=== PATIENT | female | born 1965 | race Caucasian/White ===

== ENCOUNTER 2016-10-10 02:32 | Observation (INO) | payer OTHER ==
[~2016-10-10] VITALS: Ht 167.6 cm; Wt 83.1 kg
[~2016-10-10 02:32] MED LIST: ASPI81TA28 PO; BACL1TAB PO; CALCTAB65 PO; CARB200T PO; CHOL1TAB42 PO; CLON0.5T3 PO; CRAN1TAB PO; DIVA500T59 PO; LEVO50TA6 PO; NORT25CA2 PO; OMEP20CA9 PO; PHEN1TAB85 PO; SENN-61 PO; SENNTAB23 PO; SPIR25TA89 PO; VITA400C3 PO
[2016-10-10 03:37] LABS: BASO % 0.5 %; BASO ABS # 0.03 K/uL (0-0.2); COMPLETE YES; EOS % 4.1 %; HEMATOCRIT 40.3 % (37-47); MEAN CELL VOLUME 93.7 fL (80-100); MEAN CORPUSCULAR HEMOGLOBIN 30.9 pg (25-34); MEAN PLATELET VOLUME 9.5 fL (7.4-10.4); MONO % 6.9 %; NEUT % 45.5 %; PLATELET COUNT 252 K/uL (130-400); WHITE BLOOD COUNT 6.05 K/uL (4.8-10.8)
[2016-10-10 03:46] LABS: ISTAT CREATININE 0.7 mg/dl (0.6-1.3); ISTAT HEMOGLOBIN 13.6 g/dl (12.0-16.0); ISTAT IONIZED CALCIUM 1.11 mmol/l (1.12-1.32)
[2016-10-10 04:06] LABS: ALT/SGPT 17 U/L (12-78); AST/SGOT 11 U/L (15-37); BLOOD UREA NITROGEN 15 mg/dl (7-18); BUN/CREATININE RATIO 21.1 (10-20); CALCIUM 8.8 mg/dl (8.5-10.1); CARBON DIOXIDE 28 mmol/L (21-32); CHLORIDE 106 mmol/L (98-107); CREATININE 0.72 mg/dl (0.60-1.20); GLUCOSE 87 mg/dl (70-99); POTASSIUM 3.7 mmol/L (3.5-5.1); SODIUM 143 mmol/L (136-145)
[2016-10-10 04:11] LABS: ALKALINE PHOSPHATASE 95 U/L (45-117)
[2016-10-10 04:17] LABS: PHENOBARBITAL 23.1 mcg/mL (15.0-40.0)
--- NOTE | 2016-10-10 04:21 | EMERGENCY ROOM VISIT NOTE ---
ED Visit Note First contact with patient: 02:33 Patient seen by me, and agree with the physician assistants workup of the patient, patient is undergoing ultrasound treatment and patient will be admitted for chest pain cardiac rule out. 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, controlled Status: Chronic Surgical Problems: (1) H/O: hysterectomy Status: Resolved Current/Historical Medications Scheduled Aspirin (Aspirin Ec), 81 MG PO DAILY Baclofen (Lioresal), 10 MG PO HS Calcium Carbonate-Vitamin D (Calcium 500 + D), 1 TAB PO DAILY Carbamazepine (Tegretol), 400 MG PO AMHS Cholecalciferol (Vitamin D), 5,000 INTER.UNIT PO DAILY Clonazepam (Klonopin), 0.5 MG PO HS Cranberry (Vaccinium Macrocarp (Cranberry), 1 TAB PO QPM Divalproex Sodium (Depakote), 500 MG PO HS Levothyroxine Sodium (Levothyroxine Sodium), 50 MCG PO QAM Nortriptyline Hcl (Pamelor), 25 MG PO HS Omeprazole (Prilosec), 20 MG PO QAM Phenobarbital (Phenobarbital), 30 MG PO AMPM Senna (Senokot), 17.2 MG PO QAM Sennosides-Docusate Sodium (Stool Softener), 1 TAB PO HS Spironolactone (Aldactone), 25 MG PO AMPM Vitamin E (Vitamin E 400 Iu), 400 INTER.UNIT PO DAILY Allergies Coded Allergies: No Known Allergies (Unverified , 10/10/16) Vital Signs Date Time Temp Pulse Resp B/P (MAP) Pulse Ox O2 Delivery O2 Flow Rate FiO2 10/10/16 03:56 91 20 121/87 96 Room Air 10/10/16 02:38 87 10/10/16 02:37 36.7 92 20 139/92 99 Room Air Laboratory Results 10/10/16 03:28 Red Blood Count 4.30, Mean Corpuscular Volume 93.7, Mean Corpuscular Hemoglobin 30.9, Mean Corpuscular Hemoglobin Concent 33.0, Mean Platelet Volume 9.5, Neutrophils (%) (Auto) 45.5, Lymphocytes (%) (Auto) 43.0, Monocytes (%) (Auto) 6.9, Eosinophils (%) (Auto) 4.1, Basophils (%) (Auto) 0.5, Neutrophils # (Auto) 2.75, Lymphocytes # (Auto) 2.60, Monocytes # (Auto) 0.42, Eosinophils # (Auto) 0.25, Basophils # (Auto) 0.03 10/10/16 03:28 Test 10/10/16 03:25 10/10/16 03:28 10/10/16 03:33 D-Dimer < 190 ug/L FEU (0-500) White Blood Count 6.05 K/uL (4.8-10.8) Red Blood Count 4.30 M/uL (4.2-5.4) Hemoglobin 13.3 g/dL (12.0-16.0) Hematocrit 40.3 % (37-47) Mean Corpuscular Volume 93.7 fL (80-100) Mean Corpuscular Hemoglobin 30.9 pg (25-34) Mean Corpuscular Hemoglobin Concent 33.0 g/dl (32-36) Platelet Count 252 K/uL (130-400) Mean Platelet Volume 9.5 fL (7.4-10.4) Neutrophils (%) (Auto) 45.5 % Lymphocytes (%) (Auto) 43.0 % Monocytes (%) (Auto) 6.9 % Eosinophils (%) (Auto) 4.1 % Basophils (%) (Auto) 0.5 % Neutrophils # (Auto) 2.75 K/uL (1.4-6.5) Lymphocytes # (Auto) 2.60 K/uL (1.2-3.4) Monocytes # (Auto) 0.42 K/uL (0.11-0.59) Eosinophils # (Auto) 0.25 K/uL (0-0.5) Basophils # (Auto) 0.03 K/uL (0-0.2) RDW Standard Deviation 40.4 fL (36.4-46.3) RDW Coefficient of Variation 12.0 % (11.5-14.5) Immature Granulocyte % (Auto) 0.0 % Immature Granulocyte # (Auto) 0.00 K/uL (0.00-0.02) Est Creatinine Clear Calc Drug Dose 95.3 ml/min Estimated GFR () 111.6 Estimated GFR (Non- 96.3 BUN/Creatinine Ratio 21.1 (10-20) Calcium Level 8.8 mg/dl (8.5-10.1) Total Bilirubin 0.2 mg/dl (0.2-1) Direct Bilirubin < 0.1 mg/dl (0-0.2) Aspartate Amino Transf (AST/SGOT) 11 U/L (15-37) Alanine Aminotransferase (ALT/SGPT) 17 U/L (12-78) Alkaline Phosphatase 95 U/L (45-117) Troponin I < 0.015 ng/ml (0-0.045) Total Protein 7.9 gm/dl (6.4-8.2) Albumin 3.5 gm/dl (3.4-5.0) Lipase 85 U/L (73-393) Phenytoin (Dilantin) Level 0.5 mcg/mL (10-20) Carbamazepine (Tegretol) Level 9.3 mcg/ml (4-12) Phenobarbital Level 23.1 mcg/mL (15.0-40.0) Bedside Hemoglobin 13.6 g/dl (12.0-16.0) Bedside Hematocrit 40 % (37-47) Bedside Sodium 141 mEq/L (135-144) Bedside Potassium 3.7 mEq/L (3.3-5.0) Bedside Chloride 103 mEq/L (101-112) Bedside Total CO2 25 mEq/l (24-31) Anion Gap 17.0 mmol/L (16-25) Bedside Blood Urea Nitrogen 16 mg/dl (7-18) Bedside Creatinine 0.7 mg/dl (0.6-1.3) Bedside Glucose (other) 91 mg/dl (70-99) Bedside Ionized Calcium (Sergio) 1.11 mmol/l (1.12-1.32) Departure Information Referrals Hardeep Paul PA-C (PCP) Patient Instructions My [facility]
[2016-10-10] MEDS ORDERED: ALUMINUM/MAGNESIUM/SIMETH (MAALOX MAX) 30 ML UDC PO PRN (04:30)
[2016-10-10] MEDS ORDERED: POLYETHYLENE (MIRALAX) 17 GM PACK PO PRN (04:30)
[2016-10-10] MEDS ORDERED: ACETAMINOPHEN 325 MG TAB PO PRN (04:30)
[2016-10-10] MEDS ORDERED: MoRPHine SULFATE 2 MG/ML CARP IV PRN (04:30)
[2016-10-10] MEDS ORDERED: ONDANSETRON INJ 2 MG/ML 2 ML VIAL IV PRN (04:30)
[2016-10-10] MEDS ORDERED: NITROGLYCERIN 0.4 MG SL PER TAB CHARGE SL PRN (04:30)
[2016-10-10] MEDS ORDERED: MAGNESIUM HYDROXIDE SUSP 30 ML UDC PO PRN (04:30)
--- NOTE | 2016-10-10 04:36 | History and Physical ---
History & Physical Date & Time of Service: Oct 10, 2016 at 04:32 Chief Complaint: Chest Pain Primary Care Physician: Hardeep Paul PA-C History of Present Illness Source: patient 51 y/o F Hx cerebral palsy, seizure disorder. Pt woke up from sleep with central CP which persisted on arrival to the ER. This was accompanied by acute SOB. She denies N/V or diaphoresis. Recently she had R leg swelling, was diagnosed with a superficial thrombus and treated with BID ASA. A lower extremity Doppler was repeated in the ER and was negative for DVT although her leg remains markedly swollen. Her parents have accompanied her to the hospital and state that she has had a few episodes of acute CP in the past but none so severe. She has not had stress testing previously. 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 Smoking Status: Never Smoker Drug Use: none Marital Status: single Occupational Status: disabled Multi-Drug Resistant Organisms History of MDRO: No Allergies Coded Allergies: No Known Allergies (Unverified , 10/10/16) Home Medications Scheduled Aspirin (Aspirin Ec), 81 MG PO DAILY Baclofen (Lioresal), 10 MG PO HS Calcium Carbonate-Vitamin D (Calcium 500 + D), 1 TAB PO DAILY Carbamazepine (Tegretol), 400 MG PO AMHS Cholecalciferol (Vitamin D), 5,000 INTER.UNIT PO DAILY Clonazepam (Klonopin), 0.5 MG PO HS Cranberry (Vaccinium Macrocarp (Cranberry), 1 TAB PO QPM Divalproex Sodium (Depakote), 500 MG PO HS Levothyroxine Sodium (Levothyroxine Sodium), 50 MCG PO QAM Nortriptyline Hcl (Pamelor), 25 MG PO HS Omeprazole (Prilosec), 20 MG PO QAM Phenobarbital (Phenobarbital), 30 MG PO AMPM Senna (Senokot), 17.2 MG PO QAM Sennosides-Docusate Sodium (Stool Softener), 1 TAB PO HS Spironolactone (Aldactone), 25 MG PO AMPM Vitamin E (Vitamin E 400 Iu), 400 INTER.UNIT PO DAILY Review of Systems Constitutional: No fever, No chills, No sweats Eyes: No worsening of vision, No eye pain ENT: No hearing loss, No unusual epistaxis, No nasal symptoms Respiratory: No cough, No sputum, No wheezing Cardiovascular: + chest pain, No orthopnea, No PND, No palpitations Abdomen: No pain, No nausea, No vomiting Musculoskeletal: + muscle pain (chronic), No joint pain Genitourinary - Female: No dysuria Neurologic: + weakness (chronic - does not ambulate), No memory loss Endocrine: No fatigue Hematologic / Lymphatic: No abnormal bleeding/bruising Integumentary: No rash Allergic / Immunologic: No environmental allergies Physical Exam Vital Signs Date Time Temp Pulse Resp B/P (MAP) Pulse Ox O2 Delivery O2 Flow Rate FiO2 10/10/16 03:56 91 20 121/87 96 Room Air 10/10/16 02:38 87 10/10/16 02:37 36.7 92 20 139/92 99 Room Air General Appearance: WD/WN, no apparent distress Head: normocephalic, atraumatic Eyes: normal inspection, EOMI ENT: normal ENT inspection, pharynx normal Neck: supple, no JVD Respiratory/Chest: chest non-tender, lungs clear, normal breath sounds Cardiovascular: regular rate, rhythm, no edema, no gallop, no JVD, no murmur, normal peripheral pulses Abdomen/GI: normal bowel sounds, non tender, soft Extremities/Musculoskelatal: + pertinent finding (R leg is markedly enlarged compared to L although there is mo pitting) Neurologic/Psych: oriented x 3, + pertinent finding (Limited mobility is chronic - no new deficits are apparent) Skin: normal color, warm/dry, no rash Diagnostics Laboratory Results Results Past 24 Hours Test 10/10/16 03:25 10/10/16 03:28 10/10/16 03:33 Range/Units D-Dimer < 190 0-500 ug/L FEU White Blood Count 6.05 4.8-10.8 K/uL Red Blood Count 4.30 4.2-5.4 M/uL Hemoglobin 13.3 12.0-16.0 g/dL Hematocrit 40.3 37-47 % Mean Corpuscular Volume 93.7 80-100 fL Mean Corpuscular Hemoglobin 30.9 25-34 pg Mean Corpuscular Hemoglobin Concent 33.0 32-36 g/dl Platelet Count 252 130-400 K/uL Mean Platelet Volume 9.5 7.4-10.4 fL Neutrophils (%) (Auto) 45.5 % Lymphocytes (%) (Auto) 43.0 % Monocytes (%) (Auto) 6.9 % Eosinophils (%) (Auto) 4.1 % Basophils (%) (Auto) 0.5 % Neutrophils # (Auto) 2.75 1.4-6.5 K/uL Lymphocytes # (Auto) 2.60 1.2-3.4 K/uL Monocytes # (Auto) 0.42 0.11-0.59 K/uL Eosinophils # (Auto) 0.25 0-0.5 K/uL Basophils # (Auto) 0.03 0-0.2 K/uL RDW Standard Deviation 40.4 36.4-46.3 fL RDW Coefficient of Variation 12.0 11.5-14.5 % Immature Granulocyte % (Auto) 0.0 % Immature Granulocyte # (Auto) 0.00 0.00-0.02 K/uL Sodium Level 143 136-145 mmol/L Potassium Level 3.7 3.5-5.1 mmol/L Chloride Level 106 98-107 mmol/L Carbon Dioxide Level 28 21-32 mmol/L Anion Gap 9.0 17.0 16-25 mmol/L Blood Urea Nitrogen 15 7-18 mg/dl Creatinine 0.72 0.60-1.20 mg/dl Est Creatinine Clear Calc Drug Dose 95.3 ml/min Estimated GFR () 111.6 Estimated GFR (Non- 96.3 BUN/Creatinine Ratio 21.1 10-20 Random Glucose 87 70-99 mg/dl Calcium Level 8.8 8.5-10.1 mg/dl Total Bilirubin 0.2 0.2-1 mg/dl Direct Bilirubin < 0.1 0-0.2 mg/dl Aspartate Amino Transf (AST/SGOT) 11 15-37 U/L Alanine Aminotransferase (ALT/SGPT) 17 12-78 U/L Alkaline Phosphatase 95 45-117 U/L Troponin I < 0.015 0-0.045 ng/ml Total Protein 7.9 6.4-8.2 gm/dl Albumin 3.5 3.4-5.0 gm/dl Lipase 85 73-393 U/L Phenytoin (Dilantin) Level 0.5 10-20 mcg/mL Carbamazepine (Tegretol) Level 9.3 4-12 mcg/ml Phenobarbital Level 23.1 15.0-40.0 mcg/mL Bedside Hemoglobin 13.6 12.0-16.0 g/dl Bedside Hematocrit 40 37-47 % Bedside Sodium 141 135-144 mEq/L Bedside Potassium 3.7 3.3-5.0 mEq/L Bedside Chloride 103 101-112 mEq/L Bedside Total CO2 25 24-31 mEq/l Bedside Blood Urea Nitrogen 16 7-18 mg/dl Bedside Creatinine 0.7 0.6-1.3 mg/dl Bedside Glucose (other) 91 70-99 mg/dl Bedside Ionized Calcium (Esrgio) 1.11 1.12-1.32 mmol/l CXR normal Normal EKG Impression Assessment and Plan 51 y/o F Hx cerebral palsy, seizure disorder. Pt woke up from sleep with central CP which persisted on arrival to the ER. This was accompanied by acute SOB. She denies N/V or diaphoresis. Recently she had R leg swelling, was diagnosed with a superficial thrombus and treated with BID ASA. A lower extremity Doppler was repeated in the ER and was negative for DVT although her leg remains markedly swollen. Her parents have accompanied her to the hospital and state that she has had a few episodes of acute CP in the past but none so severe. She has not had stress testing previously. 1) CP - resolved - as she was recently treated for a superficial thrombus, we will send her for a CTA to r/o PE. We will obtain serial enzymes and continue ASA. She may benefit from outpt stress testing as this is apparently not the first time this chest pain has occurred. 2) Cerebral palsy with seizure disorder - has not had a grand mal seizure in several years per her mother. Will continue her Keppra, Phenobarbital, Phenytoin - it is noted that her Phenytoin level is subtherapeutic. Full code - Heparin prophylaxis Total time for this admit including review of labs, meds, EKG - discussion with pt and ER attending 33 min Level of Care Telemetry Resuscitation Status FULL RESUSCITATION VTE Prophylaxis VTE Risk Assessment Done? Y/N: Yes Risk Level: Moderate Given or contraindicated: Unfractionated heparin SQ
--- NOTE | 2016-10-10 04:53 | EMERGENCY ROOM VISIT NOTE ---
History First contact with patient: 02:33 Chief Complaint: CHEST PAIN Stated Complaint: CHEST PAIN Nursing Triage Summary: pt arrives via EMS recently DX with DVT 2.5 wks ago was on coumadin and then changed to ASA. pt reports awoke with midsternal cp at 0100 denies radiation and denies sob at this time , History of Present Illness The patient is a 51 year old female who presents to the Emergency Room with complaints of midsternal chest pain that woke her up out of sleep at 1 AM described as discomfort, 5 out of 10. Nothing makes it better or worse. She had a DVT in her right leg. Her right leg is swollen. Patient has severe CP and barely ambulate. This is not new for her. Patient denies dyspnea, fever, chills, cough, congestion, abdominal pain, diaphoresis. There is a family history of heart disease. Patient does not smoke. No recent travel. Review of Systems See HPI for pertinent positives & negatives. A total of 10 systems reviewed and were otherwise negative. Past Medical/Surgical History Medical Problems: (1) Cerebral palsy (2) Chest pain (3) Grand mal epilepsy, controlled Surgical Problems: (1) H/O: hysterectomy Family History No significant family history Social History Smoking Status: Never Smoker Alcohol Use: none Drug Use: none Marital Status: single Housing Status: lives with family Occupation Status: disabled Current/Historical Medications Scheduled Aspirin (Aspirin Ec), 81 MG PO DAILY Baclofen (Lioresal), 10 MG PO HS Calcium Carbonate-Vitamin D (Calcium 500 + D), 1 TAB PO DAILY Carbamazepine (Tegretol), 400 MG PO AMHS Cholecalciferol (Vitamin D), 5,000 INTER.UNIT PO DAILY Clonazepam (Klonopin), 0.5 MG PO HS Cranberry (Vaccinium Macrocarp (Cranberry), 1 TAB PO QPM Divalproex Sodium (Depakote), 500 MG PO HS Levothyroxine Sodium (Levothyroxine Sodium), 50 MCG PO QAM Nortriptyline Hcl (Pamelor), 25 MG PO HS Omeprazole (Prilosec), 20 MG PO QAM Phenobarbital (Phenobarbital), 30 MG PO AMPM Senna (Senokot), 17.2 MG PO QAM Sennosides-Docusate Sodium (Stool Softener), 1 TAB PO HS Spironolactone (Aldactone), 25 MG PO AMPM Vitamin E (Vitamin E 400 Iu), 400 INTER.UNIT PO DAILY Allergies Coded Allergies: No Known Allergies (Unverified , 10/10/16) Physical Exam Vital Signs Date Time Temp Pulse Resp B/P (MAP) Pulse Ox O2 Delivery O2 Flow Rate FiO2 10/10/16 03:56 91 20 121/87 96 Room Air 10/10/16 02:38 87 10/10/16 02:37 36.7 92 20 139/92 99 Room Air Physical Exam VITALS: Vitals are noted on the nurse's note and reviewed by myself. Vital signs stable. GENERAL:pleasant female, in no acute distress, nondiaphoretic, well-developed well-nourished. SKIN: The skin was without rashes, erythema, edema, or bruising. There is no tenting of the skin. Capillary reflex less than 2 seconds. HEAD: Normocephalic atraumatic. EARS: External auditory canals clear, tympanic membranes pearly man without erythema or effusion bilaterally. EYES: Pupils equal round and reactive to light and accommodation. Conjunctivae without injection, sclerae without icterus. Extraocular movements intact. NOSE: Patent, turbinates without inflammation or discharge. No sinus tenderness. MOUTH: Mucous membranes moist. Tonsils are not enlarged. Pharynx without erythema or exudate. Uvula midline. Airway patent. Tongue does not deviate. NECK: Supple without nuchal rigidity. No lymphadenopathy. No thyromegaly. Cervical spine is nontender. No JVD. HEART: Regular rate and rhythm without murmurs gallops or rubs. LUNGS: Clear to auscultation bilaterally without wheezes, rales or rhonchi. No dullness to percussion. No retractions or accessory muscle use. ABDOMEN: Positive bowel sounds x 4. Normal tympanic percussion. Soft, nontender, without masses or organomegaly. Arias sign negative. No guarding or rebound tenderness. MUSCULOSKELETAL: No muscle atrophy, erythema, or noted. right calf tenderness and slightly edematous. Pedal pulses +2 equal present bilaterally. NEURO: Patient was alert and oriented to person place and time. Normal sensation to light and sharp touch. No focal neurological deficits. Medical Decision & Procedures Laboratory Results 10/10/16 03:28 Red Blood Count 4.30, Mean Corpuscular Volume 93.7, Mean Corpuscular Hemoglobin 30.9, Mean Corpuscular Hemoglobin Concent 33.0, Mean Platelet Volume 9.5, Neutrophils (%) (Auto) 45.5, Lymphocytes (%) (Auto) 43.0, Monocytes (%) (Auto) 6.9, Eosinophils (%) (Auto) 4.1, Basophils (%) (Auto) 0.5, Neutrophils # (Auto) 2.75, Lymphocytes # (Auto) 2.60, Monocytes # (Auto) 0.42, Eosinophils # (Auto) 0.25, Basophils # (Auto) 0.03 10/10/16 03:28 Test 10/10/16 03:25 10/10/16 03:28 10/10/16 03:33 D-Dimer < 190 ug/L FEU (0-500) White Blood Count 6.05 K/uL (4.8-10.8) Red Blood Count 4.30 M/uL (4.2-5.4) Hemoglobin 13.3 g/dL (12.0-16.0) Hematocrit 40.3 % (37-47) Mean Corpuscular Volume 93.7 fL (80-100) Mean Corpuscular Hemoglobin 30.9 pg (25-34) Mean Corpuscular Hemoglobin Concent 33.0 g/dl (32-36) Platelet Count 252 K/uL (130-400) Mean Platelet Volume 9.5 fL (7.4-10.4) Neutrophils (%) (Auto) 45.5 % Lymphocytes (%) (Auto) 43.0 % Monocytes (%) (Auto) 6.9 % Eosinophils (%) (Auto) 4.1 % Basophils (%) (Auto) 0.5 % Neutrophils # (Auto) 2.75 K/uL (1.4-6.5) Lymphocytes # (Auto) 2.60 K/uL (1.2-3.4) Monocytes # (Auto) 0.42 K/uL (0.11-0.59) Eosinophils # (Auto) 0.25 K/uL (0-0.5) Basophils # (Auto) 0.03 K/uL (0-0.2) RDW Standard Deviation 40.4 fL (36.4-46.3) RDW Coefficient of Variation 12.0 % (11.5-14.5) Immature Granulocyte % (Auto) 0.0 % Immature Granulocyte # (Auto) 0.00 K/uL (0.00-0.02) Est Creatinine Clear Calc Drug Dose 95.3 ml/min Estimated GFR () 111.6 Estimated GFR (Non- 96.3 BUN/Creatinine Ratio 21.1 (10-20) Calcium Level 8.8 mg/dl (8.5-10.1) Total Bilirubin 0.2 mg/dl (0.2-1) Direct Bilirubin < 0.1 mg/dl (0-0.2) Aspartate Amino Transf (AST/SGOT) 11 U/L (15-37) Alanine Aminotransferase (ALT/SGPT) 17 U/L (12-78) Alkaline Phosphatase 95 U/L (45-117) Troponin I < 0.015 ng/ml (0-0.045) Total Protein 7.9 gm/dl (6.4-8.2) Albumin 3.5 gm/dl (3.4-5.0) Lipase 85 U/L (73-393) Phenytoin (Dilantin) Level 0.5 mcg/mL (10-20) Carbamazepine (Tegretol) Level 9.3 mcg/ml (4-12) Phenobarbital Level 23.1 mcg/mL (15.0-40.0) Bedside Hemoglobin 13.6 g/dl (12.0-16.0) Bedside Hematocrit 40 % (37-47) Bedside Sodium 141 mEq/L (135-144) Bedside Potassium 3.7 mEq/L (3.3-5.0) Bedside Chloride 103 mEq/L (101-112) Bedside Total CO2 25 mEq/l (24-31) Anion Gap 17.0 mmol/L (16-25) Bedside Blood Urea Nitrogen 16 mg/dl (7-18) Bedside Creatinine 0.7 mg/dl (0.6-1.3) Bedside Glucose (other) 91 mg/dl (70-99) Bedside Ionized Calcium (Sergio) 1.11 mmol/l (1.12-1.32) ED Course Prior records/ancillary studies reviewed. Triage Nursing notes reviewed. Additional history obtained from family. The patient's history was concerning for chest pain. Differential diagnosis: Etiologies such as cardiac ischemia, aortic dissection, pulmonary embolism, pneumonia, pneumothorax, musculoskeletal, infections, pericarditis, myocarditis , esophageal rupture, gastrointestinal, as well as others were entertained. Physical examination: As above. ER treatment provided: Patient was observed On reassessment the patient felt better. Diagnostic interpretation by me: The electrocardiogram was normal sinus, normal intervals, poor baseline, T- wave inversion in V1, rate of 86. Impression normal sinus rhythm interpreted by myself with poor baseline The labs revealed negative d-dimer and troponin Imaging studies: Chest x-ray with no acute consolidation, pneumothorax or free air per my interpretation US VENOUS BILATERAL LOWER EXTREMITIES: No DVT in bilateral lower extremities Prior study 05/15/15 right lower extremity Consultation: A consultation was placed with the hospitalist, Dr Grimes. The case was discussed and diagnostics were reviewed. The patient was evaluated in the ER for further treatment. Exam and history seem consistent with chest pain. Patient is a family history of heart disease. No prior heart testing. She will be evaluated by medicine for possible admission for cardiac rule out.By the evaluation outlined above emergent etiologies such as aortic dissection, pulmonary embolism, pneumonia, pneumothorax, infections, pericarditis, myocarditis, gastrointestinal, as well as others were deemed relatively unlikely. The pt informed about the findings as listed above. All questions were answered and pleased with the treatment. case reviewed with my Attending Medical Decision as above Impression Primary Impression: Substernal precordial chest pain Departure Information Dispostion Being Evaluated By Hospitalist Condition FAIR Referrals Hardeep Paul PA-C (PCP) Patient Instructions My [facility]
[2016-10-10] MEDS ORDERED: IV FLUIDS COMPLETED PRN (05:00)
[2016-10-10] MEDS ORDERED: OPTIRAY 320 IV PRN (05:15)
[2016-10-10 05:45] VITALS: BP 143/93; PULSE 87; TEMP 36.3; O2SAT 97; Ht 167.6 cm; Wt 83.1 kg
[2016-10-10] MEDS ORDERED: D5NSS + 20MEQ KCL 1,000 ML IV SCH (06:00)
[2016-10-10] MEDS ORDERED: LEVOTHYROXINE 50 MCG TAB PO SCH (06:00)
--- NOTE | 2016-10-10 06:52 | DIAGNOSTIC IMAGING REPORT ---
CHEST ONE VIEW PORTABLE CLINICAL HISTORY: CHEST PAIN dyspnea COMPARISON STUDY: None FINDINGS: The bones soft tissues and hemidiaphragms are normal. The cardiomediastinal silhouette is normal. The lungs are clear. The pulmonary vasculature is normal. IMPRESSION: Negative chest. Electronically signed by: Harjit Vickers M.D. 10/10/2016 6:51 AM Dictated Date/Time: 10/10/2016 6:51 AM
--- NOTE | 2016-10-10 07:11 | DIAGNOSTIC IMAGING REPORT ---
BILATERAL LOWER EXTREMITY VENOUS DOPPLER HISTORY: leg swelling, ? DVT COMPARISON STUDY: 05/15/2015. FINDINGS: There is normal compressibility, flow, and augmentation within the bilateral lower extremity deep venous systems. IMPRESSION: No DVT within the right or left lower extremity. Electronically signed by: Mayo Cueto M.D. 10/10/2016 7:10 AM Dictated Date/Time: 10/10/2016 7:09 AM
[2016-10-10] MEDS ORDERED: PNEUMOCOCCAL POLYSACCHARIDES 25 MCG/0.5 ML VIAL/SYR IM. ONE (08:00)
[2016-10-10] MEDS ORDERED: PNEUMOCOCCAL ADMINISTRATION CHARGE ONE (08:00)
[2016-10-10 08:03] VITALS: BP 131/84; PULSE 92; TEMP 36.4; O2SAT 98
[2016-10-10] MEDS ORDERED: ASPIRIN 81 MG ECTAB PO SCH (09:00)
[2016-10-10] MEDS ORDERED: SENNA 8.6 MG TAB PO SCH (09:00)
[2016-10-10] MEDS ORDERED: SPIRONOLACTONE 25 MG TAB PO SCH (09:00)
[2016-10-10] MEDS ORDERED: PANTOprazole SOD 40 MG TAB PO SCH (09:00)
[2016-10-10] MEDS ORDERED: PHENOBARBITAL 32.4 MG TAB PO SCH (09:00)
[2016-10-10] MEDS ORDERED: CARBAMAZEPINE 200 MG TAB PO SCH (09:00)
[2016-10-10 09:05] LABS: INR 1.1 (0.9-1.1)
--- NOTE | 2016-10-10 09:35 | DIAGNOSTIC IMAGING REPORT ---
CHEST CTA for PULMONARY ARTERIES CT DOSE: 355.45 mGy.cm HISTORY: Atypical chest pain. Short of breath. TECHNIQUE: Multiaxial CT images of the chest were performed following the intravenous administration of contrast to evaluate the pulmonary arteries. Maximal intensity projection images were also obtained. COMPARISON STUDY: Chest 10/10/2016. FINDINGS: Normal caliber thoracic aorta with no evidence for dissection. No pleural or pericardial effusions. The heart is normal in size. There is heterogeneous opacification of the segmental and subsegmental pulmonary arteries resulting in suboptimal evaluation. However, there are no definite filling defects within the pulmonary arteries to suggest pulmonary embolus. The visualized liver and spleen are unremarkable. No mediastinal or hilar lymphadenopathy. Partially visualized cervical spine fusion hardware. No pneumothorax. The central airways are patent. Mosaic attenuation within the lungs suggestive of air trapping. No focal lung consolidations to suggest pneumonia. IMPRESSION: 1. No definite evidence for pulmonary embolus. 2. Mosaic attenuation within the lungs suggestive of air trapping. This can be seen in the setting of small airways disease. 3. No focal lung consolidations to suggest pneumonia. Electronically signed by: Mayo Cueto M.D. 10/10/2016 9:33 AM Dictated Date/Time: 10/10/2016 9:26 AM
--- NOTE | 2016-10-10 11:16 | Medical Student: [facility] ---
Med Student Progress Note Date of Service Oct 10, 2016. Subjective This is a 51 y/o female with pmh of Cerebral palsy, seizure disorder who was admitted for chest pain overnight. She has a recent history of superficial thrombus in right leg that was treated with ASA BID for past 2.5 weeks. U/s of leg in ED did not demonstrate any appreciable clot. She describes chest pain as stabbing pain arising from epigastric region up to mid sternal area. The pain awoke her from sleep. She has history of similar chest pain that only occurs at night, but has not ever been this severe. Pain is less severe at time of interview. She denies any pain with or after eating. SHe was able to tolerate breakfast, but per mom, was clearing throat a lot. She denies chest pain on exertion. Of note, she was worked up for similar pain at [facility] 6-7 months ago and did not find anything. Review of Systems Constitutional: No fever, No chills, No sweats Respiratory: + problem reported (SOB in ED, but not currently ), No cough, No sputum, No wheezing Cardiac: + chest pain, No orthopnea, No edema, No palpitations Abdomen: + pain, No nausea, No vomiting, No diarrhea, No constipation Female : No dysuria Skin: No rash Objective Vital Signs Date Time Temp Pulse Resp B/P (MAP) Pulse Ox O2 Delivery O2 Flow Rate FiO2 10/10/16 08:03 36.4 92 17 131/84 (100) 98 Room Air 10/10/16 08:00 Room Air 10/10/16 05:45 36.3 87 20 143/93 97 Room Air 10/10/16 04:53 93 18 127/93 97 Room Air 10/10/16 03:56 91 20 121/87 96 Room Air 10/10/16 02:38 87 10/10/16 02:37 36.7 92 20 139/92 99 Room Air Physical Exam General Appearance: WD/WN, + mild distress Eyes: bilateral eyes normal inspection, bilateral eyes PERRL ENT: hearing grossly normal, pharynx normal Neck: supple, no adenopathy, thyroid normal Respiratory/Chest: lungs clear, normal breath sounds, no respiratory distress, no accessory muscle use, + pertinent finding (tender to touch at lower sternum) Cardiovascular: regular rate, rhythm, no edema, no gallop, no JVD Abdomen: normal bowel sounds, soft, no organomegaly, + tenderness (epigastric region and RUQ tenderness. ) Laboratory Results Last 24 Hours Test 10/10/16 03:25 10/10/16 03:28 10/10/16 03:33 10/10/16 08:25 D-Dimer < 190 ug/L FEU White Blood Count 6.05 K/uL Red Blood Count 4.30 M/uL Hemoglobin 13.3 g/dL Hematocrit 40.3 % Mean Corpuscular Volume 93.7 fL Mean Corpuscular Hemoglobin 30.9 pg Mean Corpuscular Hemoglobin Concent 33.0 g/dl Platelet Count 252 K/uL Mean Platelet Volume 9.5 fL Neutrophils (%) (Auto) 45.5 % Lymphocytes (%) (Auto) 43.0 % Monocytes (%) (Auto) 6.9 % Eosinophils (%) (Auto) 4.1 % Basophils (%) (Auto) 0.5 % Neutrophils # (Auto) 2.75 K/uL Lymphocytes # (Auto) 2.60 K/uL Monocytes # (Auto) 0.42 K/uL Eosinophils # (Auto) 0.25 K/uL Basophils # (Auto) 0.03 K/uL RDW Standard Deviation 40.4 fL RDW Coefficient of Variation 12.0 % Immature Granulocyte % (Auto) 0.0 % Immature Granulocyte # (Auto) 0.00 K/uL Sodium Level 143 mmol/L Potassium Level 3.7 mmol/L Chloride Level 106 mmol/L Carbon Dioxide Level 28 mmol/L Anion Gap 9.0 mmol/L 17.0 mmol/L Blood Urea Nitrogen 15 mg/dl Creatinine 0.72 mg/dl Est Creatinine Clear Calc Drug Dose 95.3 ml/min Estimated GFR () 111.6 Estimated GFR (Non- 96.3 BUN/Creatinine Ratio 21.1 Random Glucose 87 mg/dl Calcium Level 8.8 mg/dl Total Bilirubin 0.2 mg/dl Direct Bilirubin < 0.1 mg/dl Aspartate Amino Transf (AST/SGOT) 11 U/L Alanine Aminotransferase (ALT/SGPT) 17 U/L Alkaline Phosphatase 95 U/L Troponin I < 0.015 ng/ml < 0.015 ng/ml Total Protein 7.9 gm/dl Albumin 3.5 gm/dl Lipase 85 U/L Phenytoin (Dilantin) Level 0.5 mcg/mL Carbamazepine (Tegretol) Level 9.3 mcg/ml Phenobarbital Level 23.1 mcg/mL Bedside Hemoglobin 13.6 g/dl Bedside Hematocrit 40 % Bedside Sodium 141 mEq/L Bedside Potassium 3.7 mEq/L Bedside Chloride 103 mEq/L Bedside Total CO2 25 mEq/l Bedside Blood Urea Nitrogen 16 mg/dl Bedside Creatinine 0.7 mg/dl Bedside Glucose (other) 91 mg/dl Bedside Ionized Calcium (Sergio) 1.11 mmol/l Prothrombin Time 12.0 SECONDS Prothromb Time International Ratio 1.1 Hepatitis C Antibody Screen NEG Medications Medications (Trade) Dose Ordered Sig/Rhiannon Route Start Time Stop Time Status Last Admin Dose Admin Aspirin (Ecotrin Tab) 81 mg DAILY PO 10/10/16 09:00 11/09/16 08:59 10/10/16 09:31 81 MG Carbamazepine (Tegretol Tab) 400 mg AMHS PO 10/10/16 09:00 11/09/16 08:59 10/10/16 09:32 400 MG Levothyroxine Sodium (Synthroid Tab) 50 mcg DAILYBB PO 10/10/16 06:00 11/09/16 06:59 10/10/16 09:32 50 MCG Phenobarbital (Phenobarbital Tab) 32.4 mg BID PO 10/10/16 09:00 11/09/16 08:59 10/10/16 09:35 32.4 MG Senna (Senokot Tab) 17.2 mg QAM PO 10/10/16 09:00 11/09/16 08:59 10/10/16 09:31 17.2 MG Spironolactone (Aldactone Tab) 25 mg BID17 PO 10/10/16 09:00 11/09/16 08:59 10/10/16 09:32 25 MG Pantoprazole Sodium (Protonix Tab) 40 mg QAM PO 10/10/16 09:00 11/09/16 08:59 10/10/16 09:31 40 MG Potassium Chloride/Dextrose/ Sod Cl 1,000 ml @ 150 mls/hr Q6H40M IV 10/10/16 06:00 10/10/16 12:39 10/10/16 09:36 150 MLS/HR Assessment and Plan Assessment and Plan: This is a 51 y/o female with Cerebral palsy and seizure disorder who presents with chest pain that is suggestive of GI etiology. As patient is stable with negative trops, a further workup may be performed in outpatient setting. Chest Pain -PE v [place] v GERD v hiatal hernia v costochondritis? -CTA demonstrates no definitive PE, but mosaic attenuation suggestive of air trapping is present -Monitor trop: last 2 have been <.015. -Consider GI workup with outpatient endoscopy and colonoscopy. Seizure disorder -Continue home meds -Keppra -Phenobarbitol -Phenytoin (consider increasing dose as currently subtherapeutic) -Baclofen -Depakote -Clonazepam -Nortryptiline DVT Prophylaxis -Heparin Code Status FULL CODE Discharge planning: home
[2016-10-10 11:56] VITALS: BP 103/69; PULSE 86; TEMP 36.9; O2SAT 98
[2016-10-10] MEDS ORDERED: SUCR1TAB29 PO (13:13)
--- NOTE | 2016-10-10 13:14 | Discharge Instructions ---
Discharge Instructions Date of Service Oct 10, 2016. Admission Reason for Admission: Chest Pain Discharge Discharge Diagnosis / Problem: atypical chest pain Discharge Goals Goal(s): Diagnostic testing, Therapeutic intervention Activity Recommendations Activity Limitations: resume your previous activity . Current Hospital Diet Patient's current hospital diet: AHA Diet (Heart Healthy) Discharge Diet Recommended Diet: Regular Diet Pending Studies Studies pending at discharge: no Medical Emergencies . Who to Call and When: Medical Emergencies: If at any time you feel your situation is an emergency, please call 911 immediately. . Non-Emergent Contact Non-Emergency issues call your: Primary Care Provider, Bobcat Operator Call Non-Emergent contact if: temperature is above 101, your pain is unusual for you . . "Provider Documentation" section prepared by Oskar Rollins. . VTE Core Measure Inpt VTE Proph given/why not?: Unfractionated heparin SQ
[2016-10-10] MEDS ORDERED: SUCRALFATE 1 GM TAB PO ONE (13:15)
[2016-10-10] MEDS ORDERED: HEPARIN SOD 5000 UNIT/0.5 ML CARP SQ SCH (14:00)
[2016-10-10 14:42] VITALS: BP 103/69; PULSE 86; TEMP 36.9; O2SAT 98
--- NOTE | 2016-10-10 17:33 | Progress Note ---
Subjective Date of Service: Oct 10, 2016. Problem List Medical Problems: (1) Rib pain on right side Status: Acute (2) Right leg pain Status: Acute (3) Substernal precordial chest pain Status: Acute Objective Vital Signs Date Time Temp Pulse Resp B/P (MAP) Pulse Ox O2 Delivery O2 Flow Rate FiO2 10/10/16 08:03 36.4 92 17 131/84 (100) 98 Room Air 10/10/16 05:45 36.3 87 20 143/93 97 Room Air 10/10/16 04:53 93 18 127/93 97 Room Air 10/10/16 03:56 91 20 121/87 96 Room Air 10/10/16 02:38 87 10/10/16 02:37 36.7 92 20 139/92 99 Room Air Laboratory Results Last 24 Hours Test 10/10/16 03:25 10/10/16 03:28 10/10/16 03:33 10/10/16 05:47 D-Dimer < 190 ug/L FEU White Blood Count 6.05 K/uL Red Blood Count 4.30 M/uL Hemoglobin 13.3 g/dL Hematocrit 40.3 % Mean Corpuscular Volume 93.7 fL Mean Corpuscular Hemoglobin 30.9 pg Mean Corpuscular Hemoglobin Concent 33.0 g/dl Platelet Count 252 K/uL Mean Platelet Volume 9.5 fL Neutrophils (%) (Auto) 45.5 % Lymphocytes (%) (Auto) 43.0 % Monocytes (%) (Auto) 6.9 % Eosinophils (%) (Auto) 4.1 % Basophils (%) (Auto) 0.5 % Neutrophils # (Auto) 2.75 K/uL Lymphocytes # (Auto) 2.60 K/uL Monocytes # (Auto) 0.42 K/uL Eosinophils # (Auto) 0.25 K/uL Basophils # (Auto) 0.03 K/uL RDW Standard Deviation 40.4 fL RDW Coefficient of Variation 12.0 % Immature Granulocyte % (Auto) 0.0 % Immature Granulocyte # (Auto) 0.00 K/uL Sodium Level 143 mmol/L Potassium Level 3.7 mmol/L Chloride Level 106 mmol/L Carbon Dioxide Level 28 mmol/L Anion Gap 9.0 mmol/L 17.0 mmol/L Blood Urea Nitrogen 15 mg/dl Creatinine 0.72 mg/dl Est Creatinine Clear Calc Drug Dose 95.3 ml/min Estimated GFR () 111.6 Estimated GFR (Non- 96.3 BUN/Creatinine Ratio 21.1 Random Glucose 87 mg/dl Calcium Level 8.8 mg/dl Total Bilirubin 0.2 mg/dl Direct Bilirubin < 0.1 mg/dl Aspartate Amino Transf (AST/SGOT) 11 U/L Alanine Aminotransferase (ALT/SGPT) 17 U/L Alkaline Phosphatase 95 U/L Troponin I < 0.015 ng/ml Total Protein 7.9 gm/dl Albumin 3.5 gm/dl Lipase 85 U/L Phenytoin (Dilantin) Level 0.5 mcg/mL Carbamazepine (Tegretol) Level 9.3 mcg/ml Phenobarbital Level 23.1 mcg/mL Bedside Hemoglobin 13.6 g/dl Bedside Hematocrit 40 % Bedside Sodium 141 mEq/L Bedside Potassium 3.7 mEq/L Bedside Chloride 103 mEq/L Bedside Total CO2 25 mEq/l Bedside Blood Urea Nitrogen 16 mg/dl Bedside Creatinine 0.7 mg/dl Bedside Glucose (other) 91 mg/dl Bedside Ionized Calcium (Sergio) 1.11 mmol/l Test 10/10/16 06:34 10/10/16 08:00 Assessment and Plan 51 y/o F Hx cerebral palsy, seizure disorder. Pt woke up from sleep with central CP previous superficial thrombus in leg treated with BID ASA. A lower extremity Doppler was repeated in the ER and was negative for DVT CP - resolved - as she was recently treated for a superficial thrombus, we will send her for a CTA to r/o PE. We will obtain serial enzymes and continue ASA. Cerebral palsy with seizure disorder - has been without clinical seizure for some time Keppra, Phenobarbital, Phenytoin her Phenytoin level is subtherapeutic. Full code - Heparin prophylaxis
--- NOTE | 2016-10-10 17:38 | Discharge Summary ---
Discharge Summary Date of Service Oct 10, 2016. Discharge Summary Admission Date: Oct 10, 2016 at 04:31 Discharge Date: Oct 10, 2016 Discharge Disposition: Home Principal Diagnosis: atypical chest pain Procedures: serial enzymes are negative Medication Reconciliation New Medications: Sucralfate (Carafate) 1 Gm Tab 1 GM PO QID, #56 TAB Continued Medications: Aspirin (Aspirin Ec) 81 Mg Tab 81 MG PO DAILY TAKE THIS MEDICATION IN THE AFTERNOON. Baclofen (Lioresal) 10 Mg Tab 10 MG PO HS, TAB Calcium Carbonate-Vitamin D (Calcium 500 + D) 1 Tab Tab 1 TAB PO DAILY Carbamazepine (Tegretol) 200 Mg Tab 400 MG PO AMHS Cholecalciferol (Vitamin D) 5,000 Unit Tab 5000 INTER.UNIT PO DAILY Clonazepam (Klonopin) 0.5 Mg Tab 0.5 MG PO HS, TAB Cranberry (Vaccinium Macrocarp (Cranberry) Unknown Strength Tab 1 TAB PO QPM Divalproex Sodium (Depakote) 500 Mg Tab 500 MG PO HS, TAB Levothyroxine Sodium (Levothyroxine Sodium) 50 Mcg Tab 50 MCG PO QAM Nortriptyline Hcl (Pamelor) 25 Mg Cap 25 MG PO HS Omeprazole (Prilosec) 20 Mg Cap 20 MG PO QAM, CAP Phenobarbital (Phenobarbital) 30 Mg Tab 30 MG PO AMPM Senna (Senokot) 8.6 Mg Tab 17.2 MG PO QAM, TAB Sennosides-Docusate Sodium (Stool Softener) 1 Tab Tab 1 TAB PO HS Spironolactone (Aldactone) 25 Mg Tab 25 MG PO AMPM Vitamin E (Vitamin E 400 Iu) 400 Unit Cap 400 INTER.UNIT PO DAILY, CAP Discharge Exam Review of Systems: Constitutional: No fever, No chills, No weakness Respiratory: No cough, No sputum, No shortness of breath Cardiovascular: No chest pain, No orthopnea, No edema Abdomen: No pain, No nausea, No diarrhea Physical Exam: General Appearance: WD/WN, no apparent distress Neck: supple, no JVD Respiratory/Chest: chest non-tender, lungs clear, normal breath sounds Cardiovascular: regular rate, rhythm, no murmur Hospital Course 51 y/o F Hx cerebral palsy, seizure disorder. Pt woke up from sleep with central CP previous superficial thrombus in leg treated with BID ASA. A lower extremity Doppler was repeated in the ER and was negative for DVT , CTA negative CP - resolved - as she was recently treated for a superficial thrombus, negative serial enzymes and further history was obtained that this only occurs at night at at times awakens from sleep but never during the day or with exertion such as assisting with transfers etc, no family history of significant cardiac ischemia, no smoking or significant dyslipidemia and ECG is non specific , will start Carafate and refer to GI especially with chronic ppi use maybe Gutiérrez, additionally no screening colonoscopy and family does have polyp history Cerebral palsy with seizure disorder - has been without clinical seizure for some time Keppra, Phenobarbital, Phenytoin her Phenytoin level is subtherapeutic. Home with family referal made to Dr Salomon the GI doctor of her choice Total Time Spent: Greater than 30 minutes This includes examination of the patient, discharge planning, medication reconciliation, and communication with other providers. Discharge Instructions Please refer to the electronic Patient Visit Report (Discharge Instructions) for additional information.
[2016-10-10] MEDS ORDERED: DOCUSATE SODIUM/SENNA 50/8.6MG TAB PO SCH (21:00)
[2016-10-10] MEDS ORDERED: CLONAZEPAM 0.5 MG TAB PO SCH (21:00)
[2016-10-10] MEDS ORDERED: BACLOFEN 10 MG TAB PO SCH (21:00)
[2016-10-10] MEDS ORDERED: DIVALPROEX SODIUM 500 MG DELAY RELEASE TAB PO SCH (21:00)
[2016-10-10] MEDS ORDERED: NORTRIPTYLINE HCL 25 MG CAP PO SCH (21:00)
[2016-12-12] MEDS ORDERED: OXYC-57 PO (05:38)
== END 2016-10-10 15:35 | disposition home or self-care (01) ==
LOC: EDBD 02:32 → C.EDB 02:33 → C.2T 04:31 → ENRESERV 04:40
PROVIDERS: ADMIT Internal Medicine; ATTEND Internal Medicine
DX: R07.89 Other chest pain (principal); Z79.82 Long term (current) use of aspirin; G80.9 Cerebral palsy, unspecified; G40.909 Epilepsy, unspecified, not intractable, without status epilepticus; Z86.718 Personal history of other venous thrombosis and embolism; Z90.710 Acquired absence of both cervix and uterus; Z79.899 Other long term (current) drug therapy

== ENCOUNTER 2016-12-11 01:59 | Inpatient (IN) | payer OTHER ==
[2016-12-11] VITALS (11 sets, daily range): BP systolic 88–136; BP diastolic 62–82; PULSE 85–94; TEMP 36.3–36.7; O2SAT 90–99; Ht 162.6 cm; Wt 84.6 kg
[~2016-12-11] VITALS: Ht 162.6 cm; Wt 84.6 kg
[2016-12-11] MEDS ORDERED: FAMOTIDINE 20 MG TAB PO STA (02:12)
[2016-12-11] MEDS ORDERED: GI COCKTAIL PO STA (02:12)
[2016-12-11] MEDS ORDERED: SUCRALFATE 1 GM TAB PO STA (02:12)
[2016-12-11] MEDS ORDERED: ALUMINUM/MAGNESIUM SUSP 30 ML UDC ONE (02:30)
[2016-12-11] MEDS ORDERED: LIDOCAINE HCL 2% VISC SOLN 20 ML UDC ONE (02:30)
--- NOTE | 2016-12-11 02:35 | EMERGENCY ROOM VISIT NOTE ---
History Report prepared by Shaheen: Vinod Street Under the Supervision of: Dr. Shaan Palacios M.D. First contact with patient: 02:05 Chief Complaint: ABDOMINAL PAIN Stated Complaint: UPPER GASTRIC/CHEST PAIN History of Present Illness The patient is a 51 year old female who presents to the Emergency Room with complaints of constant chest pain starting prior to arrival while she was lying in bed trying to go to sleep. Per the mother, the patient was here a month ago for the same sort of chest pain. The patient was directed to get a colonoscopy, though she did not have it done yet since she has gall stones. She has not seen a surgeon yet, though she is scheduled. Per the mother, the patient additionally has been having diarrhea for the past three days. Source of History: patient Onset: prior to arrival Position: chest Timing: constant Associated Symptoms: + diarrhea Review of Systems See HPI for pertinent positives & negatives. A total of 10 systems reviewed and were otherwise negative. 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, controlled Surgical Problems: (1) H/O: hysterectomy Family History No significant family history Social History Smoking Status: Never Smoker Alcohol Use: none Drug Use: none Marital Status: single Housing Status: lives with family Occupation Status: disabled Current/Historical Medications Scheduled Aspirin (Aspirin Ec), 81 MG PO DAILY Baclofen (Lioresal), 10 MG PO HS Calcium Carbonate-Vitamin D (Calcium 500 + D), 1 TAB PO DAILY Carbamazepine (Tegretol), 400 MG PO AMHS Cholecalciferol (Vitamin D), 5,000 INTER.UNIT PO DAILY Clonazepam (Klonopin), 0.5 MG PO HS Cranberry (Vaccinium Macrocarp (Cranberry), 1 TAB PO QPM Divalproex Sodium (Depakote), 500 MG PO HS Levothyroxine Sodium (Levothyroxine Sodium), 50 MCG PO QAM Nortriptyline Hcl (Pamelor), 25 MG PO HS Omeprazole (Prilosec), 20 MG PO QAM Phenobarbital (Phenobarbital), 30 MG PO AMPM Senna (Senokot), 17.2 MG PO QAM Sennosides-Docusate Sodium (Stool Softener), 1 TAB PO HS Spironolactone (Aldactone), 25 MG PO AMPM Vitamin E (Vitamin E 400 Iu), 400 INTER.UNIT PO DAILY Allergies Coded Allergies: Lincomycin (Verified Allergy, Intermediate, HIVES, 12/11/16) Had 40 years ago. Physical Exam Vital Signs Date Time Temp Pulse Resp B/P (MAP) Pulse Ox O2 Delivery O2 Flow Rate FiO2 12/11/16 06:03 87 12/11/16 05:42 91 97 Nasal Cannula 2.0 12/11/16 05:31 109/88 12/11/16 05:12 93 98 Nasal Cannula 2.0 12/11/16 05:05 95 Nasal Cannula 2.0 12/11/16 05:04 85 Room Air 12/11/16 05:04 94 Nasal Cannula 2.0 12/11/16 05:01 113/94 12/11/16 04:42 89 96 12/11/16 04:37 149/102 12/11/16 04:29 96 20 12/11/16 04:08 146/86 12/11/16 03:59 87 18 94 12/11/16 03:53 128/74 12/11/16 03:04 152/91 12/11/16 02:59 84 18 12/11/16 02:31 137/86 12/11/16 02:29 82 17 97 12/11/16 02:09 86 12/11/16 02:08 98 Room Air 12/11/16 02:05 150/88 12/11/16 01:59 36.5 85 22 150/88 98 Room Air Physical Exam GENERAL: Patient is a healthy-appearing well-nourished female HEAD: Normocephalic atraumatic EYES: Ocular movements intact pupils equal and react to light OROPHARYNX mucous membranes are moist no exudates present no erythema or edema present NECK: Supple no nuchal rigidity CHEST: Good equal expansion LUNGS: Clear and equal to auscultation CARDIAC: Normal S1 and S2 ABDOMEN: Soft nontender no guarding BACK: No CVA tenderness EXTREMITIES: No pain upon palpation normal muscle strength in all groups no clubbing cyanosis or edema NEURO: Patient is following commands and answering questions appropriately. Alert and oriented x3 Cranial Nerves 2-12 grossly intact Medical Decision & Procedures ER Provider Diagnostic Interpretation: X-ray results as stated below per interpretation by me: Chest One View: Chronic changes. No evidence of pneumonia, congestion, or pneumothorax. Radiology results as stated below per my review and radiologist interpretation: US GALLBLADDER: cholelithiasis and gallbladder wall thickening measuring 5mm. There is trace pericholecystic fluid. Sonographic Arias sign is positive. Findings are concerning for acute cholecystitis and clinical and laboratory correlation is recommended. No biliary dilation. Common bile duct measures 5mm. Mildly echogenic liver suggesting steatosis. Unremarkable appearance of the right kidney. Laboratory Results 12/11/16 03:01 Red Blood Count 3.23, Mean Corpuscular Volume 95.4, Mean Corpuscular Hemoglobin 31.3, Mean Corpuscular Hemoglobin Concent 32.8, Mean Platelet Volume 9.9, Neutrophils (%) (Auto) 46.7, Lymphocytes (%) (Auto) 39.9, Monocytes (%) (Auto) 7.6, Eosinophils (%) (Auto) 5.1, Basophils (%) (Auto) 0.5, Neutrophils # (Auto) 2.76, Lymphocytes # (Auto) 2.36, Monocytes # (Auto) 0.45, Eosinophils # (Auto) 0.30, Basophils # (Auto) 0.03 12/11/16 03:01 12/11/16 03:58 Test 12/11/16 03:01 12/11/16 03:58 White Blood Count 5.91 K/uL (4.8-10.8) Red Blood Count 3.23 M/uL (4.2-5.4) Hemoglobin 10.1 g/dL (12.0-16.0) Hematocrit 30.8 % (37-47) Mean Corpuscular Volume 95.4 fL (80-100) Mean Corpuscular Hemoglobin 31.3 pg (25-34) Mean Corpuscular Hemoglobin Concent 32.8 g/dl (32-36) Platelet Count 165 K/uL (130-400) Mean Platelet Volume 9.9 fL (7.4-10.4) Neutrophils (%) (Auto) 46.7 % Lymphocytes (%) (Auto) 39.9 % Monocytes (%) (Auto) 7.6 % Eosinophils (%) (Auto) 5.1 % Basophils (%) (Auto) 0.5 % Neutrophils # (Auto) 2.76 K/uL (1.4-6.5) Lymphocytes # (Auto) 2.36 K/uL (1.2-3.4) Monocytes # (Auto) 0.45 K/uL (0.11-0.59) Eosinophils # (Auto) 0.30 K/uL (0-0.5) Basophils # (Auto) 0.03 K/uL (0-0.2) RDW Standard Deviation 42.7 fL (36.4-46.3) RDW Coefficient of Variation 12.3 % (11.5-14.5) Immature Granulocyte % (Auto) 0.2 % Immature Granulocyte # (Auto) 0.01 K/uL (0.00-0.02) Anion Gap 5.0 mmol/L (3-11) Est Creatinine Clear Calc Drug Dose 173.2 ml/min Estimated GFR () 138.8 Estimated GFR (Non- 119.8 BUN/Creatinine Ratio 25.8 (10-20) Calcium Level 6.4 mg/dl (8.5-10.1) Total Bilirubin 0.2 mg/dl (0.2-1) Alanine Aminotransferase (ALT/SGPT) 15 U/L (12-78) Alkaline Phosphatase 85 U/L (45-117) Creatine Kinase MB 0.7 ng/ml (0.5-3.6) Creatine Kinase MB Ratio (0-3.0) Troponin I < 0.015 ng/ml (0-0.045) Total Protein 5.9 gm/dl (6.4-8.2) Albumin 2.5 gm/dl (3.4-5.0) Lipase 81 U/L (73-393) Direct Bilirubin < 0.1 mg/dl (0-0.2) Aspartate Amino Transf (AST/SGOT) 12 U/L (15-37) Total Creatine Kinase 49 U/L (26-192) Labs reviewed by ED physician. Medications Administered Medications (Trade) Dose Ordered Sig/Rhiannon Route Start Time Stop Time Status Last Admin Dose Admin Famotidine (Pepcid Tab) 20 mg NOW STAT PO 12/11/16 02:12 12/11/16 02:13 DC 12/11/16 02:32 20 MG Sucralfate (Carafate Tab) 1 gm NOW STAT PO 12/11/16 02:12 12/11/16 02:13 DC 12/11/16 02:31 1 GM Al Hydroxide/Mg Hydroxide (Maalox Susp) 30 ml STK-MED ONCE .ROUTE 12/11/16 02:30 12/11/16 02:31 DC 12/11/16 02:32 30 ML Lidocaine HCl (Viscous Lidocaine 2% Soln) 20 ml STK-MED ONCE .ROUTE 12/11/16 02:30 12/11/16 02:31 DC 12/11/16 02:32 20 ML Hydromorphone HCl (Dilaudid Inj) 1 mg NOW STAT IV 12/11/16 04:24 12/11/16 04:25 DC 12/11/16 04:58 1 MG Ondansetron HCl (Zofran Inj) 4 mg NOW STAT IV 12/11/16 04:24 12/11/16 04:25 DC 12/11/16 04:57 4 MG Cefoxitin Sodium 2000 mg/Dextrose 60 ml @ 120 mls/hr NOW STAT IV 12/11/16 05:19 12/11/16 05:48 DC 12/11/16 05:55 120 MLS/HR ECG Indication: chest pain Rate (beats per minute): 83 Rhythm: normal sinus Findings: no acute ischemic change, no ectopy ED Course 0205: Past medical records reviewed. The patient was evaluated in room B9. A complete history and physical examination was performed. 0212: Carafate Tab 1gm PO, Pepcid Tab 20mg PO 0230: Viscous Lidocaine 2% soln 20ml PO, Maalox Susp 30ml PO 0409: Mefoxin 2000mg IV 0412: I discussed the patient's case with Dr. Carr, surgery, and he is going to evaluate the patient for further treatment. 0414: I reevaluated the patient, and she was resting. 0424: Zofran Inj 4mg IV, Dilaudid Inj 1mg IV Medical Decision Differential diagnosis: Etiologies such as cardiac ischemia, aortic dissection, pulmonary embolism, pneumonia, pneumothorax, musculoskeletal, infections, pericarditis, myocarditis , esophageal rupture, gastrointestinal, as well as others were entertained. This is a 51-year-old female who presents emergency department. The patient was diagnosed gallstone several weeks ago and was to follow-up with surgery however has not been surgeon yet. She is tender in the right upper quadrant area therefore she was sent for an ultrasound of the abdomen. This was concerning for acute cholecystitis. An IV was established, patient given normal saline bolus, absent Carafate GI cocktail. Patient had no improvement in her symptoms therefore was given Dilaudid as well as Zofran. She was also started on meloxicam. I discussed the case with the surgeon on-call who agreed to admit the patient. Patient was in agreement with the treatment plan. Consults Time Called: [phone] Consulting Physician: Dr. Carr, surgery Returned Call: [phone] I discussed the patient's case with Dr. Carr, surgery, and he is going to evaluate the patient for further treatment. Impression Primary Impression: Acute cholecystitis Scribe Attestation The scribe's documentation has been prepared under my direction and personally reviewed by me in its entirety. I confirm that the note above accurately reflects all work, treatment, procedures, and medical decision making performed by me. Departure Information Dispostion Home / Self-Care Referrals Hardeep Paul PA-C (PCP) Patient Instructions My [facility]
[2016-12-11 03:11] LABS: BASO % 0.5 %; BASO ABS # 0.03 K/uL (0-0.2); COMPLETE YES; EOS % 5.1 %; HEMATOCRIT 30.8 % (37-47); IG% 0.2 %; LYMPH % 39.9 %; LYMPH ABS # 2.36 K/uL (1.2-3.4); MEAN CELL VOLUME 95.4 fL (80-100); MEAN CORPUSCULAR HEMOGLOBIN 31.3 pg (25-34); MEAN CORPUSCULAR HGB CONC 32.8 g/dl (32-36); MEAN PLATELET VOLUME 9.9 fL (7.4-10.4); MONO % 7.6 %; NEUT % 46.7 %; PLATELET COUNT 165 K/uL (130-400); RED BLOOD COUNT 3.23 M/uL (4.2-5.4); WHITE BLOOD COUNT 5.91 K/uL (4.8-10.8)
[2016-12-11 03:32] LABS: ALKALINE PHOSPHATASE 85 U/L (45-117); ALT/SGPT 15 U/L (12-78); BLOOD UREA NITROGEN 10 mg/dl (7-18); BUN/CREATININE RATIO 25.8 (10-20); CALCIUM 6.4 mg/dl (8.5-10.1); CARBON DIOXIDE 24 mmol/L (21-32); CHLORIDE 118 mmol/L (98-107); GLUCOSE 71 mg/dl (70-99); SODIUM 147 mmol/L (136-145)
[2016-12-11] MEDS ORDERED: CEFOXITIN SOD 2 GM VIAL IV STA (04:09)
[2016-12-11 04:23] LABS: POTASSIUM 3.5 mmol/L (3.5-5.1)
[2016-12-11] MEDS ORDERED: ONDANSETRON INJ 2 MG/ML 2 ML VIAL IV STA (04:24)
[2016-12-11] MEDS ORDERED: HYDROmorphone INJ 1 MG/ML SYR IV STA (04:24)
[2016-12-11 04:32] LABS: AST/SGOT 12 U/L (15-37)
[2016-12-11] MEDS ORDERED: CEFOXITIN IV 2,000 MG in DEXTROSE 5% 50ML 50 ML IV STA (05:19)
--- NOTE | 2016-12-11 06:49 | History and Physical ---
History & Physical Date Dec 11, 2016. Chief Complaint RUQ pain History of Present Illness The patient is a 51 year old female with acute cholecystitis. She came to the Emergency Room with complaints of RUQ/chest pain starting prior to arrival last evening. She was here a month ago for the same pain. She was found to have gallstones in an outpatient workup of the pain. She has had nausea but no vomiting. 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 Home Medications Scheduled Aspirin (Aspirin Ec), 81 MG PO DAILY Baclofen (Lioresal), 10 MG PO HS Calcium Carbonate-Vitamin D (Calcium 500 + D), 1 TAB PO DAILY Carbamazepine (Tegretol), 400 MG PO AMHS Cholecalciferol (Vitamin D), 5,000 INTER.UNIT PO DAILY Clonazepam (Klonopin), 0.5 MG PO HS Cranberry (Vaccinium Macrocarp (Cranberry), 1 TAB PO QPM Divalproex Sodium (Depakote), 500 MG PO HS Levothyroxine Sodium (Levothyroxine Sodium), 50 MCG PO QAM Nortriptyline Hcl (Pamelor), 25 MG PO HS Omeprazole (Prilosec), 20 MG PO QAM Phenobarbital (Phenobarbital), 30 MG PO AMPM Senna (Senokot), 17.2 MG PO QAM Sennosides-Docusate Sodium (Stool Softener), 1 TAB PO HS Spironolactone (Aldactone), 25 MG PO AMPM Vitamin E (Vitamin E 400 Iu), 400 INTER.UNIT PO DAILY Physical Examination Skin: warm/dry, no rash Eyes: normal inspection, EOMI, sclerae normal ENT: normal ENT inspection, pharynx normal Head: normocephalic, atraumatic Neck: supple, trachea midline Respiratory/Chest: lungs clear, normal breath sounds, no respiratory distress Cardiovascular: regular rate, rhythm, no edema, no murmur Abdomen / GI: normal bowel sounds, + pertinent finding (RUQ tenderness, no hernias, good BS, non-distended) Back: normal inspection Extremities: normal inspection, normal range of motion Neurologic/Psych: no motor/sensory deficits, alert, normal reflexes, oriented x 3 Addiitonal Comments: US with gallstones, no dilated CBD, signs of cholecystitis with thick wall Diagnosis Acute cholecystitis ASA Classification: ASA Class II Plan of Treatment -IVF -IV abx -to OR for lap june this AM
[2016-12-11] MEDS ORDERED: MAGNESIUM HYDROXIDE SUSP 30 ML UDC PO PRN (07:00)
[2016-12-11] MEDS ORDERED: ACETAMINOPHEN 325 MG TAB PO PRN (07:00)
[2016-12-11] MEDS ORDERED: ZOLPIDEM TARTRATE 5 MG TAB PO PRN (07:00)
[2016-12-11] MEDS ORDERED: ONDANSETRON INJ 2 MG/ML 2 ML VIAL IV PRN ×2 (07:00→09:00)
[2016-12-11] MEDS ORDERED: OXYCODONE/ACETAMINOPHEN 5-325 TAB PO PRN (07:00)
[2016-12-11] MEDS ORDERED: MoRPHine SULFATE 2 MG/ML CARP IV PRN (07:00)
[2016-12-11] MEDS ORDERED: ALUMINUM/MAGNESIUM/SIMETH (MAALOX MAX) 30 ML UDC PO PRN (07:00)
[2016-12-11] MEDS ORDERED: CEFAZOLIN IV 2,000 MG in DEXTROSE 5% 50ML 50 ML IV SCH (08:00)
--- NOTE | 2016-12-11 08:03 | DIAGNOSTIC IMAGING REPORT ---
CHEST ONE VIEW PORTABLE HISTORY: Atypical CHEST PAIN COMPARISON: Chest 10/10/2016. FINDINGS: Linear density left lung base favor subsegmental atelectasis are scarring. The lungs are otherwise clear. No pleural effusions. No pneumothorax. The heart is normal in size. Cervical spinal fusion hardware. The patient is slightly rotated on this study. IMPRESSION: No acute process. Electronically signed by: Mayo Cueto M.D. 12/11/2016 8:02 AM Dictated Date/Time: 12/11/2016 8:01 AM
[2016-12-11] MEDS ORDERED: LIDOCAINE HCL 2% 2 ML VIAL (20MG/ML) ONE (08:19)
[2016-12-11] MEDS ORDERED: MIDAZOLAM HCL 1 MG/ML 2ML VIAL ONE (08:19)
[2016-12-11] MEDS ORDERED: PROPOFOL IV EMULSION 10 MG/ML 20 ML VIAL IV ONE (08:19)
[2016-12-11] MEDS ORDERED: ROCURONIUM BROMIDE 10 MG/ML 5 ML VIAL ONE (08:19)
[2016-12-11] MEDS ORDERED: FENTANYL CITRATE INJ 50 MCG/1 ML 2 ML VIAL ONE (08:20)
--- NOTE | 2016-12-11 08:28 | DIAGNOSTIC IMAGING REPORT ---
ABDOMINAL ULTRASOUND, RIGHT UPPER QUADRANT HISTORY: Pt c/o RUQ abd pain . COMPARISON: None. FINDINGS: Pancreas: The pancreatic tail is obscured by overlying bowel gas. The remaining portions of the pancreas are within normal limits. Liver: Unremarkable. Gallbladder: The gallbladder is filled with gallstones resulting in near diffuse shadowing. There is trace pericholecystic fluid. Gallbladder wall thickening at 5 mm. The technologist reported a positive sonographic Arias's sign. CBD: 5 mm. Right kidney: No hydronephrosis. IMPRESSION: Cholelithiasis with gallbladder wall thickening and trace pericholecystic fluid. The technologist reported a positive sonographic Arias's sign. Therefore, these findings are concerning for acute cholecystitis. Clinical correlation recommended. Electronically signed by: Mayo Cueto M.D. 12/11/2016 8:26 AM Dictated Date/Time: 12/11/2016 8:24 AM
[2016-12-11] MEDS ORDERED: CEFAZOLIN IV 2,000 MG/60 ML D5W IV ONE (08:38)
[2016-12-11] MEDS ORDERED: EpHEDrine SULFATE INJ 50 MG/ML AMP IV PRN (09:00)
[2016-12-11] MEDS ORDERED: FENTANYL CITRATE INJ 50 MCG/1 ML 2 ML VIAL IV PRN (09:00)
[2016-12-11] MEDS ORDERED: ATROPINE SULFATE 0.1 MG/ML 5ML SYR IV PRN (09:00)
[2016-12-11] MEDS ORDERED: BUPIVACAINE/EPINEPHRINE 0.5% MPF 1:200,000 10 ML VIAL ONE (09:33)
[2016-12-11] MEDS ORDERED: ONDANSETRON INJ 2 MG/ML 2 ML VIAL ONE (09:59)
[2016-12-11] MEDS ORDERED: DEXAMETHASONE SOD INJ 4 MG/ML VIAL ONE (09:59)
[2016-12-11] MEDS ORDERED: GLYCOPYRROLATE INJ 0.2 MG/ML VIAL ONE (10:00)
[2016-12-11] MEDS ORDERED: NEOSTIGMINE METHYLSULFATE 5 MG/5 ML SYR ONE (10:00)
--- NOTE | 2016-12-11 10:42 | [facility] Post Operative Brief Note ---
Immediate Operative Summary Operative Date Dec 11, 2016. Pre-Operative Diagnosis Acute Cholecystitis Post-Operative Diagnosis Acute Cholecystitis Procedure(s) Performed Laparoscopic Cholecystectomy Surgeon Bruno Production Supervisor Off Shift Surgeon(s) None Estimated Blood Loss 10cc Findings Acute cholecystitis Specimens A: Gallbladdr and contents Drains none Anesthesia GETA w/marcaine Complication(s) None Disposition Recovery Room / PACU
--- NOTE | 2016-12-11 11:10 | OPERATIVE REPORT ---
DATE OF OPERATION: 12/11/2016 PREOPERATIVE DIAGNOSIS: Acute cholecystitis. POSTOPERATIVE DIAGNOSIS: Same. PROCEDURE PERFORMED: Laparoscopic cholecystectomy. SURGEON: Dr. Tee Carr. BALANCE BRIDGE INSPECTOR: None. ANESTHESIA: General endotracheal 0.5% Marcaine with epinephrine local. ESTIMATED BLOOD LOSS: 10 mL DRAINS: None. COMPLICATIONS: None. SPECIMEN: Gallbladder and contents sent for pathologic evaluation. INDICATION FOR PROCEDURE: This is a 51-year-old female who came into the ER complaining of abdominal pain. She had a previous episode a few weeks ago and was sent to a GI doctor. Did an outpatient workup which showed gallstones. Repeat ultrasound showed signs of acute cholecystitis. She will be taken to the OR for laparoscopic cholecystectomy. We talked about the risk of an open procedure, common duct injury, retained common bile duct stone, postop bile leak, bleeding and wound problems. DESCRIPTION OF PROCEDURE: The patient was taken to the OR and underwent excellent general endotracheal anesthesia. Abdomen was prepped and draped in normal sterile fashion. Transverse supraumbilical incision was made and dissection was taken down to identify anterior fascia. Two Vicryls placed on either side of midline. The midline was incised sharply. Peritoneal cavity was entered bluntly with a Carolynn clamp. Jennifer trocar was inserted. Good pneumoperitoneum achieved to 15 mmHg pressure. The patient was placed in head up and rolled to the left. Eleven subxiphoid and two 5 lateral ports were placed in normal fashion. The fundus of the gallbladder was grasped and retracted superiorly. The neck was grasped and retracted laterally. There were some adhesions and inflammatory change consistent with acute cholecystitis. The peritoneal attachments were taken down. Cystic duct and cystic artery were identified and skeletonized. A medial and lateral window was created in the gallbladder and gallbladder fossa showing these structures going straight to the gallbladder. Once this critical view was seen, 3 clips were placed distally on the cystic duct, 1 proximally, and the cystic duct was transected. Two clips were then placed proximally in the cystic artery, 1 distally in the cystic artery, and cystic artery was transected. Electrocautery hook was then used to remove the gallbladder from gallbladder fossa. The gallbladder was sent for pathologic evaluation. Pneumoperitoneum was reestablished. Abdomen was then irrigated out. The clips were well placed in the duct and artery. The gallbladder fossa showed some small areas which were raw which were cauterized. The ports were removed and pneumoperitoneum was decompressed. 0 Vicryl was used to close the fascial defect. Interrupted 3-0 Vicryl was used to close the subcu space, interrupted 4-0 Vicryl suture was used to close the skin. Steri-Strips and benzoin were used to reinforce the incision. Sterile dressings were applied. The patient tolerated the procedure well without any complications, sent to post-recovery for a period of observation and discharge to her room once she meets criteria. I attest to the content of the Intraoperative Record and any orders documented therein. Any exception s are noted below.
--- NOTE | 2016-12-11 11:29 | Anesthesiology Progress Note ---
Anesthesia Post Op Note Date & Time Dec 11, 2016 at 11:29 Vital Signs Pain Intensity: 0 Vital Signs Past 12 Hours Date Time Temp Pulse Resp B/P (MAP) Pulse Ox O2 Delivery O2 Flow Rate FiO2 12/11/16 11:15 93 16 131/76 94 Room Air 12/11/16 11:05 96 16 114/78 95 Room Air 12/11/16 10:55 93 16 114/78 100 Mask 5 12/11/16 10:45 36.7 102 16 125/81 98 Mask 5 12/11/16 08:03 125/85 12/11/16 08:01 76/49 12/11/16 07:52 85 10 99 12/11/16 07:43 97 Nasal Cannula 2.0 12/11/16 07:39 91 12/11/16 07:31 135/91 12/11/16 07:22 93 14 99 12/11/16 07:01 121/85 12/11/16 06:52 89 16 97 12/11/16 06:47 87 14 97 Nasal Cannula 2.0 12/11/16 06:31 125/89 12/11/16 06:17 90 18 97 Nasal Cannula 2.0 12/11/16 06:03 87 12/11/16 06:01 109/84 12/11/16 05:47 91 98 Nasal Cannula 2.0 12/11/16 05:42 91 97 Nasal Cannula 2.0 12/11/16 05:31 109/88 12/11/16 05:12 93 98 Nasal Cannula 2.0 12/11/16 05:05 95 Nasal Cannula 2.0 12/11/16 05:04 85 Room Air 12/11/16 05:04 94 Nasal Cannula 2.0 12/11/16 05:01 113/94 12/11/16 04:42 89 96 12/11/16 04:37 149/102 12/11/16 04:29 96 20 12/11/16 04:08 146/86 12/11/16 03:59 87 18 94 12/11/16 03:53 128/74 12/11/16 03:04 152/91 12/11/16 02:59 84 18 12/11/16 02:31 137/86 12/11/16 02:29 82 17 97 12/11/16 02:09 86 12/11/16 02:08 98 Room Air 12/11/16 02:05 150/88 12/11/16 01:59 36.5 85 22 150/88 98 Room Air Notes Mental Status: alert / awake / arousable, participated in evaluation Pt Amnestic to Procedure: Yes Nausea / Vomiting: adequately controlled Pain: adequately controlled Airway Patency, RR, SpO2: stable & adequate BP & HR: stable & adequate Hydration State: stable & adequate Anesthetic Complications: no major complications apparent
[2016-12-11] MEDS: LACTATED RINGER'S 1000ML 1,000 ML IV SCH ×2 (12:01→16:56)
[2016-12-11] MEDS: MoRPHine SULFATE 4 MG/ML 1 ML CARP\\VIAL IV PRN ×2 (12:05→14:04)
[2016-12-11] MEDS ORDERED: NURSING VERBAL MED ORDER ONE (13:00)
[2016-12-11] MEDS ORDERED: PHENOBARBITAL 15 MG TAB PO ONE (13:00)
[2016-12-11] MEDS ORDERED: CARBAMAZEPINE 200 MG TAB PO ONE (13:00)
[2016-12-11] MEDS: CEFOXITIN IV 2,000 MG in DEXTROSE 5% 50ML 50 ML IV SCH ×2 (13:27→20:36)
[2016-12-11] MEDS ORDERED: NURSING DECISION MEDICATION ORDER SCH (15:45)
[2016-12-11] MEDS ORDERED: COUGH DROP (SUGAR FREE) LOZ 24 LOZ/1 BOX PO PRN (16:00)
[2016-12-11] MEDS: SPIRONOLACTONE 25 MG TAB PO SCH (16:57)
[2016-12-11] MEDS: CARBAMAZEPINE 200 MG TAB PO SCH (20:38)
[2016-12-11] MEDS: PHENOBARBITAL 15 MG TAB PO SCH (20:41)
[2016-12-11] MEDS ORDERED: CLONAZEPAM 0.5 MG TAB PO SCH (21:00)
[2016-12-11] MEDS ORDERED: BACLOFEN 10 MG TAB PO SCH (21:00)
[2016-12-11] MEDS ORDERED: DIVALPROEX SODIUM 500 MG DELAY RELEASE TAB PO SCH (21:00)
[2016-12-11] MEDS ORDERED: DOCUSATE SODIUM/SENNA 50/8.6MG TAB PO SCH (21:00)
[2016-12-11] MEDS ORDERED: NORTRIPTYLINE HCL 25 MG CAP PO SCH (21:00)
[2016-12-12] MEDS: CEFOXITIN IV 2,000 MG in DEXTROSE 5% 50ML 50 ML IV SCH ×3 (02:35→14:00)
[2016-12-12] MEDS: LACTATED RINGER'S 1000ML 1,000 ML IV SCH ×2 (02:35→12:49)
[2016-12-12 03:44] VITALS: BP 73/45; PULSE 89; TEMP 36.7; O2SAT 98
[2016-12-12 03:52] VITALS: BP 94/65
--- NOTE | 2016-12-12 05:37 | Surgery Progress Note ---
Surgery Progress Note Date of Service Dec 12, 2016. Subjective Post OP Day: 1 + feeling well, + flatus, + pain controlled, + diet (clears), No nausea, No vomiting Objective Vital Signs: Date Time Temp Pulse Resp B/P (MAP) Pulse Ox O2 Delivery O2 Flow Rate FiO2 12/12/16 03:52 94/65 (75) 12/12/16 03:44 36.7 89 18 73/45 (54) 98 Nasal Cannula 2.0 12/11/16 23:35 36.6 88 18 100/71 (81) 97 Room Air 12/11/16 23:30 Nasal Cannula 2.0 12/11/16 19:24 36.5 92 17 88/62 (71) 90 Nasal Cannula 2.0 12/11/16 15:57 Nasal Cannula 2.0 12/11/16 15:16 36.7 87 18 110/73 (85) 98 Nasal Cannula 2.0 12/11/16 14:57 36.4 86 16 136/77 (96) 98 Nasal Cannula 2.0 12/11/16 14:05 97 2.0 12/11/16 13:50 36.4 91 16 109/74 (86) 96 Nasal Cannula 2.0 12/11/16 12:50 36.3 86 18 122/82 (95) 98 Nasal Cannula 2.0 12/11/16 12:30 Nasal Cannula 2.0 12/11/16 12:30 Nasal Cannula 2.0 12/11/16 12:20 36.4 85 15 115/78 (90) 92 Nasal Cannula 12/11/16 11:50 36.4 94 16 117/80 (92) 94 Room Air 12/11/16 11:25 36.0 93 16 116/84 95 Room Air 12/11/16 11:15 93 16 131/76 94 Room Air 12/11/16 11:05 96 16 114/78 95 Room Air 12/11/16 10:55 93 16 114/78 100 Mask 5 12/11/16 10:45 36.7 102 16 125/81 98 Mask 5 12/11/16 08:03 125/85 12/11/16 08:01 76/49 12/11/16 07:52 85 10 99 12/11/16 07:43 97 Nasal Cannula 2.0 12/11/16 07:39 91 12/11/16 07:31 135/91 12/11/16 07:22 93 14 99 12/11/16 07:01 121/85 12/11/16 06:52 89 16 97 12/11/16 06:47 87 14 97 Nasal Cannula 2.0 12/11/16 06:31 125/89 12/11/16 06:17 90 18 97 Nasal Cannula 2.0 12/11/16 06:03 87 12/11/16 06:01 109/84 12/11/16 05:47 91 98 Nasal Cannula 2.0 12/11/16 05:42 91 97 Nasal Cannula 2.0 General Appearance: WD/WN, no apparent distress Head: normocephalic, atraumatic Neck: supple, trachea midline Respiratory/Chest: lungs clear Cardiovascular: regular rate, rhythm, no gallop, no murmur Abdomen: normal bowel sounds, non distended, soft, + tenderness (mild) Incision(s): intact Extremities: non-tender, no pedal edema Assessment & Plan s/p lap jnue -doing OK -if does well discharge after lunch
[2016-12-12] MEDS ORDERED: OXYC-57 PO (05:38)
--- NOTE | 2016-12-12 05:40 | Discharge Instructions ---
Discharge Instructions Date of Service Dec 12, 2016. Admission Reason for Admission: Acute Cholecystitis Discharge Discharge Diagnosis / Problem: acute cholecystitis Discharge Goals Goal(s): Therapeutic intervention Activity Recommendations Activity Limitations: per Instructions/Follow-up section Lifting Limitations: no more than 25 pounds Exercise/Sports Limitations: until after follow-up appointment May Resume Sexual Activity: when tolerated Shower/Bathe: no limitations (avoid baths) Driving or Machine Use: resume 3 days after discharge . Instructions / Follow-Up Instructions / Follow-Up Bruno; 2 weeks; [id number] Current Hospital Diet Patient's current hospital diet: Clear Liquid Diet Discharge Diet Recommended Diet: Regular Diet Procedures Procedures Performed: Laparoscopic Cholecystectomy Pending Studies Studies pending at discharge: no Work Instructions Return To Work: after follow-up Lifting Limitations: no more than 20 pounds Medical Emergencies . Who to Call and When: Medical Emergencies: If at any time you feel your situation is an emergency, please call 911 immediately. . Non-Emergent Contact Non-Emergency issues call your: Primary Care Provider, Surgeon Call Non-Emergent contact if: temperature is above 101.5, your pain is not controlled, your pain is worsening, your pain is unusual for you, your pain is concerning you, wound has increased redness, wound has increased pain, you have any medication questions . "Provider Documentation" section prepared by Tee Carr. . VTE Core Measure Inpt VTE Proph given/why not?: SCD's [place] Drug Monitoring Program Search Results: patient reviewed within database
[2016-12-12] MEDS ORDERED: LEVOTHYROXINE 50 MCG TAB PO SCH (06:00)
[2016-12-12 07:25] VITALS: BP 93/64; PULSE 94; TEMP 36.9; O2SAT 91
--- NOTE | 2016-12-12 08:29 | DISCHARGE SUMMARY ---
DIAGNOSES: 1. Acute cholecystitis. 2. Seizure disorder. 3. Cerebral palsy. 4. Hypothyroidism. 5. Reflux. ATTENDING: Dr. Tee Carr. PROCEDURE PERFORMED: Laparoscopic cholecystectomy 12/11/2016. HISTORY OF PRESENT ILLNESS: This is a 51-year-old female who was admitted through the Emergency Department with acute right-sided abdominal pain. She had had this previously, was sent for workup and was found to have known gallstones. Came in with repeated episode, and therefore, was hydrated, given IV fluids and IV antibiotics. She will be taken to the OR for laparoscopic cholecystectomy. HOSPITAL COURSE: The patient was admitted, placed on IV fluids, IV antibiotics, was taken to the OR for laparoscopic cholecystectomy the next morning. She tolerated this well without any problems. She continued to progress with her diet and activity and was discharged home on postoperative day #1. DISCHARGE MEDICATIONS: Percocet 1 tablet p.o. q.6 h. p.r.n. pain, aspirin 81 mg daily, baclofen 10 mg p.o. at bedtime, calcium 1 tablet p.o. daily, Tegretol 400 mg p.o. q.a.m. and at bedtime, vitamin D 5000 international units p.o. daily, Klonopin 0.5 mg p.o. at bedtime, cranberry 1 tablet p.o. q.p.m., Depakote 500 mg p.o. at bedtime, levothyroxine 500 mcg p.o. q.a.m., Pamelor 25 mg p.o. at bedtime, Prilosec 20 mg p.o. q.a.m., phenobarbital 30 mg p.o. q.a.m. and q.p.m., Senokot 17.2 mg p.o. daily, stool softener 1 tablet p.o. at bedtime, Aldactone 25 mg p.o. q.a.m. and q.p.m., vitamin E 400 international units p.o. daily. DIET: Regular as tolerated. ACTIVITY: No strenuous activity for 2 weeks. FOLLOWUP: 2 weeks in my office.
[2016-12-12] MEDS ORDERED: SENNA 8.6 MG TAB PO SCH (09:00)
[2016-12-12] MEDS ORDERED: ASPIRIN 81 MG ECTAB PO SCH (09:00)
[2016-12-12] MEDS: CARBAMAZEPINE 200 MG TAB PO SCH (09:09)
[2016-12-12] MEDS: SPIRONOLACTONE 25 MG TAB PO SCH (09:09)
[2016-12-12] MEDS: PHENOBARBITAL 15 MG TAB PO SCH (09:16)
[2016-12-12 12:43] VITALS: BP 93/64; PULSE 94; TEMP 36.9; O2SAT 91
== END 2016-12-12 13:55 | disposition home health service (06) | DRG 419 ==
LOC: EDBD 01:59 → C.EDB 02:00 → ENRESERV 07:06 → CANRESERV 07:06 → C.OR 08:30 → EDBEDREQSVC 08:37 → ENRESERV 08:47 → C.MSW 12:47
PROVIDERS: ADMIT Surgery; ATTEND Surgery
PROC: 0FT44ZZ Resection of Gallbladder, Percutaneous Endoscopic Approach (ICD-10-PCS; principal; 2016-12-11 10:00)
DX: K81.0 Acute cholecystitis (principal); G80.9 Cerebral palsy, unspecified; E03.9 Hypothyroidism, unspecified; G40.909 Epilepsy, unspecified, not intractable, without status epilepticus; K21.9 Gastro-esophageal reflux disease without esophagitis; Z79.899 Other long term (current) drug therapy; Z79.82 Long term (current) use of aspirin

== ENCOUNTER 2016-12-12 14:09 | Emergency (ER) | payer OTHER ==
[~2016-12-12] VITALS: Ht 162.6 cm; Wt 75.0 kg
[~2016-12-12 14:09] MED LIST changes: +OXYC-57 PO
[2016-12-12 14:19] VITALS: Ht 162.6 cm; Wt 75.0 kg
--- NOTE | 2016-12-12 14:34 | EMERGENCY ROOM VISIT NOTE ---
History Report prepared by Shaheen: Elayne Lo Under the Supervision of: Dr. Shaan Elliott D.O. First contact with patient: 14:14 Chief Complaint: OTHER COMPLAINT Stated Complaint: MHID History of Present Illness The patient is a 51 year old female who presents to the Emergency Room with complaints of her legs suddenly giving out prior to arrival. Per the patient's mother, the patient is handicapped and notes that her legs are not strong enough to hold her up. She states that the patient can typically help to pivot into and out of a chair. The patient's mother states that the patient was being discharged from the hospital today after having a procedure done Monday by Dr. Carr. She states that the patient was given pain medications 45 minutes ago and has been groggy and sleepy. The patient's mother states that the patient's legs gave out when she was attempting to get in her car to go home. She denies the patient having any head trauma. The patient denies any increased pain, shortness of breath, chest pain, or increased pain or swelling in her lower extremities. She denies any dizziness or lightheadedness. The patient denies wearing oxygen at home. Source of History: patient, parent (mother) Onset: prior to arrival Position: leg Quality: other (giving out) Timing: other (suddenly) Associated Symptoms: No chest pain, No SOB Review of Systems See HPI for pertinent positives & negatives. A total of 10 systems reviewed and were otherwise negative. 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, controlled Surgical Problems: (1) H/O: hysterectomy Family History No significant family history Social History Smoking Status: Never Smoker Alcohol Use: none Drug Use: none Marital Status: single Housing Status: lives with family Occupation Status: disabled Current/Historical Medications Scheduled Aspirin (Aspirin Ec), 81 MG PO DAILY Baclofen (Lioresal), 10 MG PO HS Calcium Carbonate-Vitamin D (Calcium 500 + D), 1 TAB PO DAILY Carbamazepine (Tegretol), 400 MG PO AMHS Cholecalciferol (Vitamin D), 5,000 INTER.UNIT PO DAILY Clonazepam (Klonopin), 0.5 MG PO HS Cranberry (Vaccinium Macrocarp (Cranberry), 1 TAB PO QPM Divalproex Sodium (Depakote), 500 MG PO HS Levothyroxine Sodium (Levothyroxine Sodium), 50 MCG PO QAM Nortriptyline Hcl (Pamelor), 25 MG PO HS Omeprazole (Prilosec), 20 MG PO QAM Phenobarbital (Phenobarbital), 30 MG PO AMPM Senna (Senokot), 17.2 MG PO QAM Sennosides-Docusate Sodium (Stool Softener), 1 TAB PO HS Spironolactone (Aldactone), 25 MG PO AMPM Vitamin E (Vitamin E 400 Iu), 400 INTER.UNIT PO DAILY Scheduled PRN Oxycodone/Acetaminophen 5MG/325MG (Percocet 5MG/325MG), 1 TABLET PO Q6H PRN for Pain Allergies Coded Allergies: Lincomycin (Verified Allergy, Intermediate, HIVES, 12/11/16) Had 40 years ago. Physical Exam Vital Signs Date Time Temp Pulse Resp B/P (MAP) Pulse Ox O2 Delivery O2 Flow Rate FiO2 12/12/16 14:19 36.6 88 16 138/78 98 Room Air Physical Exam CONSTITUTIONAL/VITAL SIGNS: Reviewed / noted above. GENERAL: Non-toxic in appearance. Patient is in no distress INTEGUMENTARY: Warm, dry, and [place]. HEAD: Normocephalic. EYES: without scleral icterus or trauma. ENT/OROPHARYNX: clear and moist. LYMPHADENOPATHY/NECK: Is supple without lymphadenopathy or meningismus. RESPIRATORY: Lungs clear and equal. CARDIOVASCULAR: Regular rate and rhythm. GI/ABDOMEN: Mild tenderness diffusely over the abdomen, post surgical wounds are bandaged without any evidence of bleeding. Soft and nontender. No organomegaly or pulsatile mass. No rebound or guarding. Normal bowel sounds. EXTREMITIES: Right lower extremity is chronically larger than left per mother, no calf tenderness on palpation. Warm and well perfused. BACK: No CVA tenderness. NEUROLOGICAL: Intact without focal deficits. PSYCHIATRIC: normal affect. MUSCULOSKELETAL: Normally developed with good muscle tone. Medical Decision & Procedures ED Course 1421: Previous medical records were reviewed. The patient was evaluated in room A5. A complete history and physical examination was performed. 1426: I discussed the exam findings with the patient and her family and I discussed the treatment plan. They verbalized complete understanding and agreement. The patient is ready to go home. Medical Decision Differentials include: Acute coronary syndrome, myocardial infarction, CVA, TIA , anemia, infection, pneumonia, UTI, pyelonephritis, poor nutrition, dehydration , electrolyte disturbance, and hypoglycemia. His is a 51-year-old female who presents to the ED from the parking lot. The patient was just discharged from the hospital after having her gallbladder removed on Monday. The patient, according to the parents, states that the patient is chronically disabled. She just received some pain medication prior to discharge. The patient is generally somewhat weak and her legs give out on occasion. As the parents were attempting to get her into the vehicle, her legs could not hold her and they could not get her into the vehicle. A code purple was called and she was brought here. The patient and family did not want her to be evaluated. They stated they just needed a little extra help getting her into the vehicle. The patient denies any complaints. She does have some abdominal discomfort that has been present since the surgery and is unchanged. She denies any shortness of breath or chest pains. She has no complaints at this time. The family feels that she is just weak because of medication that she received and just having had the surgery. Her blood pressure is 141/94. Oxygen saturations are in the low 90s. She does have an incentive spirometer at home. This is likely related to the fact she has had abdominal surgery. She does not complain of any pain in her legs. She does have a chronically larger right leg compared to left. She has no calf tenderness. The lungs were clear. She is not had a fever. The patient, after evaluation is refusing additional testing as is the mother. They would like to get some help getting her into the car and would like to take her home. They were advised to return to the emergency department for any concerns or symptoms that they might deem necessary for evaluation. Medication Reconcilliation Current Medication List: was personally reviewed by me Blood Pressure Screening Patient's blood pressure: Elevated blood pressure Blood pressure disposition: Elevated BP felt to be situational, Did not require urgent referral Impression Primary Impression: Weakness Scribe Attestation The scribe's documentation has been prepared under my direction and personally reviewed by me in its entirety. I confirm that the note above accurately reflects all work, treatment, procedures, and medical decision making performed by me. Departure Information Referrals No Doctor, Assigned (PCP) Patient Instructions My [facility] Additional Instructions Follow discharge instructions as provided. Follow-up with your doctors as recommended. Return to the emergency department for worsening or new symptoms or any concerns. You have been examined and treated today on an emergency basis only. This is not a substitute for, or an effort to provide, complete comprehensive medical care. It is impossible to recognize and treat all injuries or illnesses in a single emergency department visit. It is therefore important that you follow up closely with your doctor. Call as soon as possible for an appointment.
[2016-12-12 14:35] VITALS: BP 138/78; PULSE 88; TEMP 36.6; O2SAT 98
== END 2016-12-12 14:35 | disposition home or self-care (01) ==
LOC: EDSEX 14:09 → EDBD 14:09 → C.EDA 14:11
DX: R53.1 Weakness (principal); G80.9 Cerebral palsy, unspecified; G40.409 Other generalized epilepsy and epileptic syndromes, not intractable, without status epilepticus; Z90.710 Acquired absence of both cervix and uterus; Z79.82 Long term (current) use of aspirin; Z79.899 Other long term (current) drug therapy

== ENCOUNTER 2017-01-24 05:50 | Emergency (ER) | payer OTHER ==
[~2017-01-24] VITALS: Ht 160 cm; Wt 85.3 kg
[2017-01-24 05:54] VITALS: TEMP 36.4; Ht 160 cm; Wt 85.3 kg
[2017-01-24] MEDS ORDERED: ACET-1256 PO (06:04)
[2017-01-24] MEDS ORDERED: SODIUM CHLORIDE 0.9% 1000ML 1,000 ML IV STA ×2 (06:40)
[2017-01-24 06:50] LABS: BASO % 0.4 %; BASO ABS # 0.04 K/uL (0-0.2); COMPLETE YES; EOS % 4.8 %; HEMATOCRIT 40.5 % (37-47); IG% 0.4 %; LYMPH % 23.5 %; LYMPH ABS # 2.51 K/uL (1.2-3.4); MEAN CELL VOLUME 93.5 fL (80-100); MEAN CORPUSCULAR HEMOGLOBIN 31.9 pg (25-34); MEAN CORPUSCULAR HGB CONC 34.1 g/dl (32-36); MEAN PLATELET VOLUME 9.9 fL (7.4-10.4); MONO % 5.3 %; NEUT % 65.6 %; PLATELET COUNT 262 K/uL (130-400); RED BLOOD COUNT 4.33 M/uL (4.2-5.4)
[2017-01-24] MEDS ORDERED: ONDANSETRON INJ 2 MG/ML 2 ML VIAL IV STA (07:12)
[2017-01-24] MEDS ORDERED: HYDROmorphone INJ 0.5 MG/0.5 ML SYR IV PRN (07:15)
[2017-01-24 07:16] LABS: URINE APPEARANCE CLOUDY (CLEAR); URINE BILIRUBIN NEG (NEG); URINE COLOR YELLOW; URINE EPITHELIAL CELL AUTO 0-5 /lpf (0-5); URINE NITRITE NEG (NEG); URINE SPECIFIC GRAVITY 1.012 (1.000-1.030); UROBILINOGEN NEG (NEG)
[2017-01-24 07:16] LABS: PHENOBARBITAL 19.9 mcg/mL (15.0-40.0)
[2017-01-24 07:19] LABS: MANUAL MICROSCOPIC REQUIRED? NO; REVIEW REQ? NO
[2017-01-24 07:21] LABS: ALKALINE PHOSPHATASE 122 U/L (45-117); ALT/SGPT 18 U/L (12-78); AST/SGOT 13 U/L (15-37); BLOOD UREA NITROGEN 11 mg/dl (7-18); BUN/CREATININE RATIO 15.1 (10-20); CALCIUM 9.3 mg/dl (8.5-10.1); CARBON DIOXIDE 27 mmol/L (21-32); CHLORIDE 105 mmol/L (98-107); CREATININE 0.71 mg/dl (0.60-1.20); GLUCOSE 96 mg/dl (70-99); MAGNESIUM 1.8 mg/dl (1.8-2.4); POTASSIUM 3.5 mmol/L (3.5-5.1); SODIUM 140 mmol/L (136-145)
[2017-01-24] MEDS ORDERED: CEFTRIAXONE SOD INJ 1 GM ADDVIAL IV STA (07:45)
--- NOTE | 2017-01-24 07:50 | DIAGNOSTIC IMAGING REPORT ---
CHEST ONE VIEW PORTABLE CLINICAL HISTORY: chest pain, RUQ pain COMPARISON STUDY: 12/11/2016 FINDINGS: The bones soft tissues and hemidiaphragms are normal. The cardiomediastinal silhouette is normal. The lungs are clear. The pulmonary vasculature is normal. IMPRESSION: Negative chest. The above report was generated using voice recognition software. It may contain grammatical, syntax or spelling errors. Electronically signed by: Harjit Vickers M.D. 01/24/2017 7:49 AM Dictated Date/Time: 01/24/2017 7:48 AM
--- NOTE | 2017-01-24 08:34 | DIAGNOSTIC IMAGING REPORT ---
GALLBLADDER-ABD LIMITED CLINICAL HISTORY: Post cholecystectomy pain nausea TECHNIQUE: Ultrasound COMPARISON STUDY: 12/11/2016 FINDINGS: Interval cholecystectomy. Common bile duct 5 mm. Liver is uniform throughout. Limited visibility of the pancreas due to overlying bowel content. Right kidney is negative for hydronephrosis. IMPRESSION: Negative study status post cholecystectomy. The above report was generated using voice recognition software. It may contain grammatical, syntax or spelling errors. Electronically signed by: Harjit Vickers M.D. 01/24/2017 8:32 AM Dictated Date/Time: 01/24/2017 8:31 AM
[2017-01-24] MEDS ORDERED: OPTIRAY 320 IV PRN (09:30)
--- NOTE | 2017-01-24 09:54 | EMERGENCY ROOM VISIT NOTE ---
History Report prepared by Shaheen: Vinod Street Under the Supervision of: Dr. Dwayne Tabor M.D. First contact with patient: 06:40 Chief Complaint: SEIZURE Stated Complaint: seizure History of Present Illness The patient is a 52 year old female who presents to the Emergency Room with complaints of a sudden seizure occurring around 0130 this morning. She currently states that her pain is not too bad right now. The patient states that she woke up with abdominal pain in the right upper quadrant, and she states that this led to her seizure. The patient has a history of cerebral palsy and grand mal seizures. She states that her last seizure was 2.5 years ago , and she recently had a cholecystectomy on December 11 for acute cholecystitis. She states that she has been having right upper quadrant since then. The patient states that she has not been doing anything for the pain, though she is trying to change her diet. Once she got the abdominal pain she took baclofen, and afterwards she had the seizure which lasted 3-4 minutes while being awake. During the seizure her left arm came up, her leg goes out, and her head shakes, and this is her normal seizure. The patient additionally had diarrhea three days ago, and she was complaining of some burning with urination and urinary frequency this morning. The patient has a history of frequent UTIs. The patient additionally states that she has been nauseous, and yesterday she was having some chest pain. She states that she has a past medical history of hypothyroidism and GERD. She takes several seizure medications including phenobarbital, Depakote, and Tegretol. Pt denies LOC, headache, fevers, chills, diaphoresis, visual changes, neck pain, breathing difficulties, vomiting, back pain, melena, hematochezia, numbness, weakness, lymphadenopathy, rash, or other complaints. Source of History: patient, parent Onset: 129 Position: other (global) Quality: other (seizure) Timing: other (sudden) Associated Symptoms: + chest pain, + nausea, + abdominal pain, + diarrhea, + urinary symptoms Review of Systems See HPI for pertinent positives and negatives. A total of ten systems were reviewed and were otherwise negative. 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, controlled Surgical Problems: (1) H/O: hysterectomy Family History No significant family history Social History Smoking Status: Never Smoker Alcohol Use: none Drug Use: none Marital Status: single Housing Status: lives with family Occupation Status: disabled Current/Historical Medications Scheduled Aspirin (Aspirin Ec), 81 MG PO DAILY Baclofen (Lioresal), 10 MG PO HS Calcium Carbonate-Vitamin D (Calcium 500 + D), 1 TAB PO DAILY Carbamazepine (Tegretol), 400 MG PO AMHS Cephalexin Monohydrate (Keflex), 500 MG PO QID Cholecalciferol (Vitamin D), 5,000 INTER.UNIT PO DAILY Clonazepam (Klonopin), 0.5 MG PO HS Cranberry (Vaccinium Macrocarp (Cranberry), 1 TAB PO QPM Divalproex Sodium (Depakote), 500 MG PO HS Levothyroxine Sodium (Levothyroxine Sodium), 50 MCG PO QAM Nortriptyline Hcl (Pamelor), 25 MG PO HS Omeprazole (Prilosec), 20 MG PO QAM Phenobarbital (Phenobarbital), 30 MG PO AMPM Senna (Senokot), 17.2 MG PO QAM Sennosides-Docusate Sodium (Stool Softener), 1 TAB PO HS Spironolactone (Aldactone), 25 MG PO AMPM Vitamin E (Vitamin E 400 Iu), 400 INTER.UNIT PO DAILY Scheduled PRN Acetaminophen (Tylenol), 1,000 MG PO Q6 PRN for Pain Hydrocodone/Acetaminophen 5MG/325MG ([place] 5MG/325MG), 1-2 TABS PO Q6H PRN for Pain Allergies Coded Allergies: Lincomycin (Verified Allergy, Intermediate, HIVES, 01/24/17) Had 40 years ago. Physical Exam Vital Signs Date Time Temp Pulse Resp B/P (MAP) Pulse Ox O2 Delivery O2 Flow Rate FiO2 01/24/17 13:40 90 20 100/75 97 01/24/17 12:12 87 01/24/17 12:00 87 16 101/67 97 Room Air 01/24/17 10:32 86 20 115/70 96 Room Air 01/24/17 08:35 94 20 163/100 97 Room Air 01/24/17 07:31 114/83 01/24/17 07:10 95 19 97 01/24/17 07:01 123/70 01/24/17 06:40 96 16 98 01/24/17 06:35 130/75 01/24/17 05:57 98 01/24/17 05:54 36.4 100 19 171/99 97 Room Air 01/24/17 05:54 171/99 Physical Exam GENERAL: Awake, alert, well-appearing, in no distress HENT: Normocephalic, atraumatic. Oropharynx unremarkable. EYES: Normal conjunctiva. Sclera non-icteric. NECK: Supple. No nuchal rigidity. FROM. No JVD. RESPIRATORY: Clear to auscultation. CARDIAC: Borderline tachycardic rate, normal rhythm. Extremities warm and well perfused. Pulses equal. ABDOMEN: Right upper quadrant tenderness. Soft, non-distended. No rebound or guarding. No masses. RECTAL: Deferred. MUSCULOSKELETAL: Chest examination reveals no tenderness. The back is symmetrical on inspection without obvious abnormality. There is no CVA tenderness to palpation. No joint edema. UPPER EXTREMITIES: Contractures in the left upper extremity. LOWER EXTREMITIES: Right lower extremity is larger than the left lower extremity. 3/5 strength. No discoloration. NEURO: CP. No sensory or motor deficits noted. SKIN: No rash or jaundice noted. Medical Decision & Procedures ER Provider Diagnostic Interpretation: Radiology results as stated below per my review and radiologist interpretation: GALLBLADDER-ABD LIMITED CLINICAL HISTORY: Post cholecystectomy pain nausea TECHNIQUE: Ultrasound COMPARISON STUDY: 12/11/2016 FINDINGS: Interval cholecystectomy. Common bile duct 5 mm. Liver is uniform throughout. Limited visibility of the pancreas due to overlying bowel content. Right kidney is negative for hydronephrosis. IMPRESSION: Negative study status post cholecystectomy. The above report was generated using voice recognition software. It may contain grammatical, syntax or spelling errors. Electronically signed by: Harjit Vickers M.D. 01/24/2017 8:32 AM Dictated Date/Time: 01/24/2017 8:31 AM CHEST ONE VIEW PORTABLE CLINICAL HISTORY: chest pain, RUQ pain COMPARISON STUDY: 12/11/2016 FINDINGS: The bones soft tissues and hemidiaphragms are normal. The cardiomediastinal silhouette is normal. The lungs are clear. The pulmonary vasculature is normal. IMPRESSION: Negative chest. The above report was generated using voice recognition software. It may contain grammatical, syntax or spelling errors. Electronically signed by: Harjit Vickers M.D. 01/24/2017 7:49 AM Dictated Date/Time: 01/24/2017 7:48 AM ABD/PELVIS IV AND ORAL CONT CT DOSE: 761.75 mGy.cm HISTORY: Pain RUQ pain, post june 1 month ago TECHNIQUE: Multiaxial CT images of the abdomen and pelvis were performed following the use of intravenous and oral contrast. A dose lowering technique was utilized adhering to the principles of ALARA. COMPARISON STUDY: Limited abdominal ultrasound 01/24/2017 FINDINGS: Minimal basilar dependent interstitial change. Liver spleen and pancreas are unremarkable. Kidneys enhance uniformly. No evidence for hydronephrosis. Prior cholecystectomy. No evidence for abscess collection or biliary ductal distention. The bowel pattern is nonobstructive. Bladder is midline. No free fluid within the pelvic cul-de-sac. IMPRESSION: Negative study status post cholecystectomy The above report was generated using voice recognition software. It may contain grammatical, syntax or spelling errors. Electronically signed by: Harjit Vickers M.D. 01/24/2017 10:57 AM Dictated Date/Time: 01/24/2017 10:54 AM Laboratory Results 01/24/17 06:34 Red Blood Count 4.33, Mean Corpuscular Volume 93.5, Mean Corpuscular Hemoglobin 31.9, Mean Corpuscular Hemoglobin Concent 34.1, Mean Platelet Volume 9.9, Neutrophils (%) (Auto) 65.6, Lymphocytes (%) (Auto) 23.5, Monocytes (%) (Auto) 5.3, Eosinophils (%) (Auto) 4.8, Basophils (%) (Auto) 0.4, Neutrophils # (Auto) 7.03, Lymphocytes # (Auto) 2.51, Monocytes # (Auto) 0.57, Eosinophils # (Auto) 0.51, Basophils # (Auto) 0.04 01/24/17 06:34 Test 01/24/17 06:25 01/24/17 06:34 Urine Color YELLOW Urine Appearance CLOUDY (CLEAR) Urine pH 6.0 (4.5-7.5) Urine Specific Switchback 1.012 (1.000-1.030) Urine Protein NEG (NEG) Urine Glucose (UA) NEG (NEG) Urine Ketones NEG (NEG) Urine Occult Blood 1+ (NEG) Urine Nitrite NEG (NEG) Urine Bilirubin NEG (NEG) Urine Urobilinogen NEG (NEG) Urine Leukocyte Esterase LARGE (NEG) Urine WBC (Auto) >30 /hpf (0-5) Urine RBC (Auto) 0-4 /hpf (0-4) Urine Hyaline Casts (Auto) 0 /lpf (0-5) Urine Epithelial Cells (Auto) 0-5 /lpf (0-5) Urine Bacteria (Auto) 4+ (NEG) White Blood Count 10.70 K/uL (4.8-10.8) Red Blood Count 4.33 M/uL (4.2-5.4) Hemoglobin 13.8 g/dL (12.0-16.0) Hematocrit 40.5 % (37-47) Mean Corpuscular Volume 93.5 fL (80-100) Mean Corpuscular Hemoglobin 31.9 pg (25-34) Mean Corpuscular Hemoglobin Concent 34.1 g/dl (32-36) Platelet Count 262 K/uL (130-400) Mean Platelet Volume 9.9 fL (7.4-10.4) Neutrophils (%) (Auto) 65.6 % Lymphocytes (%) (Auto) 23.5 % Monocytes (%) (Auto) 5.3 % Eosinophils (%) (Auto) 4.8 % Basophils (%) (Auto) 0.4 % Neutrophils # (Auto) 7.03 K/uL (1.4-6.5) Lymphocytes # (Auto) 2.51 K/uL (1.2-3.4) Monocytes # (Auto) 0.57 K/uL (0.11-0.59) Eosinophils # (Auto) 0.51 K/uL (0-0.5) Basophils # (Auto) 0.04 K/uL (0-0.2) RDW Standard Deviation 42.3 fL (36.4-46.3) RDW Coefficient of Variation 12.3 % (11.5-14.5) Immature Granulocyte % (Auto) 0.4 % Immature Granulocyte # (Auto) 0.04 K/uL (0.00-0.02) Anion Gap 8.0 mmol/L (3-11) Est Creatinine Clear Calc Drug Dose 94.8 ml/min Estimated GFR () 112.7 Estimated GFR (Non- 97.2 BUN/Creatinine Ratio 15.1 (10-20) Calcium Level 9.3 mg/dl (8.5-10.1) Magnesium Level 1.8 mg/dl (1.8-2.4) Total Bilirubin 0.2 mg/dl (0.2-1) Direct Bilirubin mg/dl (0-0.2) Aspartate Amino Transf (AST/SGOT) 13 U/L (15-37) Alanine Aminotransferase (ALT/SGPT) 18 U/L (12-78) Alkaline Phosphatase 122 U/L (45-117) Troponin I < 0.015 ng/ml (0-0.045) Total Protein 8.4 gm/dl (6.4-8.2) Albumin 3.8 gm/dl (3.4-5.0) Lipase 91 U/L (73-393) Chemistry Specimen Hemolysis Valproic Acid (Depakene) Level 45 mcg/ml (50-100) Carbamazepine (Tegretol) Level 11.4 mcg/ml (4-12) Phenobarbital Level 19.9 mcg/mL (15.0-40.0) Laboratory results reviewed by me Medications Administered Medications (Trade) Dose Ordered Sig/Rhiannon Route Start Time Stop Time Status Last Admin Dose Admin Sodium Chloride 1,000 ml @ 125 mls/hr Q8H STAT IV 01/24/17 06:40 01/24/17 14:15 DC 01/24/17 09:46 125 MLS/HR Sodium Chloride 1,000 ml @ 999 mls/hr Q1H1M STAT IV 01/24/17 06:40 01/24/17 07:40 DC 01/24/17 06:55 999 MLS/HR Ondansetron HCl (Zofran Inj) 4 mg NOW STAT IV 01/24/17 07:12 01/24/17 07:14 DC 01/24/17 08:39 4 MG Ceftriaxone Sodium (Rocephin Inj) 1 gm NOW STAT IV 01/24/17 07:45 01/24/17 07:46 DC 01/24/17 08:39 1 GM ECG Indication: other (seizure) Rate (beats per minute): 96 Rhythm: normal sinus Findings: no acute ischemic change, no ectopy, other (Non-specific T-wave abnormality) ED Course 0640: Sodium Chloride 1000 ml @ 999 mls/hr IV, Sodium Chloride 1000 ml @ 125 mls /hr IV 0658: The patient was evaluated in room B11. A complete history and physical exam was performed. 0712: Zofran Inj 4mg IV 0715: Dilaudid Inj 0.5mg IV 0745: Rocephin Inj 1gm IV 1225: I discussed the patient's case with Dr. Neely, [facility]. She agreed with my treatment plan and to have the patient follow up in the clinic tomorrow to schedule for an appointment. 1234: I reevaluated the patient. Discussed results and discharge instructions: She and her family verbalized understanding and agreement. The patient is ready for discharge. Medical Decision Triage Nursing notes reviewed. The patient's presentation and history were concerning for RUQ abdominal pain, dysuria, and possible seizure. Additional history of sudden obtained from the patient's parents. The patient has stress-induced seizures. She was awake and talking during this episode. The mother states this is not grand mal in nature. Etiologies such as postoperative pain, retained stone, bile leak, cholangitis, biliary pathology, breakthrough seizure, pseudoseizure, appendicitis, diverticulitis, obstruction, inflammatory bowel disease, renal colic, PUD, pancreatitis, mesenteric ischemia, aortic pathology, infections, genitourinary, UTI, perforated viscus, as well as others were entertained. The patient was evaluated. The patient was doing relatively well. She was treated with Zofran, normal saline hydration, and a normal saline bolus. The patient's blood work revealed unremarkable CBC. Chemistry panel was unremarkable. LFTs and lipase were unremarkable. Urinalysis was concerning for infection. IV Rocephin was given. Ultrasound was unremarkable. CT scan of the abdomen pelvis was performed as above. The patient had no acute findings on imaging. She was doing well. She is dealing with a UTI. A consult was placed with general surgery. I discussed the case. Since she is doing very well her surgeon has availability tomorrow in the clinic. I discussed this with the patient and family and they feel comfortable. Case management was able to set an appointment for 1245. The patient will be placed on Keflex for her UTI. If she has any problems with pain she will have hydrocodone to use sparingly. A small prescription was sent. If she worsens in any way she will be back. By the evaluation outlined above other emergent etiologies such as those listed in the differential, as well as others, were deemed relatively unlikely. The patient was educated about the findings as listed above. All questions were answered and the patient was pleased with the treatment. Return instructions were outlined and the patient was discharged in stable condition. The patient was referred to general surgery and PCP for follow-up for a recheck of the current condition. Medication Reconcilliation Current Medication List: was personally reviewed by me Blood Pressure Screening Patient's blood pressure: Normal blood pressure Blood pressure disposition: Referred to PCP Consults Time Called: 1221 Consulting Physician: [facility] Returned Call: 1228 I discussed the patient's case with [facility]. She agreed with my treatment plan and to have the patient follow up in the clinic tomorrow to schedule for an appointment. Impression Primary Impression: Right upper quadrant abdominal pain Additional Impression: UTI (urinary tract infection) Scribe Attestation The scribe's documentation has been prepared under my direction and personally reviewed by me in its entirety. I confirm that the note above accurately reflects all work, treatment, procedures, and medical decision making performed by me. Departure Information Dispostion Home / Self-Care Prescriptions Cephalexin Monohydrate (Keflex) 500 Mg Cap 500 MG PO QID, #20 CAP Prov: Dwayne Tabor MD 01/24/17 Hydrocodone/Acetaminophen 5MG/325MG ([place] 5MG/325MG) Tab 1-2 TABS PO Q6H Y for Pain, #14 TAB Prov: Dwayne Tabor MD 01/24/17 Referrals Hardeep Paul PA-C (PCP) Forms HOME CARE DOCUMENTATION FORM, IMPORTANT VISIT INFORMATION Patient Instructions My [facility] Additional Instructions Hydrocodone/acetaminophen 5/325mg: Take 1-2 pills every 6 hours as needed for pain. Avoid additional Acetaminophen/Tylenol, alcohol, operating machinery or dangerous equipment, working on ladders or roofs, DRIVING, or situations where being under the influence may be dangerous. It is recommended to use a stool softener such as Colace, 100mg twice daily while taking this medication to avoid constipation. Cephalexin(Keflex) 500mg: Take one pill four times daily for 5 days for your skin infection. All antibiotics can cause diarrhea. If this occurs and you feel worse or it does not resolve in 1-2 days follow up with your doctor or return to the Emergency Department as this could be signs of serious underlying problems. Any medication can cause an allergic reaction, stop the pills immediately and return to the ER for rash, hives, breathing difficulties, or swelling. Follow-up with Dr. Carr tomorrow in the clinic at 1245. Return to the ER for worsening abdominal pain, vomiting, fevers, bloody stools, or as needed. Follow-up with your primary care physician in 2 to 3 days for a recheck of your current condition. Problem Qualifiers
--- NOTE | 2017-01-24 10:58 | DIAGNOSTIC IMAGING REPORT ---
ABD/PELVIS IV AND ORAL CONT CT DOSE: 761.75 mGy.cm HISTORY: Pain RUQ pain, post june 1 month ago TECHNIQUE: Multiaxial CT images of the abdomen and pelvis were performed following the use of intravenous and oral contrast. A dose lowering technique was utilized adhering to the principles of ALARA. COMPARISON STUDY: Limited abdominal ultrasound 01/24/2017 FINDINGS: Minimal basilar dependent interstitial change. Liver spleen and pancreas are unremarkable. Kidneys enhance uniformly. No evidence for hydronephrosis. Prior cholecystectomy. No evidence for abscess collection or biliary ductal distention. The bowel pattern is nonobstructive. Bladder is midline. No free fluid within the pelvic cul-de-sac. IMPRESSION: Negative study status post cholecystectomy The above report was generated using voice recognition software. It may contain grammatical, syntax or spelling errors. Electronically signed by: Harjit Vickers M.D. 01/24/2017 10:57 AM Dictated Date/Time: 01/24/2017 10:54 AM
[2017-01-24] MEDS ORDERED: HYDR-5688 PO (13:06)
[2017-01-24] MEDS ORDERED: CEPH500C PO (13:06)
[2017-01-24 13:40] VITALS: BP 100/75; PULSE 90; O2SAT 97
--- NOTE | 2017-01-26 13:15 | Pharmacy Progress Note ---
ED Pharmacist Culture FollowUp Date of Service: Jan 26, 2017. Patient was sent home with a prescription for cephalexin, which should cover the E. coli growing from the patient's urine culture.
== END 2017-01-24 13:43 | disposition home or self-care (01) ==
LOC: EDBD 05:50 → C.EDB 05:51
DX: R10.11 Right upper quadrant pain (principal); G40.909 Epilepsy, unspecified, not intractable, without status epilepticus; N39.0 Urinary tract infection, site not specified; Z90.49 Acquired absence of other specified parts of digestive tract; Z98.890 Other specified postprocedural states; Z87.440 Personal history of urinary (tract) infections; E03.9 Hypothyroidism, unspecified; K21.9 Gastro-esophageal reflux disease without esophagitis; Z79.82 Long term (current) use of aspirin; Z79.899 Other long term (current) drug therapy

== ENCOUNTER 2017-02-07 03:19 | Emergency (ER) | payer OTHER ==
[~2017-02-07] VITALS: Ht 157.5 cm; Wt 87.5 kg
[~2017-02-07 03:19] MED LIST changes: +ACET-1256 PO; +CEPH500C PO; +HYDR-5688 PO; -OXYC-57 PO
[2017-02-07 03:20] VITALS: TEMP 36.4; Ht 157.5 cm; Wt 87.5 kg
[2017-02-07] MEDS ORDERED: SODIUM CHLORIDE 0.9% 1000ML 1,000 ML IV ONE (04:00)
[2017-02-07 04:22] LABS: URINE APPEARANCE CLOUDY (CLEAR); URINE BILIRUBIN NEG (NEG); URINE COLOR YELLOW; URINE NITRITE NEG (NEG); URINE SPECIFIC GRAVITY 1.013 (1.000-1.030); UROBILINOGEN NEG (NEG); ZZURINE CULT IF INDIC CATH YES
[2017-02-07 04:29] LABS: BASO % 0.3 %; BASO ABS # 0.03 K/uL (0-0.2); COMPLETE YES; EOS % 3.5 %; HEMATOCRIT 39.6 % (37-47); IG% 0.3 %; LYMPH % 21.9 %; LYMPH ABS # 2.52 K/uL (1.2-3.4); MEAN CORPUSCULAR HEMOGLOBIN 31.7 pg (25-34); MEAN CORPUSCULAR HGB CONC 34.1 g/dl (32-36); MONO % 6.5 %; NEUT % 67.5 %; PLATELET COUNT 238 K/uL (130-400); RED BLOOD COUNT 4.26 M/uL (4.2-5.4); WHITE BLOOD COUNT 11.51 K/uL (4.8-10.8)
[2017-02-07 04:29] LABS: MANUAL MICROSCOPIC REQUIRED? NO; REVIEW REQ? NO
[2017-02-07 05:26] LABS: ALB/GLOB RATIO 0.7 (0.9-2); ALKALINE PHOSPHATASE 124 U/L (45-117); ALT/SGPT 19 U/L (12-78); BLOOD UREA NITROGEN 12 mg/dl (7-18); BUN/CREATININE RATIO 19.4 (10-20); CALCIUM 8.8 mg/dl (8.5-10.1); CARBON DIOXIDE 25 mmol/L (21-32); CHLORIDE 106 mmol/L (98-107); CREATININE 0.64 mg/dl (0.60-1.20); GLUCOSE 90 mg/dl (70-99); POTASSIUM 3.5 mmol/L (3.5-5.1); SODIUM 140 mmol/L (136-145)
[2017-02-07] MEDS ORDERED: SULF800T23 PO (06:25)
[2017-02-07] MEDS ORDERED: SEPTRA DS HOME PACK 1 EA VIAL PO ONE (06:30)
[2017-02-07 06:45] VITALS: BP 121/81; PULSE 95; O2SAT 99
--- NOTE | 2017-02-07 07:53 | DIAGNOSTIC IMAGING REPORT ---
ABD/PELVIS NO IV OR ORAL CONT CLINICAL HISTORY: 52 years-old Female presenting with Right side abd pain. TECHNIQUE: Multidetector CT of the abdomen and pelvis was performed without the use of intravenous contrast. IV contrast: None. A dose lowering technique was used consistent with the principles of ALARA (as low as reasonably achievable). COMPARISON: 01/24/2017. CT DOSE (mGy.cm): The estimated cumulative dose is 817.91 mGy.cm. FINDINGS: Heater Engineer Helper topogram: Cholecystectomy clips noted. Lung bases: Minimal dependent changes likely atelectasis. Mosaic attenuation at the lung bases could suggest small airways disease. Normal heart size. No pericardial or pleural effusion. Liver: Normal morphology. Normal density. Biliary: No gross biliary ductal dilatation allowing for noncontrast technique. Gallbladder surgically absent. Pancreas: Moderate parenchymal atrophy. Spleen: Normal noncontrast appearance. Adrenal glands: Normal noncontrast appearance. Kidneys and ureters: Normal noncontrast appearance. No hydronephrosis. Bladder: Incompletely evaluated secondary to underdistention. Pelvic organs: Uterus surgically absent. No adnexal masses. Bowel: Mild stool burden throughout normal caliber colon. Normal appendix. Lipomatous hypertrophy of the ileocecal valve. No bowel obstruction. Peritoneal cavity: No free fluid or intraperitoneal gas. Lymph nodes: No enlarged lymph nodes in the abdomen or pelvis. Vasculature: Normal noncontrast appearance. Abdominal wall: Normal. Musculoskeletal: Mild osteopenia. IMPRESSION: 1. No acute intra-abdominal pathology. No CT explanation for the patient's symptomatology. 2. Postsurgical changes of cholecystectomy. Electronically signed by: Patrick Vargas M.D. 02/07/2017 7:52 AM Dictated Date/Time: 02/07/2017 7:04 AM
--- NOTE | 2017-02-08 04:58 | EMERGENCY ROOM VISIT NOTE ---
History First contact with patient: 03:34 Chief Complaint: ABDOMINAL PAIN Stated Complaint: ABDOMINAL PAIN Nursing Triage Summary: pt arrives ALS from home. pt had cholycysectomy 12/12. pt also recently finished abx for UTI and had repeat Urinalysis completed that showed no UTI. pt currently has yeast infections and treated with fluconisole. pt c/o R lower abdominal pain this morning. 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 pt rates pain 02/16 and says it is worse than her cholycysectomy History of Present Illness The patient is a 52 year old female who presents to the Emergency Room via ambulance with complaint of right-sided lower abdominal pain. The patient is accompanied by her parents who are acting as the primary caregivers as the patient has a history of cerebral palsy. The patient has evidently had recent urinary tract infections 2 over the past 6 weeks. She evidently went to bed as normal tonight, but woke up around 1 hour ago complaining of pain. The patient Tylenol without any relief of symptoms. The patient states the pain is worse than when she had her gallbladder taken out, and rates it a 10/10. She has not had nausea or vomiting. She does not report dysuria symptoms. She denies chance of . Review of Systems More than 10 systems were reviewed and otherwise negative with the exception of history of present illness. 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, controlled Surgical Problems: (1) H/O: hysterectomy Family History No significant family history Social History Smoking Status: Never Smoker Alcohol Use: none Drug Use: none Marital Status: single Housing Status: lives with family Occupation Status: disabled Current/Historical Medications Scheduled Aspirin (Aspirin Ec), 81 MG PO DAILY AT AFTERNOON Baclofen (Lioresal), 10 MG PO HS Calcium Carbonate-Vitamin D (Calcium 500 + D), 1 TAB PO DAILY IN AFTERNOON Carbamazepine (Tegretol), 400 MG PO AMHS Cholecalciferol (Vitamin D), 5,000 INTER.UNIT PO DAILY IN AFTERNOON Clonazepam (Klonopin), 0.5 MG PO HS Cranberry (Vaccinium Macrocarp (Cranberry), 1 TAB PO QPM Divalproex Sodium (Depakote), 500 MG PO HS Levothyroxine Sodium (Levothyroxine Sodium), 50 MCG PO QAM Nortriptyline Hcl (Pamelor), 25 MG PO HS Omeprazole (Prilosec), 20 MG PO QAM Phenobarbital (Phenobarbital), 30 MG PO AMPM Senna (Senokot), 17.2 MG PO QAM Sennosides-Docusate Sodium (Stool Softener), 1 TAB PO HS Spironolactone (Aldactone), 25 MG PO AMPM Sulfa/Trimethoprim (Bactrim Ds 800MG/160MG), 1 TAB PO BID Vitamin E (Vitamin E 400 Iu), 400 INTER.UNIT PO DAILY IN AFTERNOON Scheduled PRN Acetaminophen (Tylenol), 1,000 MG PO Q6 PRN for Pain Allergies Coded Allergies: Lincomycin (Verified Allergy, Intermediate, HIVES, 02/07/17) Had 40 years ago. Physical Exam Vital Signs Date Time Temp Pulse Resp B/P (MAP) Pulse Ox O2 Delivery O2 Flow Rate FiO2 02/07/17 06:45 95 18 121/81 99 02/07/17 04:47 91 18 115/92 100 Room Air 02/07/17 03:20 36.4 95 19 137/91 98 Room Air Physical Exam VITALS: Vitals are noted on the nurse's note and reviewed by myself. Vital signs stable. GENERAL: Well-developed, well-nourished, white female, who is in no acute distress and resting comfortably. Patient is cooperative with the examination. NECK: Supple without nuchal rigidity. No lymphadenopathy. No thyromegaly. Cervical spine is nontender. HEART: Regular rate and rhythm without murmurs gallops or rubs. LUNGS: Clear to auscultation bilaterally without wheezes, rales or rhonchi. No retractions or accessory muscle use. ABDOMEN: Positive normal bowel sounds x 4. Deep pressure with auscultation does not elicit any tenderness response from the patient. Palpation across the abdomen is not with guarding and resistance from the patient primarily in the lower abdomen. Abdomen is otherwise soft. Abdominal exam is limited secondary to patient's reaction to palpation. MUSCULOSKELETAL: No muscle atrophy, erythema, or edema noted. Full range of motion without joint tenderness in all extremities. Medical Decision & Procedures ER Provider Diagnostic Interpretation: ABD/PELVIS NO IV OR ORAL CONT CLINICAL HISTORY: 52 years-old Female presenting with Right side abd pain. TECHNIQUE: Multidetector CT of the abdomen and pelvis was performed without the use of intravenous contrast. IV contrast: None. A dose lowering technique was used consistent with the principles of ALARA (as low as reasonably achievable). COMPARISON: 01/24/2017. CT DOSE (mGy.cm): The estimated cumulative dose is 817.91 mGy.cm. FINDINGS: Etcher Apprentice topogram: Cholecystectomy clips noted. Lung bases: Minimal dependent changes likely atelectasis. Mosaic attenuation at the lung bases could suggest small airways disease. Normal heart size. No pericardial or pleural effusion. Liver: Normal morphology. Normal density. Biliary: No gross biliary ductal dilatation allowing for noncontrast technique. Gallbladder surgically absent. Pancreas: Moderate parenchymal atrophy. Spleen: Normal noncontrast appearance. Adrenal glands: Normal noncontrast appearance. Kidneys and ureters: Normal noncontrast appearance. No hydronephrosis. Bladder: Incompletely evaluated secondary to underdistention. Pelvic organs: Uterus surgically absent. No adnexal masses. Bowel: Mild stool burden throughout normal caliber colon. Normal appendix. Lipomatous hypertrophy of the ileocecal valve. No bowel obstruction. Peritoneal cavity: No free fluid or intraperitoneal gas. Lymph nodes: No enlarged lymph nodes in the abdomen or pelvis. Vasculature: Normal noncontrast appearance. Abdominal wall: Normal. Musculoskeletal: Mild osteopenia. IMPRESSION: 1. No acute intra-abdominal pathology. No CT explanation for the patient's symptomatology. 2. Postsurgical changes of cholecystectomy. Laboratory Results 02/07/17 04:18 Red Blood Count 4.26, Mean Corpuscular Volume 93.0, Mean Corpuscular Hemoglobin 31.7, Mean Corpuscular Hemoglobin Concent 34.1, Mean Platelet Volume 10.0, Neutrophils (%) (Auto) 67.5, Lymphocytes (%) (Auto) 21.9, Monocytes (%) (Auto) 6.5, Eosinophils (%) (Auto) 3.5, Basophils (%) (Auto) 0.3, Neutrophils # (Auto) 7.78, Lymphocytes # (Auto) 2.52, Monocytes # (Auto) 0.75, Eosinophils # (Auto) 0.40, Basophils # (Auto) 0.03 02/07/17 04:00 Test 02/07/17 04:00 02/07/17 04:18 Urine Color YELLOW Urine Appearance CLOUDY (CLEAR) Urine pH 6.0 (4.5-7.5) Urine Specific [place] 1.013 (1.000-1.030) Urine Protein NEG (NEG) Urine Glucose (UA) NEG (NEG) Urine Ketones NEG (NEG) Urine Occult Blood TRACE (NEG) Urine Nitrite NEG (NEG) Urine Bilirubin NEG (NEG) Urine Urobilinogen NEG (NEG) Urine Leukocyte Esterase LARGE (NEG) Urine WBC (Auto) >30 /hpf (0-5) Urine RBC (Auto) 5-10 /hpf (0-4) Urine Hyaline Casts (Auto) 5-10 /lpf (0-5) Urine Epithelial Cells (Auto) 10-20 /lpf (0-5) Urine Bacteria (Auto) 1+ (NEG) Anion Gap 9.0 mmol/L (3-11) Est Creatinine Clear Calc Drug Dose 104.4 ml/min Estimated GFR () 118.1 Estimated GFR (Non- 101.9 BUN/Creatinine Ratio 19.4 (10-20) Calcium Level 8.8 mg/dl (8.5-10.1) Total Bilirubin 0.2 mg/dl (0.2-1) Aspartate Amino Transf (AST/SGOT) U/L (15-37) Alanine Aminotransferase (ALT/SGPT) 19 U/L (12-78) Alkaline Phosphatase 124 U/L (45-117) Total Protein 8.0 gm/dl (6.4-8.2) Albumin 3.4 gm/dl (3.4-5.0) Globulin 4.6 gm/dl (2.5-4.0) Albumin/Globulin Ratio 0.7 (0.9-2) Lipase 89 U/L (73-393) White Blood Count 11.51 K/uL (4.8-10.8) Red Blood Count 4.26 M/uL (4.2-5.4) Hemoglobin 13.5 g/dL (12.0-16.0) Hematocrit 39.6 % (37-47) Mean Corpuscular Volume 93.0 fL (80-100) Mean Corpuscular Hemoglobin 31.7 pg (25-34) Mean Corpuscular Hemoglobin Concent 34.1 g/dl (32-36) Platelet Count 238 K/uL (130-400) Mean Platelet Volume 10.0 fL (7.4-10.4) Neutrophils (%) (Auto) 67.5 % Lymphocytes (%) (Auto) 21.9 % Monocytes (%) (Auto) 6.5 % Eosinophils (%) (Auto) 3.5 % Basophils (%) (Auto) 0.3 % Neutrophils # (Auto) 7.78 K/uL (1.4-6.5) Lymphocytes # (Auto) 2.52 K/uL (1.2-3.4) Monocytes # (Auto) 0.75 K/uL (0.11-0.59) Eosinophils # (Auto) 0.40 K/uL (0-0.5) Basophils # (Auto) 0.03 K/uL (0-0.2) RDW Standard Deviation 42.1 fL (36.4-46.3) RDW Coefficient of Variation 12.4 % (11.5-14.5) Immature Granulocyte % (Auto) 0.3 % Immature Granulocyte # (Auto) 0.03 K/uL (0.00-0.02) Medications Administered Medications (Trade) Dose Ordered Sig/Rhiannon Route Start Time Stop Time Status Last Admin Dose Admin Sodium Chloride 1,000 ml @ 999 mls/hr Q1H1M ONCE IV 02/07/17 04:00 02/07/17 05:00 DC 02/07/17 05:00 999 MLS/HR Trimethoprim/ Sulfamethoxazole (Sulfameth/ Trimeth Ds 800/ 160MG Home Pack) 1 homepack UD ONCE PO 02/07/17 06:30 02/07/17 06:31 DC 02/07/17 06:34 1 HOMEPACK ED Course Physical exam and history were performed. Nursing notes, EMR, and Medication List were personally reviewed. Patient appears to have reports of severe 10/10 lower abdominal pain. Her examination is more consistent with malingering than an acute process. The patient does have a history of cerebral palsy and appears with slower cognition than average. She appears very dependent on her family, who are very in tune with her medical needs and history. The patient does have recent history of urinary tract infection. She has been treated with 2 different antibiotics. Because of this I did elect to get a catheter urine sample. IV access was established and labs were obtained. The patient was sent to CT scan as she is fairly uncooperative with physical exam. The patient's blood work is as above and was reviewed. She does not have a significantly elevated white blood cell count or gross anemia, bandemia, or significant electrolyte imbalance. Lipase and transaminases are nondiagnostic. Her urine may suggest infection, which may correlate with her symptoms. CT scan does not show any acute abdominal findings otherwise. Overall the patient appears well for discharge home. I am skeptical that a urinary tract infection is the full cause of her symptoms. There may be some level of somatization of her pain or attention seeking from her family. Regardless the patient appears well for discharge home. I will give her a course of antibiotics pending culture results on the urine. The patient and family were educated regarding the workup and plan. The patient was pleased with discharge home and rated her discomfort a 0/10 at the time of departure. The chart was completed utilizing [employer] Voice Recognition Software. Grammatical errors, random word insertions, pronoun errors, and incomplete sentences are an occasional consequence of this system due to software limitations, ambient noise, and hardware issues. Any formal questions or concerns about the content, text, or information contained within the body of this dictation should be directly addressed to the provider for clarification. . Medical Decision Differential diagnosis: Etiologies such as appendicitis, diverticulitis, PUD, biliary pathology, UTI, pancreatitis, obstruction, mesenteric ischemia, aortic pathology, infections, inflammatory bowel disease, renal colic, as well as others were entertained. Impression Primary Impression: Urinary tract infection Additional Impression: Abdominal pain Departure Information Dispostion Home / Self-Care Condition GOOD Prescriptions Sulfa/Trimethoprim (Bactrim Ds 800MG/160MG) Tab 1 TAB PO BID for 9 Days, #18 TAB Prov: Hardeep Burt PA-C 02/07/17 Referrals Hardeep Paul PA-C (PCP) Forms Call Back Authorization, HOME CARE DOCUMENTATION FORM, IMPORTANT VISIT INFORMATION Patient Instructions [facility] Additional Instructions You were seen and evaluated today on an emergency basis only. This is not a substitute for, or an effort to provide, complete comprehensive medical care. It is not possible to recognize and treat all injuries or illnesses in a single emergency department visit. For this reason it is recommended that you followup with your primary care physician this week for ongoing care and evaluation. Trimethoprim-Sulfamethoxazole(Bactrim DS): Take one pill twice daily for 10 total days for your urine infection. All antibiotics can cause diarrhea. If this occurs and you feel worse or it does not resolve in 1-2 days follow up with your doctor or return to the Emergency Department as this could be signs of serious underlying problems. Any medication can cause an allergic reaction, stop the pills immediately and return to the ER for rash, hives, breathing difficulties, or swelling. You are welcome to return to the emergency department anytime with new, worsening, or concerning symptoms. Problem Qualifiers
--- NOTE | 2017-02-09 12:25 | Pharmacy Progress Note ---
ED Pharmacist Culture FollowUp Date of Service: Feb 09, 2017. Patient was sent home with a prescription for bactrim, which should cover the E. coli growing from the patient's urine culture.
== END 2017-02-07 06:47 | disposition home or self-care (01) ==
LOC: EDBD 03:19 → C.EDA 03:20
DX: N39.0 Urinary tract infection, site not specified (principal); R10.31 Right lower quadrant pain; Z87.440 Personal history of urinary (tract) infections; G80.9 Cerebral palsy, unspecified; G40.909 Epilepsy, unspecified, not intractable, without status epilepticus; Z79.82 Long term (current) use of aspirin; Z79.899 Other long term (current) drug therapy

== ENCOUNTER → 2017-05-25 | Outpatient (CLI) | payer OTHER ==
[~2017-05-25] MED LIST changes: -CEPH500C PO; -HYDR-5688 PO
== END | disposition home or self-care (01) ==
LOC: C.LABSPEC 17:20 → C.PATHSPEC 17:38
PROVIDERS: ATTEND Urology
DX: R31.0 Gross hematuria (principal); R30.0 Dysuria; N39.0 Urinary tract infection, site not specified

== ENCOUNTER 2017-06-16 19:01 | Emergency (ER) | payer OTHER ==
[~2017-06-16] VITALS: Ht 167.6 cm; Wt 83.7 kg
[2017-06-16 19:05] VITALS: TEMP 36.6; O2SAT 93; Ht 167.6 cm; Wt 83.7 kg
[2017-06-16 19:44] LABS: BASO % 0.7 %; BASO ABS # 0.05 K/uL (0-0.2); EOS % 10.6 %; EOS ABS # 0.75 K/uL (0-0.5); HEMATOCRIT 38.7 % (37-47); HEMOGLOBIN 13.1 g/dL (12.0-16.0); IG# 0.02 K/uL (0.00-0.02); LYMPH % 35.7 %; LYMPH ABS # 2.53 K/uL (1.2-3.4); MEAN CELL VOLUME 93.9 fL (80-100); MEAN CORPUSCULAR HEMOGLOBIN 31.8 pg (25-34); MEAN CORPUSCULAR HGB CONC 33.9 g/dl (32-36); MEAN PLATELET VOLUME 9.6 fL (7.4-10.4); MONO % 6.9 %; MONO ABS # 0.49 K/uL (0.11-0.59); NEUT % 45.8 %; NEUT ABS # 3.24 K/uL (1.4-6.5); PLATELET COUNT 258 K/uL (130-400); RED CELL DISTRIBUTION WIDTH CV 12.5 % (11.5-14.5); RED CELL DISTRIBUTION WIDTH SD 42.8 fL (36.4-46.3); WHITE BLOOD COUNT 7.08 K/uL (4.8-10.8)
[2017-06-16 20:09] LABS: ALBUMIN 3.4 gm/dl (3.4-5.0); ALT/SGPT 19 U/L (12-78); AST/SGOT 10 U/L (15-37); BLOOD UREA NITROGEN 11 mg/dl (7-18); CALCIUM 8.6 mg/dl (8.5-10.1); CARBON DIOXIDE 27 mmol/L (21-32); CREATININE 0.56 mg/dl (0.60-1.20); GLUCOSE 94 mg/dl (70-99); LIPASE 91 U/L (73-393); POTASSIUM 3.7 mmol/L (3.5-5.1); SODIUM 141 mmol/L (136-145)
--- NOTE | 2017-06-16 20:10 | DIAGNOSTIC IMAGING REPORT ---
CHEST ONE VIEW PORTABLE CLINICAL HISTORY: CHEST PAIN COMPARISON STUDY: Chest CT October 10, 2016 and chest radiograph January 24, 2017. FINDINGS: Postoperative findings within the cervical spine are partially imaged. Scoliosis is noted. There is mild gaseous distention of the stomach. No pneumothorax or pleural effusion is noted. There is no evidence for pulmonary edema. Mild left basilar opacity favors atelectasis. The appearance of the chest is unchanged. IMPRESSION: 1. No acute cardiopulmonary findings. 2. Mildly diminished lung volumes. 3. Mild gaseous distention of the stomach. Electronically signed by: Roger Montgomery M.D. 06/16/2017 8:09 PM Dictated Date/Time: 06/16/2017 8:07 PM
[2017-06-16] MEDS ORDERED: ASCA500 PO (20:13)
[2017-06-16 20:14] LABS: ALKALINE PHOSPHATASE 107 U/L (45-117); TOTAL PROTEIN 7.9 gm/dl (6.4-8.2)
[2017-06-16] MEDS ORDERED: OPTIRAY 320 IV PRN (20:15)
--- NOTE | 2017-06-16 21:42 | EMERGENCY ROOM VISIT NOTE ---
History Report prepared by Shaheen: Nighat Prater Under the Supervision of: Dr. Jonathan Leyva M.D. 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 The patient presents to the ED by EMS. Her mother states the patient was eating her dinner of malawian fries, fish, and coleslaw when she had an episode of vomiting. She brought up mucous with some blood in it. There was no food in her vomit. She tried drinking some jason gerardo, but was unable to swallow. She had been having some difficulty swallowing for the last couple days. She has not had issues with swallowing before. She is currently having throat pain with swallowing. She has had diarrhea for the past 3 days. She denies any fever, chills, cough, congestion, urinary symptoms, headache, or dizziness. She has had intermittent mid chest pressure for the past 5 days. She denies any nausea, vomiting, or SOB with the chest pain. 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 A total of ten systems were reviewed and were otherwise negative. 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, controlled Surgical Problems: (1) H/O: hysterectomy Family History No significant family history Social History Smoking Status: Never Smoker Alcohol Use: none Drug Use: none Marital Status: single Housing Status: lives with family Occupation Status: disabled Current/Historical Medications Scheduled Ascorbic Acid (Vitamin C), 500 MG PO QPM Aspirin (Aspirin Ec), 81 MG PO DAILY AT AFTERNOON Baclofen (Lioresal), 10 MG PO HS Calcium Carbonate-Vitamin D (Calcium 500 + D), 1 TAB PO DAILY IN AFTERNOON Carbamazepine (Tegretol), 400 MG PO AMHS Cholecalciferol (Vitamin D), 5,000 INTER.UNIT PO DAILY IN AFTERNOON Clonazepam (Klonopin), 0.5 MG PO HS Cranberry (Vaccinium Macrocarp (Cranberry), 1 TAB PO QPM Divalproex Sodium (Depakote), 500 MG PO HS Levothyroxine Sodium (Levothyroxine Sodium), 50 MCG PO QAM Nortriptyline Hcl (Pamelor), 25 MG PO HS Omeprazole (Prilosec), 20 MG PO QAM Oseltamivir Phosphate (Tamiflu), 75 MG PO BID Phenobarbital (Phenobarbital), 30 MG PO AMPM Senna (Senokot), 17.2 MG PO QAM Sennosides-Docusate Sodium (Stool Softener), 1 TAB PO HS Spironolactone (Aldactone), 25 MG PO AMPM Vitamin E (Vitamin E 400 Iu), 400 INTER.UNIT PO DAILY IN AFTERNOON Scheduled PRN Acetaminophen (Tylenol), 1,000 MG PO Q6 PRN for Pain Ibuprofen Tab (Motrin), 800 MG PO Q8H PRN for Pain Allergies Coded Allergies: Lincomycin (Verified Allergy, Intermediate, HIVES, 06/16/17) Had 40 years ago. Physical Exam Vital Signs Date Time Temp Pulse Resp B/P (MAP) Pulse Ox O2 Delivery O2 Flow Rate FiO2 06/16/17 23:09 93 20 130/84 98 Room Air 06/16/17 21:30 93 18 124/84 97 Room Air 06/16/17 20:02 93 06/16/17 19:05 93 Room Air 06/16/17 19:05 36.6 103 20 115/88 93 Room Air 06/16/17 19:05 93 Room Air Physical Exam GENERAL: Awake, alert, relatively well-appearing, in no distress HENT: Normocephalic, atraumatic. Dry mucous membranes. Oropharynx unremarkable with no injection or significant edema. EYES: Normal conjunctiva. Sclera non-icteric. NECK: Supple. No nuchal rigidity. FROM. No JVD. Mild tenderness to the anterior neck, but no edema. No pain with tracheal manipulation. No adenopathy. No stridor. RESPIRATORY: Clear to auscultation. CARDIAC: Regular rate, normal rhythm. Extremities warm and well perfused. Pulses equal. ABDOMEN: Obese. Soft, non-distended. No tenderness to palpation. No rebound or guarding. No masses. RECTAL: Deferred. MUSCULOSKELETAL: Reproducible right anterior chest wall tenderness, no fluctuance or induration. The back is symmetrical on inspection without obvious abnormality. There is no CVA tenderness to palpation. No joint edema. LOWER EXTREMITIES: Calves are equal size bilaterally and non-tender. No edema. No discoloration. NEURO: Normal sensorium. Baseline paresis in the LUE and lower extremities. SKIN: No rash or jaundice noted. Medical Decision & Procedures ER Provider Diagnostic Interpretation: Xray results as stated below per my and radiologist interpretation. Radiology results as stated below per my review and radiologist interpretation: CHEST ONE VIEW PORTABLE CLINICAL HISTORY: CHEST PAIN COMPARISON STUDY: Chest CT October 10, 2016 and chest radiograph January 24, 2017. FINDINGS: Postoperative findings within the cervical spine are partially imaged. Scoliosis is noted. There is mild gaseous distention of the stomach. No pneumothorax or pleural effusion is noted. There is no evidence for pulmonary edema. Mild left basilar opacity favors atelectasis. The appearance of the chest is unchanged. IMPRESSION: 1. No acute cardiopulmonary findings. 2. Mildly diminished lung volumes. 3. Mild gaseous distention of the stomach. Electronically signed by: Rgoer Montgomery M.D. 06/16/2017 8:09 PM Dictated Date/Time: 06/16/2017 8:[address] OF THE NECK WITH CONTRAST CLINICAL HISTORY: Dysphagia. COMPARISON STUDY: MRI of the cervical spine October 05, 2010. TECHNIQUE: Axial images of the neck were obtained following intravenous injection of 52 cc of Optiray 320 IV. FINDINGS: No cervical lymphadenopathy is identified. There is mild tonsillar enlargement. The airway is mildly narrowed but patent. Epiglottis is normal. There is no prevertebral edema. Groundglass opacities are noted within visualized portions of the lungs which favor atelectasis. Postoperative findings within the cervical spine are noted. Visualized portions of the intracranial contents are unremarkable. Mastoid air cells are clear. There is mild mucosal thickening of the right ethmoid air cells. No radiopaque foreign body is identified within the neck. IMPRESSION: 1. No radiopaque foreign body within the neck. 2. Mild tonsillar hypertrophy which results in mild airway narrowing. However, airway patent. 3. Cervical lymphadenopathy or mass. Electronically signed by: Roger Montgomery M.D. 06/16/2017 9:54 PM Dictated Date/Time: 06/16/2017 9:46 PM Laboratory Results 06/16/17 19:26 Red Blood Count 4.12, Mean Corpuscular Volume 93.9, Mean Corpuscular Hemoglobin 31.8, Mean Corpuscular Hemoglobin Concent 33.9, Mean Platelet Volume 9.6, Neutrophils (%) (Auto) 45.8, Lymphocytes (%) (Auto) 35.7, Monocytes (%) (Auto) 6.9, Eosinophils (%) (Auto) 10.6, Basophils (%) (Auto) 0.7, Neutrophils # (Auto ) 3.24, Lymphocytes # (Auto) 2.53, Monocytes # (Auto) 0.49, Eosinophils # (Auto ) 0.75, Basophils # (Auto) 0.05 06/16/17 19:26 Test 06/16/17 19:26 White Blood Count 7.08 K/uL (4.8-10.8) Red Blood Count 4.12 M/uL (4.2-5.4) Hemoglobin 13.1 g/dL (12.0-16.0) Hematocrit 38.7 % (37-47) Mean Corpuscular Volume 93.9 fL (80-100) Mean Corpuscular Hemoglobin 31.8 pg (25-34) Mean Corpuscular Hemoglobin Concent 33.9 g/dl (32-36) Platelet Count 258 K/uL (130-400) Mean Platelet Volume 9.6 fL (7.4-10.4) Neutrophils (%) (Auto) 45.8 % Lymphocytes (%) (Auto) 35.7 % Monocytes (%) (Auto) 6.9 % Eosinophils (%) (Auto) 10.6 % Basophils (%) (Auto) 0.7 % Neutrophils # (Auto) 3.24 K/uL (1.4-6.5) Lymphocytes # (Auto) 2.53 K/uL (1.2-3.4) Monocytes # (Auto) 0.49 K/uL (0.11-0.59) Eosinophils # (Auto) 0.75 K/uL (0-0.5) Basophils # (Auto) 0.05 K/uL (0-0.2) RDW Standard Deviation 42.8 fL (36.4-46.3) RDW Coefficient of Variation 12.5 % (11.5-14.5) Immature Granulocyte % (Auto) 0.3 % Immature Granulocyte # (Auto) 0.02 K/uL (0.00-0.02) D-Dimer 220 ug/L FEU (0-500) Anion Gap 8.0 mmol/L (3-11) Est Creatinine Clear Calc Drug Dose 126.6 ml/min Estimated GFR () 123.4 Estimated GFR (Non- 106.5 BUN/Creatinine Ratio 19.5 (10-20) Calcium Level 8.6 mg/dl (8.5-10.1) Total Bilirubin 0.2 mg/dl (0.2-1) Direct Bilirubin < 0.1 mg/dl (0-0.2) Aspartate Amino Transf (AST/SGOT) 10 U/L (15-37) Alanine Aminotransferase (ALT/SGPT) 19 U/L (12-78) Alkaline Phosphatase 107 U/L (45-117) Troponin I < 0.015 ng/ml (0-0.045) Total Protein 7.9 gm/dl (6.4-8.2) Albumin 3.4 gm/dl (3.4-5.0) Lipase 91 U/L (73-393) Laboratory results reviewed by me Medications Administered Medications (Trade) Dose Ordered Sig/Rhiannon Route Start Time Stop Time Status Last Admin Dose Admin Dexamethasone Sodium Phosphate (Dexamethasone Inj Pf) 10 mg NOW ONCE IV 06/16/17 22:00 06/16/17 22:01 DC 06/16/17 22:45 10 MG Ketorolac Tromethamine (Toradol Inj) 15 mg NOW STAT IV 06/16/17 21:58 06/16/17 21:59 DC 06/16/17 22:46 15 MG Oseltamivir Phosphate (Tamiflu Cap) 75 mg NOW STAT PO 06/16/17 22:04 06/16/17 22:05 DC 06/16/17 22:45 75 MG ECG Per My Interpretation Indication: chest pain Rate (beats per minute): 97 Rhythm: normal sinus Findings: no acute ischemic change, other (normal axis) ED Course 1905: The patient was evaluated in room C2A. A complete history and physical exam was performed. 2158: I reevaluated the patient. Discussed results and discharge instructions: They verbalized understanding and agreement. The patient is ready for discharge. Medical Decision I reviewed the patient's past medical history, medications, and the nursing notes as described above. Differential diagnosis: Etiologies such as food bolus, aspiration, cardiac ischemia, aortic dissection, pulmonary embolism, pneumonia, pneumothorax, musculoskeletal, infections, pericarditis, myocarditis, esophageal rupture, gastrointestinal, as well as others were entertained. 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 On arrival the patient is relatively well- appearing, no acute distress, afebrile stable vital signs. The patient reports painful/difficulty swallowing. The patient has reproducible right anterior chest wall tenderness to palpation with no induration or fluctuance. EKG is unremarkable the setting of 3 weeks of constant chest pain. Labs are unremarkable including WBC and troponin within normal limits. Chest x-ray negative for pneumonia. CT soft tissue neck with contrast with mild tonsillar enlargement with mild airway narrowing however airway is patent. No stridor and is reporting improvement in her dysphagia. Thus we will give a dose of dexamethasone and patient will continue to take NSAIDs for pharyngitis. Rapid strep negative. Patient also now reporting that she has had increased nasal congestion and body aches starting yesterday. Given the patient's comorbidities and flulike symptoms will treat empirically. Findings and plan for follow-up reviewed with patient. Patient agreeable and d/c'd per discharge instructions. Medication Reconcilliation Current Medication List: was personally reviewed by me Blood Pressure Screening Patient's blood pressure: Normal blood pressure Blood pressure disposition: Did not require urgent referral Impression Primary Impression: Pharyngitis Additional Impressions: Flu-like symptoms Chest wall pain Scribe Attestation The scribe's documentation has been prepared under my direction and personally reviewed by me in its entirety. I confirm that the note above accurately reflects all work, treatment, procedures, and medical decision making performed by me. Departure Information Dispostion Home / Self-Care Prescriptions Ibuprofen Tab (MOTRIN) 800 Mg Tab 800 MG PO Q8H Y for Pain, #21 TAB Prov: Jonathan Leyva M.D. 06/16/17 Oseltamivir Phosphate (Tamiflu) 75 Mg Cap 75 MG PO BID, #10 CAP Prov: Jonathan Leyva M.D. 06/16/17 Referrals Hardeep Paul PA-C (PCP) Patient Instructions ED Chest Pain Costochondritis, ED Flu, ED Pharyngitis Viral, [facility] Additional Instructions Please follow up with your primary care physician in the next 1-3 days for re- evaluation. You likely have a viral illness. Otherwise, your exam, EKG, chest xray, lab results, CT scan of your neck did not show signs of an emergent condition at this time. Acetaminophen or ibuprofen for pain and fevers as needed. Tamiflu as directed for treatment of possible flu given your symptoms and high prevalence in the community. Drink plenty of fluids to ensure hydration. Return to the emergency department for worsening symptoms as described in the accompanying instructions. Problem Qualifiers
--- NOTE | 2017-06-16 21:55 | DIAGNOSTIC IMAGING REPORT ---
CT OF THE NECK WITH CONTRAST CLINICAL HISTORY: Dysphagia. COMPARISON STUDY: MRI of the cervical spine October 05, 2010. TECHNIQUE: Axial images of the neck were obtained following intravenous injection of 52 cc of Optiray 320 IV. FINDINGS: No cervical lymphadenopathy is identified. There is mild tonsillar enlargement. The airway is mildly narrowed but patent. Epiglottis is normal. There is no prevertebral edema. Groundglass opacities are noted within visualized portions of the lungs which favor atelectasis. Postoperative findings within the cervical spine are noted. Visualized portions of the intracranial contents are unremarkable. Mastoid air cells are clear. There is mild mucosal thickening of the right ethmoid air cells. No radiopaque foreign body is identified within the neck. IMPRESSION: 1. No radiopaque foreign body within the neck. 2. Mild tonsillar hypertrophy which results in mild airway narrowing. However, airway patent. 3. Cervical lymphadenopathy or mass. Electronically signed by: Roger Montgomery M.D. 06/16/2017 9:54 PM Dictated Date/Time: 06/16/2017 9:46 PM
[2017-06-16] MEDS ORDERED: KETOROLAC TROMETHAMINE 30 MG/ML VIAL IV STA (21:58)
[2017-06-16] MEDS ORDERED: DEXAMETHASONE **PF** INJ 10 MG/ML VIAL IV ONE (22:00)
[2017-06-16] MEDS ORDERED: OSELTAMIVIR PHOSPHATE 75 MG CAP PO STA (22:04)
[2017-06-16] MEDS ORDERED: OSEL75CA23 PO (22:08)
[2017-06-16] MEDS ORDERED: IBUP-1451 PO (22:08)
[2017-06-16 23:09] VITALS: BP 130/84; PULSE 93; O2SAT 98
== END 2017-06-16 23:13 | disposition home or self-care (01) ==
LOC: EDBD 19:01 → C.EDC 19:03
DX: J02.9 Acute pharyngitis, unspecified (principal); R69 Illness, unspecified; R07.89 Other chest pain; G80.9 Cerebral palsy, unspecified; G40.409 Other generalized epilepsy and epileptic syndromes, not intractable, without status epilepticus; Z79.82 Long term (current) use of aspirin

== ENCOUNTER 2017-07-08 16:45 | Inpatient (IN) | payer OTHER ==
[~2017-07-08] VITALS: Ht 162.6 cm; Wt 82.9 kg
[~2017-07-08 16:45] MED LIST changes: +ASCA500 PO; +IBUP-1451 PO; +OSEL75CA23 PO
[2017-07-08] MEDS ORDERED: LIDOCAINE/PRILOCAINE 2.5% EA CRM ONE (17:23)
--- NOTE | 2017-07-08 17:48 | DIAGNOSTIC IMAGING REPORT ---
CHEST ONE VIEW PORTABLE HISTORY: 52 years-old Female CHEST PAIN acute atypical chest pain COMPARISON: Portable chest radiograph 06/16/2017 TECHNIQUE: Portable AP view of the chest FINDINGS: Patient is mildly rotated to the left. Lungs are mildly hypoinflated with bronchovascular crowding. Cardiac silhouette is within normal limits. There is no pneumothorax or pleural effusion. Minimal subsegmental left basilar atelectasis. No overt pulmonary edema. Mild gaseous distention of the stomach. Bones of the chest appear grossly intact. Posterior changes of the cervical spine. Surgical clips of the right upper abdomen suggest prior cholecystectomy. IMPRESSION: No acute process. The above report was generated using voice recognition software. It may contain grammatical, syntax or spelling errors. Electronically signed by: Chava Vaca M.D. 07/08/2017 5:46 PM Dictated Date/Time: 07/08/2017 5:45 PM
[2017-07-08] MEDS ORDERED: IBUP-1428 PO (18:25)
[2017-07-08] MEDS ORDERED: VENTOLIN HFA 90MCG INH (18:27)
[2017-07-08] MEDS ORDERED: PRED10TA PO (18:28)
--- NOTE | 2017-07-08 20:04 | DIAGNOSTIC IMAGING REPORT ---
BILATERAL LOWER EXTREMITY VENOUS DOPPLER HISTORY: Acute leg swelling bilaterally leg swelling. DVT eval. COMPARISON STUDY: Duplex venous Doppler study 10/10/2016. FINDINGS: There is normal compressibility, flow, and augmentation within the bilateral lower extremity deep venous systems. IMPRESSION: No sonographic evidence of deep venous thrombosis within the right or left lower extremity. Electronically signed by: Chava Vaca M.D. 07/08/2017 8:02 PM Dictated Date/Time: 07/08/2017 8:02 PM
[2017-07-08 20:31] LABS: BASO % 0.4 %; BASO ABS # 0.03 K/uL (0-0.2); EOS % 0.7 %; EOS ABS # 0.05 K/uL (0-0.5); HEMATOCRIT 36.8 % (37-47); HEMOGLOBIN 12.3 g/dL (12.0-16.0); IG# 0.05 K/uL (0.00-0.02); LYMPH % 18.6 %; LYMPH ABS # 1.31 K/uL (1.2-3.4); MEAN CELL VOLUME 94.1 fL (80-100); MEAN CORPUSCULAR HEMOGLOBIN 31.5 pg (25-34); MEAN CORPUSCULAR HGB CONC 33.4 g/dl (32-36); MONO % 3.7 %; MONO ABS # 0.26 K/uL (0.11-0.59); NEUT % 75.9 %; NEUT ABS # 5.33 K/uL (1.4-6.5); PLATELET COUNT 244 K/uL (130-400); RED CELL DISTRIBUTION WIDTH CV 12.4 % (11.5-14.5); RED CELL DISTRIBUTION WIDTH SD 41.9 fL (36.4-46.3); WHITE BLOOD COUNT 7.03 K/uL (4.8-10.8)
[2017-07-08 20:57] LABS: ALBUMIN 3.6 gm/dl (3.4-5.0); ALT/SGPT 20 U/L (12-78); AST/SGOT 12 U/L (15-37); BLOOD UREA NITROGEN 10 mg/dl (7-18); CALCIUM 9.1 mg/dl (8.5-10.1); CARBON DIOXIDE 27 mmol/L (21-32); CREATININE 0.65 mg/dl (0.60-1.20); GLUCOSE 101 mg/dl (70-99); LIPASE 61 U/L (73-393); POTASSIUM 3.7 mmol/L (3.5-5.1); SODIUM 140 mmol/L (136-145)
[2017-07-08 20:58] LABS: INR 1.1 (0.9-1.1); PTT PATIENT 26.8 SECONDS (21.0-31.0)
[2017-07-08 21:00] LABS: ALKALINE PHOSPHATASE 99 U/L (45-117); CKMB 0.5 ng/ml (0.5-3.6)
[2017-07-08] MEDS ORDERED: DIVALPROEX SODIUM 500 MG DELAY RELEASE TAB PO SCH (22:15)
[2017-07-08] MEDS ORDERED: SPIRONOLACTONE 25 MG TAB PO SCH (22:15)
[2017-07-08] MEDS ORDERED: PHENOBARBITAL 32.4 MG TAB PO SCH (22:15)
[2017-07-08] MEDS ORDERED: CARBAMAZEPINE 200 MG TAB PO SCH (22:15)
[2017-07-08] MEDS ORDERED: NORTRIPTYLINE HCL 25 MG CAP PO SCH (22:15)
[2017-07-08] MEDS ORDERED: CLONAZEPAM 0.5 MG TAB PO SCH (22:15)
[2017-07-08] MEDS ORDERED: BACLOFEN 10 MG TAB PO SCH (22:15)
--- NOTE | 2017-07-08 22:40 | DIAGNOSTIC IMAGING REPORT ---
(CHEST) THORAX WITHOUT CT DOSE: 374.72 mGy.cm CLINICAL HISTORY: 52 years-old Female with chest pain. Acute atypical chest pain TECHNIQUE: Multiaxial CT images of the chest were performed without contrast. A dose lowering technique was utilized adhering to the principles of ALARA. COMPARISON: Chest radiograph of same day, CTA chest 10/10/2016. FINDINGS: No dominant thyroid nodule or pathologic adenopathy identified. Heart is normal in size without pericardial effusion. Thoracic aorta is normal in course and caliber without aneurysm identified. No pneumothorax or pleural effusion. Mild subsegmental bibasilar atelectasis with moderate bilateral bronchial wall thickening demonstrating areas of bibasilar bronchial mucous plugging. Mild mosaic attenuation of the lung bases also noted. Evaluation of the lung bases is limited secondary to respiratory motion. There is suggestion of a 4 mm nodule of the left lower lobe, image 154 series 4. No lobar airspace consolidations identified. Imaged upper abdominal structures are unremarkable. Soft tissues are within normal limits. Fusion hardware of the cervical spine is partially imaged. IMPRESSION: 1. No lobar airspace consolidation or pathologic adenopathy. 2. Moderate bilateral bronchial wall thickening compatible with bronchitis with areas of bronchial mucous plugging within the lung bases. Areas of mosaic attenuation are also noted bilaterally with patchy subsegmental atelectasis suggesting associated air trapping. Electronically signed by: Chava Vaca M.D. 07/08/2017 10:38 PM Dictated Date/Time: 07/08/2017 10:33 PM
--- NOTE | 2017-07-08 23:38 | History and Physical ---
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 Her mother reports that the cough the patient has had has very thick sputum production which intermittently is white, then yellow and then white again. She was seen by a health and nutrition specialist approximately 4 days ago, had a workup including an EKG and echocardiogram, and there was suggestion that there was an abnormality that required immediate transfer to [facility] for a CT with contrast. The CT was unable to be done with contrast due to inability to gain IV access. The patient reports that earlier in the day prior to arrival here, she developed more persistent and worsening chest discomfort, with some loose stools in the morning, was continuing to take Ventolin inhaler and prednisone as directed, and because of the worsening of symptoms, was brought to the emergency department as noted. Family History No significant family history Social History Smoking Status: Never Smoker Smokeless Tobacco Use: No Alcohol Use: none Drug Use: none Marital Status: single Housing status: lives with family Occupational Status: disabled Immunizations History of Influenza Vaccine: Unknown History of Tetanus Vaccine?: Unknown History of Pneumococcal: Unknown History of Hepatitis B Vaccine: Unknown Allergies Coded Allergies: Lincomycin (Verified Allergy, Intermediate, HIVES, 06/16/17) Had 40 years ago. Home Medications Scheduled Ascorbic Acid (Vitamin C), 500 MG PO QPM Aspirin (Aspirin Ec), 81 MG PO DAILY AT AFTERNOON Baclofen (Lioresal), 10 MG PO HS Calcium Carbonate-Vitamin D (Calcium 500 + D), 1 TAB PO DAILY IN AFTERNOON Carbamazepine (Tegretol), 400 MG PO AMHS Cholecalciferol (Vitamin D), 5,000 INTER.UNIT PO DAILY IN AFTERNOON Clonazepam (Klonopin), 0.5 MG PO HS Cranberry (Vaccinium Macrocarp (Cranberry), 1 TAB PO QPM Divalproex Sodium (Depakote), 500 MG PO HS Levothyroxine Sodium (Levothyroxine Sodium), 50 MCG PO QAM Nortriptyline Hcl (Pamelor), 25 MG PO HS Omeprazole (Prilosec), 20 MG PO QAM Phenobarbital (Phenobarbital), 30 MG PO AMPM Prednisone (Prednisone), 10 MG PO DAILY/UD Senna (Senokot), 17.2 MG PO QAM Sennosides-Docusate Sodium (Stool Softener), 1 TAB PO HS Spironolactone (Aldactone), 25 MG PO AMPM Vitamin E (Vitamin E 400 Iu), 400 INTER.UNIT PO DAILY IN AFTERNOON Scheduled PRN Acetaminophen (Tylenol), 1,000 MG PO Q6 PRN for Pain Ibuprofen (Motrin), 800 MG PO Q8 PRN for Pain [Ventolin Hfa 90MCG], 2 PUFFS INH Q4H PRN for Shortness of Breath Review of Systems The patient denies palpitations, sore throat, fevers, chills, sweats, nausea, vomiting, diarrhea , constipation, abdominal pain, pelvic pain, blood in urine or stool, dysuria, urinary frequency or urgency, headache, memory loss, loss of consciousness, rash, abnormal bruising or bleeding, generalized arthralgias or myalgias, back or neck pain, or night sweats. The review of systems is otherwise negative other than for that already noted above, and at least 10 systems have been reviewed. Physical Exam Vital Signs Date Time Temp Pulse Resp B/P (MAP) Pulse Ox O2 Delivery O2 Flow Rate FiO2 07/08/17 22:41 99 20 99 Room Air 07/08/17 22:32 122/92 07/08/17 20:44 108 16 07/08/17 20:39 109 18 137/80 98 07/08/17 20:09 112 17 07/08/17 20:04 142/85 07/08/17 19:00 114 22 99 Room Air 07/08/17 17:09 115 07/08/17 17:08 36.8 112 15 136/96 100 Room Air 07/08/17 17:08 100 Room Air 07/08/17 17:07 100 Room Air The patient is awake, alert and oriented 3, well developed and well nourished, normocephalic and atraumatic, lying in bed and in no acute distress. HEENT--PERRL, EOMI, mucous membranes and oropharynx normal. Neck--supple. No JVD. No bruits. Thyroid normal, trachea midline, no adenopathy. Heart--normal S1 and S2. No murmurs, rubs or gallops. Lungs--few coarse breath sounds, scattered wheezes, overall diminished, no respiratory distress, no accessory muscle use. Abdomen--normal bowel sounds and soft. Nontender. Nondistended, no hernias or masses, no organomegaly. Extremities--no cyanosis or clubbing. No edema. There are good distal pulses b/ l. Dermatologic--normal skin turgor, normal color, no abnormal lymph nodes, no rash. Neurologic--cranial nerves II through XII grossly intact. Rheumatologic--normal range of motion. Psychiatric--normal affect. Diagnostics Laboratory Results Results Past 24 Hours Test 07/08/17 20:16 07/08/17 20:17 Range/Units Prothrombin Time 11.1 9.0-12.0 SECONDS Prothromb Time International Ratio 1.1 0.9-1.1 Activated Partial Thromboplast Time 26.8 21.0-31.0 SECONDS Partial Thromboplastin Ratio 1.0 D-Dimer 300 0-500 ug/L FEU White Blood Count 7.03 4.8-10.8 K/uL Red Blood Count 3.91 4.2-5.4 M/uL Hemoglobin 12.3 12.0-16.0 g/dL Hematocrit 36.8 37-47 % Mean Corpuscular Volume 94.1 80-100 fL Mean Corpuscular Hemoglobin 31.5 25-34 pg Mean Corpuscular Hemoglobin Concent 33.4 32-36 g/dl Platelet Count 244 130-400 K/uL Mean Platelet Volume 10.0 7.4-10.4 fL Neutrophils (%) (Auto) 75.9 % Lymphocytes (%) (Auto) 18.6 % Monocytes (%) (Auto) 3.7 % Eosinophils (%) (Auto) 0.7 % Basophils (%) (Auto) 0.4 % Neutrophils # (Auto) 5.33 1.4-6.5 K/uL Lymphocytes # (Auto) 1.31 1.2-3.4 K/uL Monocytes # (Auto) 0.26 0.11-0.59 K/uL Eosinophils # (Auto) 0.05 0-0.5 K/uL Basophils # (Auto) 0.03 0-0.2 K/uL RDW Standard Deviation 41.9 36.4-46.3 fL RDW Coefficient of Variation 12.4 11.5-14.5 % Immature Granulocyte % (Auto) 0.7 % Immature Granulocyte # (Auto) 0.05 0.00-0.02 K/uL Sodium Level 140 136-145 mmol/L Potassium Level 3.7 3.5-5.1 mmol/L Chloride Level 105 98-107 mmol/L Carbon Dioxide Level 27 21-32 mmol/L Anion Gap 8.0 3-11 mmol/L Blood Urea Nitrogen 10 7-18 mg/dl Creatinine 0.65 0.60-1.20 mg/dl Est Creatinine Clear Calc Drug Dose 112.8 ml/min Estimated GFR () 117.5 Estimated GFR (Non- 101.4 BUN/Creatinine Ratio 14.7 10-20 Random Glucose 101 70-99 mg/dl Calcium Level 9.1 8.5-10.1 mg/dl Total Bilirubin 0.2 0.2-1 mg/dl Direct Bilirubin < 0.1 0-0.2 mg/dl Aspartate Amino Transf (AST/SGOT) 12 15-37 U/L Alanine Aminotransferase (ALT/SGPT) 20 12-78 U/L Alkaline Phosphatase 99 45-117 U/L Total Creatine Kinase 48 26-192 U/L Creatine Kinase MB 0.5 0.5-3.6 ng/ml Creatine Kinase MB Ratio 1.0 0-3.0 Troponin I < 0.015 0-0.045 ng/ml Total Protein 8.0 6.4-8.2 gm/dl Albumin 3.6 3.4-5.0 gm/dl Lipase 61 73-393 U/L Diagnostic Radiology Patient Name: HAYES DAVILA Unit Number: [id number] Dictated: 07/08/171744 Transcribed: 07/08/171744 J[facility] Printed Date/Time: [~ rep prt dt]/[~ rep prt tm] [~ rep ct labl] - [~ rep ct ivnm] [facility] [place] [address] Dictated: 07/08/171744 Transcribed: 07/08/171744 [facility] Printed Date/Time: [~ rep prt dt]/[~ rep prt tm] [~ rep ct labl] - [~ rep ct ivnm] [~ rep ct add3]] CHEST ONE VIEW PORTABLE HISTORY: 52 years-old Female CHEST PAIN acute atypical chest pain COMPARISON: Portable chest radiograph 06/16/2017 TECHNIQUE: Portable AP view of the chest FINDINGS: Patient is mildly rotated to the left. Lungs are mildly hypoinflated with bronchovascular crowding. Cardiac silhouette is within normal limits. There is no pneumothorax or pleural effusion. Minimal subsegmental left basilar atelectasis. No overt pulmonary edema. Mild gaseous distention of the stomach. Bones of the chest appear grossly intact. Posterior changes of the cervical spine. Surgical clips of the right upper abdomen suggest prior cholecystectomy. IMPRESSION: No acute process. The above report was generated using voice recognition software. It may contain grammatical, syntax or spelling errors. Electronically signed by: Chava Vaca M.D. 07/08/2017 5:46 PM Dictated Date/Time: 07/08/2017 5:45 PM The status of this report is Signed. Draft = Not yet reviewed or approved by Radiologist. Signed = Reviewed and approved by Radiologist. <AttendingPhy></AttendingPhy> <FamilyPhy>Hardeep Paul PA-C</FamilyPhy> < PrimaryPhy>Hardeep Paul PA-C</PrimaryPhy> <UnitNumber>[id number]</ UnitNumber> <VisitNumber>[id number]</VisitNumber> <PatientName>HAYES DAVILA</ PatientName> <DateOfBirth>1965</DateOfBirth> <Location>[facility]</Location> < ServiceDate>07/08/17</ServiceDate> <MNE>ESINDI</MNE> <OrderingPhy>Dwayne Tabor MD</OrderingPhy> <OrderingPhyMNE>f rep ord dr baumann</OrderingPhyMNE> < DictatingPhyMNE>f rep dict dr baumann</DictatingPhyMNE> <CCListMNE>f rep ct mne</ CCListMNE> <AdmittingPhyMNE>f pt admit dr baumann</AdmittingPhyMNE> <AttendingPhyMNE >f pt attend dr baumann</AttendingPhyMNE> <ConsultingPhyMNE>f pt consult dr baumann</ConsultingPhyMNE> <FamilyPhyMNE>f pt fam dr baumann</FamilyPhyMNE> <OtherPhyMNE>f pt other dr baumann</OtherPhyMNE> < PrimaryPhyMNE>f pt prim care dr baumann</PrimaryPhyMNE> <ReferringPhyMNE>f pt referring dr baumann</ReferringPhyMNE> Patient Name: HAYES DAVILA Unit Number: [id number] Dictated: 07/08/172001 Transcribed: 07/08/172001 J[facility] Printed Date/Time: [~ rep prt dt]/[~ rep prt tm] [~ rep ct labl] - [~ rep ct ivnm] [facility] [place] [address] Dictated: 07/08/172001 Transcribed: 07/08/172001 J[facility] Printed Date/Time: [~ rep prt dt]/[~ rep prt tm] [~ rep ct labl] - [~ rep ct ivnm] [~ rep ct add3]] BILATERAL LOWER EXTREMITY VENOUS DOPPLER HISTORY: Acute leg swelling bilaterally leg swelling. DVT eval. COMPARISON STUDY: Duplex venous Doppler study 10/10/2016. FINDINGS: There is normal compressibility, flow, and augmentation within the bilateral lower extremity deep venous systems. IMPRESSION: No sonographic evidence of deep venous thrombosis within the right or left lower extremity. Electronically signed by: Chava Vaca M.D. 07/08/2017 8:02 PM Dictated Date/Time: 07/08/2017 8:02 PM The status of this report is Signed. Draft = Not yet reviewed or approved by Radiologist. Signed = Reviewed and approved by Radiologist. <AttendingPhy></AttendingPhy> <FamilyPhy>Hardeep Paul PA-C</FamilyPhy> < PrimaryPhy>Hardeep Paul PA-C</PrimaryPhy> <UnitNumber>[id number]</ UnitNumber> <VisitNumber>[id number]</VisitNumber> <PatientName>HAYES DAVILA</ PatientName> <DateOfBirth>1965</DateOfBirth> <Location>[facility]</Location> < ServiceDate>07/08/17</ServiceDate> <MNE>ESINDI</MNE> <OrderingPhy>Dwayne Tabor MD</OrderingPhy> <OrderingPhyMNE>f rep ord dr baumann</OrderingPhyMNE> < DictatingPhyMNE>f rep dict dr baumann</DictatingPhyMNE> <CCListMNE>f rep ct mne</ CCListMNE> <AdmittingPhyMNE>f pt admit dr baumann</AdmittingPhyMNE> <AttendingPhyMNE >f pt attend dr baumann</AttendingPhyMNE> <ConsultingPhyMNE>f pt consult dr baumann</ConsultingPhyMNE> <FamilyPhyMNE>f pt fam dr baumann</FamilyPhyMNE> <OtherPhyMNE>f pt other dr baumann</OtherPhyMNE> < PrimaryPhyMNE>f pt prim care dr baumann</PrimaryPhyMNE> <ReferringPhyMNE>f pt referring dr baumann</ReferringPhyMNE> Patient Name: HAYES DAVILA Unit Number: [id number] Dictated: 07/08/172232 Transcribed: 07/08/172232 [facility] Printed Date/Time: [~ rep prt dt]/[~ rep prt tm] [~ rep ct labl] - [~ rep ct ivnm] [facility] [place] [address] Dictated: 07/08/172232 Transcribed: 07/08/172232 [facility] Printed Date/Time: [~ rep prt dt]/[~ rep prt tm] [~ rep ct labl] - [~ rep ct ivnm] (CHEST) THORAX WITHOUT CT DOSE: 374.72 mGy.cm CLINICAL HISTORY: 52 years-old Female with chest pain. Acute atypical chest pain TECHNIQUE: Multiaxial CT images of the chest were performed without contrast. A dose lowering technique was utilized adhering to the principles of ALARA. COMPARISON: Chest radiograph of same day, CTA chest 10/10/2016. FINDINGS: No dominant thyroid nodule or pathologic adenopathy identified. Heart is normal in size without pericardial effusion. Thoracic aorta is normal in course and caliber without aneurysm identified. No pneumothorax or pleural effusion. Mild subsegmental bibasilar atelectasis with moderate bilateral bronchial wall thickening demonstrating areas of bibasilar bronchial mucous plugging. Mild mosaic attenuation of the lung bases also noted. Evaluation of the lung bases is limited secondary to respiratory motion. There is suggestion of a 4 mm nodule of the left lower lobe, image 154 series 4. No lobar airspace consolidations identified. Imaged upper abdominal structures are unremarkable. Soft tissues are within normal limits. Fusion hardware of the cervical spine is partially imaged. IMPRESSION: 1. No lobar airspace consolidation or pathologic adenopathy. 2. Moderate bilateral bronchial wall thickening compatible with bronchitis with areas of bronchial mucous plugging within the lung bases. Areas of mosaic attenuation are also noted bilaterally with patchy subsegmental atelectasis suggesting associated air trapping. Electronically signed by: Chava Vaca M.D. 07/08/2017 10:38 PM Dictated Date/Time: 07/08/2017 10:33 PM The status of this report is Signed. Draft = Not yet reviewed or approved by Radiologist. Signed = Reviewed and approved by Radiologist. <AttendingPhy></AttendingPhy> <FamilyPhy>Hardeep Paul PA-C</FamilyPhy> < PrimaryPhy>Hardeep Paul PA-C</PrimaryPhy> <UnitNumber>[id number]</ UnitNumber> <VisitNumber>[id number]</VisitNumber> <PatientName>HAYES DAVILA</ PatientName> <DateOfBirth>1965</DateOfBirth> <Location>[facility]</Location> < ServiceDate>07/08/17</ServiceDate> <MNE>ESINDI</MNE> <OrderingPhy>Dwayne Tabor MD</OrderingPhy> <OrderingPhyMNE>f rep ord dr baumann</OrderingPhyMNE> < DictatingPhyMNE>f rep dict dr baumann</DictatingPhyMNE> <CCListMNE>f rep ct sumeete</ CCListMNE> <AdmittingPhyMNE>f pt admit dr baumann</AdmittingPhyMNE> <AttendingPhyMNE >f pt attend dr baumann</AttendingPhyMNE> <ConsultingPhyMNE>f pt consult dr baumann</ConsultingPhyMNE> <FamilyPhyMNE>f pt fam dr baumann</FamilyPhyMNE> <OtherPhyMNE>f pt other dr baumann</OtherPhyMNE> < PrimaryPhyMNE>f pt prim care dr baumann</PrimaryPhyMNE> <ReferringPhyMNE>f pt referring dr baumann</ReferringPhyMNE> EKG EKG shows sinus tachycardia 107 bpm, nonspecific ST-T changes in lateral leads. Impression Assessment and Plan Bronchopneumonia-- CT suggests acute bronchitis with significant mucus plugging in bilateral lung bases. Ceftriaxone 1 g IV daily Levofloxacin 500 mg IV every 24 hours Solu-Medrol 40 mg IV every 8 hours Guaifenesin extended release 600 mg by mouth twice a day Xopenex/Atovent nebs q6hwa and q2h prn Nasal cannula 2 L of oxygen titrating to keep pulse ox greater than or equal to 92%. Sputum Gram stain and culture. The patient has a normal d-dimer, and normal lower extremity venous Dopplers, which make pulmonary embolism less likely, but because of her relatively immobile state, and poor IV access, will order a VQ scan to be performed in the morning. Cardiovascular issues-- No immediate access to previous studies performed. EKG with nonspecific ST-T changes laterally. The patient will be admitted to telemetry for serial cardiac enzymes, serial EKG's, cardiac rhythm monitoring and a 2-D echocardiogram with Dopplers. Cerebrovascular disease/seizure disorder/cerebral palsy-- Continue usual medications of aspirin, baclofen, Tegretol, Klonopin, Depakote, nortriptyline, and phenobarbital. Continue spironolactone. GERD-- Change omeprazole to pantoprazole. Hypothyroidism-- Continue levothyroxine sodium 50 mcg daily. Resuscitation Status Level One full resuscitation VTE Prophylaxis Will order VTE Prophylaxis: Yes
[2017-07-09] VITALS (11 sets, daily range): BP systolic 104–142; BP diastolic 69–90; PULSE 91–104; TEMP 36.5–36.7; O2SAT 93–98; Ht 162.6 cm; Wt 82.9 kg
[2017-07-09] MEDS ORDERED: SPIRONOLACTONE 25 MG TAB PO ONE (00:51)
[2017-07-09] MEDS ORDERED: PHENOBARBITAL 32.4 MG TAB PO ONE (00:51)
[2017-07-09] MEDS ORDERED: MAGNESIUM HYDROXIDE SUSP 30 ML UDC PO PRN (01:00)
[2017-07-09] MEDS ORDERED: ACETAMINOPHEN 325 MG TAB PO PRN (01:00)
[2017-07-09] MEDS ORDERED: ONDANSETRON 8MG OD TAB PO PRN (01:00)
[2017-07-09] MEDS ORDERED: ACETAMINOPHEN 500 MG TAB PO PRN (01:00)
[2017-07-09] MEDS ORDERED: ALUMINUM/MAGNESIUM/SIMETH (MAALOX MAX) 30 ML UDC PO PRN (01:00)
[2017-07-09] MEDS ORDERED: POLYETHYLENE (MIRALAX) 17 GM PACK PO PRN (01:00)
--- NOTE | 2017-07-09 01:45 | EMERGENCY ROOM VISIT NOTE ---
History Report prepared by Shaheen: Andrea Watkins Under the Supervision of: Dr. Dwayne Tabor M.D. 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 Per the patient's family, the patient has been sick off-and-on with a cough for the past month, and had a choking episode with some chest pains, so she was brought here 3 weeks ago. The patient was then discharged and saw a flash welder around 4 days ago, who did an EKG and echocardiogram on the patient. The echocardiogram was noted to be abnormal so the patient was sent straight from the flash welder to the [facility] for a CT with dye. They tried to get an IV there 9 times without any success. The patient was told that there was a possible blood clot in her right lung, and was told by her primary care physician to come here immediately if she had any further chest pains. The patient then started having chest pain today, which has persisted throughout the day, and the patient states that the pain is right in the middle of her chest without any radiation of pain. The patient adds that she started having diarrhea this morning. She is taking a Ventolin inhaler and Prednisone. The patient states that her asymmetric leg swelling is not new. The patient had a recent cholecystectomy here. She is not currently on any blood thinners. Pt denies LOC, headache, fevers, chills, diaphoresis, visual changes, neck pain, notable breathing difficulties, nausea, vomiting, abdominal pain, back pain, melena, hematochezia, urinary symptoms, numbness, weakness, lymphadenopathy, rash, or other complaints. Source of History: patient, family Onset: Today Position: chest Symptom Intensity: possible blood clot right lung Quality: other (pain) Timing: waxes/wanes Associated Symptoms: + cough, + diarrhea Note: No other current associated symptoms noted. Review of Systems See HPI for pertinent positives and negatives. A total of ten systems were reviewed and were otherwise negative. 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, controlled Surgical Problems: (1) H/O: hysterectomy Family History No significant family history Social History Smoking Status: Never Smoker Alcohol Use: none Drug Use: none Marital Status: single Housing Status: lives with family Occupation Status: disabled Current/Historical Medications Scheduled Ascorbic Acid (Vitamin C), 500 MG PO QPM Aspirin (Aspirin Ec), 81 MG PO DAILY AT AFTERNOON Baclofen (Lioresal), 10 MG PO HS Calcium Carbonate-Vitamin D (Calcium 500 + D), 1 TAB PO DAILY IN AFTERNOON Carbamazepine (Tegretol), 400 MG PO AMHS Cholecalciferol (Vitamin D), 5,000 INTER.UNIT PO DAILY IN AFTERNOON Clonazepam (Klonopin), 0.5 MG PO HS Cranberry (Vaccinium Macrocarp (Cranberry), 1 TAB PO QPM Divalproex Sodium (Depakote), 500 MG PO HS Levothyroxine Sodium (Levothyroxine Sodium), 50 MCG PO QAM Nortriptyline Hcl (Pamelor), 25 MG PO HS Omeprazole (Prilosec), 20 MG PO QAM Phenobarbital (Phenobarbital), 30 MG PO AMPM Prednisone (Prednisone), 10 MG PO DAILY/UD Senna (Senokot), 17.2 MG PO QAM Sennosides-Docusate Sodium (Stool Softener), 1 TAB PO HS Spironolactone (Aldactone), 25 MG PO AMPM Vitamin E (Vitamin E 400 Iu), 400 INTER.UNIT PO DAILY IN AFTERNOON Scheduled PRN Acetaminophen (Tylenol), 1,000 MG PO Q6 PRN for Pain Ibuprofen (Motrin), 800 MG PO Q8 PRN for Pain [Ventolin Hfa 90MCG], 2 PUFFS INH Q4H PRN for Shortness of Breath Allergies Coded Allergies: Lincomycin (Verified Allergy, Intermediate, HIVES, 06/16/17) Had 40 years ago. Physical Exam Vital Signs Date Time Temp Pulse Resp B/P (MAP) Pulse Ox O2 Delivery O2 Flow Rate FiO2 07/08/17 22:41 99 20 99 Room Air 07/08/17 22:32 122/92 07/08/17 20:44 108 16 07/08/17 20:39 109 18 137/80 98 07/08/17 20:09 112 17 07/08/17 20:04 142/85 07/08/17 19:00 114 22 99 Room Air 07/08/17 17:09 115 07/08/17 17:08 36.8 112 15 136/96 100 Room Air 07/08/17 17:08 100 Room Air 07/08/17 17:07 100 Room Air Physical Exam GENERAL: Awake, alert, uncomfortable-appearing, in no distress HENT: Normocephalic, atraumatic. Oropharynx unremarkable. EYES: Normal conjunctiva. Sclera non-icteric. NECK: Supple. No nuchal rigidity. FROM. No masses. RESPIRATORY: Clear to auscultation. No wheezes. CARDIAC: Tachycardic heart rate. Normal rhythm. No murmurs. No rubs. Extremities warm and well perfused. Pulses equal. No JVD. GI: Soft, non-distended. No tenderness to palpation. No rebound or guarding. No masses. RECTAL: Deferred. MUSCULOSKELETAL: Atraumatic. Moderate sternal tenderness to palpation. The back is symmetrical on inspection without obvious abnormality. There is no CVA tenderness to palpation. No joint edema. LOWER EXTREMITIES: Calves are equal size bilaterally and non-tender. No edema. No discoloration. NEURO: Normal sensorium. No sensory or motor deficits noted. SKIN: No rash or jaundice noted. Medical Decision & Procedures ER Provider Diagnostic Interpretation: Radiology results as stated below per my review and radiologist interpretation: CHEST ONE VIEW PORTABLE HISTORY: 52 years-old Female CHEST PAIN acute atypical chest pain COMPARISON: Portable chest radiograph 06/16/2017 TECHNIQUE: Portable AP view of the chest FINDINGS: Patient is mildly rotated to the left. Lungs are mildly hypoinflated with bronchovascular crowding. Cardiac silhouette is within normal limits. There is no pneumothorax or pleural effusion. Minimal subsegmental left basilar atelectasis. No overt pulmonary edema. Mild gaseous distention of the stomach. Bones of the chest appear grossly intact. Posterior changes of the cervical spine. Surgical clips of the right upper abdomen suggest prior cholecystectomy. IMPRESSION: No acute process. The above report was generated using voice recognition software. It may contain grammatical, syntax or spelling errors. Electronically signed by: Chava Vaca M.D. 07/08/2017 5:46 PM Dictated Date/Time: 07/08/2017 5:45 PM BILATERAL LOWER EXTREMITY VENOUS DOPPLER HISTORY: Acute leg swelling bilaterally leg swelling. DVT eval. COMPARISON STUDY: Duplex venous Doppler study 10/10/2016. FINDINGS: There is normal compressibility, flow, and augmentation within the bilateral lower extremity deep venous systems. IMPRESSION: No sonographic evidence of deep venous thrombosis within the right or left lower extremity. Electronically signed by: Chava Vaca M.D. 07/08/2017 8:02 PM Dictated Date/Time: 07/08/2017 8:02 PM (CHEST) THORAX WITHOUT CT DOSE: 374.72 mGy.cm CLINICAL HISTORY: 52 years-old Female with chest pain. Acute atypical chest pain TECHNIQUE: Multiaxial CT images of the chest were performed without contrast. A dose lowering technique was utilized adhering to the principles of ALARA. COMPARISON: Chest radiograph of same day, CTA chest 10/10/2016. FINDINGS: No dominant thyroid nodule or pathologic adenopathy identified. Heart is normal in size without pericardial effusion. Thoracic aorta is normal in course and caliber without aneurysm identified. No pneumothorax or pleural effusion. Mild subsegmental bibasilar atelectasis with moderate bilateral bronchial wall thickening demonstrating areas of bibasilar bronchial mucous plugging. Mild mosaic attenuation of the lung bases also noted. Evaluation of the lung bases is limited secondary to respiratory motion. There is suggestion of a 4 mm nodule of the left lower lobe, image 154 series 4. No lobar airspace consolidations identified. Imaged upper abdominal structures are unremarkable. Soft tissues are within normal limits. Fusion hardware of the cervical spine is partially imaged. IMPRESSION: 1. No lobar airspace consolidation or pathologic adenopathy. 2. Moderate bilateral bronchial wall thickening compatible with bronchitis with areas of bronchial mucous plugging within the lung bases. Areas of mosaic attenuation are also noted bilaterally with patchy subsegmental atelectasis suggesting associated air trapping. Electronically signed by: Chava Vaca M.D. 07/08/2017 10:38 PM Dictated Date/Time: 07/08/2017 10:33 PM Laboratory Results 07/08/17 20:17 Red Blood Count 3.91, Mean Corpuscular Volume 94.1, Mean Corpuscular Hemoglobin 31.5, Mean Corpuscular Hemoglobin Concent 33.4, Mean Platelet Volume 10.0, Neutrophils (%) (Auto) 75.9, Lymphocytes (%) (Auto) 18.6, Monocytes (%) (Auto) 3.7, Eosinophils (%) (Auto) 0.7, Basophils (%) (Auto) 0.4, Neutrophils # (Auto) 5.33, Lymphocytes # (Auto) 1.31, Monocytes # (Auto) 0.26, Eosinophils # (Auto) 0.05, Basophils # (Auto) 0.03 07/08/17 20:17 Test 07/08/17 20:16 07/08/17 20:17 Prothrombin Time 11.1 SECONDS (9.0-12.0) Prothromb Time International Ratio 1.1 (0.9-1.1) Activated Partial Thromboplast Time 26.8 SECONDS (21.0-31.0) Partial Thromboplastin Ratio 1.0 D-Dimer 300 ug/L FEU (0-500) White Blood Count 7.03 K/uL (4.8-10.8) Red Blood Count 3.91 M/uL (4.2-5.4) Hemoglobin 12.3 g/dL (12.0-16.0) Hematocrit 36.8 % (37-47) Mean Corpuscular Volume 94.1 fL (80-100) Mean Corpuscular Hemoglobin 31.5 pg (25-34) Mean Corpuscular Hemoglobin Concent 33.4 g/dl (32-36) Platelet Count 244 K/uL (130-400) Mean Platelet Volume 10.0 fL (7.4-10.4) Neutrophils (%) (Auto) 75.9 % Lymphocytes (%) (Auto) 18.6 % Monocytes (%) (Auto) 3.7 % Eosinophils (%) (Auto) 0.7 % Basophils (%) (Auto) 0.4 % Neutrophils # (Auto) 5.33 K/uL (1.4-6.5) Lymphocytes # (Auto) 1.31 K/uL (1.2-3.4) Monocytes # (Auto) 0.26 K/uL (0.11-0.59) Eosinophils # (Auto) 0.05 K/uL (0-0.5) Basophils # (Auto) 0.03 K/uL (0-0.2) RDW Standard Deviation 41.9 fL (36.4-46.3) RDW Coefficient of Variation 12.4 % (11.5-14.5) Immature Granulocyte % (Auto) 0.7 % Immature Granulocyte # (Auto) 0.05 K/uL (0.00-0.02) Anion Gap 8.0 mmol/L (3-11) Est Creatinine Clear Calc Drug Dose 112.8 ml/min Estimated GFR () 117.5 Estimated GFR (Non- 101.4 BUN/Creatinine Ratio 14.7 (10-20) Calcium Level 9.1 mg/dl (8.5-10.1) Total Bilirubin 0.2 mg/dl (0.2-1) Direct Bilirubin < 0.1 mg/dl (0-0.2) Aspartate Amino Transf (AST/SGOT) 12 U/L (15-37) Alanine Aminotransferase (ALT/SGPT) 20 U/L (12-78) Alkaline Phosphatase 99 U/L (45-117) Total Creatine Kinase 48 U/L (26-192) Creatine Kinase MB 0.5 ng/ml (0.5-3.6) Creatine Kinase MB Ratio 1.0 (0-3.0) Troponin I < 0.015 ng/ml (0-0.045) Total Protein 8.0 gm/dl (6.4-8.2) Albumin 3.6 gm/dl (3.4-5.0) Lipase 61 U/L (73-393) Laboratory results reviewed by me Medications Administered Medications (Trade) Dose Ordered Sig/Rhiannon Route Start Time Stop Time Status Last Admin Dose Admin Lidocaine/ Prilocaine (Emla 2.5% Crm) 1 ea STK-MED ONCE .ROUTE 07/08/17 17:23 07/08/17 17:24 DC 07/08/17 17:33 1 EA Baclofen (Lioresal Tab) 10 mg 2215 PO 07/08/17 22:15 07/08/17 23:00 DC 07/08/17 23:01 10 MG Spironolactone (Aldactone Tab) 25 mg 2215 PO 07/08/17 22:15 07/08/17 23:00 DC 07/08/17 23:01 25 MG Carbamazepine (Tegretol Tab) 400 mg 2215 PO 07/08/17 22:15 07/08/17 23:00 DC 07/08/17 23:02 400 MG Clonazepam (Klonopin Tab) 0.5 mg 2215 PO 07/08/17 22:15 07/08/17 23:00 DC 07/08/17 23:01 0.5 MG Divalproex Sodium (Depakote Delay Rel Tab) 500 mg 2215 PO 07/08/17 22:15 07/08/17 23:00 DC 07/08/17 23:02 500 MG Nortriptyline HCl (Pamelor Cap) 25 mg 2215 PO 07/08/17 22:15 07/08/17 23:00 DC 07/08/17 23:02 25 MG Phenobarbital (Phenobarbital Tab) 32.4 mg 2215 PO 07/08/17 22:15 07/08/17 23:00 DC 07/08/17 23:01 32.4 MG ECG Per My Interpretation Indication: chest pain Rate (beats per minute): 107 Rhythm: sinus tachycardia Findings: no acute ischemic change, no ectopy, other (nonspecific ST abnormality) ED Course 1702: The patient was evaluated in room A12B. A complete history and physical exam was performed. 1806: I reevaluated the patient and updated the patient and her family. 1899: I reevaluated the patient and tried putting in an IV by ultrasound but she does not have any adequate targets, and I was unsuccessful. The patient is going to ultrasound and is getting lab work done. 2119:: Upon reexamination, the patient was resting. I discussed the test results and treatment plan with her and her family. The patient will be evaluated for further management. 2144: Discussed the patient's case with Dr. Deras - [facility] hospitalist. The patient will be evaluated for further treatment and disposition. He wants me to order a plain CT of the chest. Medical Decision Triage Nursing notes reviewed. The patient's presentation and history were concerning for chest pain. Etiologies such as cardiac ischemia, aortic dissection, pulmonary embolism, pneumonia, pneumothorax, musculoskeletal, infections, gastrointestinal, as well as others were entertained. The patient was evaluated. She is here because she had chest pain and has been having issues ongoing for some time. She was doing with a bronchitis. She had an outpatient echo 3 days ago that by her report had the flash welder concerned that she may have a blood clot. Her evaluation at the [facility] was not complete. The patient had an unremarkable CBC, chemistry panel and cardiac markers. Her chest x-ray was negative. The patient had a very difficult time with IV access. I did attempt to place an IV with an ultrasound in her right arm as her left arm is restricted. This was unsuccessful. there were no Other great targets by ultrasound. the patient had an IV established in her right lower extremity. She had ultrasounds that were negative for bilateral lower extremity DVTs. The patient also had a negative d-dimer. This negative d -dimer is reassuring however given her pretest probability there is still some concern. I discussed different options with the patient and family. I believe as she is stable at this point and has no clot burden in the legs a follow-up VQ scan would be reasonable. That way there is no risk that would be associated with placing a central line. She may ultimately need a CT PE study however her history and current workup point away from pulmonary embolism. I did consult with internal medicine. The patient will be brought into the hospital for a chest pain evaluation. They did request for her to have a noncontrast CT scan of the chest to further evaluate the chest discomfort. She was given her home medications. Patient was evaluated in the ER for further management. Medication Reconcilliation Current Medication List: was personally reviewed by me Blood Pressure Screening Patient's blood pressure: Elevated blood pressure Referred to hospitalist. Consults Time Called: 2139 Consulting Physician: Dr. Augusta LYNCH hospitalist Returned Call: 2144 Discussed the patient's case with Dr. Augusta LYNCH hospitalist. The patient will be evaluated for further treatment and disposition. He wants me to order a plain CT of the chest. Impression Primary Impression: Precordial chest pain Scribe Attestation The scribe's documentation has been prepared under my direction and personally reviewed by me in its entirety. I confirm that the note above accurately reflects all work, treatment, procedures, and medical decision making performed by me. Departure Information Dispostion Being Evaluated By Hospitalist Referrals Hardeep Paul PA-C (PCP)
[2017-07-09] MEDS ORDERED: LEVALBUTEROL/IPRATROPIUM NEB INH SCH (03:00)
[2017-07-09] MEDS ORDERED: CEFTRIAXONE SOD INJ 1 GM in DEXTROSE 5% ADD-VANTAGE 50ML 50 ML IV SCH (03:30)
[2017-07-09] MEDS: LEVOFLOXACIN / D5W 500 MG in PREMIXED IN D5W 100 ML IV SCH (04:25)
[2017-07-09] MEDS: LEVOTHYROXINE 50 MCG TAB PO SCH (05:55)
[2017-07-09] MEDS: IPRATROPIUM BROMIDE NEB SOLN 0.02% 2.5 ML VIAL INH SCH ×3 (07:31→19:05)
[2017-07-09] MEDS: LEVALBUTEROL 1.25MG/0.5ML NEB INH SCH ×3 (07:31→19:05)
[2017-07-09] MEDS: HEPARIN SOD 5000 UNIT/0.5 ML CARP SQ SCH ×2 (07:34→20:40)
[2017-07-09 07:49] LABS: CKMB 0.5 ng/ml (0.5-3.6)
[2017-07-09] MEDS: SPIRONOLACTONE 25 MG TAB PO SCH ×2 (08:03→16:56)
[2017-07-09] MEDS: GUAIFENESIN 600 MG TABCR PO SCH ×2 (08:03→20:28)
[2017-07-09] MEDS: ASPIRIN 81 MG ECTAB PO SCH (08:03)
[2017-07-09] MEDS: PHENOBARBITAL 15 MG TAB PO SCH ×2 (08:04→21:23)
[2017-07-09] MEDS: PANTOprazole SOD 40 MG TAB PO SCH (08:04)
[2017-07-09] MEDS: CHOLECALCIFEROL 1000 INTER.UNIT TAB PO SCH (08:04)
[2017-07-09] MEDS: SENNA 8.6 MG TAB PO SCH (08:05)
[2017-07-09] MEDS: CARBAMAZEPINE 200 MG TAB PO SCH ×2 (08:05→20:27)
[2017-07-09] MEDS ORDERED: PHENOBARBITAL 32.4 MG TAB PO SCH (09:00)
[2017-07-09] MEDS ORDERED: ACETYLCYSTEINE 20% INHAL SOLN ***DISPENSED BY RESP. INH ONE (10:19)
--- NOTE | 2017-07-09 12:16 | DIAGNOSTIC IMAGING REPORT ---
LUNG IMAGING VQ CLINICAL HISTORY: Persistent chest pain COMPARISON STUDY: Chest x-ray dated 07/08/2017 FINDINGS: The patient was ventilated utilizing 33.2 mCi of technetium 99m DTPA aerosol. The patient was perfused with 5.3 mCi of technetium 99m MAA. There is mild central deposition of aerosol suggesting underlying airway disease. There is a small matched peripheral defect within the right lung laterally. No significant VQ mismatches are visualized. The study is of low probability for acute pulmonary embolism. IMPRESSION: Low probability of acute pulmonary embolism. Electronically signed by: Low Torres M.D. 07/09/2017 12:15 PM Dictated Date/Time: 07/09/2017 12:12 PM
--- NOTE | 2017-07-09 14:11 | Progress Note ---
Subjective Date of Service: Jul 09, 2017. Subjective Pt evaluation today including: conversation w/ patient, conversation w/ family Pt feeling overall improved. She is still coughing, but much less. No SOB. Chest pain has resolved as well. She is tolerating PO without issue, although mother tells me that she has been having coughing with intake of solids for the last 2.5 weeks. She takes some liquids and this passes. Pt states she feels like food is getting stuck. Mother states that pt is not chewing her food properly and that she tries to remind her regularly to do so. Pt denies fever, abd pain, n/v/c/d, LE pain or swelling. Problem List Medical Problems: (1) Abdominal pain Status: Acute (2) Chest wall pain Status: Acute (3) Flu-like symptoms Status: Acute (4) Pharyngitis Status: Acute (5) Precordial chest pain Status: Acute (6) Rib pain on right side Status: Acute (7) Right leg pain Status: Acute (8) Right upper quadrant abdominal pain Status: Acute (9) Substernal precordial chest pain Status: Acute (10) Urinary tract infection Status: Acute (11) Weakness Status: Acute Review of Systems All Other Systems: Reviewed and Negative Objective Vital Signs Date Time Temp Pulse Resp B/P (MAP) Pulse Ox O2 Delivery O2 Flow Rate FiO2 07/09/17 12:25 Room Air 07/09/17 11:37 36.5 100 18 142/89 (106) 96 07/09/17 08:00 Room Air 07/09/17 07:53 36.6 100 18 121/83 (96) 98 07/09/17 07:35 100 18 93 Room Air 07/09/17 04:02 Room Air 07/09/17 03:40 36.5 91 17 104/69 (81) 94 Room Air 07/09/17 01:00 Room Air 07/09/17 00:34 36.7 97 20 135/90 Room Air 07/09/17 00:34 36.7 97 20 135/90 (105) 95 Room Air 07/09/17 00:00 84 20 129/83 98 Room Air 07/08/17 22:41 99 20 99 Room Air 07/08/17 22:32 122/92 07/08/17 20:44 108 16 07/08/17 20:39 109 18 137/80 98 07/08/17 20:09 112 17 07/08/17 20:04 142/85 07/08/17 19:00 114 22 99 Room Air 07/08/17 17:09 115 07/08/17 17:08 36.8 112 15 136/96 100 Room Air 07/08/17 17:08 100 Room Air 07/08/17 17:07 100 Room Air Physical Exam General Appearance: WD/WN, no apparent distress Eyes: normal inspection, sclerae normal Respiratory/Chest: normal breath sounds, no respiratory distress Cardiovascular: regular rate, rhythm, no edema Abdomen: non tender, soft Extremities: non-tender, no pedal edema Neurologic/Psychiatric: alert, normal mood/affect, oriented x 3 Skin: normal color, warm/dry Laboratory Results Last 24 Hours Test 07/08/17 20:16 07/08/17 20:17 07/09/17 07:02 07/09/17 13:17 Prothrombin Time 11.1 SECONDS Prothromb Time International Ratio 1.1 Activated Partial Thromboplast Time 26.8 SECONDS Partial Thromboplastin Ratio 1.0 D-Dimer 300 ug/L FEU White Blood Count 7.03 K/uL Red Blood Count 3.91 M/uL Hemoglobin 12.3 g/dL Hematocrit 36.8 % Mean Corpuscular Volume 94.1 fL Mean Corpuscular Hemoglobin 31.5 pg Mean Corpuscular Hemoglobin Concent 33.4 g/dl Platelet Count 244 K/uL Mean Platelet Volume 10.0 fL Neutrophils (%) (Auto) 75.9 % Lymphocytes (%) (Auto) 18.6 % Monocytes (%) (Auto) 3.7 % Eosinophils (%) (Auto) 0.7 % Basophils (%) (Auto) 0.4 % Neutrophils # (Auto) 5.33 K/uL Lymphocytes # (Auto) 1.31 K/uL Monocytes # (Auto) 0.26 K/uL Eosinophils # (Auto) 0.05 K/uL Basophils # (Auto) 0.03 K/uL RDW Standard Deviation 41.9 fL RDW Coefficient of Variation 12.4 % Immature Granulocyte % (Auto) 0.7 % Immature Granulocyte # (Auto) 0.05 K/uL Sodium Level 140 mmol/L Potassium Level 3.7 mmol/L Chloride Level 105 mmol/L Carbon Dioxide Level 27 mmol/L Anion Gap 8.0 mmol/L Blood Urea Nitrogen 10 mg/dl Creatinine 0.65 mg/dl Est Creatinine Clear Calc Drug Dose 112.8 ml/min Estimated GFR () 117.5 Estimated GFR (Non- 101.4 BUN/Creatinine Ratio 14.7 Random Glucose 101 mg/dl Calcium Level 9.1 mg/dl Total Bilirubin 0.2 mg/dl Direct Bilirubin < 0.1 mg/dl Aspartate Amino Transf (AST/SGOT) 12 U/L Alanine Aminotransferase (ALT/SGPT) 20 U/L Alkaline Phosphatase 99 U/L Total Creatine Kinase 48 U/L 59 U/L Creatine Kinase MB 0.5 ng/ml 0.5 ng/ml Creatine Kinase MB Ratio 1.0 0.8 Troponin I < 0.015 ng/ml < 0.015 ng/ml Total Protein 8.0 gm/dl Albumin 3.6 gm/dl Lipase 61 U/L Test 07/09/17 13:37 Assessment and Plan SOB/cough/CP: likely bronchopneumonia, possibly aspiration related CT suggests acute bronchitis with significant mucus plugging in bilateral lung bases. Ceftriaxone/Levofloxacin started 07/08, will d/c ceftriaxone and monitor on levaquin Guaifenesin extended release 600 mg by mouth twice a day Xopenex/Atovent nebs q6hwa and q2h prn Sputum Gram stain and culture. Ddimer neg and LE US neg for DVT VQ scan with low probability Cardiovascular issues-- Recent ECHO done at OSH, will hold on repeat for now Cerebrovascular disease/seizure disorder/cerebral palsy-- Continue usual medications of aspirin, baclofen, Tegretol, Klonopin, Depakote, nortriptyline, and phenobarbital. Continue spironolactone. GERD-- Change omeprazole to pantoprazole. Hypothyroidism-- Continue levothyroxine sodium 50 mcg daily Swallowing issues: Speech monitoring pt Unable to perform barium swallow due to inability to stand May need VSS and will be determined as speech monitors
[2017-07-09 14:33] LABS: CKMB 1.1 ng/ml (0.5-3.6)
[2017-07-09] MEDS ORDERED: ACETYLCYSTEINE 20% INHAL SOLN ***DISPENSED BY RESP. INH SCH (17:00)
[2017-07-09] MEDS: ACETYLCYSTEINE 20% INHAL SOLN ***DISPENSED BY RESP. INH SCH (20:03)
[2017-07-09] MEDS: CALCIUM 600MG + VIT D 400 IU TAB PO SCH (20:27)
[2017-07-09] MEDS: ASCORBIC ACID 500 MG TAB PO SCH (20:28)
[2017-07-09] MEDS: TOCOPHERYL, DL-ALPHA 400 INTER.UNIT CAP PO SCH (20:29)
[2017-07-09] MEDS ORDERED: NON-FORMULARY MEDICATION (Cranberry (Vaccinium Macrocarp (Cranberry) 1 TAB) PO SCH (21:00)
[2017-07-09] MEDS: CLONAZEPAM 0.5 MG TAB PO SCH (22:12)
[2017-07-09] MEDS: DIVALPROEX SODIUM 500 MG DELAY RELEASE TAB PO SCH (22:13)
[2017-07-09] MEDS: BACLOFEN 10 MG TAB PO SCH (22:13)
[2017-07-09] MEDS: NORTRIPTYLINE HCL 25 MG CAP PO SCH (22:13)
[2017-07-09] MEDS: DOCUSATE SODIUM/SENNA 50/8.6MG TAB PO SCH (22:14)
[2017-07-10] VITALS (7 sets, daily range): BP systolic 85–112; BP diastolic 52–82; PULSE 92–110; TEMP 36.2–36.6; O2SAT 91–95
[2017-07-10] MEDS: IPRATROPIUM BROMIDE NEB SOLN 0.02% 2.5 ML VIAL INH SCH ×4 (02:12→19:00)
[2017-07-10] MEDS: LEVALBUTEROL 1.25MG/0.5ML NEB INH SCH ×4 (02:12→19:00)
[2017-07-10] MEDS: LEVOFLOXACIN / D5W 500 MG in PREMIXED IN D5W 100 ML IV SCH (03:46)
[2017-07-10] MEDS: LEVOTHYROXINE 50 MCG TAB PO SCH (05:56)
[2017-07-10] MEDS: ACETYLCYSTEINE 20% INHAL SOLN ***DISPENSED BY RESP. INH SCH ×2 (07:06→19:00)
[2017-07-10 07:27] LABS: BASO % 0.5 %; BASO ABS # 0.03 K/uL (0-0.2); EOS % 8.1 %; EOS ABS # 0.51 K/uL (0-0.5); HEMATOCRIT 36.4 % (37-47); HEMOGLOBIN 12.2 g/dL (12.0-16.0); LYMPH ABS # 2.45 K/uL (1.2-3.4); MEAN CELL VOLUME 94.8 fL (80-100); MEAN CORPUSCULAR HEMOGLOBIN 31.8 pg (25-34); MEAN CORPUSCULAR HGB CONC 33.5 g/dl (32-36); MEAN PLATELET VOLUME 9.8 fL (7.4-10.4); MONO % 7.8 %; MONO ABS # 0.49 K/uL (0.11-0.59); NEUT % 44.6 %; PLATELET COUNT 218 K/uL (130-400); RED CELL DISTRIBUTION WIDTH CV 12.6 % (11.5-14.5); RED CELL DISTRIBUTION WIDTH SD 43.8 fL (36.4-46.3); WHITE BLOOD COUNT 6.28 K/uL (4.8-10.8)
[2017-07-10 07:44] LABS: BLOOD UREA NITROGEN 11 mg/dl (7-18); CALCIUM 8.9 mg/dl (8.5-10.1); CARBON DIOXIDE 26 mmol/L (21-32); CREATININE 0.69 mg/dl (0.60-1.20); GLUCOSE 95 mg/dl (70-99); POTASSIUM 3.5 mmol/L (3.5-5.1); SODIUM 138 mmol/L (136-145)
[2017-07-10 07:49] LABS: CKMB 0.9 ng/ml (0.5-3.6)
[2017-07-10] MEDS: PANTOprazole SOD 40 MG TAB PO SCH (08:23)
[2017-07-10] MEDS: SPIRONOLACTONE 25 MG TAB PO SCH ×2 (08:24→17:17)
[2017-07-10] MEDS: ASPIRIN 81 MG ECTAB PO SCH (08:24)
[2017-07-10] MEDS: CARBAMAZEPINE 200 MG TAB PO SCH ×2 (08:24→19:56)
[2017-07-10] MEDS: SENNA 8.6 MG TAB PO SCH (08:25)
[2017-07-10] MEDS: GUAIFENESIN 600 MG TABCR PO SCH ×2 (08:25→19:56)
[2017-07-10] MEDS: CHOLECALCIFEROL 1000 INTER.UNIT TAB PO SCH (08:25)
[2017-07-10] MEDS: HEPARIN SOD 5000 UNIT/0.5 ML CARP SQ SCH ×2 (08:26→21:29)
--- NOTE | 2017-07-10 08:26 | Clinical Documentation Query ---
CLINICAL DOCUMENTATION QUERY 52 year old female who presents with likely aspiration bronchopneumonia. She has a past medical history of a CVA that occurred during her childhood. In your clinical opinion is this patient being managed for: ( x) Left sided Hemiplegia ( ) Not Agree ( ) Other explanation of clinical findings (Please Explain) ( ) Unable to determine (Please Define) ( ) Need to Discuss The medical record reflects the following clinical findings, treatment, and risk factors. Clinical Indicators: Nursing assessments reveal patient has left sided paralysis, flaccidity, and a contracted left arm. 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 Terms such as "probable", "suspected", "likely", "questionable", "possible", or "still to be ruled out" are acceptable. IF IN AGREEMENT, YOU MUST DOCUMENT ABOVE DIAGNOSTIC STATEMENT IN DAILY PROGRESS NOTES AND DISCHARGE SUMMARY. This document is not part of the patient's record. Thank You, Franklyn Servin, RN [phone]
[2017-07-10] MEDS: PHENOBARBITAL 15 MG TAB PO SCH ×2 (08:39→19:56)
[2017-07-10] MEDS ORDERED: NURSING VERBAL MED ORDER ONE (10:15)
[2017-07-10] MEDS ORDERED: MICONAZOLE NITRATE POWDER 43 GM EXT PRN (10:30)
[2017-07-10] MEDS ORDERED: CETIRIZINE HCL 10 MG TAB PO ONE (10:45)
[2017-07-10] MEDS: LEVOFLOXACIN 750 MG TAB PO SCH (11:13)
[2017-07-10] MEDS: AMOXICILLIN/CLAVULANATE TAB 875 MG TAB PO SCH ×2 (11:13→17:17)
--- NOTE | 2017-07-10 11:52 | Hospitalist Progress Note ---
Hospitalist Progress Note Date of Service Jul 10, 2017. Subjective Pt evaluation today including: conversation w/ patient, conversation w/ family , physical exam, lab review, review of studies, review of inpatient medication list Voiding: no voiding problems Patient resting in bed, playing a game on her laptop. Feeling well. +productive cough. +coughing w/ eating- speech following. Re-educated patient/mother on speech therapy recommendations. Patient denies any fever, chills, sweats, lightheadedness, dizziness, vision changes, CP, palpitations, edema, SOB, wheezing, abdominal pain, nausea, vomiting, diarrhea, urinary symptoms, melena, numbness/tingling, weakness, muscle/joint pain, anxiety/depression, active bleeding, or new skin discoloration/changes. Medications Current Inpatient Medications Medications (Trade) Dose Ordered Sig/Rhiannon Route Start Time Stop Time Status Last Admin Dose Admin Heparin Sodium (Porcine) (Heparin Sq 5000 Unit/0.5ml) 5,000 unit Q12 SQ 07/09/17 09:00 08/08/17 08:59 07/10/17 08:26 5,000 UNIT Acetaminophen (Tylenol Tab) 650 mg Q4H PRN PO 07/09/17 01:00 08/08/17 00:59 07/10/17 08:42 650 MG Al Hydrox/Mg Hydrox/Simethicone (Maalox Max Susp) 15 ml Q4H PRN PO 07/09/17 01:00 08/08/17 00:59 Magnesium Hydroxide (Milk Of Magnesia Susp) 30 ml Q12H PRN PO 07/09/17 01:00 08/08/17 00:59 Polyethylene (Miralax Powder Packet) 17 gm DAILY PRN PO 07/09/17 01:00 08/08/17 00:59 Ascorbic Acid (Vitamin C Tab) 500 mg QPM PO 07/09/17 21:00 08/08/17 20:59 07/09/17 20:28 500 MG Aspirin (Ecotrin Tab) 81 mg QAM PO 07/09/17 09:00 08/08/17 08:59 07/10/17 08:24 81 MG Baclofen (Lioresal Tab) 10 mg HS PO 07/09/17 21:00 08/08/17 20:59 07/09/17 22:13 10 MG Carbamazepine (Tegretol Tab) 400 mg AMHS PO 07/09/17 09:00 08/08/17 08:59 07/10/17 08:24 400 MG Clonazepam (Klonopin Tab) 0.5 mg HS PO 07/09/17 21:00 08/08/17 20:59 07/09/17 22:12 0.5 MG Divalproex Sodium (Depakote Delay Rel Tab) 500 mg HS PO 07/09/17 21:00 08/08/17 20:59 07/09/17 22:13 500 MG Levothyroxine Sodium (Synthroid Tab) 50 mcg DAILYBB PO 07/09/17 06:00 08/08/17 05:59 07/10/17 05:56 50 MCG Nortriptyline HCl (Pamelor Cap) 25 mg HS PO 07/09/17 21:00 08/08/17 20:59 07/09/17 22:13 25 MG Senna (Senokot Tab) 17.2 mg QAM PO 07/09/17 09:00 08/08/17 08:59 07/10/17 08:25 17.2 MG Senna/Docusate Sodium (Senokot S Tab) 1 tab HS PO 07/09/17 21:00 08/08/17 20:59 07/09/17 22:14 1 TAB Spironolactone (Aldactone Tab) 25 mg BID17 PO 07/09/17 09:00 08/08/17 08:59 07/10/17 08:24 25 MG us-Kgjsr-Qgfevibioe Acetate (Vitamin E Cap) 400 interunit QPM PO 07/09/17 21:00 08/08/17 20:59 07/09/17 20:29 400 INTERUNIT Calcium/Vitamin D (Caltrate Plus Tab) 1 tab QPM PO 07/09/17 21:00 08/08/17 20:59 07/09/17 20:27 1 TAB Cholecalciferol (Vitamin D Tab) 5,000 inter.unit QAM PO 07/09/17 09:00 08/08/17 08:59 07/10/17 08:25 5,000 INTER.UNIT Pantoprazole Sodium (Protonix Tab) 40 mg QAM PO 07/09/17 09:00 08/08/17 08:59 07/10/17 08:23 40 MG Ondansetron HCl (Zofran Odt) 8 mg Q6H PRN PO 07/09/17 01:00 08/08/17 00:59 Guaifenesin (Mucinex Contr Rel Tab) 600 mg Q12 PO 07/09/17 09:00 08/08/17 08:59 07/10/17 08:25 600 MG Ipratropium [place] (Atrovent 0.02% 0.5MG/2.5ML Neb) 0.5 mg Q6R INH 07/09/17 09:00 08/08/17 08:59 07/10/17 07:06 0.5 MG Levalbuterol (Xopenex 1.25MG/ 0.5ML Neb) 1.25 mg Q6R INH 07/09/17 09:00 08/08/17 08:59 07/10/17 07:06 1.25 MG Phenobarbital (Phenobarbital Tab) 30 mg BID PO 07/09/17 09:00 08/08/17 08:59 07/10/17 08:39 30 MG Acetylcysteine (Mucomyst 20% Inh Soln) 5 ml BIDR INH 07/09/17 20:00 08/08/17 19:59 07/10/17 07:06 5 ML Cetirizine HCl (zyrTEC TAB) 10 mg QAM PO 07/11/17 08:00 08/10/17 07:59 Amoxicillin/ Clavulanate Potassium (Augmentin Tab) 875 mg BIDM PO 07/10/17 10:45 07/17/17 16:59 07/10/17 11:13 875 MG Levofloxacin (Levaquin Tab) 750 mg DAILY@11 PO 07/10/17 11:00 07/17/17 10:59 07/10/17 11:13 750 MG Miconazole Nitrate (Desenex Powder) 1 appln UD PRN EXT 07/10/17 10:30 08/09/17 10:29 Objective Vital Signs Date Time Temp Pulse Resp B/P (MAP) Pulse Ox O2 Delivery O2 Flow Rate FiO2 07/10/17 09:25 Room Air 07/10/17 08:18 36.6 103 16 104/71 (82) 94 Room Air 07/10/17 07:10 92 16 94 Room Air 07/10/17 00:01 Room Air 07/09/17 22:37 36.6 102 18 111/77 (88) 95 Room Air 07/09/17 20:04 104 18 97 Room Air 07/09/17 17:20 96 Room Air 07/09/17 17:00 36.6 100 20 96 07/09/17 16:00 Room Air 07/09/17 15:24 36.6 100 20 107/73 (84) 96 Room Air 07/09/17 14:14 99 18 94 Room Air 07/09/17 12:25 Room Air Physical Exam General Appearance: no apparent distress, + obese Eyes: normal inspection, PERRL ENT: hearing grossly normal Neck: supple Respiratory/Chest: lungs clear, no respiratory distress, no accessory muscle use Cardiovascular: regular rate, rhythm Abdomen: normal bowel sounds, non tender, soft Extremities: no pedal edema, no calf tenderness Neurologic/Psychiatric: alert, normal mood/affect, oriented x 3 Skin: normal color, warm/dry, no rash Laboratory Results Last 24 Hours Test 07/09/17 13:37 07/09/17 20:50 07/10/17 07:16 Total Creatine Kinase 70 U/L 73 U/L Creatine Kinase MB 1.1 ng/ml 0.9 ng/ml Creatine Kinase MB Ratio 1.6 1.2 Troponin I < 0.015 ng/ml < 0.015 ng/ml White Blood Count 6.28 K/uL Red Blood Count 3.84 M/uL Hemoglobin 12.2 g/dL Hematocrit 36.4 % Mean Corpuscular Volume 94.8 fL Mean Corpuscular Hemoglobin 31.8 pg Mean Corpuscular Hemoglobin Concent 33.5 g/dl Platelet Count 218 K/uL Mean Platelet Volume 9.8 fL Neutrophils (%) (Auto) 44.6 % Lymphocytes (%) (Auto) 39.0 % Monocytes (%) (Auto) 7.8 % Eosinophils (%) (Auto) 8.1 % Basophils (%) (Auto) 0.5 % Neutrophils # (Auto) 2.80 K/uL Lymphocytes # (Auto) 2.45 K/uL Monocytes # (Auto) 0.49 K/uL Eosinophils # (Auto) 0.51 K/uL Basophils # (Auto) 0.03 K/uL RDW Standard Deviation 43.8 fL RDW Coefficient of Variation 12.6 % Immature Granulocyte % (Auto) 0.0 % Immature Granulocyte # (Auto) 0.00 K/uL Sodium Level 138 mmol/L Potassium Level 3.5 mmol/L Chloride Level 103 mmol/L Carbon Dioxide Level 26 mmol/L Anion Gap 9.0 mmol/L Blood Urea Nitrogen 11 mg/dl Creatinine 0.69 mg/dl Est Creatinine Clear Calc Drug Dose 98.2 ml/min Estimated GFR () 115.2 Estimated GFR (Non- 99.4 BUN/Creatinine Ratio 16.4 Random Glucose 95 mg/dl Calcium Level 8.9 mg/dl Magnesium Level 1.9 mg/dl Assessment and Plan The patient is a 52-year-old female with a past medical history including 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 Bronchopneumonia: - IV Rocephin + Levaquin- transitioned to PO Augmentin + Levaquin - CT suggests acute bronchitis w/ significant mucus plugging in bilateral lung bases - Negative d-dimer; LE US negative for DVT; VQ scan w/ low probability - Mucinex 600 mg BID - Zyrtec 10 mg daily - DuoNebs QID and PRN for SOB/wheezing - No sputum culture obtained- now day 2 of antibiotic therapy - CBC and PRP- STABLE- will stop additional blood draws per patient/mother request due to multiple failed attempts during hospital stay Swallowing issues, ?slight aspiration: Speech therapy following- continue aspiration precautions/recommendations, may need VSS Cardiovascular issues- STABLE: Continue ASA, Aldactone Seizure disorder, cerebral palsy: Continue Baclofen, Tegretol, Klonopin, Depakote, Nortriptyline, and Phenobarbital Hypothyroidism: Continue Synthroid 50 mcg daily GERD: Change Omeprazole to Pantoprazole while inpatient DVT prophylaxis: Heparin SQ BID Code status: LEVEL I, FULL Dispo: Discharge to home w/ family and [facility]- likely tomorrow
[2017-07-10] MEDS: ASCORBIC ACID 500 MG TAB PO SCH (19:56)
[2017-07-10] MEDS: CALCIUM 600MG + VIT D 400 IU TAB PO SCH (19:56)
[2017-07-10] MEDS: TOCOPHERYL, DL-ALPHA 400 INTER.UNIT CAP PO SCH (19:57)
[2017-07-10] MEDS: DIVALPROEX SODIUM 500 MG DELAY RELEASE TAB PO SCH (21:17)
[2017-07-10] MEDS: BACLOFEN 10 MG TAB PO SCH (21:17)
[2017-07-10] MEDS: DOCUSATE SODIUM/SENNA 50/8.6MG TAB PO SCH (21:19)
[2017-07-10] MEDS: NORTRIPTYLINE HCL 25 MG CAP PO SCH (21:19)
[2017-07-10] MEDS: CLONAZEPAM 0.5 MG TAB PO SCH (21:21)
[2017-07-11] MEDS: IPRATROPIUM BROMIDE NEB SOLN 0.02% 2.5 ML VIAL INH SCH ×2 (03:00→07:19)
[2017-07-11] MEDS: LEVALBUTEROL 1.25MG/0.5ML NEB INH SCH ×2 (03:00→07:19)
[2017-07-11] MEDS: LEVOTHYROXINE 50 MCG TAB PO SCH (06:07)
[2017-07-11] MEDS: ACETYLCYSTEINE 20% INHAL SOLN ***DISPENSED BY RESP. INH SCH (07:19)
[2017-07-11 07:20] VITALS: PULSE 96; O2SAT 94
[2017-07-11 07:43] VITALS: BP 106/69; PULSE 95; TEMP 36.4; O2SAT 94
[2017-07-11] MEDS ORDERED: CETIRIZINE HCL 10 MG TAB PO SCH (08:00)
[2017-07-11] MEDS: SENNA 8.6 MG TAB PO SCH (08:18)
[2017-07-11] MEDS: PHENOBARBITAL 15 MG TAB PO SCH (08:18)
[2017-07-11] MEDS: PANTOprazole SOD 40 MG TAB PO SCH (08:19)
[2017-07-11] MEDS: CHOLECALCIFEROL 1000 INTER.UNIT TAB PO SCH (08:19)
[2017-07-11] MEDS: ASPIRIN 81 MG ECTAB PO SCH (08:19)
[2017-07-11] MEDS: GUAIFENESIN 600 MG TABCR PO SCH (08:19)
[2017-07-11] MEDS: AMOXICILLIN/CLAVULANATE TAB 875 MG TAB PO SCH (08:20)
[2017-07-11] MEDS: CARBAMAZEPINE 200 MG TAB PO SCH (08:20)
[2017-07-11] MEDS: HEPARIN SOD 5000 UNIT/0.5 ML CARP SQ SCH (08:21)
[2017-07-11] MEDS: SPIRONOLACTONE 25 MG TAB PO SCH (08:21)
[2017-07-11] MEDS: LEVOFLOXACIN 750 MG TAB PO SCH (11:06)
[2017-07-11] MEDS ORDERED: ZYR10 PO (11:11)
[2017-07-11] MEDS ORDERED: AMOX1TAB43 PO (11:11)
[2017-07-11] MEDS ORDERED: LVQ750 PO (11:11)
[2017-07-11] MEDS ORDERED: IPRA1AER2 INH (11:11)
--- NOTE | 2017-07-11 11:17 | Discharge Instructions ---
Discharge Instructions Date of Service Jul 11, 2017. Admission Reason for Admission: Bronchopneumonia Discharge Discharge Diagnosis / Problem: Bronchopneumonia Discharge Goals Goal(s): Decrease discomfort, Improve function, Increase independence, Improve disease control, Learn about illness, Diagnostic testing, Therapeutic intervention, Prevent Disease Progression Activity Recommendations Activity Limitations: resume your previous activity . Instructions / Follow-Up Instructions / Follow-Up Bronchopneumonia: Continue Ventolin inhaler as needed every 4 hours Combivent 2 puffs four times daily Augmentin twice daily and Levaquin daily until [facility] Swallowing difficulty: SPEECH THERAPY RECOMMENDATIONS; 1.SLIPPERY-regular diet with thin liquids 2.GERD precautions- upright for all intake, upright for 30 min after all intake, no intake 30 min before bed, keep head of bed elevated at least 30 degrees at all times. 3.Aspiration precautions- alternate consistencies, straws ok, make sure fully awake and upright for all intake 4.Safe swallow strategies Small bites, small sips, slow rate Resume all other regular home medications as prescribed. FOLLOW-UPS: Please follow-up with your PCP within 5-7 days Please follow-up/keep all of your subspecialty appointments Current Hospital Diet Patient's current hospital diet: Regular Diet Discharge Diet Recommended Diet: Regular Diet Pending Studies Studies pending at discharge: no Medical Emergencies . Who to Call and When: Medical Emergencies: If at any time you feel your situation is an emergency, please call 911 immediately. . Non-Emergent Contact Non-Emergency issues call your: Primary Care Provider Call Non-Emergent contact if: you have a fever, your pain is not controlled, your pain is worsening, your pain is unusual for you, your pain is concerning you, you have any medication questions . . "Provider Documentation" section prepared by Stacie Cooper. .
--- NOTE | 2017-07-11 11:23 | Discharge Summary ---
Discharge Summary Date of Service Jul 11, 2017. Discharge Summary Admission Date: Jul 08, 2017 at 23:40 Discharge Date: Jul 11, 2017 Discharge Disposition: Home with services Principal Diagnosis: Bronchopneumonia Problems/Secondary Diagnoses: Swallowing issues, ?slight aspiration Cardiovascular issues Seizure disorder cerebral palsy Hypothyroidism GERD h/o CVA w/ residual L sided hemiplegia Immunizations: Have You Had Influenza Vaccine: Unknown History of Tetanus Vaccine?: Unknown History of Pneumococcal: Unknown History of Hepatitis B Vaccine: Unknown Procedures: CHEST ONE VIEW PORTABLE HISTORY: 52 years-old Female CHEST PAIN acute atypical chest pain COMPARISON: Portable chest radiograph 06/16/2017 TECHNIQUE: Portable AP view of the chest FINDINGS: Patient is mildly rotated to the left. Lungs are mildly hypoinflated with bronchovascular crowding. Cardiac silhouette is within normal limits. There is no pneumothorax or pleural effusion. Minimal subsegmental left basilar atelectasis. No overt pulmonary edema. Mild gaseous distention of the stomach. Bones of the chest appear grossly intact. Posterior changes of the cervical spine. Surgical clips of the right upper abdomen suggest prior cholecystectomy. IMPRESSION: No acute process. The above report was generated using voice recognition software. It may contain grammatical, syntax or spelling errors. Electronically signed by: Chava Vaca M.D. 07/08/2017 5:46 PM Dictated Date/Time: 07/08/2017 5:45 PM The status of this report is Signed. Draft = Not yet reviewed or approved by Radiologist. Signed = Reviewed and approved by Radiologist. BILATERAL LOWER EXTREMITY VENOUS DOPPLER HISTORY: Acute leg swelling bilaterally leg swelling. DVT eval. COMPARISON STUDY: Duplex venous Doppler study 10/10/2016. FINDINGS: There is normal compressibility, flow, and augmentation within the bilateral lower extremity deep venous systems. IMPRESSION: No sonographic evidence of deep venous thrombosis within the right or left lower extremity. Electronically signed by: Chava Vaca M.D. 07/08/2017 8:02 PM Dictated Date/Time: 07/08/2017 8:02 PM The status of this report is Signed. Draft = Not yet reviewed or approved by Radiologist. Signed = Reviewed and approved by Radiologist. (CHEST) THORAX WITHOUT CT DOSE: 374.72 mGy.cm CLINICAL HISTORY: 52 years-old Female with chest pain. Acute atypical chest pain TECHNIQUE: Multiaxial CT images of the chest were performed without contrast. A dose lowering technique was utilized adhering to the principles of ALARA. COMPARISON: Chest radiograph of same day, CTA chest 10/10/2016. FINDINGS: No dominant thyroid nodule or pathologic adenopathy identified. Heart is normal in size without pericardial effusion. Thoracic aorta is normal in course and caliber without aneurysm identified. No pneumothorax or pleural effusion. Mild subsegmental bibasilar atelectasis with moderate bilateral bronchial wall thickening demonstrating areas of bibasilar bronchial mucous plugging. Mild mosaic attenuation of the lung bases also noted. Evaluation of the lung bases is limited secondary to respiratory motion. There is suggestion of a 4 mm nodule of the left lower lobe, image 154 series 4. No lobar airspace consolidations identified. Imaged upper abdominal structures are unremarkable. Soft tissues are within normal limits. Fusion hardware of the cervical spine is partially imaged. IMPRESSION: 1. No lobar airspace consolidation or pathologic adenopathy. 2. Moderate bilateral bronchial wall thickening compatible with bronchitis with areas of bronchial mucous plugging within the lung bases. Areas of mosaic attenuation are also noted bilaterally with patchy subsegmental atelectasis suggesting associated air trapping. Electronically signed by: Chava Vaca M.D. 07/08/2017 10:38 PM Dictated Date/Time: 07/08/2017 10:33 PM The status of this report is Signed. Draft = Not yet reviewed or approved by Radiologist. Signed = Reviewed and approved by Radiologist. LUNG IMAGING VQ CLINICAL HISTORY: Persistent chest pain COMPARISON STUDY: Chest x-ray dated 07/08/2017 FINDINGS: The patient was ventilated utilizing 33.2 mCi of technetium 99m DTPA aerosol. The patient was perfused with 5.3 mCi of technetium 99m MAA. There is mild central deposition of aerosol suggesting underlying airway disease. There is a small matched peripheral defect within the right lung laterally. No significant VQ mismatches are visualized. The study is of low probability for acute pulmonary embolism. IMPRESSION: Low probability of acute pulmonary embolism. Electronically signed by: Low Torres M.D. 07/09/2017 12:15 PM Dictated Date/Time: 07/09/2017 12:12 PM The status of this report is Signed. Draft = Not yet reviewed or approved by Radiologist. Signed = Reviewed and approved by Radiologist. Medication Reconciliation New Medications: Ipratropium-Albuterol (Combivent Respimat) 1 Aer Aer 2 PUFFS INH QID, #1 INH Amoxicillin & Pot Clavulanate (Amoxicillin/Clavulanate P) 1 Tab Tab 875 MG PO BIDM for 7 Days, #14 TAB Cetirizine HCl (All Day Allergy) 10 Mg Tab 10 MG PO QAM for 30 Days, #30 TAB Levofloxacin (Levofloxacin) 750 Mg Tab 750 MG PO DAILY@11 for 7 Days, #7 TAB Continued Medications: Acetaminophen (Tylenol) 500 Mg Tab 1000 MG PO Q6 PRN for Pain, TAB Ascorbic Acid (Vitamin C) 500 Mg Tab 500 MG PO QPM Aspirin (Aspirin Ec) 81 Mg Tab 81 MG PO DAILY AT AFTERNOON Baclofen (Lioresal) 10 Mg Tab 10 MG PO HS, TAB Calcium Carbonate-Vitamin D (Calcium 500 + D) 1 Tab Tab 1 TAB PO DAILY IN AFTERNOON Carbamazepine (Tegretol) 200 Mg Tab 400 MG PO AMHS Cholecalciferol (Vitamin D) 5,000 Unit Tab 5000 INTER.UNIT PO DAILY IN AFTERNOON Clonazepam (Klonopin) 0.5 Mg Tab 0.5 MG PO HS, TAB Cranberry (Vaccinium Macrocarp (Cranberry) Unknown Strength Tab 1 TAB PO QPM Divalproex Sodium (Depakote) 500 Mg Tab 500 MG PO HS, TAB Ibuprofen (Motrin) 800 Mg Tab 800 MG PO Q8 PRN for Pain Levothyroxine Sodium (Levothyroxine Sodium) 50 Mcg Tab 50 MCG PO QAM Nortriptyline Hcl (Pamelor) 25 Mg Cap 25 MG PO HS Omeprazole (Prilosec) 20 Mg Cap 20 MG PO QAM, CAP Phenobarbital (Phenobarbital) 30 Mg Tab 30 MG PO AMPM Senna (Senokot) 8.6 Mg Tab 17.2 MG PO QAM, TAB Sennosides-Docusate Sodium (Stool Softener) 1 Tab Tab 1 TAB PO HS Spironolactone (Aldactone) 25 Mg Tab 25 MG PO AMPM Vitamin E (Vitamin E 400 Iu) 400 Unit Cap 400 INTER.UNIT PO DAILY IN AFTERNOON, CAP [Ventolin Hfa 90MCG] () 2 PUFFS INH Q4H PRN for Shortness of Breath Discontinued Medications: Prednisone (Prednisone) 10 Mg Tab 10 MG PO DAILY/UD, TAB BEGIN 18 : TAKE 4 TABS X 2 DAYS, TAKE 3 TABS X 2 DAYS, TAKE 2 TABS X 2 DAYS, TAKE 1 TAB X 2 DAYS, TAKE 1/2 TAB X 2 DAYS. Referrals At Discharge Follow up Referrals: Family Practice Referral - Within a Month with Hardeep Paul PA-C Discharge Exam Review of Systems: Constitutional: No fever, No chills, No sweats, No weakness, No fatigue Eyes: No worsening of vision ENT: No hearing loss Respiratory: + cough, + sputum, No wheezing, No shortness of breath, No hemoptysis Cardiovascular: No chest pain, No edema, No palpitations Abdomen: No pain, No nausea, No vomiting, No diarrhea, No constipation, No GI bleeding Musculoskeletal: No joint pain, No muscle pain, No swelling, No calf pain Genitourinary - Female: No dysuria, No hematuria Neurologic: No weakness, No numbness/tingling Psychiatric: No depression symptoms, No anxiety Endocrine: No fatigue Hematologic / Lymphatic: No abnormal bleeding/bruising Integumentary: No rash, No itch, No new/changing skin lesions Physical Exam: General Appearance: no apparent distress, + obese Eyes: normal inspection, PERRL ENT: hearing grossly normal Neck: supple Respiratory/Chest: lungs clear, no respiratory distress, no accessory muscle use Cardiovascular: regular rate, rhythm Abdomen / GI: normal bowel sounds, non tender, soft Extremities: no calf tenderness, no pedal edema Neurologic/Psychiatric: alert, normal mood/affect, oriented x 3 Skin: normal color, warm/dry, no rash Hospital Course The patient is a 52-year-old female with a past medical history including 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 Bronchopneumonia: - IV Rocephin + Levaquin- transitioned to PO Augmentin + Levaquin- complete 7 more days at discharge - CT suggests acute bronchitis w/ significant mucus plugging in bilateral lung bases - Negative d-dimer; LE US negative for DVT; VQ scan w/ low probability - Mucinex 600 mg BID - Zyrtec 10 mg daily - DuoNebs QID and PRN for SOB/wheezing- pt/mother note significant improvement w / use, prescribed Combivent QID while getting over acute illness - Continue Ventolin PRN at discharge - No sputum culture obtained - CBC and PRP- STABLE- will stop additional blood draws per patient/mother request due to multiple failed attempts during hospital stay Swallowing issues, ?slight aspiration: - SPEECH THERAPY RECOMMENDATIONS: 1.SLIPPERY-regular diet with thin liquids 2.GERD precautions- upright for all intake, upright for 30 min after all intake, no intake 30 min before bed, keep head of bed elevated at least 30 degrees at all times. 3.Aspiration precautions- alternate consistencies, straws ok, make sure fully awake and upright for all intake 4.Safe swallow strategies Small bites, small sips, slow rate Cardiovascular issues- STABLE: Continue ASA, Aldactone Seizure disorder, cerebral palsy: Continue Baclofen, Tegretol, Klonopin, Depakote, Nortriptyline, and Phenobarbital h/o CVA w/ residual L sided hemiplegia- noted Hypothyroidism: Continue Synthroid 50 mcg daily GERD: Change Omeprazole to Pantoprazole while inpatient DVT prophylaxis: Heparin SQ BID Code status: LEVEL I, FULL Dispo: Discharge to home w/ family and [facility] Total Time Spent: Greater than 30 minutes This includes examination of the patient, discharge planning, medication reconciliation, and communication with other providers. Discharge Instructions Please refer to the electronic Patient Visit Report (Discharge Instructions) for additional information. Follow-Up Please follow-up with your PCP within 5-7 days Please follow-up/keep all of your subspecialty appointments Additional Copies To Hardeep Paul PA-C
[2017-07-11 11:41] VITALS: BP 106/69; PULSE 95; TEMP 36.4; O2SAT 94
== END 2017-07-11 14:00 | disposition home health service (06) | DRG 178 ==
LOC: EDBD 16:45 → C.EDA 16:46 → C.2T 23:40 → ENRESERV 07-09 00:01 → C.MS4W 07-09 17:03
PROVIDERS: ADMIT Hospitalist; ATTEND Hospitalist
DX: J69.0 Pneumonitis due to inhalation of food and vomit (principal); I69.354 Hemiplegia and hemiparesis following cerebral infarction affecting left non-dominant side; G80.9 Cerebral palsy, unspecified; G40.909 Epilepsy, unspecified, not intractable, without status epilepticus; K21.9 Gastro-esophageal reflux disease without esophagitis; E03.9 Hypothyroidism, unspecified; Z79.899 Other long term (current) drug therapy; Z79.82 Long term (current) use of aspirin; Z79.52 Long term (current) use of systemic steroids; Z74.01 Bed confinement status; Z88.1 Allergy status to other antibiotic agents

== ENCOUNTER 2017-07-14 12:58 | Inpatient (IN) | payer OTHER ==
[~2017-07-14] VITALS: Ht 162.6 cm; Wt 83.4 kg
[~2017-07-14 12:58] MED LIST changes: +AMOX1TAB43 PO; -ASCA500 PO; -CARB200T PO; +IBUP-1428 PO; -IBUP-1451 PO; +IPRA1AER2 INH; +LVQ750 PO; -OSEL75CA23 PO; -PHEN1TAB85 PO; +VENTOLIN HFA 90MCG INH; +ZYR10 PO
[2017-07-14] MEDS ORDERED: SODIUM CHLORIDE 0.9% 1000ML 1,000 ML IV STA (13:22)
--- NOTE | 2017-07-14 13:49 | DIAGNOSTIC IMAGING REPORT ---
CHEST ONE VIEW PORTABLE CLINICAL HISTORY: 52 years-old Female presenting with SEIZURE. TECHNIQUE: Portable upright AP view of the chest was obtained. COMPARISON: 07/08/2017. FINDINGS: The patient is TREADWELL rotated. Atherosclerosis of the aortic arch. Chronic silhouette normal in size. Mildly low lung volumes. Bandlike opacities at the left mid and lower lung increased from prior. No other focal opacity. No large effusion or pneumothorax. Exaggerated thoracic kyphosis. Degenerative changes of the left glenohumeral joint. Cholecystectomy clips noted. IMPRESSION: 1. Mildly low lung volumes with increased left basilar atelectasis. Electronically signed by: Patrick Vargas M.D. 07/14/2017 1:48 PM Dictated Date/Time: 07/14/2017 1:47 PM
[2017-07-14] MEDS ORDERED: LIDOCAINE/PRILOCAINE 2.5% EA CRM EXT ONE (14:00)
--- NOTE | 2017-07-14 14:33 | DIAGNOSTIC IMAGING REPORT ---
CT OF THE HEAD WITHOUT CONTRAST CLINICAL HISTORY: Seizure. COMPARISON STUDY: MRI of the brain October 05, 2010. CT DOSE: 1038.76 mGycm TECHNIQUE: Helical axial images of the head were obtained without IV contrast. Automated exposure control was utilized for the study. A dose lowering technique was utilized adhering to the principles of ALARA. FINDINGS: No acute intracranial hemorrhage is present. Asymmetric dilatation of the body and frontal horn of the right lateral ventricle is unchanged since MRI of October 05, 2010. The ventricular system is stable. Basilar cisterns are patent. There are no extra axial collections. Barragan-white differentiation is maintained. There are no findings to suggest acute dural sinus thrombosis or acute territorial infarct. There is no calvarial fracture. IMPRESSION: 1. No acute intracranial findings. 2. No change in asymmetric dilatation of the body and frontal horn of the right lateral ventricle since MRI of October 05, 2010. Electronically signed by: Roger Montgomery M.D. 07/14/2017 2:32 PM Dictated Date/Time: 07/14/2017 2:29 PM
[2017-07-14 14:42] LABS: BASO % 0.1 %; BASO ABS # 0.01 K/uL (0-0.2); EOS ABS # 0.15 K/uL (0-0.5); HEMATOCRIT 34.2 % (37-47); HEMOGLOBIN 11.7 g/dL (12.0-16.0); IG# 0.02 K/uL (0.00-0.02); LYMPH % 9.1 %; LYMPH ABS # 0.67 K/uL (1.2-3.4); MEAN CELL VOLUME 93.2 fL (80-100); MEAN CORPUSCULAR HEMOGLOBIN 31.9 pg (25-34); MEAN CORPUSCULAR HGB CONC 34.2 g/dl (32-36); MEAN PLATELET VOLUME 9.8 fL (7.4-10.4); MONO % 7.3 %; MONO ABS # 0.54 K/uL (0.11-0.59); NEUT % 81.2 %; NEUT ABS # 5.98 K/uL (1.4-6.5); PLATELET COUNT 174 K/uL (130-400); RED CELL DISTRIBUTION WIDTH CV 12.7 % (11.5-14.5); RED CELL DISTRIBUTION WIDTH SD 43.4 fL (36.4-46.3); WHITE BLOOD COUNT 7.37 K/uL (4.8-10.8)
[2017-07-14 14:55] LABS: PTT PATIENT 23.8 SECONDS (21.0-31.0)
[2017-07-14 14:58] LABS: CALCIUM 8.8 mg/dl (8.5-10.1); CREATININE 0.64 mg/dl (0.60-1.20); POTASSIUM 3.2 mmol/L (3.5-5.1)
[2017-07-14 15:09] LABS: PHOSPHORUS 4.2 mg/dl (2.5-4.9)
[2017-07-14 15:53] LABS: INFLUENZA B ANTIGEN Neg for Influ B (NEG)
[2017-07-14] MEDS ORDERED: POTASSIUM CHLORIDE 10 MEQ TABCR PO STA (15:57)
[2017-07-14] MEDS ORDERED: OSELTAMIVIR PHOSPHATE 75 MG CAP PO STA (15:57)
[2017-07-14] MEDS ORDERED: MAGNESIUM SULFATE 1GM / D5W 1 GM BAG IV STA (15:57)
[2017-07-14] MEDS ORDERED: ALBUT/IPRATROP 3MG/0.5MG NEB 3 ML VIAL INH STA (16:06)
--- NOTE | 2017-07-14 16:06 | EMERGENCY ROOM VISIT NOTE ---
ED Visit Note First contact with patient: 13:06 CHIEF COMPLAINT: Seizures HISTORY OF PRESENTING ILLNESS: This is a 52-year-old female who presents to the emergency department via EMS with complaint of seizures. Most of the history is provided by the patient's mother, who reports that she started having seizures yesterday, states that she had 2 seizures yesterday and had another one today. Patient's mother states that she had a fever of 103 last night, and it was 102 this morning, she gave her Tylenol and ibuprofen around 11 AM today. Patient has past medical history significant for stroke as an infant, with residual left-sided deficit, and resultant seizure disorder. Per parents, she has partial focal seizures mostly involving the left side of her body, which was disabled by her stroke. Patient's mother states she is usually awake during her seizures, and is not postictal afterwards, but usually complains of being tired. Her last seizure was several months ago and mother reports these are usually well controlled. She is on carbamazepine, phenobarbital, and Depakote for her seizures, has not missed any doses or had any changes recently. Patient's mother reports today that she was screaming in pain during and after her seizures, which is completely new for her. She states that the pain was in her legs, back, and that she has also complained of some neck pain. The patient denies any headache, but does have some photophobia. She denies chest pain, shortness of breath, abdominal pain, nausea or vomiting, diarrhea, urinary symptoms, or rash. Patient was recently admitted to the hospital, diagnosed with bronchopneumonia, and was discharged home 3 days ago on Augmentin and Levaquin, as well as Combivent inhaler and cetirizine. Mother states her cough has been worsening since yesterday as well. REVIEW OF SYSTEMS: A complete 10 point review of systems was reviewed with the patient with pertinent positives and negatives as per history of present illness. All else were negative. PAST MEDICAL HISTORY: Reviewed in chart. SOCIAL HISTORY: Lives at home with her parents who are her caregivers. She is nonambulatory. ALLERGIES: Reviewed in chart. PHYSICAL EXAM: CONSTITUTIONAL: Awake, somewhat drowsy, but easy to arouse, follows commands and is cooperative. No acute distress. Mildly dehydrated. HEENT: Normocephalic, atraumatic. PERRL, EOMI, normal conjunctiva bilaterally. TMs normal. Pharynx normal. Tacky mucous membranes. NECK: Supple, full active range of motion without discomfort. No cervical adenopathy. RESPIRATORY: Diminished in the bases, but otherwise clear to auscultation bilaterally with no wheezing, crackles, rhonchi or stridor. Equal expansion bilaterally. CARDIOVASCULAR: Tachycardic, regular rhythm with no murmurs, rubs or gallops. Normal peripheral perfusion. No edema. GASTROINTESTINAL: Soft, nontender, nondistended. No palpable masses or HSM. Bowel sounds present in all quadrants. MUSCULOSKELETAL: Left arm with minimal strength, contracture deformity of the left hand. Left leg with minimal strength, 2/5 dorsiflexion and plantarflexion of the left foot. 5/5 strength in the right arm and leg against resistance. INTEGUMENTARY: No rash or other significant dermatologic conditions noted. NEUROLOGIC: Oriented X 4 with flat affect. Answers basic questions appropriately. Left facial droop (chronic), cranial nerves II through XII otherwise grossly intact. Sensation intact to light touch all four extremities. Normal speech. ED COURSE AND MEDICAL DECISION MAKING: CC: Patient presenting with complaint of seizures DIFFERENTIAL DIAGNOSIS: Includes, but not limited to seizures, infectious process including meningitis, pneumonia, UTI, sepsis/bacteremia, influenza, bronchitis, atelectasis, aspiration, intracranial hemorrhage, encephalopathy, among others. INTERPRETATION OF LABS: No leukocytosis, mild anemia (consistent with previous labs), mild hypokalemia and hypomagnesemia, no other significant electrolyte abnormalities, normal renal function, normal liver enzymes. Influenza positive for type A. UA negative for infection. IMAGING: CT OF THE HEAD WITHOUT CONTRAST CLINICAL HISTORY: Seizure. COMPARISON STUDY: MRI of the brain October 05, 2010. CT DOSE: 1038.76 mGycm TECHNIQUE: Helical axial images of the head were obtained without IV contrast. Automated exposure control was utilized for the study. A dose lowering technique was utilized adhering to the principles of ALARA. FINDINGS: No acute intracranial hemorrhage is present. Asymmetric dilatation of the body and frontal horn of the right lateral ventricle is unchanged since MRI of October 05, 2010. The ventricular system is stable. Basilar cisterns are patent. There are no extra axial collections. Barragan-white differentiation is maintained. There are no findings to suggest acute dural sinus thrombosis or acute territorial infarct. There is no calvarial fracture. IMPRESSION: 1. No acute intracranial findings. 2. No change in asymmetric dilatation of the body and frontal horn of the right lateral ventricle since MRI of October 05, 2010. ----- CHEST ONE VIEW PORTABLE CLINICAL HISTORY: 52 years-old Female presenting with SEIZURE. TECHNIQUE: Portable upright AP view of the chest was obtained. COMPARISON: 07/08/2017. FINDINGS: The patient is TREADWELL rotated. Atherosclerosis of the aortic arch. Chronic silhouette normal in size. Mildly low lung volumes. Bandlike opacities at the left mid and lower lung increased from prior. No other focal opacity. No large effusion or pneumothorax. Exaggerated thoracic kyphosis. Degenerative changes of the left glenohumeral joint. Cholecystectomy clips noted. IMPRESSION: 1. Mildly low lung volumes with increased left basilar atelectasis. EKG: Shows sinus tachycardia with rate of 117 bpm, Q waves in inferior leads appear unchanged when compared to previous EKG from 07/11/2017 by my interpretation. MEDICATION RECONCILIATION: I attest that I have personally reviewed the patient 's current medication list. INITIAL VITAL SIGNS REVIEW: I reviewed the patient's initial vital signs and interpret them as follows: T: Afebrile; BP: Normotensive; HR: Tachycardic; RR : Within normal limits; Pulse Ox: Hypoxic on room air, placed on 3 L nasal cannula with improvement. Blood pressure screening: The patient was found to have normal blood pressure on screening and does not require follow-up for repeat blood pressure check. SUMMARY: Patient was evaluated at bedside, history and physical exam performed. Patient is drowsy but easily aroused, oriented, following commands, no acute distress, resting in a stretcher. Patient has baseline neurologic deficits of left facial droop, left arm and left leg weakness from a previous stroke. Strength and sensation intact in the right extremities. Patient is noted to have a low-grade fever of 100, patient's mother states it was 102 prior to giving Tylenol and Motrin around 11 AM today. Patient is tachycardic, and hypoxic at 87% on room air, was placed on 3L nasal cannula with sats now 94%. EKG reviewed at bedside, no acute ischemic changes noted. Review of the patient's chart and recent admission reveals that she was admitted for respiratory issues and diagnosed with bronchial pneumonia. The patient was discharged home on Augmentin and Levaquin, as well as Combivent and cetirizine medications. Orders were placed at bedside for labs, UA and culture, blood cultures 2, drug levels, chest x-ray, head CT to evaluate for seizure. Patient discussed with Dr. Serrano, who agrees with my assessment and plan. I spoke with Gracie, pharmacist, to review patient's medications, she states Levaquin is concerning for lowering the seizure threshold, but none of the new medications should directly interact with her seizure meds. Labs and imaging reviewed as above, noting mild hypokalemia and hypomagnesemia. She is positive for Influenza Type A. Tamiflu was ordered to treat influenza. IV Mag and PO KCl ordered for replacement. CXR appears slightly worse from previous. Given her fevers and new oxygen requirement, CT chest was ordered to evaluate for worsening pneumonia. Patient's mother reports that she had a coughing fit and coughed up a lot of phlegm. Reassessment of lungs now demonstrates a slight wheeze, though sats appear improved at 97% on 3L O2. Mother states that she had improvement in her cough and breathing during admission from nebulizer treatments. Duoneb was ordered. Given the patient's new oxygen requirement in setting of +Flu, as well as increased seizure activity at home, I feel she would benefit from inpatient admission. I spoke with Dr. Dunaway, hospitalist, who agrees to evaluate the patient for admission Patient reassessed multiple times throughout ED stay, she remains stable, tachycardia improving after IV fluids, and her breathing seems to be improving, she has been reduced to 2L NC. Patient and parents were updated on all results and plan for admission, they verbalized understanding, and were agreeable to this plan. Patient was stable at time of admission. 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, controlled Status: Chronic Surgical Problems: (1) H/O: hysterectomy Status: Resolved Current/Historical Medications Scheduled Amoxicillin & Pot Clavulanate (Amoxicillin/Clavulanate P), 875 MG PO BIDM Ascorbic Acid (Vitamin C), Unknown Dose PO QPM Aspirin (Aspirin Ec), 81 MG PO DAILY AT AFTERNOON Baclofen (Lioresal), 10 MG PO HS Calcium Carbonate-Vitamin D (Calcium 500 + D), 1 TAB PO DAILY IN AFTERNOON Carbamazepine (Tegretol), 400 MG PO AMPM Cetirizine HCl (All Day Allergy), 10 MG PO QAM Cholecalciferol (Vitamin D), 5,000 INTER.UNIT PO DAILY IN AFTERNOON Clonazepam (Klonopin), 0.5 MG PO HS Cranberry (Vaccinium Macrocarp (Cranberry), 1 TAB PO QPM Divalproex Sodium (Depakote), 500 MG PO HS Ipratropium-Albuterol (Combivent Respimat), 2 PUFFS INH QID Levofloxacin (Levofloxacin), 750 MG PO DAILY@11 Levothyroxine Sodium (Levothyroxine Sodium), 50 MCG PO QAM Nortriptyline Hcl (Pamelor), 25 MG PO HS Omeprazole (Prilosec), 20 MG PO QAM Phenobarbital (Phenobarbital), 30 MG PO AMPM Senna (Senokot), 17.2 MG PO QAM Sennosides-Docusate Sodium (Stool Softener), 1 TAB PO HS Spironolactone (Aldactone), 25 MG PO AMPM Vitamin E (Vitamin E 400 Iu), 400 INTER.UNIT PO DAILY IN AFTERNOON Scheduled PRN [Ventolin Hfa 90MCG], 2 PUFFS INH Q4H PRN for Shortness of Breath Allergies Coded Allergies: Lincomycin (Verified Allergy, Intermediate, HIVES, 07/14/17) Had 40 years ago. Vital Signs Date Time Temp Pulse Resp B/P (MAP) Pulse Ox O2 Delivery O2 Flow Rate FiO2 07/14/17 17:30 124/70 07/14/17 17:20 106/79 07/14/17 17:18 101 07/14/17 17:18 105 18 106/79 97 Nasal Cannula 2.0 07/14/17 17:16 101 07/14/17 17:11 103 96 Nasal Cannula 2.0 07/14/17 16:41 103 23 97 Nasal Cannula 2.0 07/14/17 16:40 102 18 103/71 97 Nasal Cannula 2.0 07/14/17 16:36 103/71 07/14/17 16:33 105 24 96 07/14/17 16:03 102 17 97 07/14/17 15:33 103 19 96 07/14/17 15:03 103 16 95 07/14/17 14:58 103 18 96 Nasal Cannula 2.0 07/14/17 14:45 37.3 108 18 128/83 95 Nasal Cannula 2.0 07/14/17 14:44 128/83 07/14/17 14:19 107 18 113/71 95 Nasal Cannula 3.0 07/14/17 14:13 113/71 07/14/17 13:58 109 22 07/14/17 13:35 Nasal Cannula 3.0 07/14/17 13:35 93 Nasal Cannula 3.0 07/14/17 13:28 110 18 94 07/14/17 13:08 116 07/14/17 13:04 115/61 07/14/17 13:00 37.8 119 20 115/61 87 Room Air 07/14/17 13:00 87 Room Air Laboratory Results 07/14/17 14:13 Red Blood Count 3.67, Mean Corpuscular Volume 93.2, Mean Corpuscular Hemoglobin 31.9, Mean Corpuscular Hemoglobin Concent 34.2, Mean Platelet Volume 9.8, Neutrophils (%) (Auto) 81.2, Lymphocytes (%) (Auto) 9.1, Monocytes (%) (Auto) 7.3, Eosinophils (%) (Auto) 2.0, Basophils (%) (Auto) 0.1, Neutrophils # (Auto) 5.98, Lymphocytes # (Auto) 0.67, Monocytes # (Auto) 0.54, Eosinophils # (Auto) 0.15, Basophils # (Auto) 0.01 07/14/17 14:13 Test 07/14/17 13:35 07/14/17 14:13 07/14/17 15:13 Bedside Glucose 116 mg/dl (70-90) White Blood Count 7.37 K/uL (4.8-10.8) Red Blood Count 3.67 M/uL (4.2-5.4) Hemoglobin 11.7 g/dL (12.0-16.0) Hematocrit 34.2 % (37-47) Mean Corpuscular Volume 93.2 fL (80-100) Mean Corpuscular Hemoglobin 31.9 pg (25-34) Mean Corpuscular Hemoglobin Concent 34.2 g/dl (32-36) Platelet Count 174 K/uL (130-400) Mean Platelet Volume 9.8 fL (7.4-10.4) Neutrophils (%) (Auto) 81.2 % Lymphocytes (%) (Auto) 9.1 % Monocytes (%) (Auto) 7.3 % Eosinophils (%) (Auto) 2.0 % Basophils (%) (Auto) 0.1 % Neutrophils # (Auto) 5.98 K/uL (1.4-6.5) Lymphocytes # (Auto) 0.67 K/uL (1.2-3.4) Monocytes # (Auto) 0.54 K/uL (0.11-0.59) Eosinophils # (Auto) 0.15 K/uL (0-0.5) Basophils # (Auto) 0.01 K/uL (0-0.2) RDW Standard Deviation 43.4 fL (36.4-46.3) RDW Coefficient of Variation 12.7 % (11.5-14.5) Immature Granulocyte % (Auto) 0.3 % Immature Granulocyte # (Auto) 0.02 K/uL (0.00-0.02) Prothrombin Time 10.4 SECONDS (9.0-12.0) Prothromb Time International Ratio 1.0 (0.9-1.1) Activated Partial Thromboplast Time 23.8 SECONDS (21.0-31.0) Partial Thromboplastin Ratio 0.9 Anion Gap 7.0 mmol/L (3-11) Est Creatinine Clear Calc Drug Dose 106.2 ml/min Estimated GFR () 118.1 Estimated GFR (Non- 101.9 BUN/Creatinine Ratio 12.5 (10-20) Calcium Level 8.8 mg/dl (8.5-10.1) Phosphorus Level 4.2 mg/dl (2.5-4.9) Magnesium Level 1.7 mg/dl (1.8-2.4) Thyroid Stimulating Hormone (TSH) 0.588 uIu/ml (0.300-4.500) Valproic Acid (Depakene) Level 42 mcg/ml (50-100) Carbamazepine (Tegretol) Level 11.8 mcg/ml (4-12) Phenobarbital Level 19.3 mcg/mL (15.0-40.0) Influenza Type A Antigen POS for Influ A (NEG) Influenza Type B Antigen Neg for Influ B (NEG) Medications Administered Medications (Trade) Dose Ordered Sig/Rhiannon Route Start Time Stop Time Status Last Admin Dose Admin Sodium Chloride 1,000 ml @ 999 mls/hr Q1H1M STAT IV 07/14/17 13:22 07/14/17 14:22 DC 07/14/17 14:02 999 MLS/HR Magnesium Sulfate (Magnesium Sulfate) 1 gm NOW STAT IV 07/14/17 15:57 07/14/17 15:59 DC 07/14/17 16:31 1 GM Potassium Chloride (Klor-Con M10) 40 meq NOW STAT PO 07/14/17 15:57 07/14/17 15:59 DC 07/14/17 16:31 40 MEQ Oseltamivir Phosphate (Tamiflu Cap) 75 mg NOW STAT PO 07/14/17 15:57 07/14/17 15:59 DC 07/14/17 16:31 75 MG Albuterol/ Ipratropium (Duoneb) 3 ml NOW STAT INH 07/14/17 16:06 07/14/17 16:07 DC 07/14/17 16:32 3 ML Departure Information Referrals Hardeep Paul PA-C (PCP) Patient Instructions [facility]
--- NOTE | 2017-07-14 16:34 | EMERGENCY ROOM VISIT NOTE ---
ED Visit Note First contact with patient: 13:06 Patient seen and evaluated after discussion with the AIRFIELD MANAGER. Patient and family verbalized understanding of all results including positive flow which likely contributed to persistent fevers and possible atypical seizure presentation. Other labs and imaging reviewed with AIRFIELD MANAGER. Patient's family was agreeable with plan for additional evaluation and treatment by the hospitalist. Please see Margret Portillo's note for additional details and information.
[2017-07-14] MEDS ORDERED: CARB200T PO (17:15)
[2017-07-14] MEDS ORDERED: PHEN1TAB85 PO (17:15)
--- NOTE | 2017-07-14 17:17 | DIAGNOSTIC IMAGING REPORT ---
(CHEST) THORAX WITHOUT CT DOSE: 394.70 mGy.cm CLINICAL HISTORY: 52 years-old Female with eval worsening PNA. Follow-up study in a patient with pneumonia TECHNIQUE: Multiaxial CT images of the chest were performed without contrast. A dose lowering technique was utilized adhering to the principles of ALARA. COMPARISON: Chest radiograph 07/14/2017, CT chest 07/08/2017 FINDINGS: No dominant thyroid nodule identified. Heart is normal in size without large pericardial effusion. The thoracic aorta is normal in both course and caliber without aneurysm identified. No pathologic adenopathy identified on this noncontrast study. Trace bilateral pleural effusions. No pneumothorax. Moderate bilateral bronchial wall thickening redemonstrated with areas of patchy mosaic attenuation suggesting air trapping. Additionally, there has been interval development of subsegmental groundglass opacities within the left upper lobe with segmental consolidative opacities of the basal left lower lobe and inferior segment lingula. Linear subsegmental consolidative opacities of the right lung base suggest atelectasis. Evaluation of the lungs limited secondary to respiratory motion. Mildly low lung volumes. I attenuating material within the dependent gastric lumen. Prior cholecystectomy. No acute abnormality of the imaged upper abdomen. Fusion hardware of the lower cervical spine. Study is limited secondary to patient positioning. IMPRESSION: 1. Low lung volumes with trace bilateral pleural effusions and interval development of left upper lobe groundglass and left lung base alveolar opacities suggesting pneumonia or atelectasis. 2. Redemonstration of bronchitis with areas of air trapping. 3. No pathologic adenopathy identified. 4. Prior cholecystectomy. Electronically signed by: Chava Vaca M.D. 07/14/2017 5:16 PM Dictated Date/Time: 07/14/2017 5:08 PM
[2017-07-14] MEDS ORDERED: POTASSIUM CHLORIDE 20 MEQ TABCR PO STA (17:26)
[2017-07-14] MEDS ORDERED: ALBUTEROL HFA 8 GM INHALER INH PRN (17:30)
[2017-07-14] MEDS ORDERED: ONDANSETRON INJ 2 MG/ML 2 ML VIAL IV PRN (17:30)
[2017-07-14] MEDS ORDERED: MAGNESIUM HYDROXIDE SUSP 30 ML UDC PO PRN (17:30)
--- NOTE | 2017-07-14 17:56 | History and Physical ---
History & Physical Date & Time of Service: Jul 14, 2017 at 17:33 Chief Complaint: Seizure Primary Care Physician: Hardeep Paul PA-C History of Present Illness Source: patient, family 52 y/o F who was brought to the ED by her parents for concerns regarding fever and ongoing cough/congestion. Pt was d/c'd on 07/11 s/p tx for bronchoPNA. Pt and family feel that she was better on d/c, but was still having cough/ congestion. She has periodic seizures her entire life after having a CVA as an . She had a seizure last night and then she had a fever this AM. She has the most coughing after she eats. She gets chest pain with the coughing spells and this is not new. She did cough so much last night that she had an episode of emesis. She had applesauce today but nothing else. She ate yesterday and feels she ate well. Pt denies fever, SOB, abd pain, c/d, LE pain or swelling. 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 Social History Smoking Status: Never Smoker Alcohol Use: none Drug Use: none Marital Status: single Housing status: lives with family Occupational Status: disabled Immunizations History of Influenza Vaccine: Unknown History of Tetanus Vaccine?: Unknown History of Pneumococcal: Unknown History of Hepatitis B Vaccine: Unknown Allergies Coded Allergies: Lincomycin (Verified Allergy, Intermediate, HIVES, 07/14/17) Had 40 years ago. Home Medications Scheduled Amoxicillin & Pot Clavulanate (Amoxicillin/Clavulanate P), 875 MG PO BIDM Ascorbic Acid (Vitamin C), Unknown Dose PO QPM Aspirin (Aspirin Ec), 81 MG PO DAILY AT AFTERNOON Baclofen (Lioresal), 10 MG PO HS Calcium Carbonate-Vitamin D (Calcium 500 + D), 1 TAB PO DAILY IN AFTERNOON Carbamazepine (Tegretol), 400 MG PO AMPM Cetirizine HCl (All Day Allergy), 10 MG PO QAM Cholecalciferol (Vitamin D), 5,000 INTER.UNIT PO DAILY IN AFTERNOON Clonazepam (Klonopin), 0.5 MG PO HS Cranberry (Vaccinium Macrocarp (Cranberry), 1 TAB PO QPM Divalproex Sodium (Depakote), 500 MG PO HS Ipratropium-Albuterol (Combivent Respimat), 2 PUFFS INH QID Levofloxacin (Levofloxacin), 750 MG PO DAILY@11 Levothyroxine Sodium (Levothyroxine Sodium), 50 MCG PO QAM Nortriptyline Hcl (Pamelor), 25 MG PO HS Omeprazole (Prilosec), 20 MG PO QAM Phenobarbital (Phenobarbital), 30 MG PO AMPM Senna (Senokot), 17.2 MG PO QAM Sennosides-Docusate Sodium (Stool Softener), 1 TAB PO HS Spironolactone (Aldactone), 25 MG PO AMPM Vitamin E (Vitamin E 400 Iu), 400 INTER.UNIT PO DAILY IN AFTERNOON Scheduled PRN [Ventolin Hfa 90MCG], 2 PUFFS INH Q4H PRN for Shortness of Breath Review of Systems Pertinent positives and negatives reviewed in HPI--all others negative Physical Exam Vital Signs Date Time Temp Pulse Resp B/P (MAP) Pulse Ox O2 Delivery O2 Flow Rate FiO2 07/14/17 17:18 101 07/14/17 17:18 105 18 106/79 97 Nasal Cannula 2.0 07/14/17 17:16 101 07/14/17 16:40 102 18 103/71 97 Nasal Cannula 2.0 07/14/17 16:36 103/71 07/14/17 16:33 105 24 96 07/14/17 16:03 102 17 97 07/14/17 15:33 103 19 96 07/14/17 15:03 103 16 95 07/14/17 14:58 103 18 96 Nasal Cannula 2.0 07/14/17 14:45 37.3 108 18 128/83 95 Nasal Cannula 2.0 07/14/17 14:44 128/83 07/14/17 14:19 107 18 113/71 95 Nasal Cannula 3.0 07/14/17 14:13 113/71 07/14/17 13:58 109 22 07/14/17 13:35 Nasal Cannula 3.0 07/14/17 13:35 93 Nasal Cannula 3.0 07/14/17 13:28 110 18 94 07/14/17 13:08 116 07/14/17 13:04 115/61 07/14/17 13:00 37.8 119 20 115/61 87 Room Air 07/14/17 13:00 87 Room Air General Appearance: WD/WN, no apparent distress Head: normocephalic, atraumatic Eyes: normal inspection, sclerae normal Respiratory/Chest: normal breath sounds, no respiratory distress Cardiovascular: regular rate, rhythm, no edema Abdomen/GI: non tender, soft Extremities/Musculoskelatal: no calf tenderness, no pedal edema Neurologic/Psych: alert, oriented x 3 Skin: normal color, warm/dry Diagnostics Laboratory Results Results Past 24 Hours Test 07/14/17 13:22 07/14/17 13:35 07/14/17 14:13 07/14/17 15:13 Range/Units Bedside Glucose 116 70-90 mg/dl White Blood Count 7.37 4.8-10.8 K/uL Red Blood Count 3.67 4.2-5.4 M/uL Hemoglobin 11.7 12.0-16.0 g/dL Hematocrit 34.2 37-47 % Mean Corpuscular Volume 93.2 80-100 fL Mean Corpuscular Hemoglobin 31.9 25-34 pg Mean Corpuscular Hemoglobin Concent 34.2 32-36 g/dl Platelet Count 174 130-400 K/uL Mean Platelet Volume 9.8 7.4-10.4 fL Neutrophils (%) (Auto) 81.2 % Lymphocytes (%) (Auto) 9.1 % Monocytes (%) (Auto) 7.3 % Eosinophils (%) (Auto) 2.0 % Basophils (%) (Auto) 0.1 % Neutrophils # (Auto) 5.98 1.4-6.5 K/uL Lymphocytes # (Auto) 0.67 1.2-3.4 K/uL Monocytes # (Auto) 0.54 0.11-0.59 K/uL Eosinophils # (Auto) 0.15 0-0.5 K/uL Basophils # (Auto) 0.01 0-0.2 K/uL RDW Standard Deviation 43.4 36.4-46.3 fL RDW Coefficient of Variation 12.7 11.5-14.5 % Immature Granulocyte % (Auto) 0.3 % Immature Granulocyte # (Auto) 0.02 0.00-0.02 K/uL Prothrombin Time 10.4 9.0-12.0 SECONDS Prothromb Time International Ratio 1.0 0.9-1.1 Activated Partial Thromboplast Time 23.8 21.0-31.0 SECONDS Partial Thromboplastin Ratio 0.9 Sodium Level 134 136-145 mmol/L Potassium Level 3.2 3.5-5.1 mmol/L Chloride Level 101 98-107 mmol/L Carbon Dioxide Level 26 21-32 mmol/L Anion Gap 7.0 3-11 mmol/L Blood Urea Nitrogen 8 7-18 mg/dl Creatinine 0.64 0.60-1.20 mg/dl Est Creatinine Clear Calc Drug Dose 106.2 ml/min Estimated GFR () 118.1 Estimated GFR (Non- 101.9 BUN/Creatinine Ratio 12.5 10-20 Random Glucose 105 70-99 mg/dl Calcium Level 8.8 8.5-10.1 mg/dl Phosphorus Level 4.2 2.5-4.9 mg/dl Magnesium Level 1.7 1.8-2.4 mg/dl Thyroid Stimulating Hormone (TSH) 0.588 0.300-4.500 uIu/ml Valproic Acid (Depakene) Level 42 50-100 mcg/ml Carbamazepine (Tegretol) Level 11.8 4-12 mcg/ml Phenobarbital Level 19.3 15.0-40.0 mcg/mL Influenza Type A Antigen POS for Influ A NEG Influenza Type B Antigen Neg for Influ B NEG Microbiology Results 07/14/17 Blood Culture, Received Pending 07/14/17 Blood Culture, Received Pending 07/14/17 Urine Culture, Received Pending Diagnostic Radiology CXR atelectasis CT neg for acute CT chest 1. Low lung volumes with trace bilateral pleural effusions and interval development of left upper lobe groundglass and left lung base alveolar opacities suggesting pneumonia or atelectasis. 2. Redemonstration of bronchitis with areas of air trapping. 3. No pathologic adenopathy identified. 4. Prior cholecystectomy. 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
[2017-07-14 18:55] VITALS: BP 104/71; PULSE 102; TEMP 37; O2SAT 99; Ht 162.6 cm; Wt 83.4 kg
[2017-07-14] MEDS: AMOXICILLIN/CLAVULANATE TAB 875 MG TAB PO SCH (19:17)
[2017-07-14] MEDS: ACETYLCYSTEINE 20% INHAL SOLN ***DISPENSED BY RESP. INH SCH (20:00)
[2017-07-14] MEDS ORDERED: ASCA500 PO (20:13)
[2017-07-14] MEDS: OSELTAMIVIR PHOSPHATE 75 MG CAP PO SCH (20:49)
[2017-07-14] MEDS: CLONAZEPAM 0.5 MG TAB PO SCH (20:49)
[2017-07-14] MEDS: CHOLECALCIFEROL 1000 INTER.UNIT TAB PO SCH (20:50)
[2017-07-14] MEDS: CALCIUM 600MG + VIT D 400 IU TAB PO SCH (20:50)
[2017-07-14] MEDS: LEVOFLOXACIN 750 MG TAB PO SCH (20:50)
[2017-07-14] MEDS: BACLOFEN 10 MG TAB PO SCH (20:51)
[2017-07-14] MEDS: SPIRONOLACTONE 25 MG TAB PO SCH (20:51)
[2017-07-14] MEDS: MAGNESIUM OXIDE 400 MG TAB PO SCH (20:51)
[2017-07-14] MEDS: DOCUSATE SODIUM/SENNA 50/8.6MG TAB PO SCH (20:52)
[2017-07-14] MEDS: CARBAMAZEPINE 200 MG TAB PO SCH (20:52)
[2017-07-14] MEDS: NORTRIPTYLINE HCL 25 MG CAP PO SCH (20:52)
[2017-07-14] MEDS ORDERED: LEVALBUTEROL/IPRATROPIUM NEB INH SCH (21:00)
[2017-07-14] MEDS ORDERED: DIVALPROEX SODIUM 500 MG DELAY RELEASE TAB PO SCH (21:00)
[2017-07-14] MEDS ORDERED: PHENOBARBITAL 32.4 MG TAB PO SCH (21:00)
[2017-07-14] MEDS ORDERED: NON-FORMULARY MEDICATION (Cranberry (Vaccinium Macrocarp (Cranberry) 1 TAB) PO SCH (21:00)
[2017-07-14] MEDS ORDERED: IPRATROPIUM BROMIDE/ALBUTEROL respimat INH INH SCH (21:00)
[2017-07-14] MEDS: IPRATROPIUM BROMIDE NEB SOLN 0.02% 2.5 ML VIAL INH SCH (21:44)
[2017-07-14] MEDS: LEVALBUTEROL 1.25MG/0.5ML NEB INH SCH (21:44)
[2017-07-14 21:46] VITALS: PULSE 110; O2SAT 93
[2017-07-14] MEDS: ACETAMINOPHEN 325 MG TAB PO PRN (23:28)
[2017-07-15] VITALS (13 sets, daily range): BP systolic 95–109; BP diastolic 60–73; PULSE 95–115; TEMP 36.9–38.6; O2SAT 86–95
[2017-07-15] MEDS: VALPROATE SOD IV 250 MG in DEXTROSE 5% 50ML 50 ML IV SCH ×3 (02:23→20:40)
[2017-07-15] MEDS: PHENOBARBITAL SOD IV SCH ×3 (02:25→20:40)
[2017-07-15] MEDS: IPRATROPIUM BROMIDE NEB SOLN 0.02% 2.5 ML VIAL INH SCH ×4 (03:00→19:01)
[2017-07-15] MEDS: LEVALBUTEROL 1.25MG/0.5ML NEB INH SCH ×4 (03:00→19:01)
[2017-07-15] MEDS: ACETAMINOPHEN 325 MG TAB PO PRN (03:35)
[2017-07-15] MEDS: LEVOTHYROXINE 50 MCG TAB PO SCH (06:29)
[2017-07-15] MEDS: ACETYLCYSTEINE 20% INHAL SOLN ***DISPENSED BY RESP. INH SCH ×2 (07:18→19:01)
[2017-07-15] MEDS: PANTOprazole SOD 40 MG TAB PO SCH (08:47)
[2017-07-15] MEDS: OSELTAMIVIR PHOSPHATE 75 MG CAP PO SCH ×2 (08:49→20:39)
[2017-07-15] MEDS: TOCOPHERYL, DL-ALPHA 400 INTER.UNIT CAP PO SCH (08:49)
[2017-07-15] MEDS: CETIRIZINE HCL 10 MG TAB PO SCH (08:49)
[2017-07-15] MEDS: SPIRONOLACTONE 25 MG TAB PO SCH ×2 (08:50→20:39)
[2017-07-15] MEDS: MAGNESIUM OXIDE 400 MG TAB PO SCH ×2 (08:50→20:40)
[2017-07-15] MEDS: ASPIRIN 81 MG ECTAB PO SCH (08:50)
[2017-07-15] MEDS: CARBAMAZEPINE 200 MG TAB PO SCH ×2 (08:52→20:40)
[2017-07-15] MEDS: SENNA 8.6 MG TAB PO SCH (08:53)
[2017-07-15 09:00] LABS: BASO % 0.2 %; BASO ABS # 0.01 K/uL (0-0.2); EOS % 2.7 %; EOS ABS # 0.12 K/uL (0-0.5); HEMATOCRIT 32.9 % (37-47); HEMOGLOBIN 11.1 g/dL (12.0-16.0); IG# 0.01 K/uL (0.00-0.02); LYMPH % 27.3 %; LYMPH ABS # 1.21 K/uL (1.2-3.4); MEAN CELL VOLUME 94.5 fL (80-100); MEAN CORPUSCULAR HEMOGLOBIN 31.9 pg (25-34); MEAN CORPUSCULAR HGB CONC 33.7 g/dl (32-36); MEAN PLATELET VOLUME 9.2 fL (7.4-10.4); MONO % 10.6 %; MONO ABS # 0.47 K/uL (0.11-0.59); NEUT ABS # 2.61 K/uL (1.4-6.5); PLATELET COUNT 174 K/uL (130-400); RED CELL DISTRIBUTION WIDTH CV 12.9 % (11.5-14.5); RED CELL DISTRIBUTION WIDTH SD 44.4 fL (36.4-46.3); WHITE BLOOD COUNT 4.43 K/uL (4.8-10.8)
[2017-07-15 09:26] LABS: CALCIUM 8.7 mg/dl (8.5-10.1); CREATININE 0.69 mg/dl (0.60-1.20); PHOSPHORUS 2.8 mg/dl (2.5-4.9); POTASSIUM 3.4 mmol/L (3.5-5.1)
[2017-07-15] MEDS: AMOXICILLIN/CLAVULANATE TAB 875 MG TAB PO SCH ×2 (09:38→16:33)
--- NOTE | 2017-07-15 09:53 | Hospitalist Progress Note ---
Hospitalist Progress Note Date of Service Jul 15, 2017. Subjective Pt evaluation today including: conversation w/ patient, conversation w/ family (mother at bedside ), physical exam, lab review, review of studies, review of inpatient medication list Voiding: no voiding problems Patient resting in bed. Mother at bedside. Last emesis was last evening. Tolerated breakfast well w/ no N/V. +productive cough- ongoing. No SOB/wheezing, but feels DuoNebs help with cough. +Overall weakness and fatigue. Did have a seizure overnight. Mother feels secondary to temperature/not getting medications due to vomiting the last few days. Last recorded temp 0300. Patient denies any fever, chills, sweats, lightheadedness, dizziness, vision changes, CP, palpitations, edema, wheezing, abdominal pain, diarrhea, urinary symptoms, melena, numbness/tingling, muscle/joint pain, anxiety/depression, active bleeding, or new skin discoloration/changes. Medications Current Inpatient Medications Medications (Trade) Dose Ordered Sig/Rhiannon Route Start Time Stop Time Status Last Admin Dose Admin Acetaminophen (Tylenol Tab) 650 mg Q4H PRN PO 07/14/17 17:30 08/13/17 17:29 07/15/17 03:35 650 MG Magnesium Hydroxide (Milk Of Magnesia Susp) 30 ml Q6H PRN PO 07/14/17 17:30 08/13/17 17:29 Ondansetron HCl (Zofran Inj) 4 mg Q6H PRN IV 07/14/17 17:30 08/13/17 17:29 Amoxicillin/ Clavulanate Potassium (Augmentin Tab) 875 mg BIDM PO 07/14/17 18:00 07/21/17 17:59 07/14/17 19:17 875 MG Aspirin (Ecotrin Tab) 81 mg DAILY PO 07/15/17 09:00 08/14/17 08:59 07/15/17 08:50 81 MG Baclofen (Lioresal Tab) 10 mg HS PO 07/14/17 21:00 08/13/17 20:59 07/14/17 20:51 10 MG Carbamazepine (Tegretol Tab) 400 mg BID PO 07/14/17 21:00 08/13/17 20:59 Future hold 07/15/17 08:52 400 MG Cetirizine HCl (zyrTEC TAB) 10 mg QAM PO 07/15/17 09:00 08/14/17 08:59 07/15/17 08:49 10 MG Clonazepam (Klonopin Tab) 0.5 mg HS PO 07/14/17 21:00 08/13/17 20:59 07/14/17 20:49 0.5 MG Divalproex Sodium (Depakote Delay Rel Tab) 500 mg HS PO 07/14/17 21:00 08/13/17 20:59 Future Hold 07/14/17 20:52 500 MG Albuterol/ Ipratropium (Combivent Respimat Inh) 2 puffs QID INH 07/14/17 21:00 08/13/17 20:59 Future Hold Levofloxacin (Levaquin Tab) 750 mg DAILY@1999 PO 07/14/17 20:00 07/21/17 19:59 07/14/17 20:50 750 MG Levothyroxine Sodium (Synthroid Tab) 50 mcg DAILYBB PO 07/15/17 06:30 08/14/17 06:59 07/15/17 06:29 50 MCG Nortriptyline HCl (Pamelor Cap) 25 mg HS PO 07/14/17 21:00 08/13/17 20:59 07/14/17 20:52 25 MG Phenobarbital (Phenobarbital Tab) 32.4 mg BID PO 07/14/17 21:00 08/13/17 20:59 Future Hold 07/14/17 20:49 32.4 MG Senna (Senokot Tab) 17.2 mg QAM PO 07/15/17 09:00 08/14/17 08:59 07/15/17 08:53 17.2 MG Senna/Docusate Sodium (Senokot S Tab) 1 tab HS PO 07/14/17 21:00 08/13/17 20:59 07/14/17 20:52 1 TAB Spironolactone (Aldactone Tab) 25 mg BID PO 07/14/17 21:00 08/13/17 20:59 07/15/17 08:50 25 MG ir-Pizab-Thfiyesqho Acetate (Vitamin E Cap) 400 interunit DAILY PO 07/15/17 09:00 08/14/17 08:59 07/15/17 08:49 400 INTERUNIT Calcium/Vitamin D (Caltrate Plus Tab) 1 tab DAILY@1400 PO 07/14/17 20:00 08/13/17 19:59 07/14/17 20:50 1 TAB Cholecalciferol (Vitamin D Tab) 5,000 inter.unit DAILY@1400 PO 07/14/17 20:00 08/13/17 19:59 07/14/17 20:50 5,000 INTER.UNIT Pantoprazole Sodium (Protonix Tab) 40 mg QAM PO 07/15/17 09:00 08/14/17 08:59 07/15/17 08:47 40 MG Albuterol (Ventolin Hfa Inhaler) 2 puffs Q4H PRN INH 07/14/17 17:30 08/13/17 17:29 Oseltamivir Phosphate (Tamiflu Cap) 75 mg BID PO 07/14/17 21:00 07/19/17 20:59 07/15/17 08:49 75 MG Magnesium Oxide (Mag-Ox Tab) 400 mg BID PO 07/14/17 21:00 08/13/17 20:59 07/15/17 08:50 400 MG Acetylcysteine (Mucomyst 20% Inh Soln) 5 ml BIDR INH 07/14/17 20:00 08/13/17 19:59 07/15/17 07:18 5 ML Ipratropium [place] (Atrovent 0.02% 0.5MG/2.5ML Neb) 0.5 mg Q6R INH 07/14/17 21:00 08/13/17 20:59 07/15/17 07:18 0.5 MG Levalbuterol (Xopenex 1.25MG/ 0.5ML Neb) 1.25 mg Q6R INH 07/14/17 21:00 08/13/17 20:59 07/15/17 07:18 1.25 MG Phenobarbital Sodium 32.5 mg/ Syringe 0.5 ml @ 0.5 mls/min BID IV 07/15/17 02:00 08/14/17 01:59 07/15/17 02:25 0.5 MLS/MIN Valproate Sodium 250 mg/Dextrose 52.5 ml @ 55 mls/hr BID IV 07/15/17 02:00 08/14/17 01:59 07/15/17 02:23 55 MLS/HR Objective Vital Signs Date Time Temp Pulse Resp B/P (MAP) Pulse Ox O2 Delivery O2 Flow Rate FiO2 07/15/17 08:14 36.9 99 18 95/61 (72) 94 Nasal Cannula 2.0 07/15/17 08:00 Nasal Cannula 1.0 07/15/17 07:18 102 14 93 Nasal Cannula 1.0 07/15/17 05:04 37.4 07/15/17 03:32 108 14 94 Nasal Cannula 2.0 07/15/17 03:12 37.6 93 Nasal Cannula 2.0 07/15/17 02:29 107 109/73 (85) 07/15/17 00:46 37.9 07/15/17 00:27 38.6 115 24 99/60 (73) 90 2.0 07/15/17 00:00 Nasal Cannula 2.0 07/14/17 21:46 110 14 93 Nasal Cannula 2.0 07/14/17 18:55 37.0 102 18 104/71 99 Nasal Cannula 2.0 07/14/17 18:01 37.3 101 18 124/70 95 07/14/17 17:41 101 18 95 Nasal Cannula 2.0 07/14/17 17:30 124/70 07/14/17 17:20 106/79 07/14/17 17:18 101 07/14/17 17:18 105 18 106/79 97 Nasal Cannula 2.0 07/14/17 17:16 101 07/14/17 17:11 103 96 Nasal Cannula 2.0 07/14/17 16:41 103 23 97 Nasal Cannula 2.0 07/14/17 16:40 102 18 103/71 97 Nasal Cannula 2.0 07/14/17 16:36 103/71 07/14/17 16:33 105 24 96 07/14/17 16:03 102 17 97 07/14/17 15:33 103 19 96 07/14/17 15:03 103 16 95 07/14/17 14:58 103 18 96 Nasal Cannula 2.0 07/14/17 14:45 37.3 108 18 128/83 95 Nasal Cannula 2.0 07/14/17 14:44 128/83 07/14/17 14:19 107 18 113/71 95 Nasal Cannula 3.0 07/14/17 14:13 113/71 3/16/18 13:58 109 22 07/14/17 13:35 Nasal Cannula 3.0 07/14/17 13:35 93 Nasal Cannula 3.0 07/14/17 13:28 110 18 94 07/14/17 13:08 116 07/14/17 13:04 115/61 07/14/17 13:00 37.8 119 20 115/61 87 Room Air 07/14/17 13:00 87 Room Air Physical Exam General Appearance: no apparent distress, + obese Eyes: normal inspection, PERRL ENT: hearing grossly normal Neck: supple Respiratory/Chest: lungs clear, no respiratory distress, no accessory muscle use Cardiovascular: regular rate, rhythm Abdomen: normal bowel sounds, non tender, soft Extremities: no pedal edema, no calf tenderness Neurologic/Psychiatric: alert, normal mood/affect, oriented x 3 Skin: normal color, warm/dry, no rash Laboratory Results Last 24 Hours Test 07/14/17 13:35 07/14/17 14:13 07/14/17 15:13 07/14/17 17:45 Bedside Glucose 116 mg/dl White Blood Count 7.37 K/uL Red Blood Count 3.67 M/uL Hemoglobin 11.7 g/dL Hematocrit 34.2 % Mean Corpuscular Volume 93.2 fL Mean Corpuscular Hemoglobin 31.9 pg Mean Corpuscular Hemoglobin Concent 34.2 g/dl Platelet Count 174 K/uL Mean Platelet Volume 9.8 fL Neutrophils (%) (Auto) 81.2 % Lymphocytes (%) (Auto) 9.1 % Monocytes (%) (Auto) 7.3 % Eosinophils (%) (Auto) 2.0 % Basophils (%) (Auto) 0.1 % Neutrophils # (Auto) 5.98 K/uL Lymphocytes # (Auto) 0.67 K/uL Monocytes # (Auto) 0.54 K/uL Eosinophils # (Auto) 0.15 K/uL Basophils # (Auto) 0.01 K/uL RDW Standard Deviation 43.4 fL RDW Coefficient of Variation 12.7 % Immature Granulocyte % (Auto) 0.3 % Immature Granulocyte # (Auto) 0.02 K/uL Prothrombin Time 10.4 SECONDS Prothromb Time International Ratio 1.0 Activated Partial Thromboplast Time 23.8 SECONDS Partial Thromboplastin Ratio 0.9 Sodium Level 134 mmol/L Potassium Level 3.2 mmol/L Chloride Level 101 mmol/L Carbon Dioxide Level 26 mmol/L Anion Gap 7.0 mmol/L Blood Urea Nitrogen 8 mg/dl Creatinine 0.64 mg/dl Est Creatinine Clear Calc Drug Dose 106.2 ml/min Estimated GFR () 118.1 Estimated GFR (Non- 101.9 BUN/Creatinine Ratio 12.5 Random Glucose 105 mg/dl Calcium Level 8.8 mg/dl Phosphorus Level 4.2 mg/dl Magnesium Level 1.7 mg/dl Thyroid Stimulating Hormone (TSH) 0.588 uIu/ml Valproic Acid (Depakene) Level 42 mcg/ml Carbamazepine (Tegretol) Level 11.8 mcg/ml Phenobarbital Level 19.3 mcg/mL Influenza Type A Antigen POS for Influ A Influenza Type B Antigen Neg for Influ B Urine Color YELLOW Urine Appearance CLEAR Urine pH 5.5 Urine Specific [place] 1.011 Urine Protein NEG Urine Glucose (UA) NEG Urine Ketones TRACE Urine Occult Blood 1+ Urine Nitrite NEG Urine Bilirubin NEG Urine Urobilinogen NEG Urine Leukocyte Esterase NEG Urine WBC (Auto) 1-5 /hpf Urine RBC (Auto) 5-10 /hpf Urine Hyaline Casts (Auto) 1-5 /lpf Urine Epithelial Cells (Auto) >30 /lpf Urine Bacteria (Auto) NEG Test 07/15/17 08:47 White Blood Count 4.43 K/uL Red Blood Count 3.48 M/uL Hemoglobin 11.1 g/dL Hematocrit 32.9 % Mean Corpuscular Volume 94.5 fL Mean Corpuscular Hemoglobin 31.9 pg Mean Corpuscular Hemoglobin Concent 33.7 g/dl Platelet Count 174 K/uL Mean Platelet Volume 9.2 fL Neutrophils (%) (Auto) 59.0 % Lymphocytes (%) (Auto) 27.3 % Monocytes (%) (Auto) 10.6 % Eosinophils (%) (Auto) 2.7 % Basophils (%) (Auto) 0.2 % Neutrophils # (Auto) 2.61 K/uL Lymphocytes # (Auto) 1.21 K/uL Monocytes # (Auto) 0.47 K/uL Eosinophils # (Auto) 0.12 K/uL Basophils # (Auto) 0.01 K/uL RDW Standard Deviation 44.4 fL RDW Coefficient of Variation 12.9 % Immature Granulocyte % (Auto) 0.2 % Immature Granulocyte # (Auto) 0.01 K/uL Sodium Level 136 mmol/L Potassium Level 3.4 mmol/L Chloride Level 103 mmol/L Carbon Dioxide Level 26 mmol/L Anion Gap 8.0 mmol/L Blood Urea Nitrogen 6 mg/dl Creatinine 0.69 mg/dl Est Creatinine Clear Calc Drug Dose 98.5 ml/min Estimated GFR () 115.2 Estimated GFR (Non- 99.4 BUN/Creatinine Ratio 8.8 Random Glucose 137 mg/dl Calcium Level 8.7 mg/dl Phosphorus Level 2.8 mg/dl Magnesium Level 2.1 mg/dl Assessment and Plan The patient is a 52-year-old female with a past medical history including 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 Influenza A: - Droplet precautions - Tamiflu 75 mg BID x5 days- last day of treatment 07/19 Bronchopneumonia: - Continue Augmentin + Levaquin- last day of treatment 07/18 - Mucinex 600 mg BID - Zyrtec 10 mg daily - DuoNebs QID and PRN for SOB/wheezing - Hold Ventolin PRN and Combivent QID while receiving scheduled DuoNebs Atelectasis noted on chest imaging: Encouraged incentive spirometer, OOB in chair Hypokalemia: Replace w/ KCL supplement- follow PRP and replace PRN Hypomagnesiumia: Replace w/ IV Mag supplement, continue PO Mag-Ox supplement- follow mag level and replace PRN Swallowing issues, ?slight aspiration on last admission: - SPEECH THERAPY RECOMMENDATIONS: 1.SLIPPERY-regular diet with thin liquids 2.GERD precautions- upright for all intake, upright for 30 min after all intake, no intake 30 min before bed, keep head of bed elevated at least 30 degrees at all times. 3.Aspiration precautions- alternate consistencies, straws ok, make sure fully awake and upright for all intake 4.Safe swallow strategies Small bites, small sips, slow rate Cardiovascular issues- STABLE: Continue ASA, Aldactone Seizure disorder, cerebral palsy: Continue Baclofen, Tegretol, Klonopin, Depakote, Nortriptyline, and Phenobarbital h/o CVA w/ residual L sided hemiplegia- noted Hypothyroidism: Continue Synthroid 50 mcg daily GERD: Change Omeprazole to Pantoprazole while inpatient DVT prophylaxis: Lovenox SQ daily Code status: LEVEL I, FULL Dispo: Discharge to home w/ family and HHS once medically stable- CM consulted
[2017-07-15] MEDS ORDERED: POTASSIUM CHLORIDE 20 MEQ TABCR PO ONE (10:15)
[2017-07-15] MEDS: CHOLECALCIFEROL 1000 INTER.UNIT TAB PO SCH (13:56)
[2017-07-15] MEDS: CALCIUM 600MG + VIT D 400 IU TAB PO SCH (13:56)
[2017-07-15] MEDS: GUAIFENESIN 600 MG TABCR PO SCH (20:40)
[2017-07-15] MEDS: LEVOFLOXACIN 750 MG TAB PO SCH (20:40)
[2017-07-15] MEDS: BACLOFEN 10 MG TAB PO SCH (20:40)
[2017-07-15] MEDS: CLONAZEPAM 0.5 MG TAB PO SCH (20:40)
[2017-07-15] MEDS: DOCUSATE SODIUM/SENNA 50/8.6MG TAB PO SCH (20:41)
[2017-07-15] MEDS: NORTRIPTYLINE HCL 25 MG CAP PO SCH (20:42)
[2017-07-16] VITALS (7 sets, daily range): BP systolic 96–100; BP diastolic 62–66; PULSE 95–102; TEMP 37; O2SAT 90–95
[2017-07-16] MEDS: IPRATROPIUM BROMIDE NEB SOLN 0.02% 2.5 ML VIAL INH SCH ×3 (01:55→11:02)
[2017-07-16] MEDS: LEVALBUTEROL 1.25MG/0.5ML NEB INH SCH ×3 (01:55→11:02)
[2017-07-16] MEDS: LEVOTHYROXINE 50 MCG TAB PO SCH (06:36)
[2017-07-16] MEDS: ACETYLCYSTEINE 20% INHAL SOLN ***DISPENSED BY RESP. INH SCH (07:29)
[2017-07-16 07:37] LABS: BASO % 0.5 %; BASO ABS # 0.02 K/uL (0-0.2); HEMATOCRIT 32.2 % (37-47); HEMOGLOBIN 10.8 g/dL (12.0-16.0); LYMPH % 33.5 %; LYMPH ABS # 1.29 K/uL (1.2-3.4); MEAN CELL VOLUME 93.9 fL (80-100); MEAN CORPUSCULAR HEMOGLOBIN 31.5 pg (25-34); MEAN CORPUSCULAR HGB CONC 33.5 g/dl (32-36); MEAN PLATELET VOLUME 8.8 fL (7.4-10.4); MONO % 11.9 %; MONO ABS # 0.46 K/uL (0.11-0.59); NEUT % 41.1 %; NEUT ABS # 1.58 K/uL (1.4-6.5); PLATELET COUNT 168 K/uL (130-400); RED CELL DISTRIBUTION WIDTH CV 12.8 % (11.5-14.5); RED CELL DISTRIBUTION WIDTH SD 43.6 fL (36.4-46.3); WHITE BLOOD COUNT 3.85 K/uL (4.8-10.8)
[2017-07-16 07:59] LABS: CALCIUM 8.1 mg/dl (8.5-10.1); CREATININE 0.59 mg/dl (0.60-1.20); POTASSIUM 3.5 mmol/L (3.5-5.1)
[2017-07-16] MEDS: PHENOBARBITAL SOD IV SCH (08:30)
[2017-07-16] MEDS: VALPROATE SOD IV 250 MG in DEXTROSE 5% 50ML 50 ML IV SCH (08:30)
[2017-07-16] MEDS: AMOXICILLIN/CLAVULANATE TAB 875 MG TAB PO SCH (08:34)
[2017-07-16] MEDS: ASPIRIN 81 MG ECTAB PO SCH (08:35)
[2017-07-16] MEDS: SPIRONOLACTONE 25 MG TAB PO SCH (08:35)
[2017-07-16] MEDS: MAGNESIUM OXIDE 400 MG TAB PO SCH (08:36)
[2017-07-16] MEDS: GUAIFENESIN 600 MG TABCR PO SCH (08:36)
[2017-07-16] MEDS: SENNA 8.6 MG TAB PO SCH (08:37)
[2017-07-16] MEDS: PANTOprazole SOD 40 MG TAB PO SCH (08:37)
[2017-07-16] MEDS: OSELTAMIVIR PHOSPHATE 75 MG CAP PO SCH (08:39)
[2017-07-16] MEDS: CARBAMAZEPINE 200 MG TAB PO SCH (08:39)
[2017-07-16] MEDS: CETIRIZINE HCL 10 MG TAB PO SCH (08:40)
[2017-07-16] MEDS: TOCOPHERYL, DL-ALPHA 400 INTER.UNIT CAP PO SCH (08:40)
[2017-07-16] MEDS ORDERED: ENOXAPARIN 40 MG/0.4 ML SYR SQ SCH (09:00)
[2017-07-16] MEDS ORDERED: TMF75 PO (12:17)
--- NOTE | 2017-07-16 12:20 | Discharge Instructions ---
Discharge Instructions Date of Service Jul 16, 2017. Admission Reason for Admission: FLU Discharge Discharge Diagnosis / Problem: Influenza A Discharge Goals Goal(s): Decrease discomfort, Improve function, Increase independence, Improve disease control, Learn about illness, Diagnostic testing, Therapeutic intervention, Prevent Disease Progression Activity Recommendations Activity Limitations: resume your previous activity . Instructions / Follow-Up Instructions / Follow-Up Influenza A (the flu): Continue Tamiflu twice daily until prescription is completed Pneumonia: Continue Levaquin and Augmentin as prescribed- your last day of treatment is on 07/18 Resume all other regular home medications as prescribed FOLLOW-UPS: Please follow-up with your PCP within 5-7 days Please follow-up/keep all of your subspecialty appointments Current Hospital Diet Patient's current hospital diet: Regular Diet Discharge Diet Recommended Diet: Regular Diet Pending Studies Studies pending at discharge: no Medical Emergencies . Who to Call and When: Medical Emergencies: If at any time you feel your situation is an emergency, please call 911 immediately. . Non-Emergent Contact Non-Emergency issues call your: Primary Care Provider Call Non-Emergent contact if: you have a fever, you have any medication questions . . "Provider Documentation" section prepared by Stacie Cooper. .
--- NOTE | 2017-07-16 12:26 | Discharge Summary ---
Discharge Summary Date of Service Jul 16, 2017. Discharge Summary Admission Date: Jul 14, 2017 at 17:33 Discharge Date: Jul 16, 2017 Discharge Disposition: Home with services Principal Diagnosis: Influenza A Problems/Secondary Diagnoses: Bronchopneumonia Atelectasis noted on chest imaging Hypokalemia Hypomagnesemia Swallowing issues, ?slight aspiration on last admission Cardiovascular issues- STABLE: Continue ASA, Aldactone Seizure disorder cerebral palsy h/o CVA w/ residual L sided hemiplegia Hypothyroidism GERD Immunizations: Have You Had Influenza Vaccine: Unknown History of Tetanus Vaccine?: Unknown History of Pneumococcal: Unknown History of Hepatitis B Vaccine: Unknown Procedures: CT OF THE HEAD WITHOUT CONTRAST CLINICAL HISTORY: Seizure. COMPARISON STUDY: MRI of the brain October 05, 2010. CT DOSE: 1038.76 mGycm TECHNIQUE: Helical axial images of the head were obtained without IV contrast. Automated exposure control was utilized for the study. A dose lowering technique was utilized adhering to the principles of ALARA. FINDINGS: No acute intracranial hemorrhage is present. Asymmetric dilatation of the body and frontal horn of the right lateral ventricle is unchanged since MRI of October 05, 2010. The ventricular system is stable. Basilar cisterns are patent. There are no extra axial collections. Barragan-white differentiation is maintained. There are no findings to suggest acute dural sinus thrombosis or acute territorial infarct. There is no calvarial fracture. IMPRESSION: 1. No acute intracranial findings. 2. No change in asymmetric dilatation of the body and frontal horn of the right lateral ventricle since MRI of October 05, 2010. Electronically signed by: Roger Montgomery M.D. 07/14/2017 2:32 PM Dictated Date/Time: 07/14/2017 2:29 PM The status of this report is Signed. Draft = Not yet reviewed or approved by Radiologist. Signed = Reviewed and approved by Radiologist. CHEST ONE VIEW PORTABLE CLINICAL HISTORY: 52 years-old Female presenting with SEIZURE. TECHNIQUE: Portable upright AP view of the chest was obtained. COMPARISON: 07/08/2017. FINDINGS: The patient is TREADWELL rotated. Atherosclerosis of the aortic arch. Chronic silhouette normal in size. Mildly low lung volumes. Bandlike opacities at the left mid and lower lung increased from prior. No other focal opacity. No large effusion or pneumothorax. Exaggerated thoracic kyphosis. Degenerative changes of the left glenohumeral joint. Cholecystectomy clips noted. IMPRESSION: 1. Mildly low lung volumes with increased left basilar atelectasis. Electronically signed by: Patrick Vargas M.D. 07/14/2017 1:48 PM Dictated Date/Time: 07/14/2017 1:47 PM The status of this report is Signed. Draft = Not yet reviewed or approved by Radiologist. Signed = Reviewed and approved by Radiologist. (CHEST) THORAX WITHOUT CT DOSE: 394.70 mGy.cm CLINICAL HISTORY: 52 years-old Female with eval worsening PNA. Follow-up study in a patient with pneumonia TECHNIQUE: Multiaxial CT images of the chest were performed without contrast. A dose lowering technique was utilized adhering to the principles of ALARA. COMPARISON: Chest radiograph 07/14/2017, CT chest 07/08/2017 FINDINGS: No dominant thyroid nodule identified. Heart is normal in size without large pericardial effusion. The thoracic aorta is normal in both course and caliber without aneurysm identified. No pathologic adenopathy identified on this noncontrast study. Trace bilateral pleural effusions. No pneumothorax. Moderate bilateral bronchial wall thickening redemonstrated with areas of patchy mosaic attenuation suggesting air trapping. Additionally, there has been interval development of subsegmental groundglass opacities within the left upper lobe with segmental consolidative opacities of the basal left lower lobe and inferior segment lingula. Linear subsegmental consolidative opacities of the right lung base suggest atelectasis. Evaluation of the lungs limited secondary to respiratory motion. Mildly low lung volumes. I attenuating material within the dependent gastric lumen. Prior cholecystectomy. No acute abnormality of the imaged upper abdomen. Fusion hardware of the lower cervical spine. Study is limited secondary to patient positioning. IMPRESSION: 1. Low lung volumes with trace bilateral pleural effusions and interval development of left upper lobe groundglass and left lung base alveolar opacities suggesting pneumonia or atelectasis. 2. Redemonstration of bronchitis with areas of air trapping. 3. No pathologic adenopathy identified. 4. Prior cholecystectomy. Electronically signed by: Chava Vaca M.D. 07/14/2017 5:16 PM Dictated Date/Time: 07/14/2017 5:08 PM The status of this report is Signed. Draft = Not yet reviewed or approved by Radiologist. Signed = Reviewed and approved by Radiologist. Medication Reconciliation New Medications: Oseltamivir Phosphate (Tamiflu) 75 Mg Cap 75 MG PO BID for 3 Days, #6 CAP Continued Medications: Amoxicillin & Pot Clavulanate (Amoxicillin/Clavulanate P) 1 Tab Tab 875 MG PO BIDM for 7 Days, #14 TAB Ascorbic Acid (Vitamin C) Unknown Strength Tab Unknown Dose PO QPM Aspirin (Aspirin Ec) 81 Mg Tab 81 MG PO DAILY AT AFTERNOON Baclofen (Lioresal) 10 Mg Tab 10 MG PO HS, TAB Calcium Carbonate-Vitamin D (Calcium 500 + D) 1 Tab Tab 1 TAB PO DAILY IN AFTERNOON Carbamazepine (Tegretol) 200 Mg Tab 400 MG PO AMPM Cetirizine HCl (All Day Allergy) 10 Mg Tab 10 MG PO QAM for 30 Days, #30 TAB Cholecalciferol (Vitamin D) 5,000 Unit Tab 5000 INTER.UNIT PO DAILY IN AFTERNOON Clonazepam (Klonopin) 0.5 Mg Tab 0.5 MG PO HS, TAB Cranberry (Vaccinium Macrocarp (Cranberry) Unknown Strength Tab 1 TAB PO QPM Divalproex Sodium (Depakote) 500 Mg Tab 500 MG PO HS, TAB Ipratropium-Albuterol (Combivent Respimat) 1 Aer Aer 2 PUFFS INH QID, #1 INH Levofloxacin (Levofloxacin) 750 Mg Tab 750 MG PO DAILY@11 for 7 Days, #7 TAB Levothyroxine Sodium (Levothyroxine Sodium) 50 Mcg Tab 50 MCG PO QAM Nortriptyline Hcl (Pamelor) 25 Mg Cap 25 MG PO HS Omeprazole (Prilosec) 20 Mg Cap 20 MG PO QAM, CAP Phenobarbital (Phenobarbital) 30 Mg Tab 30 MG PO AMPM Senna (Senokot) 8.6 Mg Tab 17.2 MG PO QAM, TAB Sennosides-Docusate Sodium (Stool Softener) 1 Tab Tab 1 TAB PO HS Spironolactone (Aldactone) 25 Mg Tab 25 MG PO AMPM Vitamin E (Vitamin E 400 Iu) 400 Unit Cap 400 INTER.UNIT PO DAILY IN AFTERNOON, CAP [Ventolin Hfa 90MCG] () 2 PUFFS INH Q4H PRN for Shortness of Breath Discharge Exam Review of Systems: Constitutional: No fever, No chills, No sweats, No weakness, No fatigue Eyes: No worsening of vision ENT: No hearing loss Respiratory: + cough, No sputum, No shortness of breath, No hemoptysis Cardiovascular: No chest pain, No edema Abdomen: No pain, No nausea, No vomiting, No diarrhea, No constipation Musculoskeletal: No joint pain, No muscle pain, No swelling, No calf pain Genitourinary - Female: No dysuria, No hematuria Neurologic: No weakness, No numbness/tingling Psychiatric: No depression symptoms, No anxiety Endocrine: No fatigue Hematologic / Lymphatic: No abnormal bleeding/bruising Integumentary: No rash, No itch, No new/changing skin lesions Physical Exam: General Appearance: no apparent distress, + obese Eyes: normal inspection, PERRL ENT: hearing grossly normal Neck: supple Respiratory/Chest: lungs clear, no respiratory distress, no accessory muscle use Cardiovascular: regular rate, rhythm Abdomen / GI: normal bowel sounds, non tender, soft Extremities: no calf tenderness, no pedal edema Neurologic/Psychiatric: alert, normal mood/affect, oriented x 3 Skin: normal color, warm/dry, no rash Hospital Course The patient is a 52-year-old female with a past medical history including being bedbound due to CVA in rehanger, who presents to the emergency department due to the flu. Influenza A: - Droplet precautions - Tamiflu 75 mg BID x5 days- last day of treatment 07/19 Bronchopneumonia: - Continue Augmentin + Levaquin- last day of treatment 07/18 - Mucinex 600 mg BID - Zyrtec 10 mg daily - DuoNebs QID and PRN for SOB/wheezing - Hold Ventolin PRN and Combivent QID while receiving scheduled DuoNebs- resume at discharge Atelectasis noted on chest imaging: Encouraged incentive spirometer, OOB in chair Hypokalemia- RESOLVED: Replace w/ KCL supplement- follow PRP and replace PRN Hypomagnesemia- RESOLVED: Replace w/ IV Mag supplement, continue PO Mag-Ox supplement- follow mag level and replace PRN Swallowing issues, ?slight aspiration on last admission: - SPEECH THERAPY RECOMMENDATIONS: 1.SLIPPERY-regular diet with thin liquids 2.GERD precautions- upright for all intake, upright for 30 min after all intake, no intake 30 min before bed, keep head of bed elevated at least 30 degrees at all times. 3.Aspiration precautions- alternate consistencies, straws ok, make sure fully awake and upright for all intake 4.Safe swallow strategies Small bites, small sips, slow rate Cardiovascular issues- STABLE: Continue ASA, Aldactone Seizure disorder, cerebral palsy: Continue Baclofen, Tegretol, Klonopin, Depakote, Nortriptyline, and Phenobarbital h/o CVA w/ residual L sided hemiplegia- noted Hypothyroidism: Continue Synthroid 50 mcg daily GERD: Change Omeprazole to Pantoprazole while inpatient DVT prophylaxis: Lovenox SQ daily Code status: LEVEL I, FULL Dispo: Discharge to home w/ family and HHS Total Time Spent: Greater than 30 minutes This includes examination of the patient, discharge planning, medication reconciliation, and communication with other providers. Discharge Instructions Please refer to the electronic Patient Visit Report (Discharge Instructions) for additional information. Follow-Up Please follow-up with your PCP within 5-7 days Please follow-up/keep all of your subspecialty appointments Additional Copies To Hardeep Paul PA-C
[2017-07-16] MEDS: CALCIUM 600MG + VIT D 400 IU TAB PO SCH (13:30)
[2017-07-16] MEDS: CHOLECALCIFEROL 1000 INTER.UNIT TAB PO SCH (13:30)
== END 2017-07-16 14:45 | disposition home health service (06) | DRG 194 ==
LOC: EDBD 12:58 → C.EDA 12:59 → C.MS2W 17:33 → ENRESERV 17:46
PROVIDERS: ADMIT Family Medicine; ATTEND Hospitalist
DX: J10.08 Influenza due to other identified influenza virus with other specified pneumonia (principal); I69.354 Hemiplegia and hemiparesis following cerebral infarction affecting left non-dominant side; J18.0 Bronchopneumonia, unspecified organism; I69.398 Other sequelae of cerebral infarction; G40.409 Other generalized epilepsy and epileptic syndromes, not intractable, without status epilepticus; E83.42 Hypomagnesemia; E87.6 Hypokalemia; R13.10 Dysphagia, unspecified; G80.9 Cerebral palsy, unspecified; E03.9 Hypothyroidism, unspecified; K21.9 Gastro-esophageal reflux disease without esophagitis; Z51.81 Encounter for therapeutic drug level monitoring; Z79.899 Other long term (current) drug therapy; Z79.82 Long term (current) use of aspirin; Z88.1 Allergy status to other antibiotic agents

== ENCOUNTER → 2017-09-06 | Outpatient (CLI) | payer OTHER ==
[~2017-09-06] MED LIST changes: -ACET-1256 PO; +ASCA500 PO; +CARB200T PO; -IBUP-1428 PO; +PHEN1TAB85 PO; +TMF75 PO
[2017-09-06 14:37] LABS: BASO % 0.4 %; BASO ABS # 0.02 K/uL (0-0.2); EOS % 10.7 %; EOS ABS # 0.59 K/uL (0-0.5); HEMATOCRIT 38.6 % (37-47); HEMOGLOBIN 13.2 g/dL (12.0-16.0); IG# 0.01 K/uL (0.00-0.02); LYMPH % 38.7 %; LYMPH ABS # 2.13 K/uL (1.2-3.4); MEAN CELL VOLUME 92.8 fL (80-100); MEAN CORPUSCULAR HEMOGLOBIN 31.7 pg (25-34); MEAN CORPUSCULAR HGB CONC 34.2 g/dl (32-36); MEAN PLATELET VOLUME 9.9 fL (7.4-10.4); MONO % 7.3 %; NEUT % 42.7 %; NEUT ABS # 2.36 K/uL (1.4-6.5); PLATELET COUNT 266 K/uL (130-400); RED CELL DISTRIBUTION WIDTH CV 12.5 % (11.5-14.5); RED CELL DISTRIBUTION WIDTH SD 42.3 fL (36.4-46.3); WHITE BLOOD COUNT 5.51 K/uL (4.8-10.8)
[2017-09-06 15:05] LABS: ALBUMIN 3.6 gm/dl (3.4-5.0); ALT/SGPT 20 U/L (12-78); AST/SGOT 11 U/L (15-37); BLOOD UREA NITROGEN 12 mg/dl (7-18); CALCIUM 8.9 mg/dl (8.5-10.1); CARBON DIOXIDE 25 mmol/L (21-32); CREATININE 0.69 mg/dl (0.60-1.20); GLUCOSE 98 mg/dl (70-99); POTASSIUM 3.7 mmol/L (3.5-5.1); SODIUM 139 mmol/L (136-145)
[2017-09-06 15:07] LABS: ALKALINE PHOSPHATASE 106 U/L (45-117); TOTAL PROTEIN 8.6 gm/dl (6.4-8.2)
== END | disposition home or self-care (01) ==
LOC: C.LAB 12:50
PROVIDERS: ATTEND Psychiatry & Neurology Neurology
DX: Z79.899 Other long term (current) drug therapy (principal); G40.209 Localization-related (focal) (partial) symptomatic epilepsy and epileptic syndromes with complex partial seizures, not intractable, without status epilepticus

== ENCOUNTER → 2017-12-14 | Day surgery (SDC) | payer OTHER ==
[~2017-12-14] VITALS: Ht 162.6 cm; Wt 80.0 kg
[~2017-12-14] MED LIST changes: +ALBUT/IPRATROP 3MG/0.5MG NEB 3 ML VIAL INH ONE; -AMOX1TAB43 PO; +AMOX875T PO; -ASCA500 PO; +ASCO500T16 PO; -CHOL1TAB42 PO; +CHOL1TAB76 PO; -CLON0.5T3 PO; +CLON0.5T9 PO; +HYDR5SYP11 PO; -IPRA1AER2 INH; +LIDOCAINE HCL 2% 2 ML VIAL (20MG/ML) ONE; -LVQ750 PO; +MIDAZOLAM HCL 1 MG/ML 2ML VIAL ONE; +ONDANSETRON INJ 2 MG/ML 2 ML VIAL ONE; +PANT40TA PO; +PHENYLEPHRINE 100MCG/ML 5ML SYR ONE; +POLY1POW2 PO; +PROPOFOL IV EMULSION 10 MG/ML 20 ML VIAL ONE; +SODIUM CHLORIDE 0.9% 500ML 500 ML IV ONE; +SPIR25TA5 PO; -SPIR25TA89 PO; -TMF75 PO; -VENTOLIN HFA 90MCG INH; +VITA1TAB4 PO; -VITA400C3 PO; -ZYR10 PO
[2017-12-14 09:38] VITALS: Ht 162.6 cm; Wt 80.0 kg
[2017-12-14 10:00] VITALS: PULSE 96; O2SAT 96
--- NOTE | 2017-12-14 10:23 | Endo History and Physical ---
History & Physical Date of Service: Dec 14, 2017. Chief Complaint: 8 WEEK FOLLOW UP FOR EOE Referring Physician: JOSSE RODRIGUEZ History of Present Illness Follow up EGD on EoE Past Surgical History Hx Cardiac Surgery: No Hx Internal Defibrillator: No Hx Pacemaker: No Hx Abdominal Surgery: Yes (GB SURG, CHEMO BSO) Hx of Implantable Prosthesis: No Hx Post-Op Nausea and Vomiting: No Hx Cancer Surgery: No Hx Thoracic Surgery: No Hx Orthopedic: Yes (ORIF L WRIST,L ANKLE SURG,NECK SURG) Hx Urinary Tract Surgery: No Family History Colon CA Social History Smoking Status: Never Smoker Hx Substance Use: No ( ) Hx Alcohol Use: No Allergies Coded Allergies: Lincomycin (Verified Allergy, Intermediate, HIVES, 12/14/17) Had 40 years ago. Current Medications Reported Home Medications Medications Dose Route/Sig Max Daily Dose Days Date Category Protonix (Pantoprazole Sodium) 40 Mg Tab 40 Mg PO QPM 12/07/17 Reported Vitamin E 400 Unit Tab 1 Tab PO QPM 10/19/17 Reported Polyethylene Glycol 3350 (Polyethylene Glycol 3350 (Bulk) 1 Pow Pow 17 Gm PO QAM 10/19/17 Reported Ascorbic Acid 500 Mg Tab 500 Mg PO QAM 10/19/17 Reported D 2000 (Cholecalciferol) 2,000 Unit Tab 1 Tab PO QPM 10/19/17 Reported Klonopin (Clonazepam) 0.5 Mg Tab 0.5 Mg PO HS 05/15/15 Reported Stool Softener (Sennosides-Docusate Sodium) 1 Tab Tab 1 Tab PO HS 05/15/15 Reported Lioresal (Baclofen) 10 Mg Tab 10 Mg PO HS 05/15/15 Reported Depakote (Divalproex Sodium) 500 Mg Tab 500 Mg PO HS 05/15/15 Reported Pamelor (Nortriptyline Hcl) 25 Mg Cap 25 Mg PO HS 05/15/15 Reported Cranberry (Cranberry (Vaccinium Macrocarp) Unknown Strength Tab 1 Tab PO QPM 05/15/15 Reported Calcium 500 + D (Calcium Carbonate-Vitamin D) 1 Tab Tab 1 Tab PO DAILY IN AFTERNOON 05/15/15 Reported Aspirin Ec (Aspirin) 81 Mg Tab 81 Mg PO DAILY AT AFTERNOON 05/15/15 Reported Levothyroxine Sodium 50 Mcg Tab 50 Mcg PO QAM 05/15/15 Reported Prilosec (Omeprazole) 20 Mg Cap 20 Mg PO QAM 05/15/15 Reported Aldactone (Spironolactone) 25 Mg Tab 25 Mg PO AMPM 05/15/15 Reported Phenobarbital 30 Mg Tab 30 Mg PO AMPM 05/15/15 Reported Senokot (Senna) 8.6 Mg Tab 17.2 Mg PO QAM 05/15/15 Reported Tegretol (Carbamazepine) 200 Mg Tab 400 Mg PO AM/HS 05/15/15 Reported Vital Signs Weight (Kilograms): 80.00 Height (Feet): 5 Height (Inches): 4 Date Time Temp Pulse Resp B/P (MAP) Pulse Ox O2 Delivery O2 Flow Rate FiO2 12/14/17 10:00 96 16 96 Room Air 12/14/17 09:47 36.8 96 18 142/87 (105) 97 Room Air Physical Exam General Appearance: no apparent distress Respiratory/Chest: Auscultation: breath sounds normal Cardiovascular: Heart Auscultation: RRR Abdomen: Inspection & Palpation: soft Assessment and Plan stable for EGD
--- NOTE | 2017-12-14 10:57 | Discharge Instructions ---
Endoscopy Patient Instructions Date / Procedure(s) Performed Dec 14, 2017. EGD Allergy Information Coded Allergies: Lincomycin (Verified Allergy, Intermediate, HIVES, 12/14/17) Had 40 years ago. Discharge Date / Findings Dec 14, 2017. Gastritis, biopsied Normal esophagus, biopsied. Provider Instructions Activity Restrictions - No exercising or heavy lifting for 24 hours. - Do not drink alcohol the day of the procedure. - Do not drive a car or operate machinery until the day after the procedure. - Do not make any important decisions or sign important papers in 24 hours after the procedure. Following Day: - Return to full activity which may include returning to work/school. Diet Start your diet with liquids and light foods (jello, soup, juice, toast). Then eat your usual diet if not nauseated. Treatment For Common After Affects For mild abdominal pain, bloating, or excessive gas: - Rest - Eat lightly - Lie on right side Follow-Up Information Follow-up with JOSSE RODRIGUEZ as scheduled Anesthesia Information What You Should Know You have had a procedure that required some medicine to reduce anxiety and discomfort. This treatment is called moderate sedation. After receiving the treatment, you may be sleepy, but you will be able to breathe on your own. The effects of the treatment may last for several hours. Follow these instructions along with Activity/Diet recommendations noted above: * Do NOT do anything where dizziness or clumsiness would be dangerous. * Rest quietly at home today, then you can be up and about tomorrow. * Have a responsible person stay with you the rest of today. * You may have had an I.V. today. If so, you may take the dressing off later today. Recommendations Call your doctor if: * Trouble breathing * Continuous vomiting for more than 24 hours * Temperature above 101 degrees * Severe abdominal pain or bloating * Pain not relieved by pain medicine ordered * There is increased drainage or redness from any incision * A large amount of rectal bleeding greater than 2-3 tablespoons. (If you had a polyp/s removed or have hemorrhoids, a small amount of blood - from the rectum is to be expected.) * You have any unanswered questions or concerns. IN THE EVENT OF A SERIOUS EMERGENCY, GO TO THE NEAREST EMERGENCY ROOM Your discharge instructions were prepared by provider Nemesio Webb. Patient Instructions Signature Page Gauri Neal Patient (or Guardian) Signature/Date: I have read and understand the instructions given to me by my caregivers. Caregiver/RN/Doctor Signature/Date: The above-named patient and/or guardian has received patient instructions on this date. + Original Patient Signature Page (only) stays with chart. Please make copy for patient.
--- NOTE | 2017-12-14 11:02 | GI REPORT ---
Patient Name: Gauri Neal Procedure Date: 12/14/2017 9:56 AM Date of : 1965 Admit Type: Outpatient Age: 52 Gender: Female Attending MD: Nemesio Webb MD Procedure: Upper GI endoscopy Providers: Nemesio Webb MD Referring MD: Racquel García NP, Hardeep Paul Indications: Follow-up of eosinophilic esophagitis, evaluate response to PPI Medicines: Monitored Anesthesia Care Complications: No immediate complications. Estimated Blood Loss: Estimated blood loss: none. Procedure: Pre-Anesthesia Assessment: - Prior to the procedure, a History and Physical was performed, and patient medications and allergies were reviewed. The patient is competent. The risks and benefits of the procedure and the sedation options and risks were discussed with the patient. All questions were answered and informed consent was obtained. Patient identification and proposed procedure were verified by the physician and the nurse in the procedure room. Mental Status Examination: alert and oriented. Airway Examination: normal oropharyngeal airway and neck mobility. Respiratory Examination: clear to auscultation. CV Examination: normal. ASA Grade Assessment: III - A patient with severe systemic disease. After reviewing the risks and benefits, the patient was deemed in satisfactory condition to undergo the procedure. The anesthesia plan was to use monitored anesthesia care (MAC). Immediately prior to administration of medications, the patient was re-assessed for adequacy to receive sedatives. The heart rate, respiratory rate, oxygen saturations, blood pressure, adequacy of pulmonary ventilation, and response to care were monitored throughout the procedure. The physical status of the patient was re-assessed after the procedure. After obtaining informed consent, the endoscope was passed under direct vision. Throughout the procedure, the patient's blood pressure, pulse, and oxygen saturations were monitored continuously. The Scope was introduced through the mouth, and advanced to the second part of duodenum. The upper GI endoscopy was accomplished without difficulty. The patient tolerated the procedure well. Findings: The examined esophagus was normal. Biopsies were obtained from the proximal and distal esophagus with cold forceps for histology of suspected eosinophilic esophagitis. Verification of patient identification for the specimen was done by the physician and nurse using the patient's name and date. Localized mild inflammation characterized by erythema was found in the gastric body. Biopsies were taken with a cold forceps for Helicobacter pylori testing. The duodenal bulb and second portion of the duodenum were normal. Impression: - Normal esophagus. Biopsied. - Gastritis. Biopsied. - Normal duodenal bulb and second portion of the duodenum. Recommendation: - Discharge patient to home. - Await pathology results. - Return to referring physician. Nemesio Webb MD 12/14/2017 11:02:35 AM This report has been signed electronically. Note Initiated On: 12/14/2017 9:56 AM Number of Addenda: 0 I attest to the content of the Intraoperative Record and orders documented therein, exceptions below {[id number]}
[2017-12-14 11:33] VITALS: BP 133/90; PULSE 95; O2SAT 96
--- NOTE | 2017-12-14 11:40 | Anesthesiology Progress Note ---
Anesthesia Post Op Note Date & Time Dec 14, 2017 at 11:39 Vital Signs Pain Intensity: 0 Vital Signs Past 12 Hours Date Time Temp Pulse Resp B/P (MAP) Pulse Ox O2 Delivery O2 Flow Rate FiO2 12/14/17 11:33 95 18 133/90 (104) 96 Room Air 12/14/17 11:18 93 18 117/73 (88) 96 Room Air 12/14/17 11:03 95 16 115/74 (88) 95 Room Air 12/14/17 10:00 96 16 96 Room Air 12/14/17 09:47 36.8 96 18 142/87 (105) 97 Room Air Notes Mental Status: alert / awake / arousable, participated in evaluation Pt Amnestic to Procedure: Yes Nausea / Vomiting: adequately controlled Pain: adequately controlled Airway Patency, RR, SpO2: stable & adequate BP & HR: stable & adequate Hydration State: stable & adequate Anesthetic Complications: no major complications apparent
== END | disposition home or self-care (01) ==
LOC: C.GI 09:13
PROVIDERS: ATTEND Student in an Organized Health Care Education/Training Program
DX: Z09 Encounter for follow-up examination after completed treatment for conditions other than malignant neoplasm (principal); K29.70 Gastritis, unspecified, without bleeding; J32.0 Chronic maxillary sinusitis; Z86.73 Personal history of transient ischemic attack (TIA), and cerebral infarction without residual deficits

== ENCOUNTER 2017-12-17 12:56 | Emergency (ER) | payer OTHER ==
[~2017-12-17 12:56] MED LIST changes: -ALBUT/IPRATROP 3MG/0.5MG NEB 3 ML VIAL INH ONE; -AMOX875T PO; -HYDR5SYP11 PO; -LIDOCAINE HCL 2% 2 ML VIAL (20MG/ML) ONE; -MIDAZOLAM HCL 1 MG/ML 2ML VIAL ONE; -ONDANSETRON INJ 2 MG/ML 2 ML VIAL ONE; -PHENYLEPHRINE 100MCG/ML 5ML SYR ONE; -PROPOFOL IV EMULSION 10 MG/ML 20 ML VIAL ONE; -SODIUM CHLORIDE 0.9% 500ML 500 ML IV ONE
[2017-12-17 13:19] VITALS: Ht 162.6 cm
[2017-12-17] MEDS ORDERED: ALBUT/IPRATROP 3MG/0.5MG NEB 3 ML VIAL INH STA (13:50)
--- NOTE | 2017-12-17 14:04 | EMERGENCY ROOM VISIT NOTE ---
History First contact with patient: 13:36 Chief Complaint: COUGH Stated Complaint: CHEAT PAIN/COUGH Nursing Triage Summary: Pt brought in via EMS. States she had a biopsy of her throat done on . Since pt has been having increased cough and now has cp pain with coughing. Upon EMS arrival pt was 94% on room air. Pt was given Albuterol 2.5 mg neb treatment. Pt was placed on NC, pt was unable to tolerate O2. History of Present Illness The patient is a 52 year old female who presents to the Emergency Room with complaints of a cough that has been going on for the last 3 days. The patient had an esophageal biopsy on Monday. She developed a cough shortly thereafter. The patient has a history of cerebral palsy and left-sided paralysis. She lives at home with her family. The patient's mother notes that her oxygen saturation was low this morning at 88%. She does not have any history of pulmonary disease. She does not typically wear oxygen at home. The cough has been nonproductive. The patient is also complaining of a sharp, stabbing sensation in the right lower chest/upper abdomen particularly with coughing. She does feel short of breath. She denies any feverish symptoms. There has been no nausea or vomiting. Appetite is appropriate. 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, controlled Surgical Problems: (1) H/O: hysterectomy Family History No significant family history Social History Smoking Status: Never Smoker Alcohol Use: none Drug Use: none Marital Status: single Housing Status: lives with family Occupation Status: disabled Current/Historical Medications Scheduled Amoxicillin & Pot Clavulanate (Augmentin 875-125 mg), 1 TAB PO BID Ascorbic Acid (Ascorbic Acid), 500 MG PO QAM Aspirin (Aspirin Ec), 81 MG PO DAILY AT AFTERNOON Baclofen (Lioresal), 10 MG PO HS Calcium Carbonate-Vitamin D (Calcium 500 + D), 1 TAB PO DAILY IN AFTERNOON Carbamazepine (Tegretol), 400 MG PO AM/HS Cholecalciferol (D 1999), 1 TAB PO QPM Clonazepam (Klonopin), 0.5 MG PO HS Cranberry (Vaccinium Macrocarp (Cranberry), 1 TAB PO QPM Divalproex Sodium (Depakote), 500 MG PO HS Levothyroxine Sodium (Levothyroxine Sodium), 50 MCG PO QAM Nortriptyline Hcl (Pamelor), 25 MG PO HS Omeprazole (Prilosec), 20 MG PO QAM Phenobarbital (Phenobarbital), 30 MG PO AMPM Polyethylene Glycol 3350 (Bulk (Polyethylene Glycol 3350), 17 GM PO QAM Senna (Senokot), 17.2 MG PO QAM Sennosides-Docusate Sodium (Stool Softener), 1 TAB PO HS Spironolactone (Aldactone), 25 MG PO AMPM Vitamin E (Vitamin E), 1 TAB PO QPM Scheduled PRN Hydrocodone W/ Homatropine (Hycodan 5/1.5MG 5 Ml), 5-10 ML PO Q4H PRN for Cough Physical Exam Vital Signs Date Time Temp Pulse Resp B/P (MAP) Pulse Ox O2 Delivery O2 Flow Rate FiO2 12/17/17 18:16 96 16 113/68 94 Room Air 12/17/17 17:28 97 12/17/17 17:24 98 21 108/61 93 Room Air 12/17/17 16:30 36.7 12/17/17 16:27 100 21 124/81 93 Room Air 12/17/17 15:17 94 20 111/70 90 Room Air 12/17/17 13:30 92 17 108/84 92 Room Air 12/17/17 13:19 36.7 96 16 114/77 92 Room Air 12/17/17 13:19 92 Room Air 12/17/17 13:17 94 Physical Exam GENERAL: 52-year-old female, in no acute distress, nondiaphoretic, well- developed well-nourished. SKIN: The skin was without rashes, erythema, edema, or bruising. HEAD: Normocephalic atraumatic. EYES: Conjunctivae without injection, sclerae without icterus. Extraocular movements intact. MOUTH: Mucous membranes moist. Tonsils are not enlarged. Pharynx without erythema or exudate. Uvula midline. Airway patent. Tongue does not deviate. NECK: Supple without nuchal rigidity. No lymphadenopathy. HEART: Regular rate and rhythm without murmurs gallops or rubs. LUNGS: Few rhonchi bilaterally with decreased breath sounds particularly at the left base. Mild wheeze. No tachypnea. ABDOMEN: Positive bowel sounds x 4.Soft, slight tenderness to palpation in the right upper quadrant, without organomegaly. No guarding or rebound tenderness. MUSCULOSKELETAL: Muscle wasting noted on the left lower extremity. No erythema or edema appreciated. NEURO: Patient was alert and oriented to person place and time. Medical Decision & Procedures ER Provider Diagnostic Interpretation: Chest x-ray IMPRESSION: Mild bibasilar opacities. Atelectasis is favored. Pneumonia could appear similar although is considered less likely. Electronically signed by: Roger Montgomery M.D. 12/17/2017 2:45 PM Dictated Date/Time: 12/17/2017 2:43 PM The status of this report is Signed. Draft = Not yet reviewed or approved by Radiologist. Signed = Reviewed and approved by Radiologist. Laboratory Results 12/17/17 14:30 Red Blood Count 3.85, Mean Corpuscular Volume 93.8, Mean Corpuscular Hemoglobin 30.9, Mean Corpuscular Hemoglobin Concent 33.0, Mean Platelet Volume 9.5, Neutrophils (%) (Auto) 40.7, Lymphocytes (%) (Auto) 39.2, Monocytes (%) (Auto) 8.5, Eosinophils (%) (Auto) 10.7, Basophils (%) (Auto) 0.7, Neutrophils # (Auto ) 2.41, Lymphocytes # (Auto) 2.31, Monocytes # (Auto) 0.50, Eosinophils # (Auto ) 0.63, Basophils # (Auto) 0.04 12/17/17 14:30 Test 12/17/17 14:30 White Blood Count 5.90 K/uL (4.8-10.8) Red Blood Count 3.85 M/uL (4.2-5.4) Hemoglobin 11.9 g/dL (12.0-16.0) Hematocrit 36.1 % (37-47) Mean Corpuscular Volume 93.8 fL (80-100) Mean Corpuscular Hemoglobin 30.9 pg (25-34) Mean Corpuscular Hemoglobin Concent 33.0 g/dl (32-36) Platelet Count 236 K/uL (130-400) Mean Platelet Volume 9.5 fL (7.4-10.4) Neutrophils (%) (Auto) 40.7 % Lymphocytes (%) (Auto) 39.2 % Monocytes (%) (Auto) 8.5 % Eosinophils (%) (Auto) 10.7 % Basophils (%) (Auto) 0.7 % Neutrophils # (Auto) 2.41 K/uL (1.4-6.5) Lymphocytes # (Auto) 2.31 K/uL (1.2-3.4) Monocytes # (Auto) 0.50 K/uL (0.11-0.59) Eosinophils # (Auto) 0.63 K/uL (0-0.5) Basophils # (Auto) 0.04 K/uL (0-0.2) RDW Standard Deviation 43.5 fL (36.4-46.3) RDW Coefficient of Variation 12.7 % (11.5-14.5) Immature Granulocyte % (Auto) 0.2 % Immature Granulocyte # (Auto) 0.01 K/uL (0.00-0.02) Anion Gap 9.0 mmol/L (3-11) Estimated GFR () 116.3 Estimated GFR (Non- 100.4 BUN/Creatinine Ratio 11.5 (10-20) Calcium Level 8.7 mg/dl (8.5-10.1) Total Bilirubin 0.2 mg/dl (0.2-1) Aspartate Amino Transf (AST/SGOT) 10 U/L (15-37) Alanine Aminotransferase (ALT/SGPT) 17 U/L (12-78) Alkaline Phosphatase 106 U/L (45-117) Troponin I < 0.015 ng/ml (0-0.045) Total Protein 7.8 gm/dl (6.4-8.2) Albumin 3.1 gm/dl (3.4-5.0) Globulin 4.7 gm/dl (2.5-4.0) Albumin/Globulin Ratio 0.7 (0.9-2) Lipase 76 U/L (73-393) Medications Administered Medications (Trade) Dose Ordered Sig/Rhiannon Route Start Time Stop Time Status Last Admin Dose Admin Albuterol/ Ipratropium (Duoneb) 3 ml ONE STAT INH 12/17/17 13:50 12/17/17 13:52 DC 12/17/17 13:57 3 ML Ampicillin Sodium/ Sulbactam Sodium 3000 mg/Sodium Chloride 108 ml @ 200 mls/hr NOW STAT IV 12/17/17 15:54 12/17/17 16:26 DC 12/17/17 16:23 200 MLS/HR Sodium Chloride 500 ml @ 999 mls/hr Q31M STAT IV 12/17/17 16:38 12/17/17 17:08 DC 12/17/17 16:47 999 MLS/HR Hydrocodone Bit/ Homatropine Methylb (Hycodan Elix Homepack 5/1.5MG/ 5ML) 1 homepack UD ONCE PO 12/17/17 17:45 12/17/17 17:46 DC 12/17/17 18:19 1 HOMEPACK ECG Per My Interpretation Indication: abdominal pain Rate (beats per minute): 92 Rhythm: normal sinus Findings: nonspecific-ST abn Change: no significant change ED Course Patient was seen and examined Vital signs including blood pressure were reviewed medications list was verified with patient Labs were obtained, and a saline lock was established An EKG was performed. She was put on a monitor. The patient was given a DuoNeb The patient was ordered Unasyn 1 g IV. She was also ordered normal saline 500 cc Upon reevaluation, the patient was resting comfortably. She was also seen by my supervising physician. We discussed her workup. She and the family voiced understanding. Case management was involved. They were comfortable with the patient being sent home with close follow-up. I reviewed discharge instructions the patient. They voiced understanding and had no further questions. Medical Decision Differential diagnosis: Pneumonia, aspiration pneumonia, bronchitis, viral syndrome, cholecystitis, choledocholithiasis, cardiac abnormality, among others were entertained This patient is a 52-year-old female presents to the emergency department complaining of a cough following an esophageal biopsy was performed 3 days ago. On exam, she had decreased breath sounds bilaterally. Her oxygen was in the low 90s. Her workup reveals no leukocytosis. Her chest x-ray shows bibasilar opacities. Given her history, I believe this is likely aspiration pneumonia. The patient's oxygen has been stable on room air in the emergency department. She is nontoxic in appearance. I believe it is reasonable to discharge her home with antibiotics and close follow-up. The patient and the patient's family were comfortable with this plan. They agree to return immediately to the ED with any new symptoms, especially fever or difficulty breathing. This chart was completed in part utilizing [employer] Speech Voice Recognition software. Attempts were made to minimize the grammatical errors, random word insertions, pronoun errors and incomplete sentences. Any formal questions or concerns about the content, text or information contained within the body of this dictation should be directly addressed to the provider for clarification. Medication Reconcilliation Current Medication List: was personally reviewed by me Blood Pressure Screening Patient's blood pressure: Normal blood pressure Impression Primary Impression: Aspiration pneumonia Departure Information Dispostion Home / Self-Care Condition FAIR Prescriptions Hydrocodone W/ Homatropine (HYCODAN 5/1.5MG 5 ML) 1 Syp Syp 5-10 ML PO Q4H Y for Cough, #200 ML Prov: Kayla Nascimento PA-C 12/17/17 Amoxicillin & Pot Clavulanate (Augmentin 875-125 mg) 1 Tab Tab 1 TAB PO BID for 7 Days, #14 TAB Prov: Kayla Nascimento PA-C 12/17/17 Referrals Hardeep Paul PA-C (PCP) Patient Instructions My [facility] Additional Instructions Gauri was seen in the emergency department for a cough. I believe she likely has pneumonia. Please take the ENTIRE course of Augmentin unless otherwise directed by your primary care physician please follow-up with her doctor as soon as possible. Please take the cough syrup 1 teaspoon every 4-6 hours as needed for cough Please keep an eye on her vital signs. Do not hesitate to return to the ED with any new, worsening or concerning symptoms; especially, fever or difficulty breathing It was a pleasure participating in her care today
[2017-12-17 14:40] LABS: BASO % 0.7 %; BASO ABS # 0.04 K/uL (0-0.2); EOS % 10.7 %; EOS ABS # 0.63 K/uL (0-0.5); HEMATOCRIT 36.1 % (37-47); HEMOGLOBIN 11.9 g/dL (12.0-16.0); IG# 0.01 K/uL (0.00-0.02); LYMPH % 39.2 %; LYMPH ABS # 2.31 K/uL (1.2-3.4); MEAN CELL VOLUME 93.8 fL (80-100); MEAN CORPUSCULAR HEMOGLOBIN 30.9 pg (25-34); MEAN PLATELET VOLUME 9.5 fL (7.4-10.4); MONO % 8.5 %; NEUT % 40.7 %; NEUT ABS # 2.41 K/uL (1.4-6.5); PLATELET COUNT 236 K/uL (130-400); RED CELL DISTRIBUTION WIDTH CV 12.7 % (11.5-14.5); RED CELL DISTRIBUTION WIDTH SD 43.5 fL (36.4-46.3)
--- NOTE | 2017-12-17 14:46 | DIAGNOSTIC IMAGING REPORT ---
CHEST ONE VIEW PORTABLE CLINICAL HISTORY: Cough. Recent procedure. Possible aspiration pneumonia. COMPARISON STUDY: Chest radiograph and chest CT July 14, 2017. FINDINGS: Postoperative findings within the cervical spine are noted. Cardiac mediastinal silhouette is stable. There is no pneumothorax or pleural effusion. Mild bibasilar opacities are present. There is no evidence for pulmonary edema. Curvature of the thoracic spine is unchanged. IMPRESSION: Mild bibasilar opacities. Atelectasis is favored. Pneumonia could appear similar although is considered less likely. Electronically signed by: Roger Montgomery M.D. 12/17/2017 2:45 PM Dictated Date/Time: 12/17/2017 2:43 PM
[2017-12-17 15:05] LABS: ALBUMIN 3.1 gm/dl (3.4-5.0); ALKALINE PHOSPHATASE 106 U/L (45-117); ALT/SGPT 17 U/L (12-78); AST/SGOT 10 U/L (15-37); BLOOD UREA NITROGEN 8 mg/dl (7-18); CALCIUM 8.7 mg/dl (8.5-10.1); CARBON DIOXIDE 27 mmol/L (21-32); CREATININE 0.67 mg/dl (0.60-1.20); GLUCOSE 112 mg/dl (70-99); LIPASE 76 U/L (73-393); POTASSIUM 3.3 mmol/L (3.5-5.1); SODIUM 141 mmol/L (136-145); TOTAL PROTEIN 7.8 gm/dl (6.4-8.2)
[2017-12-17] MEDS ORDERED: AMPICILLIN/SULBACTAM SOD INJ 3,000 MG in SODIUM CHLORIDE 0.9% 100ML 100 ML IV STA (15:54)
[2017-12-17 16:30] VITALS: TEMP 36.7
[2017-12-17] MEDS ORDERED: SODIUM CHLORIDE 0.9% 500ML 500 ML IV STA (16:38)
[2017-12-17] MEDS ORDERED: AMOX875T PO (17:31)
[2017-12-17] MEDS ORDERED: HYDR5SYP11 PO (17:32)
[2017-12-17] MEDS ORDERED: HYCODAN 60ML BOTTLE HOMEPACK PO ONE (17:45)
[2017-12-17 18:16] VITALS: BP 113/68; PULSE 96; O2SAT 94
--- NOTE | 2017-12-17 19:33 | EMERGENCY ROOM VISIT NOTE ---
ED Visit Note First contact with patient: 13:36 I have personally evaluated this patient examined her and reviewed the pertinent labs and data. I have discussed the case with Kayla Nascimento, the physician personnel assistant and agree with the plan. Please refer to the PA note. This patient has a cough. She is afebrile. She has no white count. Chest x- ray shows possible infiltrate versus atelectasis she looks well on exam is clear lungs. Her O2 sat is in the low to mid 90s. With her recent procedure, there is still concern for possible aspiration she was given IV Unasy. She has been tolerating fluids. At this point, we will discharge her home on Augmentin with close follow-up with her doctor tomorrow if she gets worse she should return to the ER for further treatment and evaluation
== END 2017-12-17 18:20 | disposition home or self-care (01) ==
LOC: EDBD 12:56 → C.EDB 12:57
DX: J69.0 Pneumonitis due to inhalation of food and vomit (principal); Z98.890 Other specified postprocedural states; G80.9 Cerebral palsy, unspecified; G83.9 Paralytic syndrome, unspecified; G40.409 Other generalized epilepsy and epileptic syndromes, not intractable, without status epilepticus; Z90.710 Acquired absence of both cervix and uterus; Z79.82 Long term (current) use of aspirin; Z79.899 Other long term (current) drug therapy

== ENCOUNTER 2021-01-31 19:19 | Inpatient (IN) ==
[2021-01-31] MEDS ORDERED: SODIUM CHLORIDE 0.9% 500 ML IV ONE (19:37)
[2021-01-31] MEDS ORDERED: IBUPROFEN 200 MG TAB PO STA (19:39)
--- NOTE | 2021-01-31 19:48 | Emergency Department Note ---
History of Present Illness General Chief complaint: Illness Stated complaint: ILLNESS Time Seen by Provider: 01/31/21 19:27 Source: patient, family and RN notes reviewed Mode of arrival: ambulatory Limitations: no limitations History of Present Illness Maximum Pain Intensity: 6 This patient is a 56-year-old female who has a history of cerebral palsy and was diagnosed with Covid recently she was diagnosed on Monday but has had symptoms for about a week. She is at [facility] she did have her vaccine. She had a cough and shortness of breath she has generalized body ache she has been keeping up with her fluid she does have seizures and has had a seizure the last 3 evenings she is on 3 different medications for this including phenobarbital Tegretol and Depakote. She took Tylenol 530 and she still has a temperature of 39. She feels short of breath and was 86% on room air she does wear oxygen at night but not during the day. Her mother is here and she is concerned that she needs to be admitted. Home Medications Medication Instructions Recorded Confirmed Type sennosides 8.6 mg-docusate sodium 2 tab PO BID 03/07/18 01/31/21 History 50 mg tablet spironolactone 25 mg tablet 25 mg PO BID 03/07/18 01/31/21 History (Aldactone) melatonin 10 mg tablet 10 mg PO HS 10/29/19 01/31/21 History rosuvastatin 5 mg tablet 5 mg PO DAILY@1200 10/29/19 01/31/21 History Tegretol XR 200 mg tablet,extended 400 mg PO BID 90 Days #360 tab NS 06/25/20 01/31/21 Rx release (carbamazepine) furosemide 20 mg tablet 20 mg PO DAILY 11/16/20 01/31/21 History phenobarbital 32.4 mg tablet 32.4 mg PO BID 11/16/20 01/31/21 History acetaminophen 500 mg tablet 500 mg PO BID PRN tab 12/17/20 01/31/21 History (Tylenol Extra Strength) baclofen 10 mg tablet 10 mg PO QID tab 12/17/20 01/31/21 History omeprazole 20 mg capsule,delayed 20 mg PO DAILY 12/17/20 01/31/21 History release pregabalin 25 mg capsule 25 mg PO BID cap 12/17/20 01/31/21 History pregabalin 50 mg capsule 50 mg PO HS 12/17/20 01/31/21 History divalproex 500 mg tablet,extended See Rx Instructions .ROUTE 12/22/20 01/31/21 Rx release 24 hr (Depakote ER) .COMPLEX #90 tab ascorbic acid (vitamin C) 500 mg 500 mg PO DAILY tab 12/23/20 01/31/21 History tablet aspirin 81 mg chewable tablet 81 mg PO DAILY tab 12/23/20 01/31/21 History bisacodyl 10 mg rectal suppository 10 mg RI DAILY PRN 12/23/20 01/31/21 History (Dulcolax (bisacodyl)) cholecalciferol (vitamin D3) 50 2,000 unit PO DAILY@1200 tab 12/23/20 01/31/21 History mcg (2,000 unit) tablet clonazepam 0.5 mg tablet (Klonopin) 0.5 mg PO TID PRN tab 12/23/20 01/31/21 History cranberry 400 mg capsule 400 mg PO DAILY 12/23/20 01/31/21 History divalproex 250 mg tablet,extended 250 mg PO .COMPLEX 30 Days #30 tab 12/23/20 01/31/21 Rx release 24 hr levothyroxine 50 mcg capsule 50 mcg PO DAILY 12/23/20 01/31/21 History magnesium hydroxide 400 mg/5 mL 30 ml PO DAILY PRN ml 12/23/20 01/31/21 History oral suspension (Milk of Magnesia) sodium phosphates 19 gram-7 118 ml RI DAILY PRN 12/23/20 01/31/21 History gram/118 mL enema (Fleet Enema) vitamin E 400 unit capsule 400 unit PO DAILY@1200 12/23/20 01/31/21 History acetaminophen 325 mg tablet 325 mg PO Q4H PRN 01/31/21 01/31/21 History (Tylenol) azithromycin 250 mg tablet 250 mg PO DAILY 01/31/21 01/31/21 History dexamethasone 6 mg tablet 6 mg PO DAILY 01/31/21 01/31/21 History guaifenesin 100 mg/5 mL oral 200 mg PO QID 01/31/21 01/31/21 History liquid (Robafen) ipratropium 0.5 mg-albuterol 3 mg 3 ml INHALATION QID 01/31/21 01/31/21 History (2.5 mg base)/3 mL nebulization soln mirabegron 50 mg tablet,extended 50 mg PO DAILY@1200 01/31/21 01/31/21 History release 24 hr (Myrbetriq) polyethylene glycol 3350 17 gram 17 g PO DAILY 01/31/21 01/31/21 History oral powder packet (Miralax) potassium chloride 20 mEq 20 meq PO DAILY 01/31/21 01/31/21 History tablet,extended release Allergies Allergy/AdvReac Type Severity Reaction Status Date / Time lincomycin Allergy Intermediate HIVES Verified 11/16/20 08:33 Past Med/Surg History Medical History Acute cholecystitis Bronchopneumonia Cerebral palsy Cerebral palsy CVA (cerebral vascular accident) WHEN 16 MONTHS OLD Epilepsy Grand mal epilepsy, controlled Headache Urinary tract infection Urinary urgency Surgical History History of cervical discectomy History of cholecystectomy History of open reduction and internal fixation (ORIF) procedure LEFT WRIST, LEFT ANKLE History of total abdominal hysterectomy and bilateral salpingo-oophorectomy Family History Mother Breast cancer Cervical cancer Osteoporosis Father Diabetes Hypertension Other No significant family history Social History Smoking Status: Never smoker Second Hand Exposure: No; Do You Dip or Chew Tobacco: No; Tobacco Cessation Education Requested by Patient: No Hx Alcohol Use: No Hx Substance Use: No Preferred Language: Taiwanese Communication Ability: Effective High Rigger Required: No Beliefs That Will Affect Care: None Current Living Situation: Personal Care Facility Other Information That Helps Us Care for You: No Feels Safe at Home: Yes Safety Concerns: Feels Safe At This Time Assistive Devices: Glasses and Wheelchair Review of Systems A total of 10 systems reviewed and were otherwise negative Physical Exam Vital Signs Vital Signs - 24 hr 01/31/21 19:30 01/31/21 19:38 01/31/21 19:42 Temperature 39.6 C H Temperature Source Oral Pulse Rate 107 H 109 H Pulse Rate from SpO2 Sensor 109 H Respiratory Rate 28 H 22 Respiratory Effort / Characteristics Non-Labored Spontaneous Respiratory Depth Normal Blood Pressure 115/65 115/65 Blood Pressure Mean 81 81 Pulse Oximetry 96 95 95 Oxygen Delivery Method Nasal Cannula Nasal Cannula Oxygen Flow Rate 4 4 Sepsis Recent Fever Within 48 Hours Yes Sepsis New/Unexplained Change in Mental Status No Sepsis Action Taken by Nursing Physician Notified 01/31/21 19:53 01/31/21 20:03 01/31/21 20:15 Temperature Temperature Source Pulse Rate 109 H 107 H Pulse Rate from SpO2 Sensor 109 H 107 H Respiratory Rate 31 H 25 H Respiratory Effort / Characteristics Non-Labored Respiratory Depth Blood Pressure Blood Pressure Mean Pulse Oximetry 95 96 96 Oxygen Delivery Method Nasal Cannula Oxygen Flow Rate 4 Sepsis Recent Fever Within 48 Hours Sepsis New/Unexplained Change in Mental Status Sepsis Action Taken by Nursing 01/31/21 20:30 01/31/21 21:00 01/31/21 21:03 Temperature 39.5 C H Temperature Source Oral Pulse Rate 106 H 109 H Pulse Rate from SpO2 Sensor 106 H 110 H Respiratory Rate 27 H 20 Respiratory Effort / Characteristics Respiratory Depth Blood Pressure 122/68 131/81 Blood Pressure Mean 86 97 Pulse Oximetry 99 97 Oxygen Delivery Method Oxygen Flow Rate Sepsis Recent Fever Within 48 Hours Sepsis New/Unexplained Change in Mental Status Sepsis Action Taken by Nursing 01/31/21 22:00 01/31/21 22:30 01/31/21 22:53 Temperature 38.3 C H Temperature Source Oral Pulse Rate 103 H 99 H Pulse Rate from SpO2 Sensor 103 H 98 H Respiratory Rate 26 H 21 Respiratory Effort / Characteristics Respiratory Depth Blood Pressure 115/65 109/54 L Blood Pressure Mean 81 72 Pulse Oximetry 96 97 Oxygen Delivery Method Oxygen Flow Rate Sepsis Recent Fever Within 48 Hours Sepsis New/Unexplained Change in Mental Status Sepsis Action Taken by Nursing 01/31/21 23:00 Temperature Temperature Source Pulse Rate 101 H Pulse Rate from SpO2 Sensor 100 H Respiratory Rate 22 Respiratory Effort / Characteristics Respiratory Depth Blood Pressure 98/67 L Blood Pressure Mean 77 Pulse Oximetry 95 Oxygen Delivery Method Oxygen Flow Rate Sepsis Recent Fever Within 48 Hours Sepsis New/Unexplained Change in Mental Status Sepsis Action Taken by Nursing General: Well developed well nourished chronically ill-appearing middle-age femdeyvi mendoza who in no acute distress, breathing comfortably on pulmonal oxygen. She is wearing a facemask as well normal speech HEENT: Normal cephalic atraumatic. Pupils are equal round and reactive to light . Extraocular movements are intact. Oropharynx is pink with moist mucous membranes. No swelling of the mouth lips or tongue. Neck: Supple with a midline trachea. No meningeal signs or stiffness, no JVD or bruits. No Stridor. Chest: Clear to auscultation bilaterally. No wheezes or rhonchi. No increased work of breathing. Heart: Regular rate and rhythm without murmurs or gallops. Abdomen: Soft nontender, nondistended without rebound guarding or rigidity. Extremities: No cyanosis clubbing or edema. She has baseline contracture of her left arm. She has baseline weakness of both legs and weakness of left arm Spine/Back. Non tender to palpation. No CVA tenderness Skin: Good turgor without rashes. Neurologic exam: Cranial nerves two through 12 are intact. Baseline Course Administered Medications Discontinued Medications Acetaminophen (Acetaminophen 500 Mg Tab) 1,000 mg PO NOW STA Stop: 01/31/21 21:23 Last Admin: 01/31/21 21:46 Dose: 1,000 mg Documented by: [id number] Dexamethasone Sodium Phosphate (DexamethasonePf 10 Mg/Ml Vial) 6 mg IV NOW ONE Stop: 01/31/21 21:23 Last Admin: 01/31/21 21:46 Dose: 6 mg Documented by: [id number] Sodium Chloride (Nss) 500 mls @ 999 mls/hr IV .Q31M ONE Stop: 01/31/21 20:07 Last Infusion: 01/31/21 20:59 Dose: 0 mls/hr Documented by: [id number] Admin: 01/31/21 20:24 Dose: 999 mls/hr Documented by: [id number] Sodium Chloride (Nss 1000ml) 1,000 mls @ 500 mls/hr IV .Q2H ONE Stop: 02/01/21 01:40 Last Admin: 02/01/21 00:28 Dose: 500 mls/hr Documented by: [id number] Ibuprofen (Ibuprofen 200 Mg Tab) 400 mg PO NOW STA Stop: 01/31/21 19:40 Last Admin: 01/31/21 20:00 Dose: 400 mg Documented by: [id number] Medical Decision Making Differential Diagnosis Covid, pneumonia, sepsis, PE, electrolyte or metabolic abnormality, cardiac disease Medical Records Attestation: I reviewed the patient's medical records. Home Medications Current Medication List: was personally reviewed by me Laboratory Data Attestation: I reviewed the patient's lab results. Result diagrams: 01/31/21 20:24 01/31/21 20:24 Lab Results 01/31/21 01/31/21 01/31/21 Range/Units 20:09 20:09 20:24 WBC (4.8-10.8) K/uL RBC (4.2-5.4) M/uL Hgb (12.0-16.0) g/dL Hct (37-47) % MCV (80-100) fL MCH (25-34) pg MCHC (32-36) g/dL RDW Std Deviation (36.4-46.3) fL RDW Coeff of Jazmine (11.5-14.5) % Plt Count (130-400) K/uL MPV (7.4-10.4) fL Immature Gran % (Auto) % Neut % (Auto) % Lymph % (Auto) % Teller % (Auto) % Eos % (Auto) % Baso % (Auto) % Neut # (Auto) (1.4-6.5) K/uL Lymph # (Auto) (1.2-3.4) K/uL Teller # (Auto) (0.11-0.59) K/uL Eos # (Auto) (0-0.5) K/uL Baso # (Auto) (0-0.2) K/uL Immature Gran # (Auto) (0.00-0.02) K/uL PT 10.4 (9.0-12.0) Seconds INR 1.0 (0.9-1.1) APTT 34.7 H (21.0-31.0) Seconds PTT Ratio 1.3 D-Dimer 680 H* (0-500) ug/L FEU Sodium (136-145) mmol/L Potassium (3.5-5.1) mmol/L Chloride (98-107) mmol/L Carbon Dioxide (21-32) mmol/L Anion Gap (3-11) BUN (7-18) mg/dl Creatinine (0.6-1.2) mg/dl Est Cr Clr Drug Dosing ml/min Est GFR ( Amer) ml/min Est GFR (Non-Af Amer) ml/min BUN/Creatinine Ratio (10-20) Glucose (70-99) mg/dl Calcium (8.5-10.1) mg/dl Magnesium (1.8-2.4) mg/dl Total Bilirubin (0.2-1) mg/dl AST (15-37) U/L ALT (12-78) U/L Alkaline Phosphatase (45-117) U/L Troponin I (0-0.045) ng/ml Total Protein (6.4-8.2) gm/dl Albumin (3.4-5.0) gm/dl Globulin (2.5-4.0) gm/dl Albumin/Globulin Ratio (0.9-2) Procalcitonin (0-0.5) ng/ml Valproic Acid (50-100) mcg/ml Carbamazepine (4-12) mcg/ml Phenobarbital (15-40) mcg/mL COVID-19 Eval Order Covid19 at [facility] SARS-CoV-2 (PCR) POSITIVE A* (Negative) 01/31/21 01/31/21 01/31/21 Range/Units 20:24 20:24 20:24 WBC (4.8-10.8) K/uL RBC (4.2-5.4) M/uL Hgb (12.0-16.0) g/dL Hct (37-47) % MCV (80-100) fL MCH (25-34) pg MCHC (32-36) g/dL RDW Std Deviation (36.4-46.3) fL RDW Coeff of Jazmine (11.5-14.5) % Plt Count (130-400) K/uL MPV (7.4-10.4) fL Immature Gran % (Auto) % Neut % (Auto) % Lymph % (Auto) % Teller % (Auto) % Eos % (Auto) % Baso % (Auto) % Neut # (Auto) (1.4-6.5) K/uL Lymph # (Auto) (1.2-3.4) K/uL Teller # (Auto) (0.11-0.59) K/uL Eos # (Auto) (0-0.5) K/uL Baso # (Auto) (0-0.2) K/uL Immature Gran # (Auto) (0.00-0.02) K/uL PT (9.0-12.0) Seconds INR (0.9-1.1) APTT (21.0-31.0) Seconds PTT Ratio D-Dimer (0-500) ug/L FEU Sodium 133 L (136-145) mmol/L Potassium 4.0 (3.5-5.1) mmol/L Chloride 101 (98-107) mmol/L Carbon Dioxide 27 (21-32) mmol/L Anion Gap 5.0 (3-11) BUN 12 (7-18) mg/dl Creatinine 0.71 (0.6-1.2) mg/dl Est Cr Clr Drug Dosing 94.9 ml/min Est GFR ( Amer) 109.6 ml/min Est GFR (Non-Af Amer) 94.6 ml/min BUN/Creatinine Ratio 17.3 (10-20) Glucose 99 (70-99) mg/dl Calcium 8.4 L (8.5-10.1) mg/dl Magnesium 2.4 (1.8-2.4) mg/dl Total Bilirubin 0.2 (0.2-1) mg/dl AST 23 (15-37) U/L ALT 22 (12-78) U/L Alkaline Phosphatase 64 (45-117) U/L Troponin I < 0.015 (0-0.045) ng/ml Total Protein 8.0 (6.4-8.2) gm/dl Albumin 3.0 L (3.4-5.0) gm/dl Globulin 5.0 H (2.5-4.0) gm/dl Albumin/Globulin Ratio 0.6 L (0.9-2) Procalcitonin 0.20 (0-0.5) ng/ml Valproic Acid 54 (50-100) mcg/ml Carbamazepine 10.6 (4-12) mcg/ml Phenobarbital 17.4 (15-40) mcg/mL COVID-19 Eval Order SARS-CoV-2 (PCR) (Negative) 01/31/21 Range/Units 20:24 WBC 6.48 (4.8-10.8) K/uL RBC 3.36 L (4.2-5.4) M/uL Hgb 10.2 L (12.0-16.0) g/dL Hct 31.1 L (37-47) % MCV 92.6 (80-100) fL MCH 30.4 (25-34) pg MCHC 32.8 (32-36) g/dL RDW Std Deviation 46.0 (36.4-46.3) fL RDW Coeff of Jazmine 13.6 (11.5-14.5) % Plt Count 216 (130-400) K/uL MPV 9.4 (7.4-10.4) fL Immature Gran % (Auto) 0.2 % Neut % (Auto) 78.6 % Lymph % (Auto) 17.3 % Teller % (Auto) 3.5 % Eos % (Auto) 0.2 % Baso % (Auto) 0.2 % Neut # (Auto) 5.10 (1.4-6.5) K/uL Lymph # (Auto) 1.12 L (1.2-3.4) K/uL Teller # (Auto) 0.23 (0.11-0.59) K/uL Eos # (Auto) 0.01 (0-0.5) K/uL Baso # (Auto) 0.01 (0-0.2) K/uL Immature Gran # (Auto) 0.01 (0.00-0.02) K/uL PT (9.0-12.0) Seconds INR (0.9-1.1) APTT (21.0-31.0) Seconds PTT Ratio D-Dimer (0-500) ug/L FEU Sodium (136-145) mmol/L Potassium (3.5-5.1) mmol/L Chloride (98-107) mmol/L Carbon Dioxide (21-32) mmol/L Anion Gap (3-11) BUN (7-18) mg/dl Creatinine (0.6-1.2) mg/dl Est Cr Clr Drug Dosing ml/min Est GFR ( Amer) ml/min Est GFR (Non-Af Amer) ml/min BUN/Creatinine Ratio (10-20) Glucose (70-99) mg/dl Calcium (8.5-10.1) mg/dl Magnesium (1.8-2.4) mg/dl Total Bilirubin (0.2-1) mg/dl AST (15-37) U/L ALT (12-78) U/L Alkaline Phosphatase (45-117) U/L Troponin I (0-0.045) ng/ml Total Protein (6.4-8.2) gm/dl Albumin (3.4-5.0) gm/dl Globulin (2.5-4.0) gm/dl Albumin/Globulin Ratio (0.9-2) Procalcitonin (0-0.5) ng/ml Valproic Acid (50-100) mcg/ml Carbamazepine (4-12) mcg/ml Phenobarbital (15-40) mcg/mL COVID-19 Eval Order SARS-CoV-2 (PCR) (Negative) Imaging Data Attestation: I personally reviewed and interpreted this imaging study as follows: My Impression: Chest x-rayscoliosis. There is some increased interstitial markings likely consistent with her Covid particularly in the right upper lobe ECG Data Attestation: I personally reviewed and interpreted this ECG as follows: Indication: + SOB/dyspnea Rate (beats per minute): 109 Rhythm: + sinus tachycardia ECG Intervals/blocks: + Normal QRS, + Normal QT and + Normal RI ECG [place]: + Normal ECG ST segments: + Normal ST segments ECG Findings: no PACs or no PVCs Comparison ECG Date: from (12/23/18) Change: no significant change MDM Narrative This patient comes in as described above. She was placed in room C 12 on a cardiac cath lab radiology technologist. She has Covid and has not been doing well at the assisted she is hypoxemic she continues to have a fever. IV access was established and she was hydrated with an IV normal saline bolus. She was given ibuprofen for her fever as she had taken Tylenol recently she was kept on supplemental oxygen. Full work-up was obtained. Covid test was positive and I do think needs to be admitted she was hypoxemic. She was given Decadron 6 mg IV. Her D-dimer was just minimally elevated in the 600s and I do not think she likely has a PE. I have consulted Dr. Alfaro to see the patient for these measures. Continuous cardiac monitoring: Orders placed in EMR for continuous cardiac cath lab radiology technologist. Upon my interpretation patient was noted to be in sinus tachycardia with a rate of 100 Impression & Plan COVID, Hypoxemia, Cough, Weakness Discharge Plan Visit Data Chief Complaint: Illness Stated Complaint: ILLNESS ED Provider: Carlos Giang Discharge Problem: COVID, Hypoxemia, Cough, Weakness Patient Disposition: Admitted As Inpatient Discharge Instructions Interventions: ED Discharge Assessment Last Done: 02/01/21 00:32
[2021-01-31 20:29] LABS: Basophils # (auto) 0.01 K/uL (0-0.2); Basophils % (auto) 0.2 %; Eosinophils # (auto) 0.01 K/uL (0-0.5); Eosinophils % (auto) 0.2 %; Hematocrit (blood only) 31.1 % (37-47); Hemoglobin 10.2 g/dL (12.0-16.0); Immature Granulocytes # (auto) 0.01 K/uL (0.00-0.02); Immature Granulocytes % (auto) 0.2 %; Lymphocytes # (auto) 1.12 K/uL (1.2-3.4); Lymphocytes % (auto) 17.3 %; Mean Corpuscular Hemoglobin 30.4 pg (25-34); Mean Corpuscular Hgb Conc 32.8 g/dL (32-36); Mean Corpuscular Volume 92.6 fL (80-100); Mean Platelet Volume 9.4 fL (7.4-10.4); Monocytes # (auto) 0.23 K/uL (0.11-0.59); Monocytes % (auto) 3.5 %; Neutrophils % (auto) 78.6 %; Platelet Count 216 K/uL (130-400); RDW Coefficient of Variation 13.6 % (11.5-14.5); Red Blood Count 3.36 M/uL (4.2-5.4); White Blood Count 6.48 K/uL (4.8-10.8)
[2021-01-31 20:45] LABS: Partial Thromboplastin Ratio 1.3; Partial Thromboplastin Time 34.7 Seconds (21.0-31.0); Prothrombin Time 10.4 Seconds (9.0-12.0)
[2021-01-31 20:46] LABS: Alanine Aminotransferase 22 U/L (12-78); Aspartate Aminotransferase 23 U/L (15-37); BUN Creatinine Ratio 17.3 (10-20); Blood Urea Nitrogen 12 mg/dl (7-18); Calcium 8.4 mg/dl (8.5-10.1); Carbon Dioxide 27 mmol/L (21-32); Chloride 101 mmol/L (98-107); Creatinine Clr Calc Pharmacy 94.9 ml/min; Est GFR (African American) 109.6 ml/min; Est GFR (Non-African American) 94.6 ml/min; Glucose 99 mg/dl (70-99); Magnesium 2.4 mg/dl (1.8-2.4); Sodium 133 mmol/L (136-145)
[2021-01-31 20:51] LABS: Albumin Globulin Ratio 0.6 (0.9-2); Alkaline Phosphatase 64 U/L (45-117); Bilirubin,Total 0.2 mg/dl (0.2-1); Troponin I < 0.015 ng/ml (0-0.045)
[2021-01-31 20:54] LABS: Carbamazepine Tegretol 10.6 mcg/ml (4-12)
[2021-01-31 21:03] LABS: D Dimer 680 ug/L FEU (0-500)
[2021-01-31] MEDS ORDERED: ACETAMINOPHEN 500 MG TAB PO STA (21:22)
[2021-01-31] MEDS ORDERED: dexAMETHasone**PF** 10 MG/ML VIAL IV ONE (21:22)
[2021-01-31] MEDS ORDERED: SODIUM CHLORIDE 0.9% 1000ML 1,000 ML IV ONE (23:41)
--- NOTE | 2021-02-01 00:10 | History & Physical Report ---
Date of Service February 01, 2021 Assessment & Plan (1) Acute respiratory failure with hypoxia: Plan: Secondary to COVID-19 pneumonia/secondary bacterial infection Patient septic. Rule out pulmonary embolism given abnormal D-dimer and pleuritic chest pain. 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 (Patient mother agreeable to potential adverse effects from Remdesivir Rx after discussion.) CS, Ceftriaxone and Doxycycline for secondary bacterial pneumonia Weight-based Lovenox for presumptive PE until PE ruled out by CT angio and LE venous Dopplers. Unable to obtain CT angio study for now due to IV access difficulties.. Pulmonary consult if without improvement in respiratory status Continue home AED therapy. Seizure precautions, Ativan as needed active seizures Inpatient Neurology follow-up eval for seizure disorder/PNES as per patient mother's request. DVT prophylaxis. Lovenox Full code Total critical care time was 45 minutes. Patient's mother requesting updates from providers. Ms. Marcelle Neal, contact #[phone]. Text document was generated using [email or web address] voice recognition software. It may contain grammatical or spelling errors. Kindly contact undersigned for clarification of any documentation item in question. History of Present Illness Chief Complaint: Cough, shortness of breath, possible seizures as per records Primary Care Provider: Marivel Coy PA-C History obtained from patient, family, and records. Patient is a fair historian. Medical history significant for CVA, cerebral palsy, epilepsy, transverse my elitis as per records, chronic anemia (baseline hemoglobin of 11), hypothyroidism. Last confinement 2017 for influenza A bronchopneumonia. Patient moved to [facility] 6 months ago as per family. Few days history of productive cough, wheezing, feeling weak and tired. Covid 19 swab at halfway positive. Patient completed COVID-19 vaccination prior to illness. Patient started on daily oral Decadron. Outpatient CXR from a few days ago was negative for pneumonia as per documentation. No witnessed aspiration as per family. Z-Ortiz initiated for bronchitis by halfway prov ider a few days ago. Worsening symptoms as per patient's family. Daily head shaking episodes followed by left arm jerks the last 3 days as per patient's mother. Patient denies headache symptoms. Possible psychogenic nonepileptic seizures as per outpatient Neurology note from 2 months ago. Patient brought to the ER for worsening symptoms along with pleuritic chest pain complaints. Medical History as above Surgical History : Cholecystectomy, ankle ORIF, CHEMO/BSO Family History : Breast cancer, DM Personal/Social history : Non-smoker, no EtOH intake, disabled, halfway resident Allergies Allergy/AdvReac Type Severity Reaction Status Date / Time lincomycin Allergy Intermediate HIVES Verified 11/16/20 08:33 Home Medications Medication Instructions Recorded Confirmed Type sennosides 8.6 mg-docusate sodium 2 tab PO BID 03/07/18 01/31/21 History 50 mg tablet spironolactone 25 mg tablet 25 mg PO BID 03/07/18 01/31/21 History (Aldactone) melatonin 10 mg tablet 10 mg PO HS 10/29/19 01/31/21 History rosuvastatin 5 mg tablet 5 mg PO DAILY@1200 10/29/19 01/31/21 History Tegretol XR 200 mg tablet,extended 400 mg PO BID 90 Days #360 tab NS 06/25/20 01/31/21 Rx release (carbamazepine) furosemide 20 mg tablet 20 mg PO DAILY 11/16/20 01/31/21 History phenobarbital 32.4 mg tablet 32.4 mg PO BID 11/16/20 01/31/21 History acetaminophen 500 mg tablet 500 mg PO BID PRN tab 12/17/20 01/31/21 History (Tylenol Extra Strength) baclofen 10 mg tablet 10 mg PO QID tab 12/17/20 01/31/21 History omeprazole 20 mg capsule,delayed 20 mg PO DAILY 12/17/20 01/31/21 History release pregabalin 25 mg capsule 25 mg PO BID cap 12/17/20 01/31/21 History pregabalin 50 mg capsule 50 mg PO HS 12/17/20 01/31/21 History divalproex 500 mg tablet,extended See Rx Instructions .ROUTE 12/22/20 01/31/21 Rx release 24 hr (Depakote ER) .COMPLEX #90 tab ascorbic acid (vitamin C) 500 mg 500 mg PO DAILY tab 12/23/20 01/31/21 History tablet aspirin 81 mg chewable tablet 81 mg PO DAILY tab 12/23/20 01/31/21 History bisacodyl 10 mg rectal suppository 10 mg NH DAILY PRN 12/23/20 01/31/21 History (Dulcolax (bisacodyl)) cholecalciferol (vitamin D3) 50 2,000 unit PO DAILY@1200 tab 12/23/20 01/31/21 History mcg (2,000 unit) tablet clonazepam 0.5 mg tablet (Klonopin) 0.5 mg PO TID PRN tab 12/23/20 01/31/21 History cranberry 400 mg capsule 400 mg PO DAILY 12/23/20 01/31/21 History divalproex 250 mg tablet,extended 250 mg PO .COMPLEX 30 Days #30 tab 12/23/20 01/31/21 Rx release 24 hr levothyroxine 50 mcg capsule 50 mcg PO DAILY 12/23/20 01/31/21 History magnesium hydroxide 400 mg/5 mL 30 ml PO DAILY PRN ml 12/23/20 01/31/21 History oral suspension (Milk of Magnesia) sodium phosphates 19 gram-7 118 ml NH DAILY PRN 12/23/20 01/31/21 History gram/118 mL enema (Fleet Enema) vitamin E 400 unit capsule 400 unit PO DAILY@1200 12/23/20 01/31/21 History acetaminophen 325 mg tablet 325 mg PO Q4H PRN 01/31/21 01/31/21 History (Tylenol) azithromycin 250 mg tablet 250 mg PO DAILY 01/31/21 01/31/21 History dexamethasone 6 mg tablet 6 mg PO DAILY 01/31/21 01/31/21 History guaifenesin 100 mg/5 mL oral 200 mg PO QID 01/31/21 01/31/21 History liquid (Robafen) ipratropium 0.5 mg-albuterol 3 mg 3 ml INHALATION QID 01/31/21 01/31/21 History (2.5 mg base)/3 mL nebulization soln mirabegron 50 mg tablet,extended 50 mg PO DAILY@1200 01/31/21 01/31/21 History release 24 hr (Myrbetriq) polyethylene glycol 3350 17 gram 17 g PO DAILY 01/31/21 01/31/21 History oral powder packet (Miralax) potassium chloride 20 mEq 20 meq PO DAILY 01/31/21 01/31/21 History tablet,extended release Past Med/Surg History Medical History Acute cholecystitis Bronchopneumonia Cerebral palsy Cerebral palsy CVA (cerebral vascular accident) WHEN 16 MONTHS OLD Epilepsy Grand mal epilepsy, controlled Headache Urinary tract infection Urinary urgency Surgical History History of cervical discectomy History of cholecystectomy History of open reduction and internal fixation (ORIF) procedure LEFT WRIST, LEFT ANKLE History of total abdominal hysterectomy and bilateral salpingo-oophorectomy Family History Mother Breast cancer Cervical cancer Osteoporosis Father Diabetes Hypertension Other No significant family history Social History Smoking Status: Never smoker Second Hand Exposure: No; Do You Dip or Chew Tobacco: No; Tobacco Cessation Education Requested by Patient: No Hx Alcohol Use: No Hx Substance Use: No Preferred Language: Nepali Communication Ability: Effective Elementary Tutor Required: No Beliefs That Will Affect Care: None Current Living Situation: Personal Care Facility Other Information That Helps Us Care for You: No Feels Safe at Home: Yes Safety Concerns: Feels Safe At This Time Assistive Devices: Wheelchair Review of Systems Review of Systems: As per HPI, all 10 systems reviewed, all other ROS negative Physical Exam Physical Exam: GENERAL: Comfortable, obese, no respiratory distress SKIN: Pallor , warm HEENT: Bespectacled, [place] palpebral conjunctivae, no ptosis, nasal cannula in place, dry buccal mucosa NECK : Supple, short neck, no tenderness CHEST : Decreased breath sounds, occasional expiratory wheezes, no tenderness HEART : Tachycardic, no obvious murmurs ABDOMEN: Some distention, nontender EXTREMITIES : Minimal LE swelling, no LE tenderness, no other conspicuous deformities noted NEUROLOGIC : Coherent, chronic facial asymmetry, MMTS BLE 0/5, RUE 2/5, LUE, 0/5 Results & Data Results & Data ([facility]) Vital Signs (Past 12 Hours) Vital Signs Temp Pulse Resp BP Pulse Ox 01/31/21 23:00 101 H 22 98/67 L 95 01/31/21 22:53 38.3 C H 01/31/21 22:30 99 H 21 109/54 L 97 01/31/21 22:00 103 H 26 H 115/65 96 01/31/21 21:03 39.5 C H 01/31/21 21:00 109 H 20 131/81 97 01/31/21 20:30 106 H 27 H 122/68 99 01/31/21 20:15 107 H 25 H 96 01/31/21 20:03 109 H 31 H 96 01/31/21 19:53 95 01/31/21 19:42 95 01/31/21 19:38 39.6 C H 109 H 22 115/65 95 01/31/21 19:30 107 H 28 H 115/65 96 Laboratory Results Laboratory Results WBC 6.48 K/uL (4.8-10.8) 01/31/21 20:24 RBC 3.36 M/uL (4.2-5.4) L 01/31/21 20:24 Hgb 10.2 g/dL (12.0-16.0) L 01/31/21 20:24 Hct 31.1 % (37-47) L 01/31/21 20:24 MCV 92.6 fL (80-100) 01/31/21 20:24 MCH 30.4 pg (25-34) 01/31/21 20:24 MCHC 32.8 g/dL (32-36) 01/31/21 20:24 RDW Std Deviation 46.0 fL (36.4-46.3) 01/31/21 20:24 RDW Coeff of Jazmine 13.6 % (11.5-14.5) 01/31/21 20:24 Plt Count 216 K/uL (130-400) 01/31/21 20:24 MPV 9.4 fL (7.4-10.4) 01/31/21 20:24 Immature Gran % (Auto) 0.2 % 01/31/21 20:24 Neut % (Auto) 78.6 % 01/31/21 20:24 Lymph % (Auto) 17.3 % 01/31/21 20:24 [place] % (Auto) 3.5 % 01/31/21 20:24 Eos % (Auto) 0.2 % 01/31/21 20:24 Baso % (Auto) 0.2 % 01/31/21 20:24 Neut # (Auto) 5.10 K/uL (1.4-6.5) 01/31/21 20:24 Lymph # (Auto) 1.12 K/uL (1.2-3.4) L 01/31/21 20:24 [place] # (Auto) 0.23 K/uL (0.11-0.59) 01/31/21 20:24 Eos # (Auto) 0.01 K/uL (0-0.5) 01/31/21 20:24 Baso # (Auto) 0.01 K/uL (0-0.2) 01/31/21 20:24 Immature Gran # (Auto) 0.01 K/uL (0.00-0.02) 01/31/21 20:24 PT 10.4 Seconds (9.0-12.0) 01/31/21 20:24 INR 1.0 (0.9-1.1) 01/31/21 20:24 APTT 34.7 Seconds (21.0-31.0) H 01/31/21 20:24 PTT Ratio 1.3 01/31/21 20:24 D-Dimer 680 ug/L FEU (0-500) H* 01/31/21 20:24 Sodium 133 mmol/L (136-145) L 01/31/21 20:24 Potassium 4.0 mmol/L (3.5-5.1) 01/31/21 20:24 Chloride 101 mmol/L (98-107) 01/31/21 20:24 Carbon Dioxide 27 mmol/L (21-32) 01/31/21 20:24 Anion Gap 5.0 (3-11) 01/31/21 20:24 BUN 12 mg/dl (7-18) 01/31/21 20:24 Creatinine 0.71 mg/dl (0.6-1.2) 01/31/21 20:24 Est Cr Clr Drug Dosing 94.9 ml/min 01/31/21 20:24 Est GFR ( Amer) 109.6 ml/min 01/31/21 20:24 Est GFR (Non-Af Amer) 94.6 ml/min 01/31/21 20:24 BUN/Creatinine Ratio 17.3 (10-20) 01/31/21 20:24 Glucose 99 mg/dl (70-99) 01/31/21 20:24 Calcium 8.4 mg/dl (8.5-10.1) L 01/31/21 20:24 Magnesium 2.4 mg/dl (1.8-2.4) 01/31/21 20:24 Total Bilirubin 0.2 mg/dl (0.2-1) 01/31/21 20:24 AST 23 U/L (15-37) 01/31/21 20:24 ALT 22 U/L (12-78) 01/31/21 20:24 Alkaline Phosphatase 64 U/L (45-117) 01/31/21 20:24 Troponin I < 0.015 ng/ml (0-0.045) 01/31/21 20:24 Total Protein 8.0 gm/dl (6.4-8.2) 01/31/21 20:24 Albumin 3.0 gm/dl (3.4-5.0) L 01/31/21 20:24 Globulin 5.0 gm/dl (2.5-4.0) H 01/31/21 20:24 Albumin/Globulin Ratio 0.6 (0.9-2) L 01/31/21 20:24 Procalcitonin 0.20 ng/ml (0-0.5) 01/31/21 20:24 Valproic Acid 54 mcg/ml (50-100) 01/31/21 20:24 Carbamazepine 10.6 mcg/ml (4-12) 01/31/21 20:24 Phenobarbital 17.4 mcg/mL (15-40) 01/31/21 20:24 COVID-19 Eval Order Covid19 at [facility] 01/31/21 20:09 SARS-CoV-2 (PCR) POSITIVE (Negative) A* 01/31/21 20:09 Diagnostic Findings Chest x-ray as per my interpretation cardiomegaly, interstitial and left lower lobe infiltrate EKG as per my interpretation : Rate 110, sinus tachycardia, normal axis, T wave abnormalities inferior leads
[2021-02-01] MEDS ORDERED: DOXYCYCLINE HYCLATE 100 MG in DEXTROSE 5% 100 ML IV STA (00:12)
[2021-02-01] MEDS ORDERED: Heparin IV Adult Wt-Based Standard *NO* Bolus Protocol IV STA (00:12)
[2021-02-01] MEDS ORDERED: DOXYCYCLINE HYCLATE 100 MG CAP PO STA (00:19)
[2021-02-01] MEDS ORDERED: PROMETHAZINE HCL 12.5 MG in SODIUM CHLORIDE 0.9% 50 ML IV PRN (00:21)
[2021-02-01] MEDS ORDERED: LORazepam 1 MG/2 ML VIAL IV PRN (00:21)
[2021-02-01] MEDS ORDERED: REMDESIVIR 200 MG in SODIUM CHLORIDE 0.9% 210 ML IV STA (00:29)
[2021-02-01] MEDS ORDERED: ENOXAPARIN 100 MG/1ML SYR SQ SCH ×2 (00:30→06:00)
[2021-02-01] MEDS ORDERED: HEPARIN SODIUM/DEXTROSE 25,000 UNITS/500 ML BAG IV SCH (00:30)
[2021-02-01] MEDS ORDERED: ENOXAPARIN 80 MG/0.8 ML SYR SQ SCH (00:30)
[2021-02-01] MEDS ORDERED: cefTRIAXone SODIUM 2,000 MG/70 ML BAG IV STA (00:32)
[2021-02-01] MEDS ORDERED: SODIUM CHLORIDE 0.9% 1000ML 1,000 ML IV ONE (01:56)
[2021-02-01] MEDS ORDERED: DIVALPROEX EXTENDED RELEASE 250 MG TABCR PO SCH (02:00)
[2021-02-01] MEDS ORDERED: DIVALPROEX EXTENDED RELEASE 500 MG TAB PO SCH (02:00)
[2021-02-01 04:01] LABS: Appearance Urine Clear (Clear); Bacteria Urine Automated Negative (Negative); Bilirubin Urine Negative (Negative); Blood Urine Negative (Negative); Color Urine Yellow; Glucose Urine UA Negative (Negative); Ketones Urine Negative (Negative); Leukocyte Esterase Urine Negative (Negative); Nitrite Urine Negative (Negative); Protein Urine 1+ (Negative); Specific Gravity Urine 1.023 (1.000-1.030); Urobilinogen Urine Negative (Negative)
[2021-02-01] MEDS: SODIUM CHLORIDE 0.9% 10ML FLUSH IV SCH ×2 (05:23→21:21)
[2021-02-01] MEDS: LEVOTHYROXINE SODIUM 50 MCG TABLET PO SCH (05:25)
[2021-02-01] MEDS: PREGABALIN 50 MG CAP PO SCH ×2 (05:40→20:35)
[2021-02-01] MEDS ORDERED: DOXYCYCLINE HYCLATE 100 MG CAP PO SCH (06:00)
[2021-02-01] MEDS: cefTRIAXone SODIUM 2,000 MG in DEXTROSE 5% 50 ML IV SCH (06:07)
[2021-02-01] MEDS: DOXYCYCLINE HYCLATE 100 MG CAP PO SCH ×2 (06:08→20:33)
--- NOTE | 2021-02-01 06:39 | Ultrasound Report ---
BILATERAL LOWER EXTREMITY VENOUS DOPPLER HISTORY: Acute pain and swelling of the lower leg leg swelling COMPARISON STUDY: 10/29/2019. FINDINGS: There is normal compressibility, flow, and augmentation within the bilateral lower extremit y deep venous systems. IMPRESSION: No DVT within the right or left lower extremity. ACT 112: Negative or not required by law. Electronically signed by: Pasquale Vaca M.D. 02/01/2021 6:38 AM
--- NOTE | 2021-02-01 06:50 | XRay Report ---
XR chest 1V portable HISTORY: 56 years-old Female SEPSIS acute sepsis COMPARISON: Chest radiograph 12/19/2018 TECHNIQUE: Portable AP view of the chest FINDINGS: Cardiac silhouette is enlarged. Pulmonary vascular congestion with mild left lung base right midlung airspace opacities. The lungs are mildly hyperinflated. No pneumothorax. Suggested trace pleural effu sions. Degenerative changes of the shoulders and spine. Postoperative changes of the cervical spine. IMPRESSION: 1. Cardiomegaly with pulmonary vascular congestion. 2. Mild left basilar and right midlung airspace opacities. 3. Trace pleural effusions. ACT 112: Negative or not required by law. The above report was generated using voice recognition software. It may contain grammatical, syntax o r spelling errors. Electronically signed by: Pasquale Vaca M.D. 02/01/2021 6:48 AM
[2021-02-01] MEDS: PREGABALIN 25 MG CAP PO SCH ×2 (07:08→20:35)
[2021-02-01] MEDS: LEVALBUTEROL TARTRATE 15 GM HFA.AER.AD INH SCH ×4 (07:24→19:43)
[2021-02-01] MEDS ORDERED: FUROSEMIDE 20 MG in SYRINGE 0 ML IV ONE ×2 (07:36→15:05)
[2021-02-01] MEDS ORDERED: OPTIRAY 320 125ml IV ONE (08:37)
[2021-02-01] MEDS ORDERED: DEXAMETHASONE 6 MG IV SCH (09:00)
--- NOTE | 2021-02-01 09:25 | CT Scan Report ---
CHEST CTA for PULMONARY ARTERIES CT DOSE: 568.34 mGy.cm HISTORY: Atypical chest pain. Cough. Shortness of breath. TECHNIQUE: Multiaxial CT images of the chest were performed following the intravenous administration of contrast to evaluate the pulmonary arteries. Maximal intensity projection images were also obtaine d. A dose lowering technique was utilized adhering to the principles of ALARA. COMPARISON STUDY: Chest CT 03/05/2018. FINDINGS: Partially visualized cervical spinal fusion hardware is again noted. Normal caliber thoraci c aorta with no evidence for dissection. The heart is normal in size. No pleural or pericardial effus ions. Nondiagnostic evaluation of the majority of the left lung segmental and subsegmental pulmonary arteries as well as the right lung subsegmental pulmonary arteries due to the respiratory motion. How ever, the remaining pulmonary arteries show no filling defects to suggest a pulmonary embolus. Mild c ircumferential thickening of the esophagus suggestive of a mild esophagitis. No significant mediastin al or hilar lymphadenopathy. No fractures within the visualized osseous structures. No pneumothorax. The central airways are patent. Suboptimal evaluation of the lungs due to the respiratory motion. Pat markos consolidative airspace opacities seen within the lungs posteriorly, right greater than left. This is most pronounced within the right upper and lower lobes. This likely represents a pneumonia could be due to aspiration or a viral process. IMPRESSION: 1. No evidence for pulmonary embolus with limitations as described above. 2. Patchy consolidative airspace opacities within the lungs posteriorly, right greater than left. Thi s likely represents a pneumonia and could be due to aspiration or a viral process. ACT 112: Negative or not required by law. Electronically signed by: Mayo Cueto M.D. 02/01/2021 9:24 AM
[2021-02-01] MEDS: ASPIRIN 81 MG ECTAB PO SCH (09:46)
[2021-02-01] MEDS: POLYETHYLENE (MIRALAX) 17 GM PACK PO SCH (09:47)
[2021-02-01] MEDS: PANTOprazole 40 MG TAB PO SCH (09:47)
[2021-02-01] MEDS: BACLOFEN 10 MG TAB PO SCH ×4 (09:47→20:30)
[2021-02-01] MEDS: DOCUSATE SODIUM/SENNA 50/8.6MG TAB PO SCH ×2 (09:47→20:33)
[2021-02-01] MEDS: guaiFENesin SUGAR FREE 100 MG/5 ML UDC PO SCH ×4 (09:48→20:34)
[2021-02-01] MEDS: ALBUMIN 25% 12.5 GM/50 ML VIAL IV SCH ×2 (09:49→11:17)
--- NOTE | 2021-02-01 09:50 | Neurology Consultation ---
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 Patient has considerable left hemispasticity/dystonia at baseline. She also has a chronic cervical myelopathy with evidence of chronic stable myelomalacia involving the right cervical hemicord which likely contributes to her right leg weakness. This patient has been having recurrent seizure-like episodes that are most consistent with psychogenic nonepileptic seizures based on reported semiology. There has been an increase in the frequency of these episodes in the context of recent placement in assisted living facility and furthermore, in the context of recent COVID-19 infection. Although the reported episodes seem most consistent with nonepileptic seizures, I would recommend increasing her dosage of Depakote ER to 1000 mg at bedtime as her valproic acid level tends to run on the low end of the typical therapeutic range for this drug. Patient should continue with carbamazepine and phenobarbital as prescribed. Patient may continue with baclofen and pregabalin for management of chronic spasticity and neuropathic pain. I do not think additional neurological testing such another EEG or brain MRI are immediately necessary as these tests would not likely alter her management. Continue current medical management of COVID-19 infection. History of Present Illness Reason for Consultation: seizure d/o, patient known to me Requesting Physician: William López MD Attending Physician: Jasmin Abad MD History of Present Illness The patient is a 55-year-old female who is known to me. She has a history of hemiplegic cerebral palsy, spastic left hemiparesis, migraines, and seizure disorder. I last evaluated this patient in neurology clinic this past November. She had recently moved into a [facility], earlier this year and has been experiencing significant psychosocial stressors. She has been experiencing a typical seizure-like episodes characterized by head shaking to and fro and generalized shaking of the arms and legs, bilateral, without associated alteration in awareness or alertness. Semiology of these episodes felt to be most likely consistent with psychogenic nonepileptic seizures. The patient did have an EEG completed December 02 of this year that was unremarkable, no epileptiform abnormalities. At baseline, this patient has a rather significant, chronic, spastic left hemiplegia, arm and leg. She had been receiving Botox injections for her spastic dystonia. She has been exhibiting progressive functional decline in functioning, potentially corresponding with her recent move to a [facility]. She has exhibited progressive weakness of the lower limbs, especially the right leg and I had recommended some up-to-date evaluations at her last appointment with me including MRI of the cervical and thoracic spine as well as an EMG. Thoracic spine signal largely unremarkable. Does have a chronic small stable rightward disc protrusion at C7-8 and moderate S-shaped scoliosis. Her C-spine MRI revealed changes consistent with anterior fusion at C3-7 with artifact from hardware partially obscuring the study. There was evidence of a 1.2 cm area of increased T2 signal within the right lateral aspect of the cervical spinal cord at theC3-4 level, unchanged compared to previous study done in 2010. The EMG was completed with Dr. Larsen on January 15 and was largely unremarkable. No evidence for lower motor neuron causes of the right lower leg weakness. This patient's last brain MRI was completed November 30, 2020 and revealed stable ventricular asymmetry as well as a chronic lacunar infarct within the right basal ganglia. She is prescribed Depakote ER, 750 mg at bedtime, phenobarbital 32.4 mg twice daily, Tegretol-XR 400 mg twice daily. She is on pregabalin and baclofen for neuropathic pain and dystonia/spasms. The patient presented to the emergency department yesterday for further evaluation and management of cough and shortness of breath in the context of COVID-19 infection, recently diagnosed. She had been started on oral Decadron. She has been having an increase in shaking episodes potentially worrisome for seizure activity. The patient does recall her recent seizure episodes and they are as described above, characterized by head shaking to and fro, and generalized shaking of the arms and legs, without associated loss of awareness or consciousness. Patient did have up-to-date anticonvulsant drug levels checked, done yesterday, valproic acid level 54, carbamazepine 10.6, phenobarbital 17.4. Allergies Allergy/AdvReac Type Severity Reaction Status Date / Time lincomycin Allergy Intermediate HIVES Verified 11/16/20 08:33 Home Medications Medication Instructions Recorded Confirmed Type sennosides 8.6 mg-docusate sodium 2 tab PO BID 03/07/18 01/31/21 History 50 mg tablet spironolactone 25 mg tablet 25 mg PO BID 03/07/18 01/31/21 History (Aldactone) melatonin 10 mg tablet 10 mg PO HS 10/29/19 01/31/21 History rosuvastatin 5 mg tablet 5 mg PO DAILY@1200 10/29/19 01/31/21 History Tegretol XR 200 mg tablet,extended 400 mg PO BID 90 Days #360 tab NS 06/25/20 01/31/21 Rx release (carbamazepine) furosemide 20 mg tablet 20 mg PO DAILY 11/16/20 01/31/21 History phenobarbital 32.4 mg tablet 32.4 mg PO BID 11/16/20 01/31/21 History acetaminophen 500 mg tablet 500 mg PO BID PRN tab 12/17/20 01/31/21 History (Tylenol Extra Strength) baclofen 10 mg tablet 10 mg PO QID tab 12/17/20 01/31/21 History omeprazole 20 mg capsule,delayed 20 mg PO DAILY 12/17/20 01/31/21 History release pregabalin 25 mg capsule 25 mg PO BID cap 12/17/20 01/31/21 History pregabalin 50 mg capsule 50 mg PO HS 12/17/20 01/31/21 History divalproex 500 mg tablet,extended See Rx Instructions .ROUTE 12/22/20 01/31/21 Rx release 24 hr (Depakote ER) .COMPLEX #90 tab ascorbic acid (vitamin C) 500 mg 500 mg PO DAILY tab 12/23/20 01/31/21 History tablet aspirin 81 mg chewable tablet 81 mg PO DAILY tab 12/23/20 01/31/21 History bisacodyl 10 mg rectal suppository 10 mg AL DAILY PRN 12/23/20 01/31/21 History (Dulcolax (bisacodyl)) cholecalciferol (vitamin D3) 50 2,000 unit PO DAILY@1200 tab 12/23/20 01/31/21 History mcg (2,000 unit) tablet clonazepam 0.5 mg tablet (Klonopin) 0.5 mg PO TID PRN tab 12/23/20 01/31/21 History cranberry 400 mg capsule 400 mg PO DAILY 12/23/20 01/31/21 History divalproex 250 mg tablet,extended 250 mg PO .COMPLEX 30 Days #30 tab 12/23/20 01/31/21 Rx release 24 hr levothyroxine 50 mcg capsule 50 mcg PO DAILY 12/23/20 01/31/21 History magnesium hydroxide 400 mg/5 mL 30 ml PO DAILY PRN ml 12/23/20 01/31/21 History oral suspension (Milk of Magnesia) sodium phosphates 19 gram-7 118 ml AL DAILY PRN 12/23/20 01/31/21 History gram/118 mL enema (Fleet Enema) vitamin E 400 unit capsule 400 unit PO DAILY@1200 12/23/20 01/31/21 History acetaminophen 325 mg tablet 325 mg PO Q4H PRN 01/31/21 01/31/21 History (Tylenol) azithromycin 250 mg tablet 250 mg PO DAILY 01/31/21 01/31/21 History dexamethasone 6 mg tablet 6 mg PO DAILY 01/31/21 01/31/21 History guaifenesin 100 mg/5 mL oral 200 mg PO QID 01/31/21 01/31/21 History liquid (Robafen) ipratropium 0.5 mg-albuterol 3 mg 3 ml INHALATION QID 01/31/21 01/31/21 History (2.5 mg base)/3 mL nebulization soln mirabegron 50 mg tablet,extended 50 mg PO DAILY@1200 01/31/21 01/31/21 History release 24 hr (Myrbetriq) polyethylene glycol 3350 17 gram 17 g PO DAILY 01/31/21 01/31/21 History oral powder packet (Miralax) potassium chloride 20 mEq 20 meq PO DAILY 01/31/21 01/31/21 History tablet,extended release Patient History Medical History Acute cholecystitis Bronchopneumonia Cerebral palsy Cerebral palsy CVA (cerebral vascular accident) WHEN 16 MONTHS OLD Epilepsy Grand mal epilepsy, controlled Headache Urinary tract infection Urinary urgency Surgical History History of cervical discectomy History of cholecystectomy History of open reduction and internal fixation (ORIF) procedure LEFT WRIST, LEFT ANKLE History of total abdominal hysterectomy and bilateral salpingo-oophorectomy Family History Mother Breast cancer Cervical cancer Osteoporosis Father Diabetes Hypertension Other No significant family history Social History Smoking Status: Never smoker Second Hand Exposure: No; Do You Dip or Chew Tobacco: No; Tobacco Cessation Education Requested by Patient: No Hx Alcohol Use: No Hx Substance Use: No Preferred Language: Citizen Of [place] Communication Ability: Effective Soil Conservationist Required: No Beliefs That Will Affect Care: None Current Living Situation: Personal Care Facility Other Information That Helps Us Care for You: No Feels Safe at Home: Yes Safety Concerns: Feels Safe At This Time Assistive Devices: Glasses and Wheelchair Review of Systems Constitutional: + fever and + weakness Eyes: no blind spots and no diplopia Ear, Nose, Mouth, Throat: no ear pain and no hearing loss Respiratory: + cough and + dyspnea Cardiovascular: no chest pain and no palpitations Gastrointestinal: no constipation and no diarrhea/loose stools Genitourinary: no urinary urgency and no urinary incontinence Musculoskeletal: + back pain, + neck pain, + myalgia and + muscle weakness Integumentary: no rash and no lesions Neurologic: as per Subjective / HPI, + localized weakness and + seizure-like activity; no headache(s) and no memory loss Psychiatric: no behavioral changes, no depression, no abnormal sleep pattern and no anxiety Hematologic / Lymphatic: no easy bruising and no lymphadenopathy Exam (Neuro) Constitutional: well developed and well nourished; no acute distress Eyes: normal visual rodriguez by confrontation, PERRL, normal accommodation and EOM intact bilaterally; no fundoscopic abnormality, no nystagmus and no papilledema Cardiovascular: Vessels: normal carotid upstroke; no carotid bruit Neurologic: Oriented to:: Person, Place and Time Memory: Short Term Intact and Remote Intact Attention: Span Intact and Concentration Intact Language: Naming Objects and Repeating Phrases Speech Fluency: negative Dysarthria Speech Aphasia: negative Aphasia Fund of Knowledge: Current Events, Past History and Vocabulary Cranial Nerves: Normal II (Visual rodriguez full to confrontation, visual acuity normal), III, IV, (Pupils equal round reactive to light and accommodation, eye movements normal), V (Facial sensation intact), VIII (Hearing intact), IX, X (Palate elevates to midline), XI (Shoulder shrug intact) and XII (Tongue protrudes to midline); Abnorm VII (Facial asymmetry noted) Motor Strength: Hemiplegia Laterality: Left; negative Normal Lower Extremities or Normal Upper Extremities Spasticity: Arms Laterality: Left and Legs Laterality: Left Muscle Bulk/Involuntary Movements: No Involuntary Movements; negative Muscle Atrophy Sensation: Light Touch Intact, Pain/Temperature Intact, Vibration Intact and Proprioception Intact Multimedia Production Assistant rdination: Finger-Nose Abnormal and Heel-Reyes Abnormal; negative Dysdiadochokinesia Deep Tendon Reflexes: Rt Triceps: 2+, Lt Triceps: 3+, Rt Biceps: 2+, Lt Biceps: 3+, Rt Brachioradialis: 2+, Lt Brachioradialis: 3+, Rt Patellar: 2+, Lt Patellar: 3+, Rt Ankle: 1+ and Lt Ankle: 2+ Special Tests: Babinski Present (left) Details: Patient has a chronic spastic left hemiparesis, arm and leg, facial asymmetry. Strength for the left arm and leg 0/5. Strength of the right upper limb intact with normal [id number] and movements in general. Reduced strength of the right lower extremity again noted. Although does withdrawal to plantar stimulation. Results & Data ([facility]) Vital Signs (Past 12 Hours) Vital Signs Temp Pulse Pulse Resp BP BP Pulse Ox 02/01/21 07:39 36.6 C 85 20 112/72 92 02/01/21 07:26 84 20 94 02/01/21 03:15 36.8 C 77 16 98/61 L 98 02/01/21 01:27 90/59 L 02/01/21 01:01 37 C 87 16 85/50 L 90 01/31/21 23:00 101 H 22 98/67 L 95 01/31/21 22:53 38.3 C H 01/31/21 22:30 99 H 21 109/54 L 97 01/31/21 22:00 103 H 26 H 115/65 96 Laboratory Results WBC 6.48, hemoglobin 10.2, hematocrit 31.1, platelet count 216, sodium 133, potassium 4.0, BUN 12, creatinine 0.71, glucose 99, AST 23, ALT 22, troponin less than 0.015, SARS-CoV-2 PCR positive, anticonvulsant drug levels as described in the HPI. Diagnostic Findings Imaging reviewed including brain MRI, C-spine MRI, and thoracic spine MRI, as described in the history of present illness. I reviewed the images as well as the radiologist's interpretation of these tests. Recent EMG and EEG findings are as described in the history of present illness as well. Coding Level of Care Code 80311 Initial Inpt Care Lvl 3 Diagnoses Epilepsy G40.909 Cerebral palsy G80.9 Myelopathy G95.9
[2021-02-01] MEDS: dexAMETHasone 6 MG in SYRINGE 0 ML IV SCH (10:10)
[2021-02-01] MEDS: MIRABEGRON ER 25 MG TAB PO SCH (12:34)
[2021-02-01] MEDS: ROSUVASTATIN CALCIUM 5 MG TAB PO SCH (12:34)
[2021-02-01 12:44] LABS: Basophils # (auto) 0.01 K/uL (0-0.2); Basophils % (auto) 0.1 %; Eosinophils # (auto) 0.02 K/uL (0-0.5); Eosinophils % (auto) 0.3 %; Hematocrit (blood only) 31.3 % (37-47); Hemoglobin 10.1 g/dL (12.0-16.0); Immature Granulocytes # (auto) 0.03 K/uL (0.00-0.02); Immature Granulocytes % (auto) 0.4 %; Lymphocytes # (auto) 0.81 K/uL (1.2-3.4); Lymphocytes % (auto) 10.6 %; Mean Corpuscular Hemoglobin 29.9 pg (25-34); Mean Corpuscular Hgb Conc 32.3 g/dL (32-36); Mean Corpuscular Volume 92.6 fL (80-100); Mean Platelet Volume 10.1 fL (7.4-10.4); Monocytes # (auto) 0.33 K/uL (0.11-0.59); Monocytes % (auto) 4.3 %; Neutrophils # (auto) 6.46 K/uL (1.4-6.5); Neutrophils % (auto) 84.3 %; Platelet Count 199 K/uL (130-400); RDW Coefficient of Variation 13.6 % (11.5-14.5); RDW Standard Deviation 45.9 fL (36.4-46.3); Red Blood Count 3.38 M/uL (4.2-5.4); White Blood Count 7.66 K/uL (4.8-10.8)
[2021-02-01 13:10] LABS: Alanine Aminotransferase 22 U/L (12-78); Albumin Globulin Ratio 0.5 (0.9-2); Albumin Level 2.9 gm/dl (3.4-5.0); Alkaline Phosphatase 50 U/L (45-117); Aspartate Aminotransferase 23 U/L (15-37); BUN Creatinine Ratio 16.2 (10-20); Bilirubin,Total < 0.1 mg/dl (0.2-1); Blood Urea Nitrogen 9 mg/dl (7-18); Calcium 8.5 mg/dl (8.5-10.1); Carbon Dioxide 25 mmol/L (21-32); Chloride 104 mmol/L (98-107); Creatinine Clr Calc Pharmacy 123.2 ml/min; Est GFR (African American) 121.4 ml/min; Est GFR (Non-African American) 104.8 ml/min; Globulin 5.8 gm/dl (2.5-4.0); Glucose 108 mg/dl (70-99); Potassium 4.1 mmol/L (3.5-5.1); Sodium 137 mmol/L (136-145); Total Protein 8.7 gm/dl (6.4-8.2); Troponin I < 0.015 ng/ml (0-0.045)
--- NOTE | 2021-02-01 13:20 | Hospitalist Progress Note ---
Date of Service February 01, 2021 Assessment & Plan (1) Acute respiratory failure with hypoxia: Plan: Sepsis Secondary to COVID-19 pneumonia ?secondary bacterial infection Currently on dexamethasone and remdesivir Continue ceftriaxone and doxycycline for now CT PE was negative for PE and Dopplers negative for DVT. Lovenox dosing changed to prophylactic dose Oxygen requirement increased from 3 L on admission to 6 L at this time. We will keep negative fluid balance. 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 Lovenox Full code Patient's mother requesting updates from providers. Magali Marcelle Neal, contact #[phone]. Called Mother and updated her Admission and Anticipated Discharge Date Admission Date: February 01, 2021 Subjective 56-year-old woman with history of CVA, cerebral palsy, epilepsy, hypothyroidism, chronic anemia, transverse myelitis per records who presents to the hospital with productive cough, wheezing and weakness. Was noted to have COVID-19 at the halfway. And completed COVID-19 vaccination prior to illness. Has been having worsening symptoms associated with daily shaking episodes/seizures necessitating presentation to the hospital. Patient seen and examined today. Reports cough, associated with pleuritic chest pain. Reports occasional shortness of breath Reports weakness, myalgias Reports some headache. Denies any dizziness, nausea, vomiting, abdominal pain, diarrhea. Denies any dysuria, frequency, urgency Review of Systems Review of Systems: All systems reviewed & are unremarkable except as noted in Subjective Physical Exam Constitutional: + well hydrated; no acute distress Eyes: PERRL, conjunctivae normal, anicteric sclerae ENMT: external ear and nose normal, oropharynx normal Respiratory: Not in respiratory distress On 6l/min nasal oxygen Basilar crackles especially on right lower lung Cardiovascular: RRR S1 S2 Gastrointestinal (Abdomen): normal bowel sounds, soft, nontender, no hepatosplenomegaly Musculoskeletal: Left hemiplegia with spasticity Neurologic: PERRL, EOMI, accommodation nl, no face palsy, no dysarthria Psychiatric: A+Ox3, euthymic affect Results & Data Results & Data ([facility]) Vital Signs (Past 12 Hours) Vital Signs Temp Pulse Resp BP Pulse Ox 02/01/21 12:03 36.6 C 101 H 116/75 95 02/01/21 11:25 98 H 18 95 02/01/21 09:00 95 H 20 90 02/01/21 07:39 36.6 C 85 20 112/72 92 02/01/21 07:26 84 20 94 02/01/21 03:15 36.8 C 77 16 98/61 L 98 02/01/21 01:27 90/59 L Laboratory Results Abnormal lab results 01/31/21 01/31/21 01/31/21 Range/Units 20:09 20:24 20:24 RBC (4.2-5.4) M/uL Hgb (12.0-16.0) g/dL Hct (37-47) % Lymph # (Auto) (1.2-3.4) K/uL Immature Gran # (Auto) (0.00-0.02) K/uL APTT 34.7 H (21.0-31.0) Seconds D-Dimer 680 H* (0-500) ug/L FEU Sodium 133 L (136-145) mmol/L Creatinine (0.6-1.2) mg/dl Glucose (70-99) mg/dl Calcium 8.4 L (8.5-10.1) mg/dl Total Bilirubin (0.2-1) mg/dl Total Protein (6.4-8.2) gm/dl Albumin 3.0 L (3.4-5.0) gm/dl Globulin 5.0 H (2.5-4.0) gm/dl Albumin/Globulin Ratio 0.6 L (0.9-2) Urine Protein (Negative) Urine RBC (Auto) (0-4) /hpf U Epithel Cells (Auto) (0-5) /lpf SARS-CoV-2 (PCR) POSITIVE A* (Negative) 01/31/21 02/01/21 02/01/21 Range/Units 20:24 02:45 12:27 RBC 3.36 L 3.38 L (4.2-5.4) M/uL Hgb 10.2 L 10.1 L (12.0-16.0) g/dL Hct 31.1 L 31.3 L (37-47) % Lymph # (Auto) 1.12 L 0.81 L (1.2-3.4) K/uL Immature Gran # (Auto) 0.03 H (0.00-0.02) K/uL APTT (21.0-31.0) Seconds D-Dimer (0-500) ug/L FEU Sodium (136-145) mmol/L Creatinine (0.6-1.2) mg/dl Glucose (70-99) mg/dl Calcium (8.5-10.1) mg/dl Total Bilirubin (0.2-1) mg/dl Total Protein (6.4-8.2) gm/dl Albumin (3.4-5.0) gm/dl Globulin (2.5-4.0) gm/dl Albumin/Globulin Ratio (0.9-2) Urine Protein 1+ H (Negative) Urine RBC (Auto) 5-10 H (0-4) /hpf U Epithel Cells (Auto) 10-20 H (0-5) /lpf SARS-CoV-2 (PCR) (Negative) 02/01/21 Range/Units 12:27 RBC (4.2-5.4) M/uL Hgb (12.0-16.0) g/dL Hct (37-47) % Lymph # (Auto) (1.2-3.4) K/uL Immature Gran # (Auto) (0.00-0.02) K/uL APTT (21.0-31.0) Seconds D-Dimer (0-500) ug/L FEU Sodium (136-145) mmol/L Creatinine 0.54 L (0.6-1.2) mg/dl Glucose 108 H (70-99) mg/dl Calcium (8.5-10.1) mg/dl Total Bilirubin < 0.1 L (0.2-1) mg/dl Total Protein 8.7 H (6.4-8.2) gm/dl Albumin 2.9 L (3.4-5.0) gm/dl Globulin 5.8 H (2.5-4.0) gm/dl Albumin/Globulin Ratio 0.5 L (0.9-2) Urine Protein (Negative) Urine RBC (Auto) (0-4) /hpf U Epithel Cells (Auto) (0-5) /lpf SARS-CoV-2 (PCR) (Negative)
--- NOTE | 2021-02-01 14:24 | Electrocardiogram Report ---
Test Reason : Blood Pressure : / mmHG Vent. Rate : 109 BPM Atrial Rate : 109 BPM P-R Int : 170 ms QRS Dur : 066 ms QT Int : 306 ms P-R-T Axes : 034 031 022 degrees QTc Int : 412 ms Sinus tachycardia Otherwise normal ECG When compared with ECG of 23-DEC-2018 07:24, No significant change was found Confirmed by Lester Jerome ([id number]) on 02/01/2021 2:24:19 PM Referred By: REFERRED SELF Confirmed By:Angelo Jerome
[2021-02-01] MEDS ORDERED: FUROSEMIDE 40 MG/4 ML VIAL IV SCH (15:15)
[2021-02-01] MEDS: ACETAMINOPHEN 325 MG TAB PO PRN (18:43)
[2021-02-01] MEDS: REMDESIVIR 100 MG in SODIUM CHLORIDE 0.9% 230 ML IV SCH (19:27)
[2021-02-01] MEDS: DIVALPROEX EXTENDED RELEASE 500 MG TAB PO SCH (20:31)
[2021-02-01] MEDS: MELATONIN 3 MG TAB PO SCH (20:36)
[2021-02-01] MEDS: ENOXAPARIN INJ 40 MG/0.4 ML SYR SQ SCH (21:27)
[2021-02-02] MEDS ORDERED: cefTRIAXone SODIUM 2,000 MG in DEXTROSE 5% 50 ML IV SCH
[2021-02-02] MEDS: ACETAMINOPHEN 325 MG TAB PO PRN (03:42)
[2021-02-02] MEDS: cefTRIAXone SODIUM 2,000 MG in DEXTROSE 5% 50 ML IV SCH (05:53)
[2021-02-02] MEDS: LEVOTHYROXINE SODIUM 50 MCG TABLET PO SCH (05:57)
[2021-02-02 07:28] LABS: Hematocrit (blood only) 28.5 % (37-47); Hemoglobin 9.4 g/dL (12.0-16.0); Mean Corpuscular Hemoglobin 30.2 pg (25-34); Mean Corpuscular Volume 91.6 fL (80-100); Mean Platelet Volume 9.9 fL (7.4-10.4); Platelet Count 241 K/uL (130-400); RDW Coefficient of Variation 13.7 % (11.5-14.5); RDW Standard Deviation 46.1 fL (36.4-46.3); Red Blood Count 3.11 M/uL (4.2-5.4); White Blood Count 4.64 K/uL (4.8-10.8)
[2021-02-02 07:48] LABS: D Dimer 580 ug/L FEU (0-500)
[2021-02-02] MEDS: LEVALBUTEROL TARTRATE 15 GM HFA.AER.AD INH SCH (07:54)
[2021-02-02 08:17] LABS: Albumin Globulin Ratio 0.6 (0.9-2); Albumin Level 2.5 gm/dl (3.4-5.0); BUN Creatinine Ratio 22.4 (10-20); Bilirubin,Total 0.2 mg/dl (0.2-1); C Reactive Protein 18.3 mg/dl (0-0.29); Calcium 8.1 mg/dl (8.5-10.1); Creatinine Clr Calc Pharmacy 126.4 ml/min; Est GFR (African American) 122.2 ml/min; Est GFR (Non-African American) 105.4 ml/min; Globulin 4.3 gm/dl (2.5-4.0); Magnesium 2.3 mg/dl (1.8-2.4); Potassium 2.8 mmol/L (3.5-5.1); Total Protein 6.8 gm/dl (6.4-8.2)
[2021-02-02] MEDS: DOCUSATE SODIUM/SENNA 50/8.6MG TAB PO SCH ×2 (09:45→20:32)
[2021-02-02] MEDS: ASPIRIN 81 MG ECTAB PO SCH (09:48)
[2021-02-02] MEDS: BACLOFEN 10 MG TAB PO SCH ×4 (09:49→20:31)
[2021-02-02] MEDS: PANTOprazole 40 MG TAB PO SCH (09:49)
[2021-02-02] MEDS: DOXYCYCLINE HYCLATE 100 MG CAP PO SCH ×2 (09:50→20:31)
[2021-02-02] MEDS: dexAMETHasone 6 MG in SYRINGE 0 ML IV SCH (09:50)
[2021-02-02] MEDS: ENOXAPARIN INJ 40 MG/0.4 ML SYR SQ SCH ×2 (09:51→20:32)
[2021-02-02] MEDS: guaiFENesin SUGAR FREE 100 MG/5 ML UDC PO SCH ×4 (09:51→20:33)
[2021-02-02] MEDS: POLYETHYLENE (MIRALAX) 17 GM PACK PO SCH (09:52)
[2021-02-02] MEDS ORDERED: LEVALBUTEROL TARTRATE 15 GM HFA.AER.AD INH PRN (10:24)
[2021-02-02] MEDS: PREGABALIN 25 MG CAP PO SCH ×2 (10:43→20:43)
--- NOTE | 2021-02-02 13:06 | Hospitalist Progress Note ---
Date of Service February 02, 2021 Assessment & Plan (1) Acute respiratory failure with hypoxia: Plan: Sepsis Secondary to COVID-19 pneumonia ?secondary bacterial infection Currently on dexamethasone and remdesivir Continue ceftriaxone and doxycycline for now CT PE was negative for PE and Dopplers negative for DVT. Oxygen requirement increased from 3 L on admission to 6 L yesterday. Give 1 dose of Lasix 20 mg with good diuresis [-1550 cc]. Oxygen requirements down to 3 L/min today. May benefit from additional dose of Lasix to keep patient on negative fluid balance. However, patient is severely hypokalemic today at 2.8. Will hold off diuresis and aggressively replete potassium. 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 Lovenox Full code Patient's mother requesting updates from providers. Ms. Marcelle Neal, contact #[phone]. Admission and Anticipated Discharge Date Admission Date: February 01, 2021 Subjective 56-year-old woman with history of CVA, cerebral palsy, epilepsy, hypothyroidism, chronic anemia, transverse myelitis per records who presents to the hospital with productive cough, wheezing and weakness. [facility] And completed COVID-19 va ccination prior to illness. Has been having worsening symptoms associated with daily shaking episodes/seizures necessitating presentation to the hospital. Patient seen and examined today. Reports cough is mildly improved Still has pleuritic chest pain with cough Reports occasional shortness of breath Reports weakness, myalgias are improved Denied headache, dizziness, nausea, vomiting, abdominal pain, diarrhea. Denies any dysuria, frequency, urgency No seizure episodes so far today Review of Systems Review of Systems: All systems reviewed & are unremarkable except as noted in Subjective Physical Exam Constitutional: + well hydrated; no acute distress Eyes: PERRL, conjunctivae normal, anicteric sclerae ENMT: external ear and nose normal, oropharynx normal Respiratory: Not in resp distress On nasal cannula at 3 L/min Basilar crackles Cardiovascular: RRR. S1-S2 Gastrointestinal (Abdomen): normal bowel sounds, soft, nontender, no hepatosplenomegaly Musculoskeletal: Left hemiplegia with spasticity Neurologic: PERRL, EOMI, accommodation nl, no face palsy, no dysarthria Psychiatric: A+Ox3, euthymic affect Results & Data Results & Data ([facility]) Vital Signs (Past 12 Hours) Vital Signs Temp Pulse Pulse Resp BP Pulse Ox 02/02/21 11:16 36.8 C 82 19 103/69 96 02/02/21 07:54 102 H 16 94 02/02/21 07:18 37.3 C 82 20 106/64 92 02/02/21 04:29 38.5 C H 02/02/21 03:34 39.3 C H 99 H 20 122/77 93 02/02/21 01:53 95 H Laboratory Results Abnormal lab results 02/02/21 02/02/21 02/02/21 Range/Units 06:02 06:02 06:02 WBC 4.64 L (4.8-10.8) K/uL RBC 3.11 L (4.2-5.4) M/uL Hgb 9.4 L (12.0-16.0) g/dL Hct 28.5 L (37-47) % D-Dimer 580 H* (0-500) ug/L FEU Potassium 2.8 L D (3.5-5.1) mmol/L Creatinine 0.53 L (0.6-1.2) mg/dl BUN/Creatinine Ratio 22.4 H (10-20) Glucose 102 H (70-99) mg/dl Calcium 8.1 L (8.5-10.1) mg/dl C-Reactive Protein 18.30 H (0-0.29) mg/dl Albumin 2.5 L (3.4-5.0) gm/dl Globulin 4.3 H (2.5-4.0) gm/dl Albumin/Globulin Ratio 0.6 L (0.9-2)
[2021-02-02] MEDS: MIRABEGRON ER 25 MG TAB PO SCH (14:50)
[2021-02-02] MEDS: ROSUVASTATIN CALCIUM 5 MG TAB PO SCH (14:51)
[2021-02-02] MEDS ORDERED: POTASSIUM CHLORIDE CRTAB 20 MEQ TABCR PO STA ×2 (15:16→21:35)
[2021-02-02] MEDS: POTASSIUM CHLORIDE / WTR 10 MEQ/100 ML PLCT IV SCH ×3 (15:54→20:01)
[2021-02-02] MEDS: DIVALPROEX EXTENDED RELEASE 500 MG TAB PO SCH (20:30)
[2021-02-02] MEDS: MELATONIN 3 MG TAB PO SCH (20:33)
[2021-02-02] MEDS: PREGABALIN 50 MG CAP PO SCH (20:43)
[2021-02-02] MEDS: REMDESIVIR 100 MG in SODIUM CHLORIDE 0.9% 230 ML IV SCH (20:43)
[2021-02-02] MEDS ORDERED: POTASSIUM CHLORIDE PWD 20 MEQ PACK PO STA (21:09)
[2021-02-02] MEDS: SODIUM CHLORIDE 0.9% 10ML FLUSH IV SCH (23:01)
[2021-02-02] MEDS ORDERED: POTASSIUM CHLORIDE PWD 20 MEQ PACK PO ONE (23:30)
[2021-02-02] MEDS ORDERED: POTASSIUM CHLORIDE CRTAB 20 MEQ TABCR PO ONE (23:30)
[2021-02-03] MEDS: cefTRIAXone SODIUM 2,000 MG in DEXTROSE 5% 50 ML IV SCH (06:10)
[2021-02-03] MEDS: LEVOTHYROXINE SODIUM 50 MCG TABLET PO SCH (06:14)
[2021-02-03 06:31] LABS: Hematocrit (blood only) 29.2 % (37-47); Hemoglobin 9.5 g/dL (12.0-16.0); Mean Corpuscular Hemoglobin 30.2 pg (25-34); Mean Corpuscular Hgb Conc 32.5 g/dL (32-36); Mean Corpuscular Volume 92.7 fL (80-100); Mean Platelet Volume 9.2 fL (7.4-10.4); Platelet Count 283 K/uL (130-400); RDW Coefficient of Variation 13.7 % (11.5-14.5); RDW Standard Deviation 46.2 fL (36.4-46.3); Red Blood Count 3.15 M/uL (4.2-5.4)
[2021-02-03 07:10] LABS: D Dimer 600 ug/L FEU (0-500)
[2021-02-03 07:22] LABS: Albumin Globulin Ratio 0.6 (0.9-2); Albumin Level 2.5 gm/dl (3.4-5.0); BUN Creatinine Ratio 21.6 (10-20); Bilirubin,Total 0.2 mg/dl (0.2-1); C Reactive Protein 13.7 mg/dl (0-0.29); Calcium 8.5 mg/dl (8.5-10.1); Creatinine Clr Calc Pharmacy 126.1 ml/min; Est GFR (African American) 122.2 ml/min; Est GFR (Non-African American) 105.4 ml/min; Globulin 4.3 gm/dl (2.5-4.0); Magnesium 2.5 mg/dl (1.8-2.4); Phosphorus 3.1 mg/dl (2.5-4.9); Potassium 4.6 mmol/L (3.5-5.1); Total Protein 6.8 gm/dl (6.4-8.2)
[2021-02-03] MEDS: BACLOFEN 10 MG TAB PO SCH ×4 (08:30→19:46)
[2021-02-03] MEDS: dexAMETHasone 6 MG in SYRINGE 0 ML IV SCH (08:36)
[2021-02-03] MEDS: ENOXAPARIN INJ 40 MG/0.4 ML SYR SQ SCH ×2 (08:36→19:52)
[2021-02-03] MEDS: PANTOprazole 40 MG TAB PO SCH (08:37)
[2021-02-03] MEDS: DOCUSATE SODIUM/SENNA 50/8.6MG TAB PO SCH ×2 (08:37→19:53)
[2021-02-03] MEDS: ASPIRIN 81 MG ECTAB PO SCH (08:37)
[2021-02-03] MEDS: DOXYCYCLINE HYCLATE 100 MG CAP PO SCH ×2 (08:38→19:53)
[2021-02-03] MEDS: POLYETHYLENE (MIRALAX) 17 GM PACK PO SCH (08:38)
[2021-02-03] MEDS: guaiFENesin SUGAR FREE 100 MG/5 ML UDC PO SCH ×4 (08:45→19:52)
[2021-02-03] MEDS: PREGABALIN 25 MG CAP PO SCH ×2 (08:45→20:10)
[2021-02-03] MEDS: ROSUVASTATIN CALCIUM 5 MG TAB PO SCH (12:46)
[2021-02-03] MEDS: MIRABEGRON ER 25 MG TAB PO SCH (12:46)
--- NOTE | 2021-02-03 15:46 | Hospitalist Progress Note ---
Date of Service February 03, 2021 Assessment & Plan (1) Acute respiratory failure with hypoxia: Plan: Sepsis Secondary to COVID-19 pneumonia ? secondary bacterial infection Chronic oxygen 2L at bedtime -CTA:Patchy consolidative airspace opacities within the lungs posteriorly, right greater than left. This likely represents a pneumonia and could be due to aspiration or a viral process. -Blood Cultures: Negative to date -Venous Dopplers:No DVT within the right or left lower extremity. 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 Continue home carbamazepine, phenobarbital for seizure Depakote increased to 1000 mg at bedtime per neurology Continue home baclofen, pregabalin for spasticity Needs follow up with Neurology upon discharge Hx CVA Continue aspirin, statin Hx Cerebral Palsy Hx Transverse myelitis as per records Continue home meds Chronic anemia No bleeding issues Monitor CBC Hypothyroidism Continue levothyroxine DVT Px: Lovenox SQ Code Status Full code Admission and Anticipated Discharge Date Admission Date: February 01, 2021 Subjective Patient is seen and examined at bedside States having minimal cough Denies dyspnea, dizziness, nausea, abdominal pain Offers no other complaint Saturating well on 2 L of oxygen Review of Systems Review of Systems: All systems reviewed & are unremarkable except as noted in Subjective Physical Exam Physical Exam: Physical Exam: Vitals signs as noted above General Appearance:Obese, no apparent distress Head: normocephalic, Atraumatic Eyes: normal inspection, EOMI Neck: supple, Trachea midline Respiratory/Chest: Decreased breath sounds, Basal Crackles, No accessory muscle use Cardiovascular: S1, S2, No murmur Abdomen/GI:Soft, Non tender, Bowel sounds present Extremities/Musculoskeletal:normal inspection, no edema Neurologic/Psych:AAOX3, Left Hemiplegia with spasticity Skin: normal color, warm Results & Data Results & Data ([facility]) Vital Signs (Past 12 Hours) Vital Signs Temp Pulse Pulse Resp BP Pulse Ox 02/03/21 14:31 36.8 C 85 103/64 95 02/03/21 11:04 37.0 C 84 17 108/66 95 02/03/21 09:00 89 02/03/21 07:49 36.9 C 86 17 116/67 93 Laboratory Results Short CBC 02/03/21 Range/Units 06:09 WBC 4.40 L (4.8-10.8) K/uL Hgb 9.5 L (12.0-16.0) g/dL Hct 29.2 L (37-47) % Plt Count 283 (130-400) K/uL BMP 02/03/21 06:09 Sodium 139 Potassium 4.6 D Chloride 107 Carbon Dioxide 25 BUN 12 Creatinine 0.53 L Glucose 95 Calcium 8.5 Liver Function 02/03/21 Range/Units 06:09 Total Bilirubin 0.2 (0.2-1) mg/dl AST 38 H (15-37) U/L ALT 39 (12-78) U/L Alkaline Phosphatase 50 (45-117) U/L Albumin 2.5 L (3.4-5.0) gm/dl
[2021-02-03] MEDS: REMDESIVIR 100 MG in SODIUM CHLORIDE 0.9% 230 ML IV SCH (19:42)
[2021-02-03] MEDS: SODIUM CHLORIDE 0.9% 10ML FLUSH IV SCH (19:42)
[2021-02-03] MEDS: DIVALPROEX EXTENDED RELEASE 500 MG TAB PO SCH (19:50)
[2021-02-03] MEDS: MELATONIN 3 MG TAB PO SCH (19:51)
[2021-02-03] MEDS: PREGABALIN 50 MG CAP PO SCH (20:10)
[2021-02-03] MEDS: SPIRONOLACTONE 25 MG TAB PO SCH (20:40)
[2021-02-04] MEDS: cefTRIAXone SODIUM 2,000 MG in DEXTROSE 5% 50 ML IV SCH (06:03)
[2021-02-04] MEDS: LEVOTHYROXINE SODIUM 50 MCG TABLET PO SCH (06:03)
[2021-02-04 06:41] LABS: Hematocrit (blood only) 30.3 % (37-47); Hemoglobin 9.9 g/dL (12.0-16.0); Mean Corpuscular Hemoglobin 29.8 pg (25-34); Mean Corpuscular Hgb Conc 32.7 g/dL (32-36); Mean Corpuscular Volume 91.3 fL (80-100); Mean Platelet Volume 9.4 fL (7.4-10.4); Platelet Count 344 K/uL (130-400); RDW Coefficient of Variation 13.5 % (11.5-14.5); Red Blood Count 3.32 M/uL (4.2-5.4); White Blood Count 4.84 K/uL (4.8-10.8)
[2021-02-04 07:28] LABS: Albumin Globulin Ratio 0.6 (0.9-2); Albumin Level 2.5 gm/dl (3.4-5.0); BUN Creatinine Ratio 25.7 (10-20); Bilirubin,Total 0.2 mg/dl (0.2-1); C Reactive Protein 10.7 mg/dl (0-0.29); Calcium 8.7 mg/dl (8.5-10.1); Creatinine Clr Calc Pharmacy 128.9 ml/min; Est GFR (African American) 122.9 ml/min; Est GFR (Non-African American) 106.1 ml/min; Globulin 4.5 gm/dl (2.5-4.0); Potassium 3.7 mmol/L (3.5-5.1)
[2021-02-04] MEDS: dexAMETHasone 6 MG in SYRINGE 0 ML IV SCH (08:24)
[2021-02-04] MEDS: PREGABALIN 25 MG CAP PO SCH ×2 (08:25→20:45)
[2021-02-04] MEDS: SPIRONOLACTONE 25 MG TAB PO SCH ×2 (08:27→20:33)
[2021-02-04] MEDS: FUROSEMIDE 20 MG TAB PO SCH (08:27)
[2021-02-04] MEDS: PANTOprazole 40 MG TAB PO SCH (08:29)
[2021-02-04] MEDS: BACLOFEN 10 MG TAB PO SCH ×4 (08:29→20:36)
[2021-02-04] MEDS: DOXYCYCLINE HYCLATE 100 MG CAP PO SCH ×2 (08:29→20:35)
[2021-02-04] MEDS: ASPIRIN 81 MG ECTAB PO SCH (08:29)
[2021-02-04] MEDS: DOCUSATE SODIUM/SENNA 50/8.6MG TAB PO SCH ×2 (08:30→20:31)
[2021-02-04] MEDS: ENOXAPARIN INJ 40 MG/0.4 ML SYR SQ SCH ×2 (08:31→20:34)
[2021-02-04] MEDS: guaiFENesin SUGAR FREE 100 MG/5 ML UDC PO SCH ×4 (08:32→20:34)
[2021-02-04] MEDS: POLYETHYLENE (MIRALAX) 17 GM PACK PO SCH (08:32)
[2021-02-04] MEDS: POTASSIUM CHLORIDE CRTAB 20 MEQ TABCR PO SCH (08:49)
[2021-02-04] MEDS: ROSUVASTATIN CALCIUM 5 MG TAB PO SCH (12:11)
[2021-02-04] MEDS: MIRABEGRON ER 25 MG TAB PO SCH (12:11)
--- NOTE | 2021-02-04 14:04 | Hospitalist Progress Note ---
Date of Service February 04, 2021 Assessment & Plan (1) Acute respiratory failure with hypoxia: Plan: Sepsis Secondary to COVID-19 pneumonia ? secondary bacterial infection Chronic oxygen 2L at bedtime -CTA:Patchy consolidative airspace opacities within the lungs posteriorly, right greater than left. This likely represents a pneumonia and could be due to aspiration or a viral process. -Blood Cultures: Negative to date -Venous Dopplers:No DVT within the right or left lower extremity. 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 Continue home carbamazepine, phenobarbital for seizure Depakote increased to 1000 mg at bedtime per neurology Continue home baclofen, pregabalin for spasticity Needs follow up with Neurology upon discharge Hx CVA Continue aspirin, statin Hx Cerebral Palsy Hx Transverse myelitis as per records Continue home meds Chronic anemia No bleeding issues Monitor CBC Hypothyroidism Continue levothyroxine DVT Px: Lovenox SQ Code Status Full code Admission and Anticipated Discharge Date Admission Date: February 01, 2021 Subjective Patient is seen and examined at bedside No new complaints cough about same as yesterday Denies dyspnea, dizziness, nausea, abdominal pain Saturating well on room air Review of Systems Review of Systems: All systems reviewed & are unremarkable except as noted in Subjective Physical Exam Physical Exam: Physical Exam: Vitals signs as noted above General Appearance:Obese, no apparent distress Head: normocephalic, Atraumatic Eyes: normal inspection, EOMI Neck: supple, Trachea midline Respiratory/Chest: Decreased breath sounds, CTA Cardiovascular: S1, S2, No murmur Abdomen/GI:Soft, Non tender, Bowel sounds present Extremities/Musculoskeletal:normal inspection, no edema Neurologic/Psych:AAOX3, Left Hemiplegia with spasticity Skin: normal color, warm Results & Data Results & Data ([facility]) Vital Signs (Past 12 Hours) Vital Signs Temp Pulse Pulse Resp BP Pulse Ox 02/04/21 11:17 36.8 C 84 18 105/70 96 02/04/21 08:00 79 02/04/21 07:47 36.7 C 84 18 116/75 95 02/04/21 04:23 36.7 C 79 20 112/68 95 Laboratory Results Short CBC 02/04/21 Range/Units 05:47 WBC 4.84 (4.8-10.8) K/uL Hgb 9.9 L (12.0-16.0) g/dL Hct 30.3 L (37-47) % Plt Count 344 (130-400) K/uL BMP 02/04/21 05:47 Sodium 137 Potassium 3.7 D Chloride 105 Carbon Dioxide 26 BUN 13 Creatinine 0.52 L Glucose 85 Calcium 8.7 Liver Function 02/04/21 Range/Units 05:47 Total Bilirubin 0.2 (0.2-1) mg/dl AST 30 (15-37) U/L ALT 40 (12-78) U/L Alkaline Phosphatase 60 (45-117) U/L Albumin 2.5 L (3.4-5.0) gm/dl
[2021-02-04] MEDS: REMDESIVIR 100 MG in SODIUM CHLORIDE 0.9% 230 ML IV SCH (20:30)
[2021-02-04] MEDS: SODIUM CHLORIDE 0.9% 10ML FLUSH IV SCH (20:31)
[2021-02-04] MEDS: MELATONIN 3 MG TAB PO SCH (20:33)
[2021-02-04] MEDS: DIVALPROEX EXTENDED RELEASE 500 MG TAB PO SCH (20:35)
[2021-02-04] MEDS: PREGABALIN 50 MG CAP PO SCH (20:45)
[2021-02-05] MEDS: cefTRIAXone SODIUM 2,000 MG in DEXTROSE 5% 50 ML IV SCH (05:39)
[2021-02-05] MEDS: LEVOTHYROXINE SODIUM 50 MCG TABLET PO SCH (05:40)
[2021-02-05 06:44] LABS: Albumin Level 2.6 gm/dl (3.4-5.0); BUN Creatinine Ratio 26.3 (10-20); Est GFR (African American) 114.8 ml/min; Est GFR (Non-African American) 99.1 ml/min; Potassium 3.5 mmol/L (3.5-5.1)
[2021-02-05 06:48] LABS: Albumin Globulin Ratio 0.6 (0.9-2); Bilirubin,Total 0.3 mg/dl (0.2-1); Globulin 4.6 gm/dl (2.5-4.0); Total Protein 7.2 gm/dl (6.4-8.2)
[2021-02-05] MEDS: ASPIRIN 81 MG ECTAB PO SCH (09:06)
[2021-02-05] MEDS: BACLOFEN 10 MG TAB PO SCH ×2 (09:07→12:48)
[2021-02-05] MEDS: dexAMETHasone 6 MG in SYRINGE 0 ML IV SCH (09:08)
[2021-02-05] MEDS: DOXYCYCLINE HYCLATE 100 MG CAP PO SCH (09:09)
[2021-02-05] MEDS: guaiFENesin SUGAR FREE 100 MG/5 ML UDC PO SCH (09:10)
[2021-02-05] MEDS: ENOXAPARIN INJ 40 MG/0.4 ML SYR SQ SCH (09:10)
[2021-02-05] MEDS: FUROSEMIDE 20 MG TAB PO SCH (09:10)
[2021-02-05] MEDS: DOCUSATE SODIUM/SENNA 50/8.6MG TAB PO SCH (09:11)
[2021-02-05] MEDS: POLYETHYLENE (MIRALAX) 17 GM PACK PO SCH (09:11)
[2021-02-05] MEDS: PANTOprazole 40 MG TAB PO SCH (09:11)
[2021-02-05] MEDS: SPIRONOLACTONE 25 MG TAB PO SCH (09:13)
[2021-02-05] MEDS: POTASSIUM CHLORIDE CRTAB 20 MEQ TABCR PO SCH (09:29)
[2021-02-05] MEDS: PREGABALIN 25 MG CAP PO SCH (09:37)
--- NOTE | 2021-02-05 11:47 | Hospitalist Progress Note ---
Date of Service February 05, 2021 Assessment & Plan (1) Acute respiratory failure with hypoxia: Plan: Sepsis Secondary to COVID-19 pneumonia ? secondary bacterial infection Chronic oxygen 2L at bedtime -CTA:Patchy consolidative airspace opacities within the lungs posteriorly, right greater than left. This likely represents a pneumonia and could be due to aspiration or a viral process. -Blood Cultures: Negative to date -Venous Dopplers:No DVT within the right or left lower extremity. 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 Continue home carbamazepine, phenobarbital for seizure Depakote increased to 1000 mg at bedtime per neurology Continue home baclofen, pregabalin for spasticity Needs follow up with Neurology upon discharge Hx CVA Continue aspirin, statin Hx Cerebral Palsy Hx Transverse myelitis as per records Continue home meds Chronic anemia No bleeding issues Monitor CBC Hypothyroidism Continue levothyroxine DVT Px: Lovenox SQ Code Status Full code Admission and Anticipated Discharge Date Admission Date: February 01, 2021 Subjective Patient is seen and examined at bedside States feeling well today No new complaints Discussed with patient's mother over the phone Cough much improved Denies dyspnea, dizziness, nausea, abdominal pain Review of Systems Review of Systems: All systems reviewed & are unremarkable except as noted in Subjective Physical Exam Physical Exam: Physical Exam: Vitals signs as noted above General Appearance:Obese, no apparent distress Head: normocephalic, Atraumatic Eyes: normal inspection, EOMI Neck: supple, Trachea midline Respiratory/Chest: Decreased breath sounds, CTA Cardiovascular: S1, S2, No murmur Abdomen/GI:Soft, Non tender, Bowel sounds present Extremities/Musculoskeletal:normal inspection, no edema Neurologic/Psych:AAOX3, Left Hemiplegia with spasticity Skin: normal color, warm Results & Data Results & Data ([facility]) Vital Signs (Past 12 Hours) Vital Signs Temp Pulse Pulse Resp BP Pulse Ox 02/05/21 11:28 36.9 C 90 16 99/63 L 95 02/05/21 07:18 36.4 C L 85 18 97/63 L 94 02/05/21 03:58 36.8 C 81 13 101/62 93 02/05/21 00:34 88 Laboratory Results [facility] 02/05/21 05:37 Sodium 136 Potassium 3.5 Chloride 106 Carbon Dioxide 25 BUN 17 Creatinine 0.64 Glucose 88 Calcium 9.0 Liver Function 02/05/21 Range/Units 05:37 Total Bilirubin 0.3 (0.2-1) mg/dl AST 18 (15-37) U/L ALT 35 (12-78) U/L Alkaline Phosphatase 70 (45-117) U/L Albumin 2.6 L (3.4-5.0) gm/dl
[2021-02-05] MEDS: ROSUVASTATIN CALCIUM 5 MG TAB PO SCH (12:48)
[2021-02-05] MEDS: MIRABEGRON ER 25 MG TAB PO SCH (12:48)
--- NOTE | 2021-02-05 13:19 | Discharge Summary ---
Date of Service February 05, 2021 Admission HPI Per Admitting Provider History obtained from patient, family, and records. Patient is a fair historian. Medical history significant for CVA, cerebral palsy, epilepsy, transverse myelitis as per records, chronic anemia (baseline hemoglobin of 11), hypothyroidism. Last confinement 2017 for influenza A bronchopneumonia. Patient moved to [facility] 6 months ago as per family. Few days history of productive cough, wheezing, feeling weak and tired. [facility]. Patient completed COVID-19 vaccination prior to illness. Patient started on daily oral Decadron. Outpatient CXR from a few days ago was negative for pneumonia as per documentation. No witnessed aspiration as per family. Z-Ortiz initiated for bronchitis by [facility] provider a few days ago. Worsening symptoms as per patient's family. Daily head shaking episodes followed by left arm jerks the last 3 days as per patient's mother. Patient denies headache symptoms. Possible psychogenic nonepileptic seizures as per outpatient Neurology note from 2 months ago. Patient brought to the ER for worsening symptoms along with pleuritic chest pain complaints. Medical History as above Surgical History : Cholecystectomy, ankle ORIF, CHEMO/BSO Family History : Breast cancer, DM Personal/Social history : Non-smoker, no EtOH intake, disabled, [facility] resident Principal Diagnosis Sepsis COVID-19 pneumonia Epilepsy Discharge Data Allergies Allergy/AdvReac Type Severity Reaction Status Date / Time lincomycin Allergy Intermediate HIVES Verified 11/16/20 08:33 Consultations 01/31/21 21:59 ED Decision to Admit Stat 02/01/21 00:21 Consult Neurology Routine Ordered Studies 02/01/21 00:10 US venous doppler LE BI Urgent 02/01/21 06:54 CT angio chest PE protocol Urgent Hospital Course (1) Acute respiratory failure with hypoxia: Sepsis Secondary to COVID-19 pneumonia ? secondary bacterial infection Chronic oxygen 2L at bedtime -CTA:Patchy consolidative airspace opacities within the lungs posteriorly, right greater than left. This likely represents a pneumonia and could be due to aspiration or a viral process. -Blood Cultures: Negative to date -Venous Dopplers:No DVT within the right or left lower extremity. 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 Continue home carbamazepine, phenobarbital for seizure Depakote increased to 1000 mg at bedtime per neurology Continue home baclofen, pregabalin for spasticity Needs follow up with Neurology upon discharge Hx CVA Continue aspirin, statin Hx Cerebral Palsy Hx Transverse myelitis as per records Continue home meds Chronic anemia No bleeding issues Monitor CBC Hypothyroidism Continue levothyroxine DVT Px: Lovenox SQ Code Status Full code Total Time Total Time Spent Total Time Spent (In Minutes): 42 minutes Discharge Plan Discharge Items Patient Disposition: Transfer [facility] Reason For Visit: [facility]P FAILURE, COVID Discharge Diagnosis: Sepsis COVID-19 pneumonia Epilepsy Activity: Per Instructions section Exercise/Sports: Wait until after follow-up appointment Non-emergency contact: Primary Care Provider and Neurologist Call non-emergency contact if: you have any medication questions, your symptoms worsen, your pain is concerning for you and you have a fever Follow-up/Referrals: Antonia Prajapati PA-C [Physician Booking Agent] - 02/22/21 1:30 pm Hardeep Paul [Primary Care Provider] - Diet: Regular Addtl Attending Provider Instructions: Follow-up with your primary care physician Hardeep Paul in 1 week as advised Follow-up with your neurologist Antonia Prajapati PA-C on February 22, 2021 at 1:30 PM as scheduled Your Divalproex dose is increased to 1000mg at bedtime as recommended by your neurologist. Seek immediate medical attention if your symptoms reoccur or worsen Please take all medications as instructed on discharge list below. Please call if you have any questions or problems. You can reach a [facility] hospitalist on duty at [facility] 24 hours a day by calling [phone] Home Isolation COVID-19 Instructions The following information about Home Isolation is from the CDC Website: https://www.cdc.gov/coronavirus/2019-ncov/hcp/dvoqbdco-ynuyukn-utalvn.html Stay home except to get medical care People who are mildly ill with COVID-19 are able to isolate at home during their illness. You should restrict activities outside your home, except for getting medical care. Do not go to work, school, or public areas. Avoid using public transportation, ride-sharing, or taxis. Separate yourself from other people and animals in your home People: As much as possible, you should stay in a specific room and away from other people in your home. Also, you should use a separate bathroom, if available. Animals: You should restrict contact with pets and other animals while you are sick with COVID-19, just like you would around other people. Although there have not been reports of pets or other animals becoming sick with COVID-19, it is still recommended that people sick with COVID-19 limit contact with animals until more information is known about the virus. When possible, have another member of your household care for your animals while you are sick. If you are sick with COVID-19, avoid contact with your pet, including petting, snuggling, being kissed or licked, and sharing food. If you must care for your pet or be around animals while you are sick, wash your hands before and after you interact with pets and wear a face mask. Call ahead before visiting your doctor If you have a medical appointment, call the healthcare provider and tell them that you have or may have COVID-19. This will help the healthcare providers office take steps to keep other people from getting infected or exposed. Wear a face mask You should wear a face mask when you are around other people (e.g., sharing a room or vehicle) or pets and before you enter a healthcare providers office. If you are not able to wear a face mask (for example, because it causes trouble breathing), then people who live with you should not stay in the same room with you, or they should wear a face mask if they enter your room. Cover your coughs and sneezes Cover your mouth and nose with a tissue when you cough or sneeze. Throw used tissues in a lined trash can. Immediately wash your hands with soap and water for at least 20 seconds or, if soap and water are not available, clean your hands with an alcohol-based hand recycle driver that contains at least 60% alcohol. Clean your hands often Wash your hands often with soap and water for at least 20 seconds, especially after blowing your nose, coughing, or sneezing; going to the bathroom; and before eating or preparing food. If soap and water are not readily available, use an alcohol-based hand recycle driver with at least 60% alcohol, covering all surfaces of your hands and rubbing them together until they feel dry. Soap and water are the best option if hands are visibly dirty. Avoid touching your eyes, nose, and mouth with unwashed hands. Avoid sharing personal household items You should not share dishes, drinking glasses, cups, eating utensils, towels, or bedding with other people or pets in your home. After using these items, they should be washed thoroughly with soap and water. Clean all high-touch surfaces everyday High touch surfaces include counters, tabletops, doorknobs, bathroom fixtures, toilets, phones, keyboards, tablets, and bedside tables. Also, clean any surfaces that may have blood, stool, or body fluids on them. Use a household cleaning spray or wipe, according to the label instructions. Labels contain instructions for safe and effective use of the cleaning product including precautions you should take when applying the product, such as wearing gloves and making sure you have good ventilation during use of the product. Monitor your symptoms Seek prompt medical attention if your illness is worsening (e.g., difficulty breathing).Beforeseeking care, call your healthcare provider and tell them that you have, or are being evaluated for, COVID-19. Put on a face mask before you enter the facility. These steps will help the healthcare providers office to keep other people in the office or waiting room from getting infected or exposed. Ask your healthcare provider to call the local or state health department. Persons who are placed under active monitoring or facilitated self-monitoring should follow instructions provided by their local health department or occupational health professionals, as appropriate. When working with your local health department check their available hours. If you have a medical emergency and need to call 911, notify the dispatch personnel that you have, or are being evaluated for COVID-19. If possible, put on a face mask before emergency medical services arrive. Discontinuing home isolation Patients with confirmed COVID-19 should remain under home isolation precautions until the risk of secondary transmission to others is thought to be low. The decision to discontinue home isolation precautions should be made on a [id number] basis, in consultation with healthcare providers and state and local health departments. Coronavirus disease 2019 (COVID-19) is a virus that causes a respiratory illness. It is caused by a coronavirus called 2019 novel coronavirus (2019- nCoV). There are many types of coronavirus. Coronaviruses are a very common cause of bronchitis. They may sometimes cause lung infection(pneumonia). Symptoms can range from mild to severe respiratory illness. These viruses are also foundin some animals. COVID-19 was first found in people in [facility], in late 2019. In 2020, several cases of COVID-19 have been confirmed in the [place] Public health officials are working to find the source. How the virus spreads is not yet fully known. It may be spread through droplets of fluid that a person coughs or sneezes into the air. It may be spread if you touch a surface with virus on it, such as a handle or object, and then touch your mouth. What are the symptoms of COVID-19? Some people have no symptoms or mild symptoms. Symptoms may appear 2 to 14 days after contact with the virus. Symptoms can include: Fever Coughing Trouble breathing What are possible complications from COVID-19? In many cases, this virus can cause infection (pneumonia) in both lungs. In some cases, this can cause . How is COVID-19 diagnosed? Your healthcare provider will ask about your symptoms. He or she will also ask about your recent travel and contact with sick people. Testing for the virus is only done through the CDC. If yourhealthcare provider thinks you may have COVID- 19, he or she will work with your local health department and the CDC on testing. Follow all instructions from your healthcare provider. COVID-19 is diagnosed by: Nasal and throat swab. A cotton-tipped swab is wiped inside your nose or throat. This is done to check for viruses in your nasal mucus. Sputum culture. A small sample of mucus coughed from your lungs (sputum) is collected if you have a cough. It is checked for the virus. How is COVID-19 treated? There is currently no medicine to treat the virus. Treatment is done to help your body while it fights the virus. This is known as supportive care. Supportive care may include: Pain medicine. These include acetaminophen and ibuprofen. They are used to help ease pain and reduce fever. Bed rest. This helps your body fight the illness. For severe illness, you may need to stay in the hospital. Care during severe illness may include: IV (intravenous) fluids.These are given through a vein to help keep your body hydrated. Oxygen. Supplemental oxygen or ventilation with a breathing machine (ventilator) may be given. This is done to keep enough oxygen in your body. Are you at risk for COVID-19? If youve been to a place where people have been sick with this virus, you are at risk for infection. You are at risk if you: Recently traveled to an affected area Had contact with a sick person who recently traveled to this area Had contact with a person who was diagnosed with COVID-19 How can COVID-19 be prevented? There is no vaccine yet. The best prevention is to not have contact with the virus. The CDC advises that people should not travel to areas where there are COVID-19 outbreaks right now for any reason that is not urgent. To help prevent spreading the infection, wash your hands often, or use an alcohol-basedhand recycle driver. If you are in an area with COVID-19: Wash your hands often. Or use an alcohol-based hand recycle driver often. Only touch your eyes, nose, or mouth with clean hands. Dont have contact with people who are sick. Follow local instructions about being in public. For example, you may be told to not use public transport for a period of time. Stay away from markets that have live or animals. Wash your hands after touching any animals. Don't touch animals that may be sick. Dont share eating or drinking tools with sick people. Dont kiss someone who is sick. Clean surfaces often with disinfectant. If you were in an area with COVID-19 in the last 14 days: Call your healthcare provider. He or she can talk with local health staff to see what action may be needed. Follow all instructions from your provider. Take your temperature every morning and evening for at least 14 days. This is to check for fever. Keep a record of the readings. Keep watch for symptoms of the virus. Tell your provider right away if you have symptoms. If you were in an area with COVID-19 and have a fever or other symptoms: Dont panic. Keep in mind that other illnesses can cause similar symptoms. Stay away from work, school, and public places. Limit physical contact with family members. Don't kiss anyone or share eating or drinking utensils. Clean surfaces you touch with disinfectant. This is to help prevent the virus from spreading. Call your healthcare provider. Explain that you have been exposed to COVID-19 and have symptoms. Do this before going to any hospital. Wait for instructions. Keep in mind that healthcare staff may wear protective equipment such as masks, gowns, gloves, and eye protection. You may be put in a separate room. This is to prevent the possible virus from spreading. Tell the healthcare staff about recent travel. This includes local travel on public transport. Staff may need to find other people you have been in contact with. Follow all instructions the healthcare staff give you. If you have been diagnosed with COVID-19 Follow all instructions from your healthcare provider. Dont leave your home, except to get medical care. Call your healthcare providers office before going. They can prepare and give you instructions. This will help prevent the virus from spreading. Dont go to work, school, or public areas. Dont use public transport or taxis. Stay away from other people in your home. Have them wear face masks around you. Dont share household items or food. Wear a face mask if you can. This includes at home or in a medical facility. Cover your face with a tissue when you cough or sneeze. Throw the tissue away. Wash your hands. Wash your hands often. Caregivers should: Follow all instructions from healthcare staff. Wear a face mask and protective clothing as advised. Wash hands often. Keep track of the sick persons symptoms. Clean surfaces, fabrics, and laundry thoroughly. Keep other people away from the sick person. When to call your healthcare provider Call your healthcare provider: If youve recently traveled and have symptoms If you have been diagnosed with COVID-19 and your symptoms are worse To learn more To find out more about COVID-19, visit the CDC website at www.cdc.gov/coronavirus/2019-ncov/index.html. [employer]. [address] [place] [address], [place] [address]. All rights reserved. This information is not intended as a substitute for professional medical care. Always follow your healthcare professional's instructions. This information has been adapted from [employer] Pending Studies at Discharge: No Stand-Alone Forms: My [facility] Skilled Items Patient informed of condition?: Yes DNR: No Discharge Level of Care: Skilled Communicable Disease: Yes Discharge Prognosis: Stable Lines: None Urinary Catheter: No Medications and DC Order Prescriptions: New divalproex 500 mg Tablet Extended Release 24 Hr 1,000 mg PO HS Qty: 60 RF: 0 Continued carbamazepine [Tegretol XR] 200 mg tablet extended release 12 hr 400 mg PO BID 90 Days Qty: 360 RF: 1 aspirin 81 mg tablet,chewable 81 mg PO DAILY RF: 0 levothyroxine 50 mcg capsule 50 mcg PO DAILY RF: 0 vitamin E 400 unit capsule 400 unit PO DAILY@1200 RF: 0 ascorbic acid (vitamin C) 500 mg tablet 500 mg PO DAILY RF: 0 cholecalciferol (vitamin D3) 50 mcg (2,000 unit) tablet 2,000 unit PO DAILY@1200 RF: 0 clonazepam [Klonopin] 0.5 mg tablet 0.5 mg PO TID PRN (Reason: Seizure Activity) RF: 0 bisacodyl [Dulcolax (bisacodyl)] 10 mg suppository 10 mg NJ DAILY PRN (Reason: Constipation) RF: 0 Fleet Enema 19-7 gram/118 mL enema 118 ml NJ DAILY PRN (Reason: Constipation) RF: 0 magnesium hydroxide [Milk of Magnesia] 400 mg/5 mL suspension 30 ml PO DAILY PRN (Reason: Constipation) RF: 0 cranberry 400 mg capsule 400 mg PO DAILY RF: 0 omeprazole 20 mg capsule,delayed release(DR/EC) 20 mg PO DAILY RF: 0 pregabalin 50 mg capsule 50 mg PO HS RF: 0 furosemide 20 mg tablet 20 mg PO DAILY RF: 0 phenobarbital 32.4 mg tablet 32.4 mg PO BID RF: 0 pregabalin 25 mg capsule 25 mg PO BID RF: 0 sennosides-docusate sodium 8.6-50 mg Tablet 2 tab PO BID RF: 0 spironolactone [Aldactone] 25 mg Tablet 25 mg PO BID RF: 0 baclofen 10 mg tablet 10 mg PO QID RF: 0 rosuvastatin 5 mg tablet 5 mg PO DAILY@1200 RF: 0 melatonin 10 mg Tablet 10 mg PO HS RF: 0 acetaminophen [Tylenol Extra Strength] 500 mg tablet 500 mg PO BID PRN (Reason: Pain) RF: 0 ipratropium-albuterol 0.5 mg-3 mg(2.5 mg base)/3 mL solution for nebulization 3 ml INHALATION QID RF: 0 polyethylene glycol 3350 [Miralax] 17 gram Powder In Packet 17 g PO DAILY RF: 0 guaifenesin [Robafen] 100 mg/5 mL liquid 200 mg PO QID RF: 0 potassium chloride 20 mEq Tablet Extended Release 20 meq PO DAILY RF: 0 acetaminophen [Tylenol] 325 mg Tablet 325 mg PO Q4H PRN (Reason: Fever Or Pain) RF: 0 Myrbetriq 50 mg tablet extended release 24 hr 50 mg PO DAILY@1200 RF: 0 Discontinued divalproex [Depakote ER] 500 mg tablet extended release 24 hr See Rx Instructions .ROUTE .COMPLEX Qty: 90 RF: 0 divalproex 250 mg tablet extended release 24 hr 250 mg PO .COMPLEX 30 Days Qty: 30 RF: 3 azithromycin 250 mg Tablet 250 mg PO DAILY RF: 0 dexamethasone 6 mg Tablet 6 mg PO DAILY RF: 0 Discharge Orders: Discharge Order (Routine); Ordered 02/05/21 Ordered By: Leonid Earl Admission Data Admit Date/Time: 02/01/21 00:18 Attending Provider: Leonid Earl Admit Provider: William López Primary Care Provider: Hardeep Paul Other Providers: William López ; Carlos Tracy ; Farooq Sheikh ; Antonia Prajapati ; Elvia Arias ; Erica Ugarte ; Moira Pringle Other Interventions: Discharge Summary Assessment (RN) Last Done: 02/05/21 12:53
== END 2021-02-05 14:30 | DRG 871 ==
LOC: ED 19:19 → 2S 02-01 00:18 → SUATTDRO 02-01 00:18 → 2S 02-01 00:32
DX: G40.89 Other seizures; M41.9 Scoliosis, unspecified; E87.6 Hypokalemia; G40.409 Other generalized epilepsy and epileptic syndromes, not intractable, without status epilepticus; J96.01 Acute respiratory failure with hypoxia; J69.0 Pneumonitis due to inhalation of food and vomit; Z88.1 Allergy status to other antibiotic agents; Z79.82 Long term (current) use of aspirin; D64.9 Anemia, unspecified; Z86.73 Personal history of transient ischemic attack (TIA), and cerebral infarction without residual deficits; J12.82 Pneumonia due to coronavirus disease 2019; G95.89 Other specified diseases of spinal cord; A41.89 Other specified sepsis; Z87.440 Personal history of urinary (tract) infections; G81.94 Hemiplegia, unspecified affecting left nondominant side; G80.2 Spastic hemiplegic cerebral palsy; E03.9 Hypothyroidism, unspecified; J15.9 Unspecified bacterial pneumonia; U07.1 COVID-19